=== PATIENT | female | born 1965 | race Caucasian/White ===

== ENCOUNTER 2020-05-18 12:58 | Emergency (ER) | payer OTHER, MEDICARE, SELFPAY ==
--- NOTE | ~2020-05-18 | CT_ITS ---
EXAMINATION: CTA chest PE protocol EXAM DATE: 05/18/2020 16:39 INDICATION: Weakness. Postoperative 3 months ago. TECHNIQUE: Spiral CTA of the chest (pulmonary arteries) was performed with 100 cc Omnipaque 350 intr avenous contrast injection. Images were acquired during the pulmonary arterial phase. Coronal maxi mum intensity projection 3D-reconstructions were created by the technologist on dedicated workstation . Axial, coronal and sagittal reformatted images were reviewed. The dose-length product (DLP) for t his examination was 266.30 mGy-cm. The exposure was tailored according to patient size (auto mA exp osure control), and iterative reconstruction (ASIR) was used as additional dose reduction technique. Comparison is made to prior examination from 05/24/2009. FINDINGS: Pulmonary arteries are well opacified and without intraluminal filling defects. No thora cic aortic dissection. There is mild emphysema and some small scattered tree-in-bud opacities likely postinfectious. There is a 4 mm nodule along the left major fissure likely postinfectious. There is small to moderate size pericardial effusion. No pleural effusion. Tracheobronchial tree is patent. There is no mediastinal, hilar or axillary lymphadenopathy. There is no pneumothorax. Heart nor mal in size. There is mild coronary arterial calcification, arterial sclerosis. Upper abdomen is u nremarkable. There is thoracic spondylosis without osteoblastic or osteolytic lesions identified. IMPRESSION: 1. Small to moderate-sized pericardial effusion. 2. Small post infectious residua. 3. Mild emphysema. 4. No pulmonary emboli. Reviewed, dictated and finalized at location B.
--- NOTE | ~2020-05-18 | XR_ITS ---
EXAMINATION: XR chest 2V DATE: 05/18/2020 13:21 INDICATION: 2 weeks of weakness and one day of fever. TECHNIQUE: PA and lateral views of the chest were obtained. COMPARISON: Chest radiograph dated 07/17/2016 FINDINGS: The lungs remain clear with no focal airspace opacities, pulmonary edema, pleural effusion or pneumot horax. The cardiomediastinal silhouette is normal. Cholecystectomy clips in the right upper quadrant. Mild lower thoracic levocurvature. IMPRESSION: 1. No acute cardiopulmonary disease. Reviewed, dictated and finalized at location A.
--- NOTE | ~2020-05-18 | CT_ITS ---
EXAMINATION: CT abdomen pelvis w con EXAM DATE: 05/18/2020 14:52 INDICATION: Right lower quadrant pain. Fall, head injury. Dizziness. Nausea. Colonic fluid, correla te for diarrhea. TECHNIQUE: Spiral CT of the abdomen and pelvis was performed following intravenous injection of 100 m L Omnipaque 350. Axial, coronal and sagittal images were reviewed. The dose-length product (DLP) fo r this examination was 547.73 mGy-cm. The exposure was tailored according to patient size (auto mA e xposure control), and iterative reconstruction (ASIR) was used as additional dose reduction technique . Comparison is made to prior examination from 02/23/2017. FINDINGS: The liver, spleen, adrenal glands and pancreas are unremarkable. There are cholecystectomy clips. Portal and splenic veins are patent. Kidneys enhance symmetrically. There is no hydronephr osis. The prostate is unremarkable. The bladder is unremarkable. There is no retroperitoneal or p elvic lymphadenopathy. The appendix is normal. The stomach and small bowel are unremarkable. Possible mild ascending colon ic wall edema. There is colonic fluid, correlate for enterocolitis. No free intraperitoneal gas. Th e heart is normal in size. There are no pericardial or pleural effusions. The lung bases are unrema rkable. There are no acute fractures identified. IMPRESSION: 1. Possible mild enterocolitis. 2. No acute posttraumatic findings. Reviewed, dictated and finalized at location B.
--- NOTE | ~2020-05-18 | CT_ITS ---
EXAMINATION: CT brain wo con DATE: 05/18/2020 14:52 INDICATION: Weakness TECHNIQUE: Computed tomography (CT) of the head was performed without intravenous contrast. Sagittal and coronal reconstructions were performed. The mA was adjusted according to patient size. Iterative reconstruction technique was employed. The dose-length product was 605.33 mGy-cm. COMPARISON: head CT dated 03/08/2013 FINDINGS: No acute intracranial hemorrhage, acute infarction or abnormal extra axial fluid collection. Ventricl es are normal and symmetric. No mass/mass effect. The orbits, paranasal sinuses and mastoid air cells are normal. IMPRESSION: 1. No acute cardiopulmonary disease. Reviewed, dictated and finalized at location A.
[2020-05-18 13:00] VITALS: BP 136/96; PULSE 109; RESP 20; TEMP 36.6; O2SAT 97
[2020-05-18 13:04] VITALS: O2SAT 97
--- NOTE | 2020-05-18 13:05 | ECG_ITS ---
Measurements Intervals [place] Rate: 102 P: 27 NE: 156 QRS: 7 QRSD: 92 T: 8 QT: 350 QTc: 456 Interpretive Statements SINUS TACHYCARDIA LOW QRS VOLTAGE- DIFFUSE LEADS BORDERLINE R WAVE PROGRESSION, ANTERIOR LEADS BORDERLINE T WAVE ABNORMALITY- ANT/INF LEADS ABNORMAL ECG Electronically Signed On 05-18-2020 15:45:49 CDT by Thom Pack D.O.
--- NOTE | 2020-05-18 13:17 | ED.GENADULT ---
HPI - General Adult General Chief complaint: Weakness Stated complaint: FLU LIKE SYMPTOMS Time Seen by Provider: 05/18/20 13:02 History of Present Illness HPI narrative: 54-year-old female patient presents to the [facility] with complaints overall just feeling weak. Patient states that she had knee surgery to the left knee in January. Patient states that since then she has just been feeling very weak and tired. Patient states she was told by her primary doctor she had low iron and she was supposed to be getting some IV supplement but states that that has never been set up. Patient states she was taking blood thinners after the surgery but no longer on blood thinners at this time. Patient is diabetic. Patient states that she easily gets tired when getting up moving around. Patient states that at times she does fall and the last time she fell was a couple of weeks ago. Patient states she noticed today she had a fever of 101. Denies chest pain or shortness of breath. Patient states she has had some diarrhea and some lower abdominal discomfort. Patient states she has had headaches at times. Patient states that her left arm feels weaker than normal. Related Data Allergies Allergy/AdvReac Type Severity Reaction Status Date / Time codeine Allergy Unknown cold sores Verified 05/03/20 08:33 diphenhydramine Allergy Unknown BREAKS ME Verified 05/03/20 08:33 OUT doxycycline Allergy Unknown Nausea Verified 05/03/20 08:33 guaifenesin [Entex T] Allergy Unknown Skin Verified 05/03/20 08:33 Reaction morphine Allergy Unknown Verified 05/03/20 08:33 naproxen Allergy Unknown Verified 05/03/20 08:33 Penicillins Allergy Unknown Verified 05/03/20 08:33 prednisone Allergy Unknown Verified 05/03/20 08:33 pseudoephedrine [Entex T] Allergy Unknown Skin Verified 05/03/20 08:33 Reaction ibuprofen AdvReac Mild nausea Verified 05/03/20 08:33 METOCLOPRAMIDE HCL Allergy Mild INTERACTS Uncoded 05/03/20 08:33 WITH PROZAC Review of Systems Review of Systems: Narrative: CONSTITUTIONAL: Denies fever, chills, or sweats. EYES: Denies visual changes, redness, or discharge. ENT: Denies rhinorrhea, congestion, sore throat, or otalgia. CARDIOVASCULAR: Denies chest pain, palpitations, or edema. RESPIRATORY: Denies cough or dyspnea. GASTROINTESTINAL: Positive lower abdominal pain, denies nausea, vomiting, positive diarrhea. GENITOURINARY: Denies dysuria or hematuria. SKIN: Denies rash or itching. MUSCULOSKELETAL: Denies back pain, joint pain, or myalgia. NEUROLOGIC: Positive headache, denies numbness,, positive weakness more so on the left side. PSYCHIATRIC: Denies anxiety or depression. PENDING SALE TO [facility] Past Medical History Medical History (Updated 05/18/20 @ 18:23 by ALONDRA Guevara) Diabetes Hypertension Surgical History Surgical History History of left knee replacement Family History Family History Sibling Family history of elevated blood lipids Family history of diabetes mellitus in first degree relative Mother Family history of diabetes mellitus in first degree relative Father Family history of congestive heart failure Other Cerebrovascular accident Diabetes mellitus Family history of allergic disorder Family history of cardiovascular disease Family history of kidney disease Hypertension Social History Social History Alcohol intake: never Comments At the time of my signature I agree with nursing past medical history, surgical, social, and family history. There is no relevant family history pertinent to the presenting complaint. Exam Narrative: Exam Narrative: GENERAL: ill-appearing, patient appears pale overall weak. No acute distress. HEAD: Normocephalic, atraumatic. EYES: PERRLA and EOMI. ENT: Nares clear, no rhinorrhea or epistaxis. Mucous membran
--- NOTE | 2020-05-18 13:22 | PC.NURSE ---
Patient declines using the bathroom at this time to give a urine sample, patient states Nope I cant do that right now, I went a while ago, your just going to have to wait. Patient able to get up out of wheelchair and walk to bed without difficulty and in no distress.
[2020-05-18 13:43] LABS: Basophils Percent Auto 0.4 % (0.2-1.2); Eosinophils Absolute Auto 0.1 K/mm3 (0-0.3); Eosinophils Percent Auto 1.2 % (0-4.4); Hematocrit 34.3 % (37.0-47.0); Hemoglobin 11.2 g/dL (12.0-15.0); Immature Granulocyte Absolute 0.01 K/mm3 (0.00-0.031); Immature Granulocyte Percent A 0.1 % (0-0.5); Lymphocytes Absolute Auto 1.13 K/mm3 (0.9-3.2); Lymphocytes Percent Auto 13.5 % (18.3-44.2); Mean Corpuscular HGB Conc 32.7 g/dl (32-36); Mean Corpuscular Hemoglobin 27.1 pg (26-34); Mean Corpuscular Volume 82.9 fl (80-100); Mean Platelet Volume 9.1 fl (7.4-10.4); Monocytes Absolute Auto 0.5 K/mm3 (0.1-0.6); Monocytes Percent Auto 6.5 % (2.6-8.5); Neutrophils Absolute Auto 6.5 K/mm3 (1.3-6.7); Neutrophils Percent Auto 78.3 % (45.5-73.1); Platelet Count Result 257 k/mm3 (150-375); Red Blood Count 4.14 M/mm3 (4.2-5.4); Red Cell Distribution Width 14.6 % (11.5-14.5); White Blood Count 8.3 K/mm3 (4.5-10.0)
--- NOTE | 2020-05-18 13:50 | PC.NURSE ---
Called to add on Trop I, PT INR PTT, D dimer, and FE TIBC.
[2020-05-18] MEDS: SODIUM CHLORIDE 0.9% IV 1,000 ML 999 ML IV CONT (13:53)
[2020-05-18 14:11] LABS: Alanine Aminotransferase 58 U/L (4-35); Albumin Level 4.5 g/dL (3.5-5.1); Alkaline Phosphatase 173 U/L (38-126); Aspartate Amino Transferase 77 U/L (14-36); Bilirubin,Total 0.5 mg/dL (0.2-1.3); Blood Urea Nitrogen 11 mg/dL (7-17); Calcium 9.2 mg/dL (8.4-10.2); Carbon Dioxide 25 mmol/L (22-30); Chloride 102 mmol/L (98-107); Estimated CRCL calculation 103 ml/min; Estimated Glomerular Filt Rate > 60; Glucose 141 mg/dL (65-105); Potassium 3.9 mmol/L (3.4-5.0); Sodium 140 mmol/L (137-145)
[2020-05-18 14:13] VITALS: BP 112/73; PULSE 97; RESP 20; O2SAT 97
[2020-05-18 14:16] LABS: Prothrombin Time 13.2 Seconds (11.1-14.7)
[2020-05-18 14:17] LABS: Partial Thromboplastin Time 28.4 SECONDS (22.3-36.8)
[2020-05-18 14:20] LABS: D Dimer 2.21 ug/mL (<0.48)
[2020-05-18 14:22] LABS: Troponin I < 0.012 ng/mL (0.000-0.034)
--- NOTE | 2020-05-18 14:31 | PC.NURSE ---
Called lab to add on FE TIBC
[2020-05-18 14:51] LABS: Iron 44 ug/dL (37-170)
[2020-05-18 15:00] LABS: Percent Iron Saturation 11 % (20-50)
[2020-05-18 15:15] VITALS: BP 113/77; BP 115/80; BP 124/88; PULSE 88; PULSE 92; PULSE 94
[2020-05-18 15:25] LABS: Add Urine Microscopic? NO; Appearance Urine Clear (Clear); Bilirubin Urine Negative (Negative); Blood Urine Negative (Negative); Color Urine Yellow (Yellow); Glucose Urine UA Negative (Negative); Ketones Urine Negative (Negative); Leukocyte Esterase Ur Negative LEU/UL (Negative); Nitrate Urine Negative (Negative); Protein Urine Negative (Negative); Specific Grav Ur 1.014 (1.001-1.035); Urobilinogen Urine Negative mg/dL (<2.0)
[2020-05-18 17:08] VITALS: BP 137/93; PULSE 87; RESP 20; O2SAT 98
--- NOTE | 2020-05-18 17:45 | PC.NURSE ---
Pt ambulated approx 100ft w/o difficulty. Pt denies dizziness, denies SOB/CP.
[2020-05-18 18:37] VITALS: BP 124/70; PULSE 80; RESP 20; TEMP 36.6; O2SAT 99
[2020-05-19 17:16] LABS: SARS-CoV-2 RNA PCR Negative
== END 2020-05-18 18:39 | disposition home or self-care (01) ==
PROVIDERS: Emergency Provider Nurse Practitioner Family; PCP Internal Medicine
DX: R53.1 Weakness (principal); I31.3 Pericardial effusion (noninflammatory); Z20.828 Contact with and (suspected) exposure to other viral communicable diseases; E11.9 Type 2 diabetes mellitus without complications; I10 Essential (primary) hypertension; Z96.652 Presence of left artificial knee joint; R00.0 Tachycardia, unspecified; R94.31 Abnormal electrocardiogram [ECG] [EKG]
CPT/HCPCS: 36415; 36600; 70450; 71046; 71275; 74177; 80053; 81003; 82805; 82948; 83540; 83550; 83605; 84484; 85025; 85380; 85610; 85730; 87635; 93005; 96360; 99284; C9803; J7030; Q9967; U0003

== ENCOUNTER 2020-07-13 13:44 | Emergency (ER) | payer OTHER, MEDICARE, SELFPAY ==
--- NOTE | ~2020-07-13 | CT_ITS ---
EXAMINATION: CTA chest PE protocol DATE: 07/13/2020 14:50 INDICATION: Shortness of breath and tachycardia TECHNIQUE: Computed tomography angiography (CTA) of the chest was performed with 100 mL Omnipaque-350 intravenous contrast timed to evaluate the pulmonary arteries. Coronal maximum intensity projection 3D-reconstructions were created by the technologist. The dose-length product (DLP) was 429.08 mGy-cm. Automated exposure control and iterative reconstruction technique were employed. COMPARISON: 05/18/2020 FINDINGS: The pulmonary arteries are moderately well-opacified. No pulmonary embolism is identified. The lungs are free of acute opacities. There is no pleural effusion or pneumothorax. A chronic small pericardial effusion is noted. No pathologically enlarged thoracic lymph nodes are identified. The h eart size is normal. The left thyroid lobe is hypoplastic or absent. Scattered stable pulmonary nodul es measuring up to 4 mm are consistent with old granulomatous disease. Cholecystectomy clips are note d. There is mild thoracic spondylosis. IMPRESSION: 1. No pulmonary embolism or acute cardiopulmonary abnormality. 2. Chronic small pericardial effusion, stable Reviewed, dictated and finalized at location A.
--- NOTE | ~2020-07-13 | XR_ITS ---
EXAMINATION: XR chest 2V DATE: 07/13/2020 14:45 INDICATION: Shortness of breath and tachycardia TECHNIQUE: PA and lateral views of the chest are obtained. COMPARISON: 05/18/2020 FINDINGS: The lungs are free of acute opacities. There is no pleural effusion or pneumothorax. The ca rdiomediastinal silhouette is normal. There is mild thoracic spondylosis. Surgical clips in the right upper quadrant are likely from prior cholecystectomy. IMPRESSION: 1. No acute cardiopulmonary abnormality. Reviewed, dictated and finalized at location A.
[2020-07-13 13:50] VITALS: BP 146/95; PULSE 128; RESP 20; TEMP 36.1; O2SAT 99
--- NOTE | 2020-07-13 13:54 | ECG_ITS ---
Measurements Intervals [place] Rate: 116 P: 42 VA: 169 QRS: 27 QRSD: 100 T: 17 QT: 325 QTc: 453 Interpretive Statements SINUS TACHYCARDIA POOR R WAVE PROGRESSION, ANTERIOR LEADS BORDERLINE ST-T WAVE ABNORMALITY- ANTEROLAT/INF LEADS BASELINE WANDER- I, III, AVR, AVL, AVF ABNORMAL ECG Electronically Signed On 07-13-2020 13:58:28 CDT by Thom Pack D.O.
[2020-07-13 14:15] LABS: Basophils Percent Auto 0.6 % (0.2-1.2); Eosinophils Absolute Auto 0.1 K/mm3 (0-0.3); Hematocrit 38.9 % (37.0-47.0); Hemoglobin 12.9 g/dL (12.0-15.0); Immature Granulocyte Absolute 0.01 K/mm3 (0.00-0.031); Immature Granulocyte Percent A 0.1 % (0-0.5); Lymphocytes Absolute Auto 1.67 K/mm3 (0.9-3.2); Lymphocytes Percent Auto 24.4 % (18.3-44.2); Mean Corpuscular HGB Conc 33.2 g/dl (32-36); Mean Corpuscular Hemoglobin 28.4 pg (26-34); Mean Corpuscular Volume 85.7 fl (80-100); Mean Platelet Volume 9.2 fl (7.4-10.4); Monocytes Absolute Auto 0.4 K/mm3 (0.1-0.6); Monocytes Percent Auto 6.3 % (2.6-8.5); Neutrophils Absolute Auto 4.6 K/mm3 (1.3-6.7); Neutrophils Percent Auto 67.6 % (45.5-73.1); Platelet Count Result 262 k/mm3 (150-375); Red Blood Count 4.54 M/mm3 (4.2-5.4); Red Cell Distribution Width 15.7 % (11.5-14.5); White Blood Count 6.8 K/mm3 (4.5-10.0)
--- NOTE | 2020-07-13 14:23 | ED.ARRPALP ---
HPI - Arrhythmia/Palpitations General Chief Complaint: Arrhythmia/Palpitations Stated Complaint: short of breath, increased heart rate Time Seen by Provider: 07/13/20 13:49 Source: patient Mode of arrival: ambulatory Limitations: no limitations History of Present Illness HPI narrative: This patient is 54 year old female who presents for evaluation of rapid heart rate. PAtient states she went to get an iron infusion, and she was found to have an elevated heart rate so she was told to come to ER. She reports she intermittent feels her heart racing. She denies chest pain, nausea, vomiting, fever, or cough. She report intermittent sob but she denies now. complaint: rapid heart beat Related Data Home Medications Medication Instructions Recorded Confirmed atorvastatin 20 mg PO DAILY 06/21/20 07/13/20 fluoxetine 20 mg PO DAILY 06/21/20 07/13/20 gabapentin 300 mg PO BID 06/21/20 07/13/20 metformin 2,000 mg PO BID 06/21/20 07/13/20 metoprolol succinate 25 mg PO BID 06/21/20 07/13/20 Allergies Allergy/AdvReac Type Severity Reaction Status Date / Time codeine Allergy Unknown cold sores Verified 07/13/20 13:53 diphenhydramine Allergy Unknown BREAKS ME Verified 07/13/20 13:53 OUT doxycycline Allergy Unknown Nausea Verified 07/13/20 13:53 guaifenesin [Entex T] Allergy Unknown Skin Verified 07/13/20 13:53 Reaction morphine Allergy Unknown Unknown Verified 07/13/20 13:53 naproxen Allergy Unknown Unknown Verified 07/13/20 13:53 Penicillins Allergy Unknown Unknown Verified 07/13/20 13:53 prednisone Allergy Unknown Unknown Verified 07/13/20 13:53 pseudoephedrine [Entex T] Allergy Unknown Skin Verified 07/13/20 13:53 Reaction ibuprofen AdvReac Mild nausea Verified 07/13/20 13:53 METOCLOPRAMIDE HCL Allergy Mild INTERACTS Uncoded 07/13/20 13:53 WITH PROZAC Review of Systems Review of Systems: All systems reviewed & are unremarkable except as noted in HPI and below Constitutional: Constitutional: Denies chills and Denies fever(s) Cardiovascular: Cardiovascular: Denies chest pain and Reports rapid heart rate Respiratory: Respiratory: Denies cough and Reports dyspnea (intermittent) Gastrointestinal: Gastrointestinal: Denies abdominal pain, Denies diarrhea, Denies nausea and Denies vomiting Genitourinary: Genitourinary: Denies hematuria Neurologic: Denies headache(s) [facility] Past Medical History Medical History (Updated 07/13/20 @ 17:51 by Ellen Bates MD) Anemia Diabetes Hypertension Surgical History Surgical History History of left knee replacement Social History Social History Smoking status: Never smoker Alcohol intake: never Gender identity (if verbalized by the patient): Female Spiritual care concerns: No Exam Narrative: Exam Narrative: GENERAL: Well-appearing, well-nourished, and in no acute distress. HEAD: Normocephalic, atraumatic EYES: PERRLA and EOMI, conjunctiva clear without discharge EARS: TM's clear bilaterally without erythema or dullness NOSE: Nares clear, no rhinorrhea or epistaxis THROAT:Mucous membranes moist, Oropharynx normal without erythema, exudate, peritonsillar swelling or fluctuance NECK: Supple, without lymphadenopathy or mass RESPIRATORY: No respiratory distress, Airway patent, Respirations non-labored, Clear to auscultation without rales, rhonchi or wheeze ABDOMEN: Soft, nontender, nondistended, normal active bowel sounds. No masses. No rebound or guarding, No organomegaly. EXTREMITIES: No edema, normal strength with full range of motion. SKIN: Warm, dry, normal color without rash NEURO: Alert and oriented x3. CN 2-12 grossly intact. No focal deficits. PSYCH: Normal mood and affect. Cardio: Rate: tachycardic Rhythm: regular rhythm Heart sounds: no murmurs Course Reevaluation(s) Reevaluation #1: I discussed with patient lab
[2020-07-13 14:26] LABS: Anion Gap 16 mmol/L (8-16); Blood Urea Nitrogen 11 mg/dL (7-17); Calcium 9.6 mg/dL (8.4-10.2); Carbon Dioxide 22 mmol/L (22-30); Chloride 100 mmol/L (98-107); Estimated CRCL calculation 87 ml/min; Estimated Glomerular Filt Rate > 60; Glucose 261 mg/dL (65-105); Potassium 3.3 mmol/L (3.4-5.0); Sodium 138 mmol/L (137-145)
[2020-07-13] MEDS: SODIUM CHLORIDE 0.9% IV 1,000 ML 999 ML IV CONT ×2 (14:29→16:03)
[2020-07-13 14:46] LABS: INR 1.2; Prothrombin Time 14.7 Seconds (11.1-14.7)
[2020-07-13 14:47] LABS: Partial Thromboplastin Time 27.2 SECONDS (22.3-36.8)
[2020-07-13 14:49] LABS: Lactic Acid Reflex 3.5 mmol/L (0.7-2.1); Magnesium 1.4 mg/dL (1.6-2.3)
[2020-07-13 16:04] VITALS: BP 114/79; PULSE 96; RESP 18; O2SAT 100
[2020-07-13 17:17] LABS: Potassium 3.5 mmol/L (3.4-5.0)
[2020-07-13 17:20] LABS: Lactic Acid 1.8 mmol/L (0.7-2.1)
[2020-07-13 17:36] LABS: Reflex Lactic Acid Yes or No Add Lactic
[2020-07-13 17:53] VITALS: BP 124/88; PULSE 98; RESP 18; O2SAT 97
== END 2020-07-13 17:59 | disposition home or self-care (01) ==
PROVIDERS: Emergency Provider General Practice; PCP Internal Medicine
DX: R00.0 Tachycardia, unspecified (principal); E87.2 Acidosis; I31.3 Pericardial effusion (noninflammatory); E11.9 Type 2 diabetes mellitus without complications; I10 Essential (primary) hypertension; Z79.84 Long term (current) use of oral hypoglycemic drugs; Z96.652 Presence of left artificial knee joint; Z86.2 Personal history of diseases of the blood and blood-forming organs and certain disorders involving the immune mechanism; R94.31 Abnormal electrocardiogram [ECG] [EKG]
CPT/HCPCS: 36415; 71046; 71275; 80048; 83605; 83735; 84132; 85025; 85610; 85730; 93005; 96360; 96361; 99284; J7030; Q9967

== ENCOUNTER 2021-07-23 13:56 | Outpatient (CLI) | payer OTHER, MEDICARE, SELFPAY ==
[2021-07-23 14:41] LABS: Anion Gap 12 mmol/L (8-16); Blood Urea Nitrogen 8 mg/dL (7-17); Calcium 9.7 mg/dL (8.4-10.2); Carbon Dioxide 23 mmol/L (22-30); Chloride 104 mmol/L (98-107); Estimated Glomerular Filt Rate > 60; Glucose 147 mg/dL (65-110); Magnesium 1.2 mg/dL (1.6-2.3); Potassium 3.5 mmol/L (3.4-5.0); Sodium 139 mmol/L (137-145)
== END 2021-07-23 13:57 | disposition home or self-care (01) ==
PROVIDERS: PCP Internal Medicine; Visit Provider Nurse Practitioner Adult Health
DX: R94.31 Abnormal electrocardiogram [ECG] [EKG] (principal); R07.89 Other chest pain
CPT/HCPCS: 36415; 80048; 83735

== ENCOUNTER 2021-08-01 12:02 | Outpatient (CLI) | payer OTHER, MEDICARE, SELFPAY ==
[2021-08-01 13:40] LABS: Magnesium 0.9 mg/dL (1.6-2.3)
== END 2021-08-01 12:03 | disposition home or self-care (01) ==
LOC: ANHLAB 12:04
PROVIDERS: PCP Internal Medicine; Visit Provider Nurse Practitioner Adult Health
DX: E83.42 Hypomagnesemia (principal)
CPT/HCPCS: 36415; 83735

== ENCOUNTER 2021-08-08 11:42 | Outpatient (CLI) | payer OTHER, MEDICARE, SELFPAY ==
[2021-08-08 12:32] LABS: Magnesium 1.6 mg/dL (1.6-2.3)
== END 2021-08-08 11:43 | disposition home or self-care (01) ==
LOC: ANHLAB 11:45
PROVIDERS: PCP Internal Medicine; Visit Provider Internal Medicine Cardiovascular Disease
DX: E83.42 Hypomagnesemia (principal)
CPT/HCPCS: 36415; 83735

== ENCOUNTER 2021-08-29 12:38 | Outpatient (CLI) | payer OTHER, MEDICARE, SELFPAY ==
[2021-08-29 13:31] LABS: Magnesium 1.3 mg/dL (1.6-2.3)
== END 2021-08-29 12:39 | disposition home or self-care (01) ==
LOC: ANHLAB 12:42
PROVIDERS: PCP Internal Medicine; Visit Provider Nurse Practitioner Adult Health
DX: E83.42 Hypomagnesemia (principal)
CPT/HCPCS: 36415; 83735

== ENCOUNTER 2022-07-31 08:35 | Outpatient (CLI) | payer OTHER, MEDICARE, SELFPAY ==
[2022-07-31 09:45] LABS: Basophils Percent Auto 0.8 % (0.2-1.2); Eosinophils Absolute Auto 0.1 K/mm3 (0-0.3); Eosinophils Percent Auto 2.6 % (0-4.4); Hematocrit 34.2 % (37.0-47.0); Immature Granulocyte Absolute 0.02 K/mm3 (0.00-0.031); Immature Granulocyte Percent A 0.5 % (0-0.5); Lymphocytes Absolute Auto 1.34 K/mm3 (0.9-3.2); Lymphocytes Percent Auto 34.7 % (18.3-44.2); Mean Corpuscular HGB Conc 32.2 g/dl (32-36); Mean Corpuscular Hemoglobin 29.6 pg (26-34); Mean Corpuscular Volume 91.9 fl (80-100); Mean Platelet Volume 9.3 fl (7.4-10.4); Monocytes Absolute Auto 0.3 K/mm3 (0.1-0.6); Monocytes Percent Auto 6.7 % (2.6-8.5); Neutrophils Absolute Auto 2.1 K/mm3 (1.3-6.7); Neutrophils Percent Auto 54.7 % (45.5-73.1); Platelet Count Result 195 k/mm3 (150-375); Red Blood Count 3.72 M/mm3 (4.2-5.4); Red Cell Distribution Width 13.5 % (11.5-14.5); White Blood Count 3.9 K/mm3 (4.5-10.0)
[2022-07-31 09:59] LABS: Alanine Aminotransferase 42 U/L (6-35); Albumin Level 4.2 g/dL (3.5-5.1); Alkaline Phosphatase 156 U/L (38-126); Anion Gap 11 mmol/L (8-16); Aspartate Amino Transferase 63 U/L (14-36); Bilirubin,Total 0.5 mg/dL (0.2-1.3); Blood Urea Nitrogen 10 mg/dL (7-17); Calcium 8.6 mg/dL (8.4-10.2); Carbon Dioxide 26 mmol/L (22-30); Chloride 102 mmol/L (98-107); Estimated Glomerular Filt Rate > 60; Glucose 166 mg/dL (65-110); Potassium 3.9 mmol/L (3.4-5.0); Sodium 139 mmol/L (137-145)
[2022-07-31 10:00] LABS: Anion Gap 13 mmol/L (8-16); Blood Urea Nitrogen 11 mg/dL (7-17); Calcium 8.8 mg/dL (8.4-10.2); Carbon Dioxide 26 mmol/L (22-30); Chloride 101 mmol/L (98-107); Estimated Glomerular Filt Rate > 60; Glucose 165 mg/dL (65-110); Potassium 3.8 mmol/L (3.4-5.0); Sodium 140 mmol/L (137-145)
[2022-07-31 10:33] LABS: Iron 68 ug/dL (37-170)
[2022-07-31 10:43] LABS: Percent Iron Saturation 18 % (20-50)
[2022-07-31 11:04] LABS: Folic Acid 6.1 ng/mL (2.76->20)
== END 2022-07-31 08:36 | disposition home or self-care (01) ==
PROVIDERS: PCP Internal Medicine; Visit Provider Internal Medicine Hematology & Oncology
DX: D64.9 Anemia, unspecified (principal); D51.3 Other dietary vitamin B12 deficiency anemia
CPT/HCPCS: 36415; 80048; 80053; 82607; 82746; 83540; 83550; 85025

== ENCOUNTER 2022-08-06 14:48 | Emergency (ER) | payer OTHER, MEDICARE, SELFPAY ==
--- NOTE | ~2022-08-06 | CT_ITS ---
EXAMINATION: CT abdomen pelvis w con DATE: 08/06/2022 18:04 INDICATION: abdominal pain TECHNIQUE: Computed tomography (CT) of the abdomen and pelvis was performed with 100 mL Omnipaque-350 intravenous contrast. Automated exposure control and iterative reconstruction technique were employe d. The dose-length product was 474.58 mGy-cm. COMPARISON: 05/18/2020. FINDINGS: Lower thorax: Lingular scar. Coronary artery calcification. Small volume pericardial fluid, unchanged Liver: Enlarged. Fatty infiltration Biliary/Gallbladder: Gallbladder is absent. No bile duct dilation. Pancreas: Fatty infiltration Spleen: Normal. Adrenals:No mass. Kidneys: No mass, stone, or hydronephrosis. GI tract: Distal esophageal and gastric wall edema. No small or large bowel dilation. Normal appendix . Mesentery/Peritoneum: No ascites, mass, or free air. Retroperitoneum: No mass. Atherosclerotic abdominal aortic and/or arterial calcifications. Pelvis: Uterus not visualized. Normal urinary bladder. Soft Tissues: Soft tissues and body wall unremarkable. Bones: No acute osseous finding. IMPRESSION: Mild pericardial effusion, unchanged. Esophagitis/gastritis. Hepatomegaly. Steatosis. Reviewed, dictated and finalized at location K. IMPRESSION: Mild pericardial effusion, unchanged. Esophagitis/gastritis. Hepatomegaly. Stea tosis.
[2022-08-06 14:49] VITALS: BP 124/68; PULSE 84; RESP 16; TEMP 36.7; O2SAT 100
--- NOTE | 2022-08-06 14:53 | ECG_ITS ---
Measurements Intervals [place] Rate: 85 P: 54 NE: 178 QRS: 4 QRSD: 97 T: 57 QT: 399 QTc: 476 Interpretive Statements SINUS RHYTHM LOW QRS VOLTAGE IN PRECORDIAL LEADS BORDERLINE R WAVE PROGRESSION, ANTERIOR LEADS BORDERLINE T WAVE ABNORMALITY- ANTEROLATERAL LEADS BASELINE WANDER- V4-V6 BORDERLINE ECG COMPARED TO ECG 07/13/2020 13:53:44 SINUS RHYTHM NOW PRESENT Electronically Signed On 08-06-2022 15:34:23 CDT by Thom Pack D.O.
[2022-08-06 15:20] LABS: Appearance Urine Clear (Clear); Basophils Absolute Auto 0.1 K/mm3 (0.0-0.1); Basophils Percent Auto 0.7 % (0.2-1.2); Bilirubin Urine Negative (Negative); Color Urine Yellow (Yellow); Eosinophils Absolute Auto 0.2 K/mm3 (0-0.3); Eosinophils Percent Auto 2.2 % (0-4.4); Glucose Urine UA Negative (Negative); Hemoglobin 11.5 g/dL (12.0-15.0); Immature Granulocyte Absolute 0.03 K/mm3 (0.00-0.031); Immature Granulocyte Percent A 0.4 % (0-0.5); Ketones Urine Negative (Negative); Leukocyte Esterase Ur 1+ LEU/UL (Negative); Lymphocytes Absolute Auto 2.23 K/mm3 (0.9-3.2); Lymphocytes Percent Auto 30.5 % (18.3-44.2); Mean Corpuscular HGB Conc 32.9 g/dl (32-36); Mean Corpuscular Hemoglobin 29.9 pg (26-34); Mean Corpuscular Volume 91.1 fl (80-100); Mean Platelet Volume 9.1 fl (7.4-10.4); Monocytes Absolute Auto 0.5 K/mm3 (0.1-0.6); Monocytes Percent Auto 6.1 % (2.6-8.5); Neutrophils Absolute Auto 4.4 K/mm3 (1.3-6.7); Neutrophils Percent Auto 60.1 % (45.5-73.1); Nitrate Urine Negative (Negative); Platelet Count Result 254 k/mm3 (150-375); Protein Urine Negative (Negative); Red Blood Count 3.84 M/mm3 (4.2-5.4); Red Cell Distribution Width 13.5 % (11.5-14.5); Specific Grav Ur 1.015 (1.001-1.035); Urobilinogen Urine 0.2 mg/dL (<2.0); White Blood Count 7.3 K/mm3 (4.5-10.0); pH Urine 5.5 (5.0-9.0)
[2022-08-06 15:27] LABS: Mucus Urine Rare /lpf; Squamous Epithelial Cell Urine Many /hpf (Few); WBC Urine 0-3 /hpf
[2022-08-06 15:29] LABS: Add Urine Microscopic? YES; Blood Urine Trace-Intact (Negative)
[2022-08-06 15:30] LABS: Alanine Aminotransferase 33 U/L (6-35); Albumin Level 4.6 g/dL (3.5-5.1); Alkaline Phosphatase 146 U/L (38-126); Anion Gap 15 mmol/L (8-16); Aspartate Amino Transferase 51 U/L (14-36); Bilirubin,Total 0.4 mg/dL (0.2-1.3); Blood Urea Nitrogen 17 mg/dL (7-17); Calcium 9.1 mg/dL (8.4-10.2); Carbon Dioxide 20 mmol/L (22-30); Chloride 101 mmol/L (98-107); Estimated CRCL calculation 58 ml/min; Estimated Glomerular Filt Rate > 60; Glucose 221 mg/dL (65-110); Lipase 267 U/L (23-300); Potassium 3.8 mmol/L (3.4-5.0); Sodium 136 mmol/L (137-145)
--- NOTE | 2022-08-06 15:59 | ED.GENADULT ---
HPI - General Adult General Chief complaint: Abdominal Pain Stated complaint: Heartburn Time Seen by Provider: 08/06/22 15:13 History of Present Illness HPI narrative: 56-year-old female with past medical history of iron deficiency anemia and acid reflux presents to our department for a burning epigastric pain which is felt from her epigastrium, anterior chest wall and anterior throat. Symptoms of been present for 2 to 3 days. She takes Mylanta and Zofran without relief. She denies shortness of breath. There is no exertional component to her symptoms.. Related Data Home Medications Medication Instructions Recorded Confirmed atorvastatin 20 mg tablet 20 mg PO DAILY 06/21/20 11/15/21 fluoxetine 20 mg tablet 20 mg PO DAILY 06/21/20 11/15/21 gabapentin 300 mg capsule 300 mg PO BID 06/21/20 11/15/21 metformin 1,000 mg tablet 2,000 mg PO BID 06/21/20 11/15/21 metoprolol succinate 25 mg 25 mg PO BID 06/21/20 11/15/21 tablet,extended release 24 hr magnesium 500 mg tablet 15 mg PO BID 09/13/20 11/15/21 allopurinol 100 mg tablet 100 mg PO DAILY 08/29/21 11/15/21 Allergies Allergy/AdvReac Type Severity Reaction Status Date / Time codeine Allergy Unknown cold sores Verified 08/06/22 16:00 diphenhydramine Allergy Unknown BREAKS ME Verified 08/06/22 16:00 OUT doxycycline Allergy Unknown Nausea Verified 08/06/22 16:00 guaifenesin [Entex T] Allergy Unknown Skin Verified 08/06/22 16:00 Reaction morphine Allergy Unknown Unknown Verified 08/06/22 16:00 naproxen Allergy Unknown Unknown Verified 08/06/22 16:00 Penicillins Allergy Unknown Unknown Verified 08/06/22 16:00 prednisone Allergy Unknown Unknown Verified 08/06/22 16:00 pseudoephedrine [Entex T] Allergy Unknown Skin Verified 08/06/22 16:00 Reaction ibuprofen AdvReac Mild nausea Verified 08/06/22 16:00 METOCLOPRAMIDE HCL Allergy Mild INTERACTS Uncoded 11/15/21 11:14 WITH PROZAC Review of Systems Review of Systems: CONSTITUTIONAL: Denies fever, chills, or sweats. EYES: Denies visual changes, redness, or discharge. ENT: Denies rhinorrhea, congestion, sore throat, or otalgia. CARDIOVASCULAR: Denies chest pain, palpitations, or edema. RESPIRATORY: Denies cough or dyspnea. GASTROINTESTINAL: Denies abdominal pain, nausea, vomiting, or diarrhea. GENITOURINARY: Denies dysuria or hematuria. SKIN: Denies rash or itching. MUSCULOSKELETAL: Denies back pain, joint pain, or myalgia. NEUROLOGIC: Denies headache, numbness, or weakness. PSYCHIATRIC: Denies anxiety or depression. PMFSH Past Medical History Medical History Anemia Diabetes Hypertension Surgical History Surgical History History of left knee replacement Family History Family History Sibling Family history of elevated blood lipids Family history of diabetes mellitus in first degree relative Mother Family history of diabetes mellitus in first degree relative Father Family history of congestive heart failure Other Cerebrovascular accident Diabetes mellitus Family history of allergic disorder Family history of cardiovascular disease Family history of kidney disease Hypertension Social History Social History Smoking status: Never smoker Alcohol intake: never Gender identity (if verbalized by the patient): Female Spiritual care concerns: No Exam Narrative: GENERAL: Well-appearing, well-nourished, and in no acute distress. HEAD: Normocephalic, atraumatic. EYES: PERRLA and EOMI. ENT: Nares clear, no rhinorrhea or epistaxis. Mucous membranes moist. NECK: Supple. CHEST: Clear to auscultation. No respiratory distress. HEART: Regular rate and rhythm. No murmur heard. Normal peripheral pulses. ABDOMEN: Soft, nontender, nondistended, normal active bowel
[2022-08-06] MEDS: BELLADONNA ALK/PHENOB ELIX 10 ML, MAG HYDROX/ALUMINUM HYD/SIMETH 30 ML, LIDOCAINE HCL 2... PO (16:10)
[2022-08-06 16:55] LABS: Troponin I < 0.012 ng/mL (0.000-0.034)
[2022-08-06 17:46] VITALS: BP 116/81; PULSE 95; RESP 16; O2SAT 100
[2022-08-06 18:23] VITALS: BP 123/74; PULSE 101; RESP 14; O2SAT 100
[2022-08-06 19:05] VITALS: BP 123/88; PULSE 80; RESP 19; O2SAT 97
== END 2022-08-06 19:05 | disposition home or self-care (01) ==
PROVIDERS: Emergency Provider Emergency Medicine; PCP Internal Medicine
DX: R10.13 Epigastric pain (principal); E11.9 Type 2 diabetes mellitus without complications; I10 Essential (primary) hypertension; Z96.652 Presence of left artificial knee joint; Z79.84 Long term (current) use of oral hypoglycemic drugs; R94.31 Abnormal electrocardiogram [ECG] [EKG]
CPT/HCPCS: 36415; 74177; 80053; 81001; 83690; 84484; 85025; 93005; 99284; A9270; Q9967

== ENCOUNTER 2022-08-16 14:27 | Emergency (ER) | payer MEDICARE, OTHER, SELFPAY ==
--- NOTE | ~2022-08-16 | XR_ITS ---
XR chest 2V DATE: 08/16/2022 16:24 INDICATION: Chest pain TECHNIQUE: PA and lateral views COMPARISON: 07/13/2020 CT pulmonary scan 07/13/2020 2 view chest FINDINGS: Normal heart size. No hilar or mediastinal enlargement. No pulmonary infiltrate or consolid ation, pleural effusion or pulmonary vascular congestion or pneumothorax is detected. Surgical clips, right upper quadrant, consistent with cholecystectomy. IMPRESSION: No active cardiopulmonary disease or significant change since 07/13/2020 Reviewed, dictated and finalized at location B. IMPRESSION: No active cardiopulmonary disease or significant change since 2019
[2022-08-16 15:20] VITALS: BP 117/82; PULSE 91; RESP 17; TEMP 36.2; O2SAT 98
[2022-08-16 16:03] VITALS: BP 117/79; PULSE 76; RESP 16; O2SAT 97
--- NOTE | 2022-08-16 16:22 | ED.NAVMDI ---
HPI - Nausea/Vomiting/Diarrhea General Chief complaint: Nausea/Vomiting/Diarrhea Stated complaint: heartburn x3 weeks Time Seen by Provider: 08/16/22 16:04 History of Present Illness HPI Narrative: Patient is a 57-year-old female here for evaluation of epigastric discomfort for the past 3 weeks. Patient states the pain is constant in nature, remains in her epigastrium and also points to her lower throat in the area of discomfort. States it feels like a burning type pain. She is attempted Tums and Tylenol without significant relief. She was seen in the ED and also by her PCP and was told it was acid reflux; which she has had her whole life apparently. She has seen a GI specialist in the past and has had an endoscopy with biopsy but this was years ago . Denies any exertional pain, shortness of breath, fevers or chills, nausea or vomiting, diarrhea, constipation. Related Data Home Medications Medication Instructions Recorded Confirmed atorvastatin 20 mg tablet 20 mg PO DAILY 06/21/20 11/15/21 fluoxetine 20 mg tablet 20 mg PO DAILY 06/21/20 11/15/21 gabapentin 300 mg capsule 300 mg PO BID 06/21/20 11/15/21 metformin 1,000 mg tablet 2,000 mg PO BID 06/21/20 11/15/21 metoprolol succinate 25 mg 25 mg PO BID 06/21/20 11/15/21 tablet,extended release 24 hr magnesium 500 mg tablet 15 mg PO BID 09/13/20 11/15/21 allopurinol 100 mg tablet 100 mg PO DAILY 08/29/21 11/15/21 Allergies Allergy/AdvReac Type Severity Reaction Status Date / Time codeine Allergy Unknown cold sores Verified 08/06/22 16:00 diphenhydramine Allergy Unknown BREAKS ME Verified 08/06/22 16:00 OUT doxycycline Allergy Unknown Nausea Verified 08/06/22 16:00 guaifenesin [Entex T] Allergy Unknown Skin Verified 08/06/22 16:00 Reaction morphine Allergy Unknown Unknown Verified 08/06/22 16:00 naproxen Allergy Unknown Unknown Verified 08/06/22 16:00 Penicillins Allergy Unknown Unknown Verified 08/06/22 16:00 prednisone Allergy Unknown Unknown Verified 08/06/22 16:00 pseudoephedrine [Entex T] Allergy Unknown Skin Verified 08/06/22 16:00 Reaction ibuprofen AdvReac Mild nausea Verified 08/06/22 16:00 METOCLOPRAMIDE HCL Allergy Mild INTERACTS Uncoded 11/15/21 11:14 WITH PROZAC Review of Systems Review of Systems: Gen: Denies fevers or chills Eyes: Denies eye pain or visual change ENT: Denies congestion Respiratory: Denies shortness of breath or cough CV: Denies chest pain or palpitations GI: Reports abdominal pain : denies burning, urgency, frequency or hematuria Musculoskeletal: Denies back pain or muscle pain Neuro: Denies numbness, tingling, weakness or focal weakness Skin: Denies rash Except as documented, all other systems reviewed and negative PMFSH Past Medical History Medical History Anemia Diabetes Hypertension Surgical History Surgical History History of left knee replacement Family History Family History Sibling Family history of elevated blood lipids Family history of diabetes mellitus in first degree relative Mother Family history of diabetes mellitus in first degree relative Father Family history of congestive heart failure Other Cerebrovascular accident Diabetes mellitus Family history of allergic disorder Family history of cardiovascular disease Family history of kidney disease Hypertension Social History Social History Smoking status: Never smoker Alcohol intake: never Gender identity (if verbalized by the patient): Female Spiritual care concerns: No Exam Narrative: APPEARANCE: Well appearing, no pain in distress, well-nourished. Head: Normocephalic and atraumatic. EYES: PERRLA/EOMI, conjunctivae clear NOSE: No nasal drainage EARS: External ear normal in appe
[2022-08-16 16:25] LABS: Basophils Percent Auto 0.8 % (0.2-1.2); Eosinophils Absolute Auto 0.1 K/mm3 (0-0.3); Eosinophils Percent Auto 1.5 % (0-4.4); Hematocrit 30.9 % (37.0-47.0); Hemoglobin 10.2 g/dL (12.0-15.0); Immature Granulocyte Absolute 0.01 K/mm3 (0.00-0.031); Immature Granulocyte Percent A 0.2 % (0-0.5); Lymphocytes Absolute Auto 1.41 K/mm3 (0.9-3.2); Lymphocytes Percent Auto 26.9 % (18.3-44.2); Mean Corpuscular Hemoglobin 30.3 pg (26-34); Mean Corpuscular Volume 91.7 fl (80-100); Monocytes Absolute Auto 0.3 K/mm3 (0.1-0.6); Monocytes Percent Auto 6.5 % (2.6-8.5); Neutrophils Absolute Auto 3.4 K/mm3 (1.3-6.7); Neutrophils Percent Auto 64.1 % (45.5-73.1); Platelet Count Result 186 k/mm3 (150-375); Red Blood Count 3.37 M/mm3 (4.2-5.4); Red Cell Distribution Width 13.2 % (11.5-14.5); White Blood Count 5.2 K/mm3 (4.5-10.0)
[2022-08-16 16:36] LABS: Alanine Aminotransferase 41 U/L (6-35); Albumin Level 4.1 g/dL (3.5-5.1); Alkaline Phosphatase 144 U/L (38-126); Anion Gap 12 mmol/L (8-16); Aspartate Amino Transferase 48 U/L (14-36); Bilirubin,Total 0.3 mg/dL (0.2-1.3); Blood Urea Nitrogen 10 mg/dL (7-17); Calcium 8.4 mg/dL (8.4-10.2); Carbon Dioxide 24 mmol/L (22-30); Chloride 102 mmol/L (98-107); Estimated CRCL calculation 72 ml/min; Estimated Glomerular Filt Rate > 60; Glucose 145 mg/dL (65-110); Lipase 284 U/L (23-300); Potassium 4.1 mmol/L (3.4-5.0); Sodium 138 mmol/L (137-145)
[2022-08-16 16:47] LABS: Troponin I < 0.012 ng/mL (0.000-0.034)
--- NOTE | 2022-08-16 17:16 | ECG_ITS ---
Measurements Intervals [place] Rate: 78 P: 46 VA: 186 QRS: 23 QRSD: 97 T: 31 QT: 395 QTc: 451 Interpretive Statements SINUS RHYTHM DELAYED PRECORDIAL R/S TRANSITION LOW QRS VOLTAGE IN LIMB LEADS BORDERLINE ST-T WAVE ABNORMALITY- ANTERIOR LEADS BORDERLINE ECG COMPARED TO ECG 08/06/2022 15:02:07 NO SIGNIFICANT CHANGES Electronically Signed On 08-16-2022 21:09:20 CDT by Thom Pack D.O.
[2022-08-16] MEDS: PANTOPRAZOLE SODIUM IV 40 MG VIAL IV PUSH (17:17)
[2022-08-16 18:22] VITALS: BP 109/76; PULSE 84; RESP 16; O2SAT 96
== END 2022-08-16 18:23 | disposition home or self-care (01) ==
PROVIDERS: Physician Assistant; Emergency Provider Emergency Medicine; PCP Internal Medicine
DX: K21.9 Gastro-esophageal reflux disease without esophagitis (principal); E11.9 Type 2 diabetes mellitus without complications; I10 Essential (primary) hypertension; Z79.84 Long term (current) use of oral hypoglycemic drugs; Z96.652 Presence of left artificial knee joint; R94.31 Abnormal electrocardiogram [ECG] [EKG]
CPT/HCPCS: 36415; 71046; 80053; 83690; 84484; 85025; 93005; 96374; 99284; C9113

== ENCOUNTER 2023-01-20 12:05 | Outpatient (CLI) | payer OTHER, MEDICARE, SELFPAY ==
[2023-01-20 13:18] LABS: Magnesium 1.1 mg/dL (1.6-2.3)
== END 2023-01-20 12:06 | disposition home or self-care (01) ==
PROVIDERS: Nurse Practitioner Adult Health; PCP Internal Medicine; Visit Provider Internal Medicine Cardiovascular Disease
DX: E61.2 Magnesium deficiency (principal)
CPT/HCPCS: 36415; 83735

== ENCOUNTER 2023-02-13 15:51 | Emergency (ER) | payer OTHER, MEDICARE, SELFPAY ==
--- NOTE | ~2023-02-13 | XR_ITS ---
XR chest 2V DATE: 02/13/2023 16:33 INDICATION: Mid chest pressure. History of fluid around heart TECHNIQUE: PA and lateral views COMPARISON: 08/16/2022 PA and lateral chest 07/13/2020 CTA chest FINDINGS: Normal heart size. No hilar or mediastinal enlargement. No pulmonary infiltrate or consolid ation, pleural effusion or pulmonary vascular congestion or pneumothorax is detected. Surgical clips, right upper quadrant, consistent with cholecystectomy. IMPRESSION: No active cardiopulmonary disease Reviewed, dictated and finalized at location A.
--- NOTE | 2023-02-13 16:00 | ECG_ITS ---
Measurements Intervals [place] Rate: 84 P: 42 IN: 198 QRS: 0 QRSD: 89 T: 16 QT: 389 QTc: 461 Interpretive Statements SINUS RHYTHM VENTRICULAR PREMATURE COMPLEX LOW QRS VOLTAGE IN PRECORDIAL LEADS BORDERLINE ST-T WAVE ABNORMALITY- ANT/INF LEADS BORDERLINE ECG COMPARED TO ECG 08/16/2022 18:00:36 NO SIGNIFICANT CHANGES Electronically Signed On 02-13-2023 16:05:51 CDT by Thom Pack D.O.
[2023-02-13 16:06] VITALS: BP 107/73; PULSE 82; RESP 18; TEMP 36.5; O2SAT 100
[2023-02-13 16:56] LABS: Basophils Percent Auto 0.7 % (0.2-1.2); Eosinophils Absolute Auto 0.1 K/mm3 (0-0.3); Eosinophils Percent Auto 1.4 % (0-4.4); Hematocrit 33.1 % (37.0-47.0); Hemoglobin 10.7 g/dL (12.0-15.0); Immature Granulocyte Absolute 0.02 K/mm3 (0.00-0.031); Immature Granulocyte Percent A 0.3 % (0-0.5); Lymphocytes Absolute Auto 1.71 K/mm3 (0.9-3.2); Lymphocytes Percent Auto 29.8 % (18.3-44.2); Mean Corpuscular HGB Conc 32.3 g/dl (32-36); Mean Corpuscular Hemoglobin 28.1 pg (26-34); Mean Corpuscular Volume 86.9 fl (80-100); Mean Platelet Volume 9.3 fl (7.4-10.4); Monocytes Absolute Auto 0.4 K/mm3 (0.1-0.6); Monocytes Percent Auto 6.4 % (2.6-8.5); Neutrophils Absolute Auto 3.5 K/mm3 (1.3-6.7); Neutrophils Percent Auto 61.4 % (45.5-73.1); Platelet Count Result 225 k/mm3 (150-375); Red Blood Count 3.81 M/mm3 (4.2-5.4); White Blood Count 5.7 K/mm3 (4.5-10.0)
[2023-02-13 16:57] LABS: Alanine Aminotransferase 45 U/L (6-35); Albumin Level 4.5 g/dL (3.5-5.1); Alkaline Phosphatase 146 U/L (38-126); Anion Gap 9 mmol/L (8-16); Aspartate Amino Transferase 60 U/L (14-36); Bilirubin,Total 0.6 mg/dL (0.2-1.3); Blood Urea Nitrogen 11 mg/dL (7-17); Calcium 8.5 mg/dL (8.4-10.2); Carbon Dioxide 25 mmol/L (22-30); Chloride 104 mmol/L (98-107); Estimated CRCL calculation 98 ml/min; Estimated Glomerular Filt Rate > 60; Glucose 147 mg/dL (65-110); INR 1.2; Lipase 139 U/L (23-300); Potassium 4.2 mmol/L (3.4-5.0); Prothrombin Time 14.3 Seconds (11.1-14.7); Sodium 138 mmol/L (137-145)
[2023-02-13 16:58] LABS: Partial Thromboplastin Time 30.7 SECONDS (22.3-36.8)
[2023-02-13 17:09] LABS: Troponin I < 0.012 ng/mL (0.000-0.034)
--- NOTE | 2023-02-13 17:56 | PC.NURSE ---
Pt to nurses station states she no longer wishes to be seen.
== END 2023-02-13 17:56 | disposition left against medical advice (07) ==
LOC: ANHED 18:25
PROVIDERS: Emergency Provider Emergency Medicine; PCP Internal Medicine
DX: R07.89 Other chest pain (principal); Z53.21 Procedure and treatment not carried out due to patient leaving prior to being seen by health care provider
CPT/HCPCS: 36415; 71046; 80053; 83690; 84484; 85025; 85610; 85730; 93005; 99199

== ENCOUNTER 2023-05-08 13:27 | Outpatient (CLI) | payer OTHER, MEDICARE, SELFPAY ==
--- NOTE | ~2023-05-08 | US_ITS ---
US art doppler w press LE BI INDICATION: Claudication TECHNIQUE: Segmental pressures and plethysmographic and Doppler waveforms of the brachial and lower e xtremity arteries were obtained. COMPARISON: None. FINDINGS: Right and left brachial artery pressures of 106 mm Hg and 112 mm Hg, respectively, are concordant (no rmal difference <= 30 mmHg). The right ankle-brachial index (ZACHARY) is 1.17 (normal >= 0.9-1.0). The right great toe-brachial index (TBI) is 0.88 (normal >= 0.60). The left ZACHARY is 1.15. The left TBI is 0.52. IMPRESSION: 1. Normal bilateral ankle-brachial indices. 2: Diminished left TBI measures 0.52, consistent with mild peripheral arterial disease. Reviewed, dictated and finalized at location []
== END 2023-05-08 13:28 | disposition home or self-care (01) ==
LOC: ANHIMG 13:28
PROVIDERS: PCP Internal Medicine; Visit Provider Internal Medicine Cardiovascular Disease
DX: I73.9 Peripheral vascular disease, unspecified (principal)
CPT/HCPCS: 93923

== ENCOUNTER 2023-06-30 15:32 | Emergency (ER) | payer OTHER, MEDICARE, SELFPAY ==
--- NOTE | ~2023-06-30 | CT_ITS ---
EXAMINATION: CTA chest DATE: 06/30/2023 16:27 INDICATION: Chest pressure. TECHNIQUE: Computed tomographic angiography (CTA) of the chest was performed with 100 mL Omnipaque-35 0 intravenous contrast. Automated exposure control and iterative reconstruction technique were employ ed. The dose-length product was 336.54 mGy-cm. Maximum intensity projection 3D-reconstructions of the aorta and other arteries were constructed by the technologist on a separate workstation. COMPARISON: Chest CT 07/13/2020 FINDINGS: The lungs demonstrate mild atelectasis. There are scattered nodules and groundglass nodules in all lobes. Calcified right hilar and mediastinal lymph nodes are consistent with old granulomatou s disease. No pleural effusion. There are changes of left hemithyroidectomy. The heart size is normal . There is a small pericardial effusion. There are changes of cholecystectomy. There is diffuse hepat ic steatosis. There is mild aortic atherosclerosis. No aneurysm or dissection. There is no pulmonary embolus. There is mild thoracic spondylosis. IMPRESSION: 1. Mild aortic atherosclerosis. No aneurysm or dissection. 2. Diffuse lung disease, consistent with pneumonia. 3. Chronic small pericardial effusion. Reviewed, dictated and finalized at location A.
[2023-06-30 15:33] VITALS: BP 125/84; PULSE 139; RESP 20; TEMP 36.3; O2SAT 98
--- NOTE | 2023-06-30 15:33 | ECG_ITS ---
Measurements Intervals [place] Rate: 137 P: 70 ND: 182 QRS: 55 QRSD: 89 T: 32 QT: 372 QTc: 564 Interpretive Statements SINUS TACHYCARDIA LOW QRS VOLTAGE IN EXTREMITY LEADS [QRS DEFLECTION < 0.5 mV IN LIMB LEADS] MINIMAL ST DEPRESSION [0.025+ mV ST DEPRESSION] ABNORMAL ECG COMPARED TO ECG 02/13/2023 16:02:13 PATIENT IS MORE TACHYCARDIC Electronically Signed On 07-01-2023 13:11:20 CDT by Mike Wild M.D.
[2023-06-30 15:45] LABS: Basophils Absolute Auto 0.1 K/mm3 (0.0-0.1); Basophils Percent Auto 0.8 % (0.2-1.2); Eosinophils Absolute Auto 0.1 K/mm3 (0-0.3); Eosinophils Percent Auto 1.6 % (0-4.4); Hematocrit 33.2 % (37.0-47.0); Hemoglobin 10.8 g/dL (12.0-15.0); Immature Granulocyte Absolute 0.01 K/mm3 (0.00-0.031); Immature Granulocyte Percent A 0.2 % (0-0.5); Lymphocytes Absolute Auto 1.58 K/mm3 (0.9-3.2); Lymphocytes Percent Auto 24.8 % (18.3-44.2); Mean Corpuscular HGB Conc 32.5 g/dl (32-36); Mean Corpuscular Hemoglobin 28.4 pg (26-34); Mean Corpuscular Volume 87.4 fl (80-100); Mean Platelet Volume 8.7 fl (7.4-10.4); Monocytes Absolute Auto 0.5 K/mm3 (0.1-0.6); Monocytes Percent Auto 7.1 % (2.6-8.5); Neutrophils Absolute Auto 4.2 K/mm3 (1.3-6.7); Neutrophils Percent Auto 65.5 % (45.5-73.1); Platelet Count Result 235 k/mm3 (150-375); Red Cell Distribution Width 13.9 % (11.5-14.5); White Blood Count 6.4 K/mm3 (4.5-10.0)
[2023-06-30 15:55] LABS: Alanine Aminotransferase 27 U/L (6-35); Albumin Level 4.5 g/dL (3.5-5.1); Alkaline Phosphatase 128 U/L (38-126); Anion Gap 13 mmol/L (8-16); Aspartate Amino Transferase 41 U/L (14-36); Bilirubin,Total 0.4 mg/dL (0.2-1.3); Blood Urea Nitrogen 13 mg/dL (7-17); Calcium 9.2 mg/dL (8.4-10.2); Carbon Dioxide 21 mmol/L (22-30); Chloride 101 mmol/L (98-107); Estimated CRCL calculation 63 ml/min; Estimated Glomerular Filt Rate > 60; Glucose 177 mg/dL (65-110); Lipase 145 U/L (23-300); Potassium 3.3 mmol/L (3.4-5.0); Prothrombin Time 13.9 Seconds (11.1-14.7); Sodium 135 mmol/L (137-145)
[2023-06-30 15:56] LABS: Partial Thromboplastin Time 28.6 SECONDS (22.3-36.8)
[2023-06-30] MEDS: ASPIRIN 81 MG CHEWABLE TABLET 324 MG PO (15:57)
[2023-06-30] MEDS: NITROGLYCERIN SL 0.4 MG TABLET SUBLINGUAL (16:00)
[2023-06-30 16:06] VITALS: BP 115/83; PULSE 133; RESP 16; O2SAT 93
[2023-06-30 16:06] LABS: Troponin I < 0.012 ng/mL (0.000-0.034)
--- NOTE | 2023-06-30 17:23 | ED.CHESTPAIN ---
HPI - Chest Pain General Chief Complaint: Chest Pain Stated Complaint: chest pain Time Seen by Provider: 06/30/23 15:50 History of Present Illness HPI narrative: Pt presents with complaints of chest ithgtness that started 3 days ago while walking. Pt at had ekg done at outpatient and was abnormal so sent to ED. Pain has been constant. Related Data Home Medications Medication Instructions Recorded Confirmed atorvastatin 20 mg tablet 20 mg PO DAILY 06/21/20 05/22/23 fluoxetine 20 mg tablet 20 mg PO DAILY 06/21/20 05/22/23 gabapentin 300 mg capsule 300 mg PO BID 06/21/20 05/22/23 metformin 1,000 mg tablet 2,000 mg PO BID 06/21/20 05/22/23 metoprolol succinate 25 mg 25 mg PO BID 06/21/20 05/22/23 tablet,extended release 24 hr magnesium 500 mg tablet 15 mg PO BID 09/13/20 05/22/23 allopurinol 100 mg tablet 100 mg PO DAILY 08/29/21 05/22/23 Allergies Allergy/AdvReac Type Severity Reaction Status Date / Time codeine Allergy Unknown cold sores Verified 06/30/23 15:58 diphenhydramine Allergy Unknown BREAKS ME Verified 06/30/23 15:58 OUT doxycycline Allergy Unknown Nausea Verified 06/30/23 15:58 guaifenesin [Entex T] Allergy Unknown Skin Verified 06/30/23 15:58 Reaction naproxen Allergy Unknown Unknown Verified 06/30/23 15:58 Penicillins Allergy Unknown Unknown Verified 06/30/23 15:58 prednisone Allergy Unknown Unknown Verified 06/30/23 15:58 pseudoephedrine [Entex T] Allergy Unknown Skin Verified 06/30/23 15:58 Reaction ibuprofen AdvReac Mild nausea Verified 06/30/23 15:58 METOCLOPRAMIDE HCL Allergy Mild INTERACTS Uncoded 02/27/23 14:24 WITH PROZAC Review of Systems Review of Systems: All systems reviewed & are unremarkable except as noted in HPI and below PMFSH Past Medical History Medical History Anemia Diabetes Hypertension Surgical History Surgical History History of left knee replacement Family History Family History Sibling Family history of elevated blood lipids Family history of diabetes mellitus in first degree relative Mother Family history of diabetes mellitus in first degree relative Father Family history of congestive heart failure Other Cerebrovascular accident Diabetes mellitus Family history of allergic disorder Family history of cardiovascular disease Family history of kidney disease Hypertension Social History Social History Smoking status: Never smoker Alcohol intake: never Gender identity (if verbalized by the patient): Female Spiritual care concerns: No Exam Const: General: healthy appearing Nutritional Appearance: well nourished Orientation/consciousness: patient oriented x3 Limitations: no limitations HENMT: Head: normal to inspection Mouth: Yes Normal oral and palatal mucosa present Neck: Neck: normal visual inspection Chest: Chest palpation & inspection: normal inspection of the chest Resp: Effort & Inspection: normal respiratory effort Auscultation: clear to auscultation bilaterally Cardio: Rate: regular rate Rhythm: regular rhythm GI: GI Palp: Yes Soft to palpation and No Tenderness to palpation present (GI) Auscultation: normal bowel sounds Back/Spine/Pelvis: Back: no CVA tenderness Skin: General skin exam: normal color Rashes: no rashes Wounds: no wounds Neuro: General: patient oriented x3, moves all extremities, no meningeal signs, no focal motor deficits and CN's II-XI intact bilaterally Cranial nerves: Yes Nystagmus not present Speech: normal speech Extrem: General: normal to inspection and no clubbing, cyanosis or edema Psych: Mental Status: mental status grossly normal Affect: normal affect Attitude: cooperative Course Vital Signs Vital signs: Vital Signs Temperature
[2023-06-30] MEDS: SODIUM CHLORIDE 0.9% IV 1,000 ML 999 ML IV CONT (17:33)
[2023-06-30 19:06] LABS: Troponin I < 0.012 ng/mL (0.000-0.034)
[2023-06-30 19:26] VITALS: BP 104/75; PULSE 108; RESP 19; O2SAT 96
== END 2023-06-30 19:29 | disposition home or self-care (01) ==
PROVIDERS: Emergency Provider Emergency Medicine; PCP Internal Medicine
DX: R07.89 Other chest pain (principal); E11.9 Type 2 diabetes mellitus without complications; I10 Essential (primary) hypertension; D64.9 Anemia, unspecified; Z79.84 Long term (current) use of oral hypoglycemic drugs
CPT/HCPCS: 36415; 71275; 80053; 83690; 84484; 85025; 85610; 85730; 93005; 96360; 96361; 99284; A9270; J7030; Q9967

== ENCOUNTER 2023-07-02 13:23 | Observation (INO) | payer OTHER, MEDICARE, SELFPAY ==
[2023-07-02] VITALS (21 sets, daily range): BP systolic 124–151; BP diastolic 81–106; PULSE 82–112; RESP 12–25; TEMP 36.6–36.8; O2SAT 97–98
--- NOTE | ~2023-07-02 | US_ITS ---
EXAMINATION: US venous doppler [facility] DATE: 07/03/2023 16:15 INDICATION: Left calf pain. TECHNIQUE: Grayscale ultrasound images without and with compression and Doppler ultrasound images of the left lower extremity veins were obtained. COMPARISON: None. FINDINGS: The visualized portions of left common femoral vein, profunda (deep) femoral vein, femoral vein, popl iteal vein, peroneal veins, posterior tibial veins, and greater saphenous vein outflow are patent. IMPRESSION: 1. No deep venous thrombosis. Reviewed, dictated and finalized at location A.
--- NOTE | ~2023-07-02 | CT_ITS ---
EXAMINATION: CTA chest PE protocol DATE: 07/02/2023 18:41 INDICATION: Pulmonary embolism TECHNIQUE: Computed tomography angiography (CTA) of the chest was performed with 100 mL Omnipaque-350 intravenous contrast timed to evaluate the pulmonary arteries. Coronal maximum intensity projection 3D-reconstructions were created by the technologist. The dose-length product (DLP) was 340.36 mGy-cm. Automated exposure control and iterative reconstruction technique were employed. COMPARISON: 06/30/2023. FINDINGS: Lung parenchyma and airways: Similar degree and distribution of the scattered groundglass centrilobul ar nodular and some sparse tree-in-bud opacities. Pleura: Unremarkable. Thoracic inlet, axillae and chest wall: Left thyroidectomy. Thoracic aorta: Normal. Mediastinum: Normal. Heart and pericardium: Stable moderate pericardial effusion. Coronary artery calcifications: Mild. Upper abdomen: Upper abdominal lymphadenopathy. Status post cholecystectomy.. Bones: No acute osseous finding. Pulmonary arteries: Study quality: Adequate. No pulmonary emboli detected. Flow/mixing artifact in th e main pulmonary arteries, not to be confused with embolus. IMPRESSION: No CT evidence of acute pulmonary embolus. Similar pulmonary opacities as can be seen with hypersensitivity pneumonitis, respiratory bronchiolit is, or infectious airways disease. Stable moderate pericardial effusion. Reviewed, dictated and finalized at location K. IMPRESSION: No CT evidence of acute pulmonary embolus. Similar pulmonary opacities as can be seen with hypersensitivity pneumonitis, r espiratory bronchiolitis, or infectious airways disease. Stable moderate pericardial effusion.
--- NOTE | ~2023-07-02 | XR_ITS ---
EXAMINATION: XR chest 2V DATE: 07/02/2023 14:52 INDICATION: Chest pain. Tachycardia. TECHNIQUE: Frontal and lateral views of the chest were obtained. COMPARISON: Chest 2 views 02/13/2023 FINDINGS: There is mild atelectasis at right lung base. No pleural effusion or pneumothorax. The hear t size is normal. Surgical clips in the right upper quadrant are likely from cholecystectomy. IMPRESSION: 1. Mild atelectasis at right lung base. Reviewed, dictated and finalized at location A.
--- NOTE | 2023-07-02 13:28 | ECG_ITS ---
Measurements Intervals [place] Rate: 108 P: 44 AL: 178 QRS: 23 QRSD: 90 T: 5 QT: 364 QTc: 489 Interpretive Statements SINUS TACHYCARDIA LOW QRS VOLTAGE [QRS DEFLECTION < 0.5/1.0 mV IN LIMB/CHEST LEADS] COMPARED TO ECG 06/30/2023 15:35:55 NO SIGNIFICANT CHANGES Electronically Signed On 07-02-2023 14:26:26 CDT by Thomas Barlow M.D.
[2023-07-02 13:57] LABS: Basophils Percent Auto 0.9 % (0.2-1.2); Eosinophils Absolute Auto 0.1 K/mm3 (0-0.3); Eosinophils Percent Auto 2.2 % (0-4.4); Hematocrit 31.2 % (37.0-47.0); Immature Granulocyte Absolute 0.02 K/mm3 (0.00-0.031); Immature Granulocyte Percent A 0.4 % (0-0.5); Lymphocytes Absolute Auto 1.46 K/mm3 (0.9-3.2); Lymphocytes Percent Auto 32.2 % (18.3-44.2); Mean Corpuscular HGB Conc 32.1 g/dl (32-36); Mean Corpuscular Hemoglobin 27.6 pg (26-34); Mean Corpuscular Volume 86.2 fl (80-100); Mean Platelet Volume 8.6 fl (7.4-10.4); Monocytes Absolute Auto 0.3 K/mm3 (0.1-0.6); Neutrophils Absolute Auto 2.6 K/mm3 (1.3-6.7); Neutrophils Percent Auto 57.3 % (45.5-73.1); Platelet Count Result 226 k/mm3 (150-375); Red Blood Count 3.62 M/mm3 (4.2-5.4); White Blood Count 4.5 K/mm3 (4.5-10.0)
[2023-07-02 14:08] LABS: Alanine Aminotransferase 28 U/L (6-35); Albumin Level 4.4 g/dL (3.5-5.1); Alkaline Phosphatase 125 U/L (38-126); Anion Gap 12 mmol/L (8-16); Aspartate Amino Transferase 54 U/L (14-36); Bilirubin,Total 0.5 mg/dL (0.2-1.3); Blood Urea Nitrogen 6 mg/dL (7-17); Calcium 8.8 mg/dL (8.4-10.2); Carbon Dioxide 21 mmol/L (22-30); Chloride 103 mmol/L (98-107); Estimated CRCL calculation 73 ml/min; Estimated Glomerular Filt Rate > 60; Glucose 109 mg/dL (65-110); Lipase 135 U/L (23-300); Potassium 3.1 mmol/L (3.4-5.0); Sodium 136 mmol/L (137-145)
[2023-07-02 14:12] LABS: Partial Thromboplastin Time 28.7 SECONDS (22.3-36.8)
[2023-07-02 14:19] LABS: Troponin I < 0.012 ng/mL (0.000-0.034)
[2023-07-02 16:49] LABS: Troponin I < 0.012 ng/mL (0.000-0.034)
--- NOTE | 2023-07-02 17:05 | ED.CHESTPAIN ---
HPI - Chest Pain General Chief Complaint: Chest Pain Stated Complaint: dyspnea Time Seen by Provider: 07/02/23 16:54 Source: patient History of Present Illness HPI narrative: 57 years old white female drove herself to the emergency room because of chest pain like a brick sitting on her chest associated with shortness of breath on exertion over the last 4 to 5 days. Patient also reports some pain at the left foot radiating to the back of left lower leg started at the same time. She denies any fever, chills, nausea, vomiting. History of diabetes, hypertension, hyperlipidemia, COPD. Patient on aspirin daily. Patient is telling me that she been followed by a brake coupler dinkey because of fluid behind the heart Related Data Home Medications Medication Instructions Recorded Confirmed atorvastatin 20 mg tablet 20 mg PO DAILY 06/21/20 05/22/23 fluoxetine 20 mg tablet 20 mg PO DAILY 06/21/20 05/22/23 gabapentin 300 mg capsule 300 mg PO BID 06/21/20 05/22/23 metformin 1,000 mg tablet 2,000 mg PO BID 06/21/20 05/22/23 metoprolol succinate 25 mg 25 mg PO BID 06/21/20 05/22/23 tablet,extended release 24 hr magnesium 500 mg tablet 15 mg PO BID 09/13/20 05/22/23 allopurinol 100 mg tablet 100 mg PO DAILY 08/29/21 05/22/23 Allergies Allergy/AdvReac Type Severity Reaction Status Date / Time codeine Allergy Unknown cold sores Verified 06/30/23 15:58 diphenhydramine Allergy Unknown BREAKS ME Verified 06/30/23 15:58 OUT doxycycline Allergy Unknown Nausea Verified 06/30/23 15:58 guaifenesin [Entex T] Allergy Unknown Skin Verified 06/30/23 15:58 Reaction naproxen Allergy Unknown Unknown Verified 06/30/23 15:58 Penicillins Allergy Unknown Unknown Verified 06/30/23 15:58 prednisone Allergy Unknown Unknown Verified 06/30/23 15:58 pseudoephedrine [Entex T] Allergy Unknown Skin Verified 06/30/23 15:58 Reaction ibuprofen AdvReac Mild nausea Verified 06/30/23 15:58 METOCLOPRAMIDE HCL Allergy Mild INTERACTS Uncoded 02/27/23 14:24 WITH PROZAC Review of Systems Review of Systems: All systems reviewed & are unremarkable except as noted in HPI and below PMFSH Past Medical History Medical History Anemia Diabetes Hypertension Surgical History Surgical History History of left knee replacement Family History Family History Sibling Family history of elevated blood lipids Family history of diabetes mellitus in first degree relative Mother Family history of diabetes mellitus in first degree relative Father Family history of congestive heart failure Other Cerebrovascular accident Diabetes mellitus Family history of allergic disorder Family history of cardiovascular disease Family history of kidney disease Hypertension Social History Social History Smoking status: Never smoker Alcohol intake: never Gender identity (if verbalized by the patient): Female Spiritual care concerns: No Exam Narrative: General appearance: Well-developed, well-nourished Skin: Normal color Head: Normocephalic, nontraumatic Eyes: Clear conjunctiva ENT: Oropharynx normal, ears normal, nose normal Neck: Supple, nontender Chest and respiratory: Airway patent, no respiratory distress, no accessory muscle use Heart: Regular rate/rhythm Abdomen: Soft, nontender, no organomegaly, quiet bowel sounds Vascular: Normal peripheral pulses, normal capillary refill. Musculoskeletal: Left lower leg showed diffuse tenderness and tightness posteriorly. Positive Homans' sign Neurologic: Alert and oriented ?3, RATE SUPERVISOR is normal as tested, no gross motor deficit
[2023-07-02 17:29] LABS: Alveolar/Arterial O2 Gradient 17.5 mmHg; Base Excess ABG -1.2 mEq/l (+/-2.0); Fractional Inspired Oxygen 21 %; HCO3 ABG 20.8 mEq/l (22.0-26.0); Oxygen Content ABG 15.2 %vol (16.0-22.0); Oxygen Saturation ABG 98.1 % (95.0-100.0); Oxyhemoglobin 96.5 % THb (90.0-100.0); PCO2 ABG 26.8 mmHg (35.0-45.0); PO2 ABG 100.1 mmHg (80.0-100.0); PO2 FiO2 Ratio Arterial Blood 4.77 %; Total Hemoglobin 11.1 g/dL (12.0-18.0)
[2023-07-02 17:30] LABS: Device ROOM AIR; Modified Allen's Test Pass; Site Drawn LEFT RADIAL; pH ABG 7.508 (7.350-7.450)
[2023-07-02 17:37] LABS: NT Pro B Type Natriuretic Pept < 20 pg/mL (19.9-100)
[2023-07-02 17:41] LABS: D Dimer 0.27 ug/mL (<0.48)
[2023-07-02] MEDS: ENOXAPARIN 80 MG/0.8 ML SYRINGE 70 MG SUB-Q (17:49)
--- NOTE | 2023-07-02 19:18 | PM.IMHP ---
H&P: HPI History of Present Illness Date/Time: 07/02/23 19:18 Chief Complaint: Generalized weakness Narrative: This is a 57-year-old female with past medical history significant for gout, hypertension, diabetes mellitus, GERD, dyslipidemia. Patient presents to the emergency room due to 4 days of generalized malaise, body aches and pains poor appetite shortness of breath cough productive of greenish sputum, chills. Patient tried taking [id number] medication with no relieve. Emergency room preliminary workup was significant for CT angiogram of the chest with lung opacity. Patient has been admitted for further evaluation, management and treatment. EXAMINATION: CTA chest PE protocol DATE: 07/02/2023 18:41 INDICATION: Pulmonary embolism TECHNIQUE: Computed tomography angiography (CTA) of the chest was performed with 100 mL Omnipaque-350 intravenous contrast timed to evaluate the pulmonary arteries. Coronal maximum intensity projection 3D-reconstructions were created by the technologist. The dose-length product (DLP) was 340.36 mGy-cm. Automated exposure control and iterative reconstruction technique were employed. COMPARISON: 06/30/2023. ? FINDINGS:? Lung parenchyma and airways: Similar degree and distribution of the scattered groundglass centrilobular nodular and some sparse tree-in-bud opacities. Pleura: Unremarkable. Thoracic inlet, axillae and chest wall: Left thyroidectomy. Thoracic aorta: Normal. Mediastinum: Normal. Heart and pericardium: Stable moderate pericardial effusion. Coronary artery calcifications: Mild. Upper abdomen: Upper abdominal lymphadenopathy. Status post cholecystectomy.. Bones: No acute osseous finding. Pulmonary arteries: Study quality: Adequate. No pulmonary emboli detected. Flow/mixing artifact in the main pulmonary arteries, not to be confused with embolus. IMPRESSION: No CT evidence of acute pulmonary embolus. Similar pulmonary opacities as can be seen with hypersensitivity pneumonitis, respiratory bronchiolitis, or infectious airways disease. Stable moderate pericardial effusion. EXAMINATION: XR chest 2V DATE: 07/02/2023 14:52 INDICATION: Chest pain. Tachycardia. TECHNIQUE: Frontal and lateral views of the chest were obtained. COMPARISON: Chest 2 views 02/13/2023 FINDINGS: There is mild atelectasis at right lung base. No pleural effusion or pneumothorax. The heart size is normal. Surgical clips in the right upper quadrant are likely from cholecystectomy. IMPRESSION: 1. Mild atelectasis at right lung base. Review of Systems Review of Systems: Muscle aches and pains, generalized malaise, chills, poor appetite, cough productive of yellowish to greenish sputum, shortness of breath at exertion. Constitutional: Constitutional: Reports chills, Reports fatigue, Reports lethargy, Reports malaise, Reports night sweats, Reports poor appetite and Reports weakness Eyes: Eyes: Denies change in vision ENT: Denies dysphagia, Denies vertigo, Denies dizziness and Denies odynophagia Cardiovascular: Cardiovascular: Denies chest pain, Denies radiating jaw, neck or arm pain, Denies palpitations and Denies dyspnea Respiratory: Respiratory: Reports change in phlegm color, Reports cough, Reports excessive phlegm production and Reports dyspnea on exertion Gastrointestinal: Gastrointestinal: Denies abdominal pain, Denies dyspepsia, Denies heartburn, Denies diarrhea, Denies nausea and Denies vomiting Genitourinary: Genitourinary: Denies dysuria Musculoskeletal: Musculoskeletal: Reports myalgias Integumentary/Breasts: Skin/Breast: Denies rash Neurologic: Denies focal weakness and Denies Sensory deficit (Neuro) Psychiatric: Psychiatric: Reports no additional psychiatric complaints and Reports as per HPI Endocrine: Endocrine: Denies cold intolerance, Reports fatigue, Denies flushing, Denies heat intolerance, Denies polyphagia, Denies polydipsia and Denies palpitation
--- NOTE | 2023-07-02 19:19 | PM.IMHP ---
H&P: HPI History of Present Illness Date/Time: 07/02/23 19:19 [facility] Past Medical History Medical History Anemia Diabetes Hypertension Surgical History Surgical History History of left knee replacement Family History Family History Sibling Family history of elevated blood lipids Family history of diabetes mellitus in first degree relative Mother Family history of diabetes mellitus in first degree relative Father Family history of congestive heart failure Other Cerebrovascular accident Diabetes mellitus Family history of allergic disorder Family history of cardiovascular disease Family history of kidney disease Hypertension Social History Social History Smoking status: Never smoker Alcohol intake: never Gender identity (if verbalized by the patient): Female Spiritual care concerns: No Meds Home Medications and Allergies Home Medications Medication Instructions Recorded Confirmed Type atorvastatin 20 mg tablet 20 mg PO DAILY 06/21/20 05/22/23 History fluoxetine 20 mg tablet 20 mg PO DAILY 06/21/20 05/22/23 History gabapentin 300 mg capsule 300 mg PO BID 06/21/20 05/22/23 History metformin 1,000 mg tablet 2,000 mg PO BID 06/21/20 05/22/23 History metoprolol succinate 25 mg 25 mg PO BID 06/21/20 05/22/23 History tablet,extended release 24 hr magnesium 500 mg tablet 15 mg PO BID 09/13/20 05/22/23 History allopurinol 100 mg tablet 100 mg PO DAILY 08/29/21 05/22/23 History pantoprazole 20 mg tablet,delayed 20 mg PO HS #10 tabs 08/06/22 05/22/23 Rx release Allergies Allergy/AdvReac Type Severity Reaction Status Date / Time codeine Allergy Unknown cold sores Verified 06/30/23 15:58 diphenhydramine Allergy Unknown BREAKS ME Verified 06/30/23 15:58 OUT doxycycline Allergy Unknown Nausea Verified 06/30/23 15:58 guaifenesin [Entex T] Allergy Unknown Skin Verified 06/30/23 15:58 Reaction naproxen Allergy Unknown Unknown Verified 06/30/23 15:58 Penicillins Allergy Unknown Unknown Verified 06/30/23 15:58 prednisone Allergy Unknown Unknown Verified 06/30/23 15:58 pseudoephedrine [Entex T] Allergy Unknown Skin Verified 06/30/23 15:58 Reaction ibuprofen AdvReac Mild nausea Verified 06/30/23 15:58 METOCLOPRAMIDE HCL Allergy Mild INTERACTS Uncoded 02/27/23 14:24 WITH PROZAC Vital Signs Vital Signs - 24 hr 07/02/23 13:27 07/02/23 16:42 07/02/23 16:45 Temperature 98.2 F Pulse Rate 103 H 86 91 Respiratory Rate 16 18 18 Blood Pressure 147/97 H Pulse Oximetry 98 07/02/23 17:08 07/02/23 17:17 07/02/23 17:36 Temperature Pulse Rate 96 95 100 Respiratory Rate 16 16 20 Blood Pressure Pulse Oximetry 07/02/23 17:48 07/02/23 18:00 07/02/23 18:01 Temperature Pulse Rate 98 112 H 100 Respiratory Rate 24 H 25 H 21 H Blood Pressure 151/106 H Pulse Oximetry 07/02/23 18:15 07/02/23 18:27 Temperature Pulse Rate 106 H 99 Respiratory Rate 23 H 22 H Blood Pressure 125/81 Pulse Oximetry H&P: Results Labs Labs: Short CBC 07/02/23 Range/Units 13:50 WBC 4.5 (4.5-10.0) K/mm3 Hgb 10.0 L (12.0-15.0) g/dL Hct 31.2 L (37.0-47.0) % Plt Count 226 (150-375) k/mm3 BMP 07/02/23 13:50 Sodium 136 L Potassium 3.1 L Chloride 103 Carbon Dioxide 21 L BUN 6 L D Creatinine 0.70 Glucose 109 Calcium 8.8 Cardiac Enzymes 07/02/23 07/02/23 Range/Units 13:50 16:18 Troponin I < 0.012 < 0.012 (0.000-0.034) ng/mL Liver Function 07/02/23 Range/Units 13:50 Total Bilirubin 0.5 (0.2-1.3) mg/dL AST 54 H (14-36) U/L ALT 28 (6-35) U/L Alkaline Phosphatase 125 (38-126) U/L Albumin 4.4 (3.5-5.1) g/dL
[2023-07-02 19:21] LABS: Troponin I < 0.012 ng/mL (0.000-0.034)
[2023-07-02] MEDS: POTASSIUM CHLORIDE 20 MEQ PACKET (FOR LIQUID) 40 MEQ PO (19:24)
[2023-07-02] MEDS: AZITHROMYCIN 500 MG/NS 250 ML 500 MG/250 ML BAG 250 MG IVPB (19:25)
[2023-07-02 19:36] LABS: Influenza A QL RT-PCR Negative (Negative); Influenza B QL RT-PCR Negative (Negative); RSV RNA, RT-PCR Negative (Negative); SARS-CoV-2 RNA PCR Negative (Negative)
--- NOTE | 2023-07-02 21:09 | PC.NURSE ---
18g IV in left AC discontinued due to infiltration.
--- NOTE | 2023-07-02 21:11 | PC.NURSE ---
18g IV in right AC discontinued due to infiltration. New 20g IV placed in right forearm.
--- NOTE | 2023-07-02 21:29 | ADMGEN ---
This patient, Lina Sandoval, was admitted to 3 [facility] Surg Room 313-01. Patient/family oriented to hospital policies and general routines including ID bracelet, bed and alarms, visiting hours, pain management, procedures, bathroom and other care routines, personal items, smoking policy, room service/diet, and visiting hours. Information on how to activate the Rapid Response Team has been discussed. Patient/Family are encouraged to report perceived risks to care and to ask questions if they do not understand what they are told or what they should do.
[2023-07-02 22:04] LABS: Glucose Point of Care 116 mg/dl (65-105)
[2023-07-03] VITALS: PULSE 97
[2023-07-03 04:00] VITALS: PULSE 96
[2023-07-03 05:40] VITALS: BP 119/88; PULSE 105; RESP 16; TEMP 36.6; O2SAT 95
[2023-07-03 08:00] VITALS: PULSE 86
[2023-07-03 08:15] LABS: Glucose Point of Care 196 mg/dl (65-105)
[2023-07-03] MEDS: METOPROLOL TARTRATE 25 MG TABLET PO (08:32)
[2023-07-03] MEDS: FLUoxetine HCL 20 MG CAPSULE PO (08:32)
[2023-07-03] MEDS: MAGNESIUM OXIDE 400 MG TABLET PO (08:32)
[2023-07-03] MEDS: GABAPENTIN 300 MG CAPSULE PO ×2 (08:33→17:07)
[2023-07-03] MEDS: allopurinoL 100 MG TABLET PO (08:33)
[2023-07-03] MEDS: INSULIN ASPART (*BKC) 100 UNITS/ML SUB-Q ×2 (08:33→12:01)
--- NOTE | 2023-07-03 09:16 | PM.IMPN ---
Progress Note: A&P Assessment and Plan (1) Pneumonia: Qualifiers: Laterality: bilateral Lung location: unspecified part of lung Pneumonia type: due to unspecified organism Qualified Code(s): J18.9 - Pneumonia, unspecified organism Code(s): J18.9 - Pneumonia, unspecified organism Status: Acute Assessment and Plan: CT chest w/o evidence of PE but does show pulmonary opacities as seen with hypersensitivity pneumonitis vs respiratory bronchiolitis vs infectious airway disease. Admit to regular medical floor Started on Zithromax and Rocephin Cultures in progress (2) Diabetes: Code(s): E11.9 - Type 2 diabetes mellitus without complications Status: Acute Assessment and Plan: Holding Jardiance Holding metformin insulin sliding scale as needed ac/hs accu checks (3) Hypertension: Code(s): I10 - Essential (primary) hypertension Status: Acute Assessment and Plan: Blood pressures reviewed 119/88, HR 105 Continue home meds Continue to monitor Plan -Transition to PO antibiotics -Blood cultures with NGTD -R/o DVT with ultrasound. Can d/c home after Subjective Date/time seen: 07/03/23 09:16 Interval history: HPI obtained from chart: This is a 57-year-old female with past medical history significant for gout, hypertension, diabetes mellitus, GERD, dyslipidemia.? Patient presents to the emergency room due to 4 days of generalized malaise, body aches and pains poor appetite shortness of breath cough productive of greenish sputum, chills.? Patient tried taking [id number] medication with no relieve.? Emergency room preliminary workup was significant for CT angiogram of the chest with lung opacity.? Patient has been admitted for further evaluation, management and treatment. Interval history 07/03: Patient is seen at bedside this afternoon and appears well. She says she has some shortness of breath with exertion and some chest heaviness. She says she has a cough but is unable to cough anything up. She also complains of a headache. Otherwise she is tolerating a diet, voiding spontaneously, and having bowel movements. She does complain of left calf pain with dorsiflexion and there is some minimal edema present. Review of Systems Review of Systems: All systems reviewed & are unremarkable except as noted in HPI and below Exam Narrative: General: well-nourished, well-appearing 57-year-old female, sitting up in bed, comfortable, NARD Neuro: awake, alert and oriented x4, speech clear, no focal neuro deficits noted HEENMT: normocephalic, atraumatic, EOMI, sclerae anicteric, moist oral mucosa Respiratory: Clear to auscultation bilaterally without crackles, rhonchi or wheezes, appears dyspneic Cardio: regular rate, regular rhythm with S1-S2 Abdomen: nondistended, normoactive bowel sounds, soft, nontender to palpation Extremities: minimal increased edema to LLE calf without redness, DP pulses 2+ bilaterally Skin: no rashes or lesions, warm and dry Psych: appropriate mood and affect, judgment and insight intact Objective Data Vital Signs Vital Signs: Vital Signs - 24 hr 07/02/23 13:27 07/02/23 16:42 07/02/23 16:45 Temperature 98.2 F Pulse Rate 103 H 86 91 Respiratory Rate 16 18 18 Blood Pressure 147/97 H Pulse Oximetry 98 Oxygen Delivery 07/02/23 17:08 07/02/23 17:17 07/02/23 17:36 Temperature Pulse Rate 96 95 100 Respiratory Rate 16 16 20 Blood Pressure Pulse Oximetry Oxygen Delivery 07/02/23 17:48 07/02/23 18:00 07/02/23 18:01 Temperature Pulse Rate 98 112 H 100 Respiratory Rate 24 H 25 H 21 H Blood Pressure 151/106 H Pulse Oximetry Oxygen Delivery 07/02/23 18:15 07/02/23 18:27 07/02/23 19:29 Temperature Pulse Rate 106 H 99 111 H Respiratory Rate 23 H 22 H 19 Blood Pressure 125/81 132/91 H Pulse Oximetry 97 Oxygen Delivery 07/02/23 18:51 07/02/23 19:01 07/02/23 19:52
[2023-07-03 10:26] LABS: CRP 1.2 mg/dL (<1.0)
[2023-07-03 10:38] LABS: Procalcitonin 0.2 ng/mL
[2023-07-03 11:39] LABS: Glucose Point of Care 184 mg/dl (65-105)
[2023-07-03 11:56] VITALS: BMI 27.1
[2023-07-03 14:00] VITALS: BP 124/85; PULSE 85; RESP 18; TEMP 36.2; O2SAT 97
[2023-07-03 15:33] LABS: Basophils Percent Auto 0.9 % (0.2-1.2); Eosinophils Absolute Auto 0.1 K/mm3 (0-0.3); Eosinophils Percent Auto 2.4 % (0-4.4); Hematocrit 31.9 % (37.0-47.0); Hemoglobin 9.9 g/dL (12.0-15.0); Immature Granulocyte Absolute 0.01 K/mm3 (0.00-0.031); Immature Granulocyte Percent A 0.2 % (0-0.5); Lymphocytes Absolute Auto 1.18 K/mm3 (0.9-3.2); Mean Corpuscular Hemoglobin 27.4 pg (26-34); Mean Corpuscular Volume 88.4 fl (80-100); Mean Platelet Volume 9.9 fl (7.4-10.4); Monocytes Absolute Auto 0.3 K/mm3 (0.1-0.6); Monocytes Percent Auto 7.3 % (2.6-8.5); Neutrophils Absolute Auto 2.9 K/mm3 (1.3-6.7); Neutrophils Percent Auto 63.2 % (45.5-73.1); Platelet Count Result 245 k/mm3 (150-375); Red Blood Count 3.61 M/mm3 (4.2-5.4); Red Cell Distribution Width 14.1 % (11.5-14.5); White Blood Count 4.5 K/mm3 (4.5-10.0)
[2023-07-03 15:48] LABS: Anion Gap 10 mmol/L (8-16); Blood Urea Nitrogen 7 mg/dL (7-17); Calcium 8.7 mg/dL (8.4-10.2); Carbon Dioxide 22 mmol/L (22-30); Chloride 104 mmol/L (98-107); Estimated CRCL calculation 71 ml/min; Estimated Glomerular Filt Rate > 60; Glucose 230 mg/dL (65-110); Potassium 3.5 mmol/L (3.4-5.0); Sodium 136 mmol/L (137-145)
[2023-07-03 16:31] LABS: Glucose Point of Care 129 mg/dl (65-105)
--- NOTE | 2023-07-03 16:53 | PM.DS ---
DS: Admitting Diagnosis Discharge Date July 03 Admitting Diagnosis Shortness of breath DS: Discharge Diagnosis Discharge Diagnosis (1) Pneumonia: Qualifiers: Laterality: bilateral Lung location: unspecified part of lung Pneumonia type: due to unspecified organism Qualified Code(s): J18.9 - Pneumonia, unspecified organism Code(s): J18.9 - Pneumonia, unspecified organism Status: Acute Assessment and Plan: CT chest w/o evidence of PE but does show pulmonary opacities as seen with hypersensitivity pneumonitis vs respiratory bronchiolitis vs infectious airway disease. Admit to regular medical floor Started on Zithromax and Rocephin Cultures in progress (2) Diabetes: Code(s): E11.9 - Type 2 diabetes mellitus without complications Status: Acute Assessment and Plan: Holding Jardiance Holding metformin insulin sliding scale as needed ac/hs accu checks (3) Hypertension: Code(s): I10 - Essential (primary) hypertension Status: Acute Assessment and Plan: Blood pressures reviewed 119/88, HR 105 Continue home meds Continue to monitor Plan -Transition to PO antibiotics -Blood cultures with NGTD -R/o DVT with ultrasound. Can d/c home after DS: Summary Hospital Course Hospital Course: This is a 57-year-old female with past medical history significant for gout, hypertension, diabetes mellitus, GERD, dyslipidemia.? Patient presents to the emergency room due to 4 days of generalized malaise, body aches and pains poor appetite shortness of breath cough productive of greenish sputum, chills.? Patient tried taking [id number] medication with no relieve.? Emergency room preliminary workup was significant for CT angiogram of the chest with lung opacity.? Patient has been admitted for further evaluation, management and treatment. Interval history 07/03: Patient is seen at bedside this afternoon and appears well. She says she has some shortness of breath with exertion and some chest heaviness. She says she has a cough but is unable to cough anything up. She also complains of a headache. Otherwise she is tolerating a diet, voiding spontaneously, and having bowel movements. She does complain of left calf pain with dorsiflexion and there is some minimal edema present. Time Spent with Patient Time attestation: Total time spent providing and/or coordinating discharge services:45 Exam Narrative: General: well-nourished, well-appearing 57-year-old female, sitting up in bed, comfortable, NARD Neuro: awake, alert and oriented x4, speech clear, no focal neuro deficits noted HEENMT: normocephalic, atraumatic, EOMI, sclerae anicteric, moist oral mucosa Respiratory: Clear to auscultation bilaterally without crackles, rhonchi or wheezes, appears dyspneic Cardio: regular rate, regular rhythm with S1-S2 Abdomen: nondistended, normoactive bowel sounds, soft, nontender to palpation Extremities: minimal increased edema to LLE calf without redness, DP pulses 2+ bilaterally Skin: no rashes or lesions, warm and dry Psych: appropriate mood and affect, judgment and insight intact DS: Data Data Completed and Pending Labs on day of discharge: Labs from last 24 hours 07/03/23 07/03/23 07/03/23 16:20 11:29 09:58 WBC 4.5 RBC 3.61 L Hgb 9.9 L Hct 31.9 L MCV 88.4 MCH 27.4 MCHC 31.0 L RDW 14.1 Plt Count 245 MPV 9.9 Immature Gran % (Auto) 0.2 Neut % (Auto) 63.2 Lymph % (Auto) 26.0 Coles % (Auto) 7.3 Eos % (Auto) 2.4 Baso % (Auto) 0.9 Lymph # (Auto) 1.18 Coles # (Auto) 0.3 Eos # (Auto) 0.1 Baso # (Auto) 0.0 Abs Immat Gran (auto) 0.01 Absolute Neuts (auto) 2.9 Absolute Nucleated RBC 0.0 Nucleated RBC % 0.0 D-Dimer Puncture Site ABG pH ABG pCO2 ABG pO2 ABG PO2/FiO2 Ratio ABG HCO3 ABG O2 Saturation ABG O2 Content ABG Base Excess A-a Gradient Oxyh
[2023-07-03] MEDS: levoFLOXacin 750 MG TABLET PO (17:06)
--- NOTE | 2023-07-05 14:54 | PC.NURSE ---
pt called this unit telling this nurse that she was a pt on this floor and discharged on 07/03/2023. pt states that she got sob after walking to the restroom. she checked her heart rate and she got 135. I told pt that since she is recovering from PNU that she may be sob while walking and heart rate may increase. I informed pt that I am unable to give personal advice to her, but if she has worrisome symptoms to come to ED
== END 2023-07-03 17:25 | disposition home or self-care (01) ==
LOC: ANHED 18:42 → ANH3MEDSUR 07-03 10:03
PROVIDERS: Hospitalist; Nurse Practitioner Acute Care; Admitting Provider Internal Medicine; Emergency Provider Emergency Medicine; PCP Internal Medicine; Visit Provider Student in an Organized Health Care Education/Training Program
DX: J18.9 Pneumonia, unspecified organism (principal); J44.0 Chronic obstructive pulmonary disease with (acute) lower respiratory infection; M79.662 Pain in left lower leg; I10 Essential (primary) hypertension; E11.9 Type 2 diabetes mellitus without complications; K21.9 Gastro-esophageal reflux disease without esophagitis; E78.5 Hyperlipidemia, unspecified; M10.9 Gout, unspecified; Z79.82 Long term (current) use of aspirin; Z79.84 Long term (current) use of oral hypoglycemic drugs; Z20.822 Contact with and (suspected) exposure to COVID-19
CPT/HCPCS: 36415; 36600; 71046; 71275; 80048; 80053; 82805; 82948; 83690; 83880; 84145; 84484; 85025; 85380; 85610; 85730; 86140; 87040; 87637; 93005; 93971; 96372; 99285; A9270; G0378; J0456; J0696; J1650; J1815; Q9967

== ENCOUNTER 2023-07-05 15:51 | Emergency (ER) | payer OTHER, MEDICARE, SELFPAY ==
[2023-07-05] VITALS (13 sets, daily range): BP systolic 115–124; BP diastolic 74–91; PULSE 95–115; RESP 15–30; TEMP 36.4; O2SAT 96–100
--- NOTE | ~2023-07-05 | XR_ITS ---
EXAMINATION: XR chest 2V DATE: 07/05/2023 16:18 INDICATION: Dyspnea. TECHNIQUE: Frontal and lateral views of the chest were obtained. COMPARISON: Chest 2 views 07/02/2023, chest CT 05/12/2023 FINDINGS: There is mild atelectasis in the lower lung zones. No pleural effusion or pneumothorax. The heart size is normal. Surgical clips in the right upper quadrant are likely from cholecystectomy. IMPRESSION: 1. Mild atelectasis in the lower lung zones. Reviewed, dictated and finalized at location E.
--- NOTE | 2023-07-05 16:35 | ECG_ITS ---
Measurements Intervals [place] Rate: 99 P: 34 [place]: 160 QRS: 34 QRSD: 92 T: 36 QT: 370 QTc: 476 Interpretive Statements SINUS RHYTHM LOW QRS VOLTAGE IN EXTREMITY LEADS [QRS DEFLECTION < 0.5 mV IN LIMB LEADS] NONSPECIFIC T-WAVE ABNORMALITY ABNORMAL ECG COMPARED TO ECG 07/02/2023 13:47:07 SINUS RHYTHM NOW PRESENT Electronically Signed On 07-06-2023 10:02:54 CDT by Sahil Hillman M.D.
[2023-07-05 16:51] LABS: Basophils Percent Auto 0.6 % (0.2-1.2); Eosinophils Absolute Auto 0.1 K/mm3 (0-0.3); Eosinophils Percent Auto 2.7 % (0-4.4); Hemoglobin 10.4 g/dL (12.0-15.0); Immature Granulocyte Absolute 0.03 K/mm3 (0.00-0.031); Immature Granulocyte Percent A 0.6 % (0-0.5); Lymphocytes Absolute Auto 1.21 K/mm3 (0.9-3.2); Lymphocytes Percent Auto 24.7 % (18.3-44.2); Mean Corpuscular HGB Conc 31.5 g/dl (32-36); Mean Corpuscular Hemoglobin 27.6 pg (26-34); Mean Corpuscular Volume 87.5 fl (80-100); Mean Platelet Volume 8.9 fl (7.4-10.4); Monocytes Absolute Auto 0.3 K/mm3 (0.1-0.6); Neutrophils Absolute Auto 3.2 K/mm3 (1.3-6.7); Neutrophils Percent Auto 64.4 % (45.5-73.1); Platelet Count Result 208 k/mm3 (150-375); Red Blood Count 3.77 M/mm3 (4.2-5.4); Red Cell Distribution Width 13.7 % (11.5-14.5); White Blood Count 4.9 K/mm3 (4.5-10.0)
[2023-07-05 17:04] LABS: Alanine Aminotransferase 35 U/L (6-35); Albumin Level 4.4 g/dL (3.5-5.1); Alkaline Phosphatase 130 U/L (38-126); Anion Gap 12 mmol/L (8-16); Aspartate Amino Transferase 57 U/L (14-36); Bilirubin,Total 0.4 mg/dL (0.2-1.3); Blood Urea Nitrogen 6 mg/dL (7-17); Calcium 9.3 mg/dL (8.4-10.2); Carbon Dioxide 21 mmol/L (22-30); Chloride 104 mmol/L (98-107); D Dimer < 0.27 ug/mL (<0.48); Estimated CRCL calculation 73 ml/min; Estimated Glomerular Filt Rate > 60; Glucose 183 mg/dL (65-110); Magnesium 1.3 mg/dL (1.6-2.3); Potassium 3.6 mmol/L (3.4-5.0); Sodium 137 mmol/L (137-145)
[2023-07-05 17:15] LABS: Troponin I < 0.012 ng/mL (0.000-0.034)
--- NOTE | 2023-07-05 17:16 | ED.SOB ---
HPI - SOB/Dyspnea General Chief Complaint: Shortness of Breath/Dyspnea Stated Complaint: CANT BREATH Time Seen by Provider: 07/05/23 16:33 History of Present Illness HPI Narrative: This is a 57-year-old female, recently discharged from this facility for pneumonia, who returns to the emergency department complaining of dyspnea. She states she is coughing though is not producing sputum or blood. She complains of a pressure-like sensation in the middle of the chest. She denies loss of consciousness, bleeding or fevers. She states she is taking her antibiotics as prescribed. Related Data Home Medications Medication Instructions Recorded Confirmed atorvastatin 20 mg tablet 20 mg PO DAILY 06/21/20 07/02/23 fluoxetine 20 mg tablet 20 mg PO DAILY 06/21/20 07/02/23 gabapentin 300 mg capsule 300 mg PO BID 06/21/20 07/02/23 metformin 1,000 mg tablet 2,000 mg PO BID 06/21/20 07/02/23 metoprolol succinate 25 mg 25 mg PO BID 06/21/20 07/02/23 tablet,extended release 24 hr magnesium 500 mg tablet 15 mg PO BID 09/13/20 07/02/23 allopurinol 100 mg tablet 100 mg PO DAILY 08/29/21 07/02/23 empagliflozin 10 mg tablet 10 mg PO HS 07/02/23 07/02/23 (Jardiance) Allergies Allergy/AdvReac Type Severity Reaction Status Date / Time codeine Allergy Unknown cold sores Verified 07/05/23 16:30 diphenhydramine Allergy Unknown BREAKS ME Verified 07/05/23 16:30 OUT doxycycline Allergy Unknown Nausea Verified 07/05/23 16:30 guaifenesin [Entex T] Allergy Unknown Skin Verified 07/05/23 16:30 Reaction naproxen Allergy Unknown Unknown Verified 07/05/23 16:30 Penicillins Allergy Unknown Unknown Verified 07/05/23 16:30 prednisone Allergy Unknown Unknown Verified 07/05/23 16:30 pseudoephedrine [Entex T] Allergy Unknown Skin Verified 07/05/23 16:30 Reaction ibuprofen AdvReac Mild nausea Verified 07/05/23 16:30 METOCLOPRAMIDE HCL Allergy Mild INTERACTS Uncoded 02/27/23 14:24 WITH PROZAC Review of Systems Review of Systems: CONSTITUTIONAL: Denies fever, chills, or sweats. ENT: Denies rhinorrhea, congestion, sore throat, or otalgia. CARDIOVASCULAR: Chest pressure, palpitations denies edema. RESPIRATORY: Cough and dyspnea GASTROINTESTINAL: Denies abdominal pain, nausea, vomiting, or diarrhea. GENITOURINARY: Denies dysuria or hematuria. MUSCULOSKELETAL: Denies back pain, joint pain, or myalgia. NEUROLOGIC: Denies headache, numbness, dizziness, or weakness. PSYCHIATRIC: Denies anxiety or depression. [facility] Past Medical History Medical History (Updated 07/05/23 @ 19:29 by Mj Pelayo MD) Anemia Asthma Diabetes Hypertension Surgical History Surgical History History of left knee replacement Family History Family History Sibling Family history of elevated blood lipids Family history of diabetes mellitus in first degree relative Mother Family history of diabetes mellitus in first degree relative Father Family history of congestive heart failure Other Cerebrovascular accident Diabetes mellitus Family history of allergic disorder Family history of cardiovascular disease Family history of kidney disease Hypertension Social History Social History Smoking status: Never smoker Alcohol intake: never Lack of Transportation: No Lack of Food: Never True Current Housing: I Have Housing Concerned About Future Housing: No Difficulty Paying Gas/Electric Bills: No Difficulty Paying for Meds: No Currently Unemployed: No Education: High School Diploma/GED Difficulty w/ Childcare or Family Care: No Gender identity (if verbalized by the patient): Female Spiritual care concerns: No Exam Narrative: GENERAL: Well-developed, well-nourished, and in no acute distress. HEAD: Normocephalic, atraumatic. EYES: PERRLA and EOMI.
[2023-07-05] MEDS: SODIUM CHLORIDE 0.9% IV 1,000 ML 999 ML IV CONT (17:26)
[2023-07-05] MEDS: MAGNESIUM SULF 1 GM/D5W 100 ML 1 GM/100 ML BAG IVPB (17:26)
[2023-07-05] MEDS: ALBUTEROL SULFATE NEB 2.5 MG/3 ML INH INHALATION (17:32)
[2023-07-05] MEDS: BENZONATATE 100 MG CAPSULE 200 MG PO (18:10)
== END 2023-07-05 18:45 | disposition home or self-care (01) ==
PROVIDERS: Emergency Provider Preventive Medicine Aerospace Medicine; PCP Internal Medicine
DX: R00.0 Tachycardia, unspecified (principal); R05.9 Cough, unspecified; E11.9 Type 2 diabetes mellitus without complications; I10 Essential (primary) hypertension; D64.9 Anemia, unspecified; Z87.01 Personal history of pneumonia (recurrent); Z79.84 Long term (current) use of oral hypoglycemic drugs; R94.31 Abnormal electrocardiogram [ECG] [EKG]
CPT/HCPCS: 36415; 71046; 80053; 83735; 84484; 85025; 85380; 93005; 94640; 96365; 99284; A9270; J3475; J7030

== ENCOUNTER 2023-08-06 13:04 | Outpatient (CLI) | payer OTHER, MEDICARE, SELFPAY ==
[2023-08-06 13:23] LABS: Basophils Percent Auto 0.6 % (0.2-1.2); Eosinophils Absolute Auto 0.1 K/mm3 (0-0.3); Eosinophils Percent Auto 1.7 % (0-4.4); Hematocrit 33.1 % (37.0-47.0); Hemoglobin 10.3 g/dL (12.0-15.0); Immature Granulocyte Absolute 0.03 K/mm3 (0.00-0.031); Immature Granulocyte Percent A 0.5 % (0-0.5); Lymphocytes Absolute Auto 1.83 K/mm3 (0.9-3.2); Lymphocytes Percent Auto 28.5 % (18.3-44.2); Mean Corpuscular HGB Conc 31.1 g/dl (32-36); Mean Corpuscular Hemoglobin 26.8 pg (26-34); Mean Platelet Volume 8.3 fl (7.4-10.4); Monocytes Absolute Auto 0.4 K/mm3 (0.1-0.6); Monocytes Percent Auto 6.4 % (2.6-8.5); Neutrophils Percent Auto 62.3 % (45.5-73.1); Platelet Count Result 256 k/mm3 (150-375); Red Blood Count 3.85 M/mm3 (4.2-5.4); Red Cell Distribution Width 13.3 % (11.5-14.5); White Blood Count 6.4 K/mm3 (4.5-10.0)
[2023-08-06 16:31] LABS: Iron 60 ug/dL (37-170)
[2023-08-06 16:35] LABS: Alanine Aminotransferase 48 U/L (6-35); Albumin Level 4.6 g/dL (3.5-5.1); Alkaline Phosphatase 128 U/L (38-126); Anion Gap 12 mmol/L (8-16); Aspartate Amino Transferase 63 U/L (14-36); Bilirubin,Total 0.5 mg/dL (0.2-1.3); Blood Urea Nitrogen 14 mg/dL (7-17); Carbon Dioxide 25 mmol/L (22-30); Chloride 102 mmol/L (98-107); Estimated Glomerular Filt Rate > 60; Glucose 152 mg/dL (65-110); Potassium 4.1 mmol/L (3.4-5.0); Sodium 139 mmol/L (137-145)
[2023-08-06 16:45] LABS: Percent Iron Saturation 13 % (20-50)
[2023-08-06 17:36] LABS: Folic Acid 9.9 ng/mL (2.76->20)
== END 2023-08-06 13:05 | disposition home or self-care (01) ==
LOC: ANHLAB 13:06
PROVIDERS: PCP Internal Medicine; Visit Provider Internal Medicine Hematology & Oncology
DX: D64.9 Anemia, unspecified (principal); R53.83 Other fatigue; E03.9 Hypothyroidism, unspecified
CPT/HCPCS: 36415; 80053; 82607; 82728; 82746; 83540; 83550; 84443; 85025

== ENCOUNTER 2023-09-26 11:58 | Outpatient (CLI) | payer OTHER, MEDICARE, SELFPAY ==
[2023-09-26 13:29] LABS: Alanine Aminotransferase 37 U/L (6-35); Albumin Level 4.3 g/dL (3.5-5.1); Alkaline Phosphatase 116 U/L (38-126); Anion Gap 13 mmol/L (8-16); Aspartate Amino Transferase 50 U/L (14-36); Bilirubin,Total 0.6 mg/dL (0.2-1.3); Blood Urea Nitrogen 12 mg/dL (7-17); Calcium 8.8 mg/dL (8.4-10.2); Carbon Dioxide 25 mmol/L (22-30); Chloride 101 mmol/L (98-107); Estimated Glomerular Filt Rate > 60; Glucose 158 mg/dL (65-110); Potassium 3.4 mmol/L (3.4-5.0); Sodium 139 mmol/L (137-145)
[2023-09-26 14:44] LABS: Basophils Percent Auto 0.8 % (0.2-1.2); Eosinophils Absolute Auto 0.1 K/mm3 (0-0.3); Hematocrit 30.8 % (37.0-47.0); Hemoglobin 9.4 g/dL (12.0-15.0); Immature Granulocyte Absolute 0.02 K/mm3 (0.00-0.031); Immature Granulocyte Percent A 0.4 % (0-0.5); Lymphocytes Absolute Auto 1.44 K/mm3 (0.9-3.2); Lymphocytes Percent Auto 28.3 % (18.3-44.2); Mean Corpuscular HGB Conc 30.5 g/dl (32-36); Mean Corpuscular Hemoglobin 25.6 pg (26-34); Mean Corpuscular Volume 83.9 fl (80-100); Mean Platelet Volume 9.5 fl (7.4-10.4); Monocytes Absolute Auto 0.3 K/mm3 (0.1-0.6); Monocytes Percent Auto 6.3 % (2.6-8.5); Neutrophils Absolute Auto 3.2 K/mm3 (1.3-6.7); Neutrophils Percent Auto 62.2 % (45.5-73.1); Platelet Count Result 223 k/mm3 (150-375); Red Blood Count 3.67 M/mm3 (4.2-5.4); White Blood Count 5.1 K/mm3 (4.5-10.0)
== END 2023-09-26 11:59 | disposition home or self-care (01) ==
PROVIDERS: PCP Internal Medicine; Visit Provider Internal Medicine Cardiovascular Disease
DX: I73.9 Peripheral vascular disease, unspecified (principal); Z01.810 Encounter for preprocedural cardiovascular examination
CPT/HCPCS: 36415; 80053; 85025

== ENCOUNTER 2024-02-25 15:10 | Emergency (ER) | payer OTHER, MEDICARE, SELFPAY ==
[2024-02-25 15:16] VITALS: BP 110/72; PULSE 86; RESP 18; TEMP 36.7; O2SAT 95
[2024-02-25 15:20] LABS: Glucose Point of Care 341 mg/dl (65-105)
[2024-02-25 16:11] LABS: Basophils Percent Auto 0.7 % (0.2-1.2); Eosinophils Absolute Auto 0.1 K/mm3 (0-0.3); Eosinophils Percent Auto 1.6 % (0-4.4); Hematocrit 36.9 % (37.0-47.0); Immature Granulocyte Absolute 0.01 K/mm3 (0.00-0.031); Immature Granulocyte Percent A 0.2 % (0-0.5); Lymphocytes Absolute Auto 1.52 K/mm3 (0.9-3.2); Lymphocytes Percent Auto 27.6 % (18.3-44.2); Mean Corpuscular HGB Conc 32.5 g/dl (32-36); Mean Corpuscular Hemoglobin 28.4 pg (26-34); Mean Corpuscular Volume 87.2 fl (80-100); Mean Platelet Volume 9.6 fl (7.4-10.4); Monocytes Absolute Auto 0.4 K/mm3 (0.1-0.6); Monocytes Percent Auto 6.4 % (2.6-8.5); Neutrophils Absolute Auto 3.5 K/mm3 (1.3-6.7); Neutrophils Percent Auto 63.5 % (45.5-73.1); Platelet Count Result 179 k/mm3 (150-375); Red Blood Count 4.23 M/mm3 (4.2-5.4); White Blood Count 5.5 K/mm3 (4.5-10.0)
[2024-02-25 16:22] LABS: Alanine Aminotransferase 55 U/L (6-35); Albumin Level 4.3 g/dL (3.5-5.1); Alkaline Phosphatase 192 U/L (38-126); Anion Gap 10 mmol/L (4-12); Aspartate Amino Transferase 63 U/L (14-36); Bilirubin,Total 0.7 mg/dL (0.2-1.3); Blood Urea Nitrogen 12 mg/dL (7-17); Calcium 9.2 mg/dL (8.4-10.2); Carbon Dioxide 22 mmol/L (22-30); Chloride 102 mmol/L (98-107); Estimated CRCL calculation 99 ml/min; Estimated Glomerular Filt Rate > 60; Glucose 350 mg/dL (65-110); Potassium 3.7 mmol/L (3.4-5.0); Sodium 134 mmol/L (137-145)
[2024-02-25 18:00] VITALS: RESP 16
[2024-02-25 18:31] VITALS: BP 108/64; PULSE 70; RESP 20; O2SAT 96
--- NOTE | 2024-02-25 18:54 | ED.RECABL ---
HPI - Recheck/Abnormal Lab/Rx General Chief Complaint: Recheck/Abnormal Lab/Rx Stated Complaint: high BG Time Seen by Provider: 02/25/24 17:26 Source: patient and family (Sister in law) Mode of arrival: EMS Limitations: no limitations History of Present Illness HPI narrative: Patient presents with complaint of blood glucose. She checks her blood sugars twice daily and it was noted to be 519 mg/dL at home today. She states past few weeks it has been 400s. It was reportedly lower for EMS per triage note though unknown value. Although patient checks her blood glucose twice daily she is non insulin dependent and does not make changes or modifications diabetes regimen based on this value. Her current regimen is as follows: Metformin 1000 mg b.i.d. Jardiance 10 daily q.h.s. and glimepiride b.i.d.. She does endorse that her last dose of that flap was this morning, her last dose of during his while last night, and her last dose of glimepiride was this morning all as prescribed. She denies any previous episode of DKA or HHS that she knows of. She denies any diarrhea or fever or vomiting. She does note that she has a headache. She denies any abdominal pain. she is having polyuria, polydipsia and polyphagia. Related Data Home Medications Medication Instructions Recorded Confirmed atorvastatin 20 mg tablet 20 mg PO DAILY 06/21/20 01/29/24 fluoxetine 20 mg tablet 20 mg PO DAILY 06/21/20 01/29/24 gabapentin 300 mg capsule 300 mg PO BID 06/21/20 01/29/24 metformin 1,000 mg tablet 2,000 mg PO BID 06/21/20 01/29/24 metoprolol succinate 25 mg 25 mg PO BID 06/21/20 01/29/24 tablet,extended release 24 hr magnesium 500 mg tablet 15 mg PO BID 09/13/20 01/29/24 allopurinol 100 mg tablet 100 mg PO DAILY 08/29/21 01/29/24 empagliflozin 10 mg tablet 10 mg PO HS 07/02/23 01/29/24 (Jardiance) Allergies Allergy/AdvReac Type Severity Reaction Status Date / Time codeine Allergy Unknown cold sores Verified 02/25/24 18:19 diphenhydramine Allergy Unknown BREAKS ME Verified 02/25/24 18:19 OUT doxycycline Allergy Unknown Nausea Verified 02/25/24 18:19 guaifenesin [Entex T] Allergy Unknown Skin Verified 02/25/24 18:19 Reaction naproxen Allergy Unknown Unknown Verified 02/25/24 18:19 Penicillins Allergy Unknown Unknown Verified 02/25/24 18:19 prednisone Allergy Unknown Unknown Verified 02/25/24 18:19 pseudoephedrine [Entex T] Allergy Unknown Skin Verified 02/25/24 18:19 Reaction ibuprofen AdvReac Mild nausea Verified 02/25/24 18:19 METOCLOPRAMIDE HCL Allergy Mild INTERACTS Uncoded 01/29/24 14:03 WITH PROZAC PMFSH Past Medical History Medical History Anemia Asthma Hypertension Non-insulin dependent diabetes mellitus Surgical History Surgical History History of left knee replacement Family History Family History Sibling Family history of elevated blood lipids Family history of diabetes mellitus in first degree relative Mother Family history of diabetes mellitus in first degree relative Father Family history of congestive heart failure Other Cerebrovascular accident Diabetes mellitus Family history of allergic disorder Family history of cardiovascular disease Family history of kidney disease Hypertension Social History Social History Smoking status: Never smoker Alcohol intake: never Lack of Transportation: No Lack of Food: Never True Current Housing: I Have Housing Concerned About Future Housing: No Difficulty Paying Gas/Electric Bills: No Difficulty Paying for Meds: No Currently Unemployed: No Education: High School Diploma/GED Difficulty w/ Childcare or Family Care: No Gender identity (if verbalized by the patient): Female Spiritual care concerns: No
[2024-02-25] MEDS: SODIUM CHLORIDE 0.9% IV 1,000 ML 999 ML IV CONT (19:00)
[2024-02-25 20:11] LABS: Appearance Urine Clear (Clear); Bilirubin Urine Negative (Negative); Blood Urine Negative (Negative); Color Urine Yellow (Yellow); Glucose Urine UA 3+ mg/dL (Negative); Ketones Urine Negative (Negative); Leukocyte Esterase Ur Negative LEU/UL (Negative); Nitrate Urine Negative (Negative); Protein Urine Negative (Negative); Urobilinogen Urine 0.2 mg/dL (<2.0)
[2024-02-25 20:12] LABS: Add Urine Microscopic? NO; Specific Grav Ur 1.036 (1.001-1.035)
[2024-02-25] MEDS: ACETAMINOPHEN 500 MG TABLET 1000 MG PO (20:35)
[2024-02-25] MEDS: KETOROLAC 15 MG/ML VIAL (*BKC) IV PUSH (20:35)
[2024-02-25] MEDS: PROCHLORPERAZINE EDISYLATE 10 MG/2 ML VIAL 5 MG IV PUSH (20:36)
[2024-02-25] MEDS: INSULIN ASPART (*BKC) 100 UNITS/ML 6 UNITS SUB-Q (20:36)
[2024-02-25 21:52] LABS: Glucose Point of Care 126 mg/dl (65-105)
[2024-02-25 22:20] VITALS: BP 110/72; PULSE 75; RESP 16; O2SAT 100
== END 2024-02-25 22:21 | disposition home or self-care (01) ==
PROVIDERS: Emergency Provider Student in an Organized Health Care Education/Training Program; PCP Internal Medicine
DX: E11.65 Type 2 diabetes mellitus with hyperglycemia (principal); R74.01 Elevation of levels of liver transaminase levels; I10 Essential (primary) hypertension; J45.909 Unspecified asthma, uncomplicated; D64.9 Anemia, unspecified; Z79.84 Long term (current) use of oral hypoglycemic drugs; Z96.652 Presence of left artificial knee joint
CPT/HCPCS: 36415; 80053; 81003; 82948; 85025; 96361; 96374; 96375; 99284; A9270; J0780; J1815; J1885; J7030

== ENCOUNTER 2024-08-09 15:59 | Emergency (ER) | payer OTHER, MEDICARE, SELFPAY ==
--- NOTE | ~2024-08-09 | XR_ITS ---
EXAMINATION: XR chest 2V Exam Date/Time: 08/09/2024 16:19 CDT HISTORY: chest pain x 3 days Comparison: 07/05/2023. RESULT: Lines, tubes, and devices: Cholecystectomy clips. Lungs and pleura: Clear. Cardiomediastinal silhouette: Stable. Other: No acute osseous or upper abdominal finding. IMPRESSION: No acute cardiopulmonary process. Reviewed, dictated and finalized at location K.
--- NOTE | 2024-08-09 16:00 | ECG_ITS ---
Test Date: 2024-08-09 16:08:50 Measurements Intervals [place] Rate: 102 P: 53 [place]: 189 QRS: 15 QRSD: 97 T: 42 QT: 363 QTc: 474 Interpretive Statements SINUS TACHYCARDIA LOW QRS VOLTAGE IN PRECORDIAL LEADS CANNOT R/O SEPTAL INFARCT, AGE INDETERMINATE BORDERLINE ST-T WAVE ABNORMALITY- DIFFUSE LEADS BASELINE ARTIFACT- I, II, III, AVR, AVL, AVF, V4-V6 ABNORMAL ECG No previous ECG available for comparison Electronically Signed On 08-09-2024 20:03:01 CDT by Thom Pack D.O.
[2024-08-09 16:09] VITALS: BP 104/74; PULSE 97; RESP 18; TEMP 36.3; O2SAT 95
[2024-08-09 16:19] LABS: Basophils Percent Auto 0.4 % (0.2-1.2); Eosinophils Absolute Auto 0.1 K/mm3 (0-0.3); Eosinophils Percent Auto 0.9 % (0-4.4); Hematocrit 39.9 % (37.0-47.0); Hemoglobin 13.6 g/dL (12.0-15.0); Immature Granulocyte Absolute 0.02 K/mm3 (0.00-0.031); Immature Granulocyte Percent A 0.3 % (0-0.5); Lymphocytes Percent Auto 27.7 % (18.3-44.2); Mean Corpuscular HGB Conc 34.1 g/dl (32-36); Mean Corpuscular Hemoglobin 29.5 pg (26-34); Mean Corpuscular Volume 86.6 fl (80-100); Mean Platelet Volume 8.5 fl (7.4-10.4); Monocytes Absolute Auto 0.5 K/mm3 (0.1-0.6); Monocytes Percent Auto 6.3 % (2.6-8.5); Neutrophils Absolute Auto 4.9 K/mm3 (1.3-6.7); Neutrophils Percent Auto 64.4 % (45.5-73.1); Platelet Count Result 216 k/mm3 (150-375); Red Blood Count 4.61 M/mm3 (4.2-5.4); Red Cell Distribution Width 13.5 % (11.5-14.5); White Blood Count 7.6 K/mm3 (4.5-10.0)
[2024-08-09 16:31] LABS: Alanine Aminotransferase 36 U/L (6-35); Albumin Level 4.9 g/dL (3.5-5.1); Alkaline Phosphatase 118 U/L (38-126); Anion Gap 17 mmol/L (4-12); Aspartate Amino Transferase 46 U/L (14-36); Bilirubin,Total 0.6 mg/dL (0.2-1.3); Blood Urea Nitrogen 14 mg/dL (7-17); Calcium 9.5 mg/dL (8.4-10.2); Carbon Dioxide 21 mmol/L (22-30); Chloride 101 mmol/L (98-107); Estimated CRCL calculation 63 ml/min; Estimated Glomerular Filt Rate > 60; Glucose 152 mg/dL (65-110); Lipase 154 U/L (23-300); Potassium 3.3 mmol/L (3.4-5.0); Sodium 139 mmol/L (137-145)
[2024-08-09 16:35] LABS: Partial Thromboplastin Time 25.8 Seconds (22.3-36.8)
[2024-08-09 16:42] LABS: Troponin I < 0.012 ng/mL (0.000-0.034)
--- NOTE | 2024-08-09 18:02 | ED.CHESTPAIN ---
HPI - Chest Pain General Chief Complaint: Chest Pain <Annamarie Wallace APRN - Last Filed: 08/09/24 18:05> Stated Complaint: chest pain <Annamariesera Wallace APRN - Last Filed: 08/09/24 18:05> Time Seen by Provider: 08/09/24 17:55 <Annamarie Wallace APRN - Last Filed: 08/09/24 18:05> Focused HPI: Patient is a 58-year-old female who presents to the ER with complaints of chest pain that started on Friday. She reports she does not remember injuring the site, but it feels like a hot poker stick is on her left upper chest. Patient reports the pain increases with movement. She has never experienced anything like this before in her life. Patient has a history of gout, diabetes, and high blood pressure. She denies any current shortness of breath or one-sided weakness/tingling/numbness. GENERAL: Well-appearing, well-nourished, and in no acute distress. HEAD: Normocephalic, atraumatic. CHEST: Clear to auscultation. ?No respiratory distress. HEART: Regular rate and rhythm.? NEURO: ?Alert and oriented x3. Patient screened in triage and initial orders placed.? ?Additional care and disposition to be based upon?diagnostic testing and treatment. <Annamarie Wallace APRN - Last Filed: 08/09/24 18:05> Source: patient <Annamarie KanAsia Wallace APRN - Last Filed: 08/09/24 18:05> Mode of arrival: ambulatory <Annamarie Wallace APRN - Last Filed: 08/09/24 18:05> Limitations: no limitations <Annamarie Wallace APRN - Last Filed: 08/09/24 18:05> History of Present Illness HPI narrative: Agree with HPI. Intermittent sharp chest pain to left side. Began this weekend after she is having episodes of vomiting. Mild improvement with Tylenol. <Donald Gillette MD - Last Filed: 08/09/24 20:42> Related Data Home Medications: Home Medications Medication Instructions Recorded Confirmed atorvastatin 20 mg tablet 20 mg PO DAILY 06/21/20 08/09/24 fluoxetine 20 mg tablet 20 mg PO DAILY 06/21/20 08/09/24 gabapentin 300 mg capsule 300 mg PO BID 06/21/20 08/09/24 metformin 1,000 mg tablet 2,000 mg PO BID 06/21/20 08/09/24 metoprolol succinate 25 mg 25 mg PO BID 06/21/20 08/09/24 tablet,extended release 24 hr magnesium 500 mg tablet 15 mg PO BID 09/13/20 08/09/24 allopurinol 100 mg tablet 100 mg PO DAILY 08/29/21 08/09/24 empagliflozin 10 mg tablet 25 mg PO HS 07/02/23 08/09/24 (Jardiance) insulin glargine 100 unit/mL 10 unit subcut HS 03/25/24 08/09/24 subcutaneous solution (Lantus U-100 Insulin) insulin glargine 100 unit/mL 15 unit subcut QA 03/25/24 08/09/24 subcutaneous solution (Lantus U-100 Insulin) insulin lispro 100 unit/mL 1 sliding scale dose subcut 03/25/24 08/09/24 subcutaneous solution (Humalog USEASDIRECTD U-100 Insulin) <Annamarie Wallace, GAS DISPENSER - Last Filed: 08/09/24 18:05> Allergies/Adverse Reactions: Allergies Allergy/AdvReac Type Severity Reaction Status Date / Time codeine Allergy Unknown cold sores Verified 08/09/24 16:00 diphenhydramine Allergy Unknown BREAKS ME Verified 08/09/24 16:00 OUT doxycycline Allergy Unknown Nausea Verified 08/09/24 16:00 guaifenesin [Entex T] Allergy Unknown Skin Verified 08/09/24 16:00 Reaction naproxen Allergy Unknown Unknown Verified 08/09/24 16:00 Penicillins Allergy Unknown Unknown Verified 08/09/24 16:00 prednisone Allergy Unknown Unknown Verified 08/09/24 16:00 pseudoephedrine [Entex T] Allergy Unknown Skin Verified 08/09/24 16:00 Reaction ibuprofen AdvReac Mild nausea Verified 08/09/24 16:00 METOCLOPRAMIDE HCL Allergy Mild INTERACTS Uncoded 08/09/24 16:00 WITH PROZAC <Annamarie Wallace, GAS DISPENSER - Last Filed: 08/09/24 18:05> Review of Systems Review of Systems: All systems reviewed & are unremarkable except as noted in HPI and below <Donald Gillette MD - Last Filed: 08/09/24 20:42> Constitutional: Constitutional: Reports no additional constitutional complaints <Donald Gillette MD
[2024-08-09] MEDS: ASPIRIN 81 MG CHEWABLE TABLET 324 MG PO (18:16)
[2024-08-09 18:26] VITALS: BP 120/78; PULSE 97; RESP 22; O2SAT 97
[2024-08-09] MEDS: KETOROLAC 30 MG/ML VIAL (*BKC) IV PUSH (18:37)
--- NOTE | 2024-08-09 19:07 | ECG_ITS ---
Test Date: 2024-08-09 19:17:56 Measurements Intervals [place] Rate: 86 P: 40 WI: 185 QRS: 6 QRSD: 110 T: 12 QT: 397 QTc: 477 Interpretive Statements SINUS RHYTHM LOW QRS VOLTAGE- DIFFUSE LEADS CANNOT R/O SEPTAL INFARCT, AGE INDETERMINATE BORDERLINE ST-T WAVE ABNORMALITY- DIFFUSE LEADS BASELINE ARTIFACT- I, II, III, AVR, AVL, AVF, V1, V4-V6 ABNORMAL ECG Compared to ECG 08/09/2024 16:08:50 HEART RATE HAS DECREASED Electronically Signed On 08-09-2024 19:59:29 CDT by Thom Pack D.O.
[2024-08-09 19:13] VITALS: PULSE 86
[2024-08-09 19:14] VITALS: BP 115/74; PULSE 86; RESP 16; TEMP 36.7; O2SAT 98; O2SAT 99
[2024-08-09 19:41] LABS: Troponin I < 0.012 ng/mL (0.000-0.034)
[2024-08-09 20:53] VITALS: BP 118/97; PULSE 81; RESP 15; O2SAT 96
== END 2024-08-09 20:54 | disposition home or self-care (01) ==
PROVIDERS: Emergency Medicine; Emergency Provider Emergency Medicine; PCP Internal Medicine
DX: R07.89 Other chest pain (principal); I10 Essential (primary) hypertension; E11.9 Type 2 diabetes mellitus without complications; J45.909 Unspecified asthma, uncomplicated; Z86.2 Personal history of diseases of the blood and blood-forming organs and certain disorders involving the immune mechanism; Z96.652 Presence of left artificial knee joint; Z79.84 Long term (current) use of oral hypoglycemic drugs; Z79.4 Long term (current) use of insulin; Z79.899 Other long term (current) drug therapy; R00.0 Tachycardia, unspecified; R94.31 Abnormal electrocardiogram [ECG] [EKG]
CPT/HCPCS: 36415; 71046; 80053; 83690; 84484; 85025; 85610; 85730; 93005; 96374; 99284; A9270; J1885

== ENCOUNTER 2025-03-02 20:14 | Emergency (ER) | payer OTHER, MEDICARE, SELFPAY ==
--- OUTSIDE RECORDS SUMMARY | 2025-03-02 20:16 | XMS_ITS | Referral Summary ---
Author Organization [facility] Address [address] [place] [id number] Care Team Providers Care Alignment Technician Name Role Phone Sanjeev Maldonado MD Primary Care Provider [phone] Allergies Active Allergy Reactions Criticality Noted Date Comments Diphenhydramine Hives,Rash High 08/30/2013 Reaction: Rash, Ibuprofen Stomach upset,Nausea And Vomiting,Other (See comments),Vomiting Low 08/30/2013 Reaction: Abdominal pain, Meperidine Hives High 01/19/2020 Metoclopramide Hallucinations,Hive s,Other (See comments),Rash,Shor tness of breath,Stomach upset High 08/30/2013 Reaction: Abdominal pain, Morphine Nausea only,Nausea And Vomiting,Other (See comments) Low 08/30/2013 Opioids - Morphine Analogues Rash Reaction: Rash, Penicillins Other (See comments),Rash,Shor tness of breath High 01/19/2020 Medications omeprazole (PriLOSEC) 40 mg capsule take 1 capsule by oral route every day before a meal 0 0 6 Active metFORMIN (GLUCOPHAGE) 500 mg tablet take 1 tablet by oral route 2 times every day with morning and evening meals 0 0 6 Active Additional Information Patient taking differently: 1,000 mg, Reported on 04/30/2023 FLUoxetine (FLUoxetine) 10 mg capsule Take one by mouth one time per day 0 0 9 Active losartan (COZAAR) 25 mg tablet Take 1 tablet (25 mg total) by mouth nightly 30 tablet 11 1 Active magnesium oxide (MAG-OX) 400 mg (241.3 mg elemental magnesium) tabletIndicatio ns:hypomagnesem ia Pt to take 2 tablets in AM and 1 tablet in the PM or as directed. 120 tablet 11 1 Active allopurinoL (ZYLOPRIM) 100 mg tablet Take 1 tablet (100 mg total) by mouth daily 2 Active atorvastatin (LIPITOR) 40 mg tablet Take 1 tablet (40 mg total) by mouth nightly 2 Active gabapentin (NEURONTIN) 600 mg tablet Take 1 tablet (600 mg total) by mouth 3 (three) times a day 2 Active nitroglycerin (NITROSTAT) 0.[address] 1 tablet (0.4 mg total) under the tongue every 5 (five) minutes as needed for chest pain May repeat dose q 5 min, up to 3 doses total 90 tablet 2 3 Active empagliflozin (JARDIANCE) 10 mg tablet Take 1 tablet (10 mg total) by mouth daily 30 tablet 11 3 Active Additional Information Patient taking differently:10 mg oral Daily,Now taking 25 mg daily., Reported on 05/05/2024 albuterol HFA (PROVENTIL HFA,VENTOLIN HFA,PROAIR HFA) 90 mcg/actuation inhaler 2 puffs every 4 (four) hours as needed 3 Active LANTUS 100 unit/mL (3 mL) pen for injection INJECT 20 UNITS OF INSULIN IN THE MORNING & 15 UNITS OF INSULIN IN THE EVENING 4 Active HumaLOG 100 unit/mL pen for injection PLEASE SEE ATTACHED FOR DETAILED DIRECTIONS 4 Active amLODIPine (NORVASC) 2.5 mg tablet Take 1 tablet (2.5 mg total) by mouth daily 90 tablet 6 4 05/05/20 25 Active cilostazoL (PLETAL) 50 mg tablet TAKE 1 TABLET BY MOUTH TWICE A DAY 180 tablet 3 4 Active aspirin 81 mg enteric coated tablet TAKE 1 TABLET BY MOUTH EVERY DAY 90 tablet 3 5 Active Active Problems Problem Noted Date Diagnosed Date PAD (peripheral artery disease) 08/27/2023 Raised antibody titer 09/06/2014 Social History Tobacco Use Types Packs/Day Years Used Date Smoking Tobacco: Never Smokeless Tobacco: Never Tobacco Cessation:Counseling Given: Not Answered Alcohol Use Standard Drinks/Week Comments No 0 (1 standard drink = 0.6 oz pur e alcohol) Personal Safety Answer Date Recorded Have you ever been in or are you currently in a harmful physical or emotional relationship or is someone making you feel afraid or unsafe? 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 Respiratory Rate 16 10/02/2023 8:15 AM USED CAR SALES MANAGER Oxygen Saturation 95% 05/05/2024 9:13 AM CDT Inhaled Oxygen Concentration - - Weight 72 kg (158 lb 12.8 oz) 05/05/2024 9:13 AM CDT Height 160 cm (5' 3 ) 05/05/2024 9:13 AM CDT Body Mass Index 28.13 05/05/2024 9:13 AM CDT Plan of Treatment Not on file Medical Devices Implanted Type Area Harness Preparer Device Identifier Shelf Expiration Date Model / Serial / Lot [facility] [employer] [facility] Device Closure Vascade Od5 Fr Femoral Artery [id number] - [id number] Implanted:Qty: 1 on 10/02/2023 by Tuan Martin MD at [facility] [employer] [facility] 07/21/2025 [id number] / / [id number] Procedures Procedure Name Priority Date/Time Associated Diagnosis Comments POCT LIPID PANEL Routine 05/05/2024 9:17 AM CDT Lipid screening BASIC METABOLIC PANEL Routine 07/23/2021 Chest pain, atypical from Last 3 Months or Most Recently Relevant to Health Maintenance Results * POCT lipid panel (05/05/2024 9:17 AM CDT) Cholesterol, POC 119 mg/dL HDL, POC 16 mg/dL Triglycerides, POC 134 mg/dL LDL Cholesterol POC 76 mg/dL Chol/HDL Ratio, POC 4.7 Non-HDL Cholesterol, POC 103 mg/dL Cholesterol Total, POC 119 mg/dL Capillary blood 05/05/2024 9 :17 AM CDT Tuan Martin MD POINT OF CARE TEST ORDERABLES Ed ited Result - Final * (ABNORMAL) Basic metabolic panel (07/23/2021) SCRIBED Sodium 139 137 - 145 mmol/L EXTERNAL LAB SCRIBED Potassium 3.5 3.4 - 5.0 mmol/L EXTERNAL LAB SCRIBED Chloride 104 98 - 107 mmol/L EXTERNAL LAB SCRIBED Carbon Dioxide 23 22 - 30 mmol/L EXTERNAL LAB SCRIBED Anion Gap 12 8 - 16 mmol/L EXTERNAL LAB SCRIBED Urea Nitrogen (BUN) 8 7 - 17 mg/dl EXTERNAL LAB SCRIBED Creatinine 0.60(A) 0.7 - 1.0 mg/dl EXTERNAL LAB SCRIBED Glucose 147(A) 65 - 110 mg/dl EXTERNAL LAB SCRIBED Calcium 9.7 8.4 - 10.2 mg/dl EXTERNAL LAB SCRIBED eGFR in >60 >=60 EXTERNAL LAB SCRIBED eGFR in NonAfrican Albanian >60 >=60 EXTERNAL LAB Blood specimen (specimen) 07/23/2021 Micehll Hunt NP LAB BLOOD ORDERABLES Angelika l Result EXTERNAL LAB from Last 3 Months or Most Recently Relevant to Health Maintenance Insurance [facility] MEDICARE [facility] Address: [facility] [address] [place] [address] [facility] MEDICARE AD[facility]ANTAGE [facility] Address: [facility] [address] [place] [address] [facility] H[facility]/PPO Address: [facility] [address] [place] [address] Care Teams Alignment Technician Relationship Specialty Start Date End Date Sanjeev Maldonado MD PCP - General Internal Medicine 08/30/20
--- OUTSIDE RECORDS SUMMARY | 2025-03-02 20:16 | XMS_ITS | Encounter Summary ---
Author Organization [facility] Address [address] [facility] [place] [address] Phone Care Team Providers Care Manager Park Name Role Phone Altaf Fowler DO Unavailable [phone] Sanjeev Maldonado MD Primary Care Provider [phone] Tuan Martin MD Unavailable Brad Powell MD Unavailable Helen Davis APRN, HVAC R TECH Unavailable Reason for Visit * Reason Comments Medication Refill Encounter Details Date Type Department Care Team (Late st Contact Info) Description 07/04/2022 Refill [facility] - Gastroenterology - [place] [address] [place] [id number] Nicolasa Jerez April, PAC [address] [place] [address] Medication Refill Social History Tobacco Use Types Packs/Day Years Used Date Smoking Tobacco: Never Smokeless Tobacco: Never Alcohol Use Standard Drinks/Week Comments No 0 (1 standard drink = 0.6 oz pur e alcohol) Sexually Active Control Partners Comments Not Currently Male Comments No Sex and Gender Information Value Date Recorded Sex Assigned at Not on file Legal Sex Female 11:42 PM CDT Gender Identity Not on file Sexual Orientation Not on file 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 standing order for pediatric and adult patients. * Telephone Encounter - Sheree Shafer RN - 07/08/2022 9:35 AM CDT documented in this encounter Plan of Treatment Not on file documented as of this encounter Visit Diagnoses Not on filedocumented in this encounter Care Teams Manager Park Relationship Specialty Start Date End Date Sanjeev Maldonado MD PCP - General Internal Medicine 02/26/17 Altaf Fowler DO Gastroenterology 01/04/16 Tuan Martin MD [address] [facility] [address] [place] [id number] Cardiovascular Disease - Cardiology 08/28/22 Brad Powell MD [address] [address] Consulting Physician Colon and Rectal Surgery 03/13/23 Helen Davis APRN, HVAC R TECH [address] [place] [address] Nurse Practitioner Advanced Practice Nurse 02/06/24 documented as of this encounter
--- OUTSIDE RECORDS SUMMARY | 2025-03-02 20:16 | XMS_ITS | Clinical Summary ---
Author Organization [facility] Nilesh tawny [facility] Address [address] [facility] [address] Care Team Providers Care Acute Care Physician Name Role Phone Sanjeev Maldonado MD Primary Care Provider [phone] Allergies Active Allergy Reactions Criticality Noted Date Comments Benadryl Allergy Decongestant Hives High 08/30/2013 Codeine Nausea and Vomiting, Other (See Comments) Low 01/19/2020 Diphenhydramine Hives,Rash High 01/19/2020 Ibuprofen Nausea and Vomiting, Other (See Comments) Low 01/19/2020 Meperidine Hives High 01/19/2020 Metoclopramide Hives,Other (See Comments),Rash,Shortness of Breath/Wheezing High 01/19/2020 Metoclopramide Hcl Hallucination Low 08/30/2013 Morphine Nausea and Vomiting Low 08/30/2013 Penicillins Other (See Comments),Shortness of Breath/Wheezing,Rash High 01/19/2020 Medications atorvastatin (LIPITOR) 40 mg tablet atorvastatin 40 mg tablet TAKE ONE TABLET DAILY AT BEDTIME Active FLUoxetine (PROzac) 20 mg capsule fluoxetine 20 mg capsule C1 Active ondansetron (Zofran ODT) 4 mg Tablet, Rapid Dissolve Take 1 Tablet (4 mg) by mouth every 8 hours as needed for Nausea/Emesis. Dissolve tablet on top of tongue, then swallow with saliva. 15 Tablet 1 0 Active omeprazole (PriLOSEC) 20 mg Capsule, Delayed Release(E.C.) TAKE 2 CAPSULES BY MOUTH EVERY DAY 0 Active OneTouch Delica Plus Lancet 33 gauge 2 times daily. 0 Active Proctosol HC 2.5 % cream with perineal applicator APPLY TO RECTUM 2 TIMES DAILY DIRECTED 0 Active magnesium oxide (MAG-OX) 400 mg (241.3 mg magnesium) tablet TAKE ONE TABLET TWICE DAILY 0 Active maltodextrin (FIBER POWDER ORAL) Take 1 Tablet by mouth. Active fluticasone propion-salmet Eliceo (ADVAIR DISKUS,WIXELA INHUB) 250-50 mcg/dose disk inhaler 2 times daily as needed. Active naproxen (NAPROSYN) 500 mg tablet naproxen 500 mg tablet Active metFORMIN (GLUCOPHAGE) 1,000 mg tablet metformin 1,000 mg tablet TAKE 1 TABLET BY MOUTH TWICE A DAY Active gabapentin (NEURONTIN) 600 mg tablet gabapentin 600 mg tablet Active glimepiride (AMARYL) 1 mg tablet 2 times daily. Activ e losartan (COZAAR) 25 mg tablet Take 25 mg by mouth daily at bedtime. 1 Active methocarbamoL (ROBAXIN) 750 mg tablet methocarbamol 750 mg tablet Take by oral route for 8 days. Active pantoprazole (PROTONIX) 40 mg Tablet, Delayed Release (E.C.) Take 40 mg by mouth. 1 Active valsartan (DIOVAN) 40 mg tablet Take by mouth. 0 Active metroNIDAZOLE (FLAGYL) 500 mg tablet Take 500 mg by mouth. 1 Active Lantus Solostar U-100 Insulin 100 unit/mL (3 mL) solution for injection INJECT 14 UNITS UNDER THE SKIN DAILY FOR 30 DAYS Active cyanocobalamin (VITAMIN B-12) 1,000 mcg/mL Solution INJECT 1 ML (1,000 MCG) BY INTRAMUSCULAR INJECTION EVERY 30 DAYS. 3 mL 2 5 Active Syringe with Needle, Disp, 1 mL 27 x 1/2 Syringe Use with B12. 3 Each 2 5 Active Active Problems Problem Noted Date Diagnosed Date Vitamin B12 deficiency anemia 02/28/2023 Chronic anemia 05/16/2020 Other dietary vitamin B12 deficiency anemia 04/25 Secondary hypercoagulable state 01/19/2020 Encounters Date Type Department Care Team Description 02/22/2025 External Device Data ST[facility] ABSTRACTION Provider, Abstract 02/09/2025 External Device Data [facility] ABSTRACTION Provider, Abstract 02/02/2025 External Device Data [facility] ABSTRACTION Provider, Abstract 02/01/2025 External Device Data [facility] ABSTRACTION Provider, Abstract 01/31/2025 External Device Data [facility] ABSTRACTION Provider, Abstract 01/29/2025 External Device Data [facility] ABSTRACTION Provider, Abstract 01/28/2025 External Device Data [facility] ABSTRACTION Provider, Abstract 01/26/2025 External Device Data [facility] ABSTRACTION Provider, Abstract 01/12/2025 External Device Data [facility] ABSTRACTION Provider, Abstract 01/11/2025 2:30 PM DRYWALL CARRIER Telephone Check Up [facility] Oncology [facility] Hematology [facility] [address] [place] [address] Lit Silva MD Chronic anemia (Primary Dx) 12/16/2024 External Device Data ST[facility] ABSTRACTION Provider, Abstract 12/09/2024 Refill [facility] Oncology [facility] [address] [place] [address] Lit Silva MD 12/07/2024 External Device Data ST[facility] ABSTRACTION Provider, Abstract from Last 3 Months Family History Medical History Relation Name Comments Diabetes Brother 1 Diabetes Brother 2 Diabetes Brother 3 Diabetes Father Heart Disease Father Diabetes Mother Relation Name Status Comments Brother 1 Alive Brother 2 Alive Brother 3 Alive Father Mother Alive Social History Tobacco Use Types Packs/Day Years Used Date Smoking Tobacco: Never Smokeless Tobacco: Never Tobacco Cessation:Counseling Given: Not Answered Alcohol Use Standard Drinks/Week Comments Never 0 (1 standard drink = 0.6 oz pur e alcohol) Comments No Sex and Gender Information Value Date Recorded Sex Assigned at Not on file Legal Sex Female 2:43 PM 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 Gender Identity Not on file Sexual Orientation Not on file Last Filed Vital Signs Vital Sign Reading Time Taken Comments Blood Pressure 125/83 09/09/2024 8:27 AM CDT Pulse 72 09/09/2024 8:27 AM CDT Temperature 36.5 C (97.7 F) 09/09/2024 8:27 AM CDT Respiratory Rate 14 09/09/2024 8:27 AM CDT Oxygen Saturation 94% 09/09/2024 8:27 AM CDT Inhaled Oxygen Concentration - - Weight 71.5 kg (157 lb 9.6 oz) 09/09/2024 8:27 A M CDT Height 160 cm (5' 3 ) 08/02/2022 12:13 PM CDT Body Mass Index 27.92 08/02/2022 12:13 PM CDT Plan of Treatment Upcoming Encounters Date Type Department Care Team (Late st Contact Info) Description 05/11/2025 11:30 AM CDT Office Visit [facility] Oncology and Hematology - [place] [address] [facility] [address] [place] [address] Lit Silva MD [address] [facility] [address] [place] [address] Health Maintenance Due Date Last Done Comments DIABETES ANNUAL FOOT EXAM 1983 DIABETES ANNUAL RETINAL EXAM 1983 DIABETES HBA1C Q 6 MONTHS 1983 DIABETES MICROALBUMIN ANNUAL SCREEN 1983 LDL CHOLESTEROL ANNUAL 1983 DTAP/TDAP/TD VACCINES (1 - Tdap) 1984 HEPATITIS B VACCINES (1 of 3 - 19+ 3-dose series) 07/26 HPV/Cotest (21-29) 1986 PAP SMEAR 1986 CERVICAL CANCER SCREENING 1995 HPV/Cotest (30-65) 1995 PAP SMEAR 1995 BREAST CANCER SCREENING 2005 FIT-DNA Q 3 years 2010 FIT/FOBT Q 1 year 2010 Flex Sig/CT Colonography Q 5 years 2010 ZOSTER VACCINE (1 of 2) 2015 INFLUENZA VACCINE (#1) 2024 COVID-19 Vaccine (2 - 2023- season) 07/25/202411/2020 COLORECTAL SCREENING 04/23/2028 04/23/2018 Colorectal Cancer Screening 04/23/[address] [place] [address] [place] [id number] [facility] OPTIONS PPO [id number] Care Teams Acute Care Physician Relationship Specialty Start Date End Date Sanjeev Maldonado MD [address] [facility] [address] [place] [id number] PCP - General Internal Medicine 01/19/20
--- OUTSIDE RECORDS SUMMARY | 2025-03-02 20:16 | XMS_ITS | Clinical Summary ---
Author Organization [facility] Address [address], [facility] [address] [place] [address] Phone Care Team Providers Care Director Index Name Role Phone Altaf Fowler DO Unavailable [phone] Sanjeev Maldonado MD Primary Care Provider [phone] Tuan Martin MD Unavailable Brad Powell MD Unavailable Helen Davis APRN, BASKETBALL COACH Unavailable Allergies Active Allergy Reactions Criticality Noted Date Comments Diphenhydramine Other (see Comments) Breaks her out Codeine Sulfate Other (see Comments) Adverse reaction, mild, headaches Ibuprofen Nausea,Other (see Comments) Adverse reaction, mild Penicillins Rash,Other (see Comments) Mild allergy Metoclopramide Hives,Rash,Other (se e Comments) MOOD CHANAGES Medications FLUoxetine HCl 20 MG Tablet Take 20 mg by mouth every morning. Active atorvastatin (LIPITOR) 40 MG Tablet Take 40 mg by mouth nightly. Active gabapentin (NEURONTIN) 300 MG Capsule Take 600 mg by mouth 2 times daily. Active magnesium oxide (MAG-OX) 400 (241.3 Mg) MG Tablet TAKE ONE TABLET TWICE DAILY 04/20/20 Active valsartan (DIOVAN) 40 MG Tablet nightly. Active allopurinol (ZYLOPRIM) 100 MG Tablet daily. Active ondansetron (ZOFRAN) 4 MG Tablet Take 1 Tablet by mouth every 8 hours as needed (Take 1 tab by mouth every 8 hours as needed for nausea). 15 Tablet 1 09/11/20 Active Additional Information Patient not taking.Reported on 02/06/2024 Aspirin Low Dose 81 MG Tablet Delayed Response Take 81 mg by mouth daily. 01/23/20 23 Active losartan (COZAAR) 100 MG Tablet Take 100 mg by mouth daily. 01/08/20 23 Active nitroGLYCERIN (NITROSTAT) 0.[address] 1 TABLET UNDER TONGUE EVERY 5 MINS, UP TO 3 DOSES NEEDED FOR CHEST PAIN 01/23/20 Active metoprolol tartrate (LOPRESSOR) 50 MG Tablet Take 50 mg by mouth 2 times daily. 01/08/20 23 Active metFORMIN (GLUCOPHAGE) 1000 MG Tablet Take 1,000 mg by mouth 2 times daily. 03/13/20 23 Active COMPOUNDED MEDICATIONIndic ations:Anal fissure 0.3% nifedipine, 2% lidocaine, 1% hydrocortisone combination cream, apply to anus TID and PRN, preferably 30 minutes before a bowel movement. 30 g 1 03/18/20 Active Additional Information Patient not taking.Reported on 02/06/2024 albuterol sulfate 2.5 MG/0.5ML Nebulizer Soln INHALE 1 VIAL THREE TIMES DAILY DIRECTED 12/19/19 24 Active Jardiance 10 MG Tablet Take 10 mg by mouth daily. Active OneTouch Ultra Strip USE TO TEST TWICE DAILY 01/28/20 24 Active naproxen (NAPROSYN) 500 MG Tablet Take 500 mg by mouth 2 times daily. 02/04/20 24 Active pantoprazole (PROTONIX) 40 MG Tablet Delayed ResponseIndicat ions:Gastroesop hageal reflux disease without esophagitis TAKE 1 TABLET BY MOUTH TWICE A DAY BEFORE MEALS 180 Tablet 1 12/03/19 25 Active Active Problems Problem Noted Date Diagnosed Date Hepatic steatosis 08/28/2022 Constipation Hiatal hernia Chest pain Overview (11/20/2015): Atypical Diarrhea Gastroparesis GERD (gastroesophageal reflux disease) IBS (irritable bowel syndrome) Small intestinal bacterial overgrowth Asthma Encounters Date Type Department Care Team Description 12/02/2024 Refill [facility] - Gastroenterology [facility] [address] [place] [address] Helen Davis APRN, BASKETBALL COACH Medication Refill from Last 3 Months Immunizations Immunization Administration Dates Next Due Covid-19 Vaccine, Vector-nr, Rs-ad26, Pf, 0.5 Ml (TMAMY/J&J) 08/24/2021 Pneumococcal Vaccine - 13 Valent 05/20/2017 Family History Medical History Relation Name Comments Diabetes Brother 1 Other-comment Brother 1 defibrillator placed; heart transplant 05/15 Diabetes Brother 2 Diabetes Brother 3 Asthma Father Congestive Heart Failure Father Diabetes Father Heart Disease Father Thyroid Disease Maternal Grandmother Diabetes Mother Hypertension Mother Other-comment Mother blood clots Relation Name Status Comments Brother 1 Alive Brother 2 Alive Brother 3 Alive Father Maternal Grandfather Maternal Grandmother Mother Alive Paternal Grandfather Paternal Grandmother Social History Tobacco Use Types Packs/Day Years [...] file Not on file Not on file Last Filed Vital Signs Vital Sign Reading Time Taken Comments Blood Pressure 116/72 02/06/2024 1:17 PM CDT Pulse 78 02/06/2024 1:17 PM CDT Temperature 36.1 C (96.9 F) 02/06/2024 1:17 PM CDT Respiratory Rate 14 02/06/2024 1:17 PM CDT Oxygen Saturation 98% 02/06/2024 1:17 PM CDT Inhaled Oxygen Concentration - - Weight 73.6 kg (162 lb 4.8 oz) 02/06/2024 1:17 P M CDT Height 160 cm (5' 3 ) 02/06/2024 1:17 PM CDT Body Mass Index 28.75 02/06/2024 1:17 PM CDT Plan of Treatment Health Maintenance Due Date Last Done Comments Hepatitis C Virus (HCV) Screening 1965 Mammogram 1965 TdaP Immunization 1965 Hepatitis B Immunization (1 of 3 - 19+ 3-dose series) 1984 Cologuard 2015 Immunochemical Fecal Occult Blood 2015 Zoster Immunization (1 of 2) 2015 Pneumococcal Immunization (50+ years) (2 of 2 - PPSV23) 07/15/2017 05/20/2017 Influenza Immunization (#1) 2024 SARS-COV-2 Immunization (2 - season) 2024 08/24/2021 Colonoscopy 05/08/2028 05/08/2021, 05/25, 04/23/2018, Additional history exists Colorectal Cancer Screening 05/08/2028 Respiratory Syncytial Virus (RSV) Immunization (Adult) (1 - 1-dose 75+ series) 2040 05/08/2021, 05/25, 04/23/2018, Additional history exists Pneumococcal Immunization Combined Discontinued 05/20/2017 Meningococcal Immunization (ACWY) Aged Out No longer eligible based on patient's age to complete this topic Rotavirus Immunization Aged Out No lo nger eligible based on patient's age to complete this topic Medical Devices Implanted Type Area Lip Of Shank Cutter Device Identifier Shelf Expiration Date Model / Serial / Lot Clip 360 Resolution 235cm - [id number] Implanted:Qty: 3 on 08/18/2020 by Altaf Fowler DO at [facility] IMPLANT [employer] 05/08/2023 [id number] / [id number] / [id number] Procedures Procedure Name Priority Date/Time Associated Diagnosis Comments HM COLONOSCOPY Routine 04/23/2018 from Last 3 Months or Most Recently Relevant to Health Maintenance Results * HM COLONOSCOPY (04/23/2018) us Altaf Fowler DO PROCEDURE/MINOR SURGICAL ORDERA BLES Final Result from Last 3 Months or Most Recently Relevant to Health Maintenance Insurance [facility] MEDICARE C [facility] [place] [address] Care Teams Director Index Relationship Specialty Start Date End Date Sanjeev Maldonado MD PCP - General Internal Medicine 02/26/17 Altaf Fowler DO Gastroenterology 01/04/16 Tuan Martin MD [address] [place] [address] [address] [facility] [address] [place] [address] Cardiovascular Disease - Cardiology 08/28/22 Brad Powell MD [address] [address] Consulting Physician Colon and Rectal Surgery 03/13/23 Helen Davis APRN, BASKETBALL COACH [address] [place] [address] Nurse Practitioner Advanced Practice Nurse 02/06/24
--- OUTSIDE RECORDS SUMMARY | 2025-03-02 20:16 | XMS_ITS | Encounter Summary ---
Author Organization [facility] Address [address] [facility] [place] [address] Phone Care Team Providers Care Hand Singer Name Role Phone Altaf Fowler DO Unavailable [phone] Sanjeev Maldonado MD Primary Care Provider Tuan Martin MD Unavailable Brad Powell MD Unavailable Helen Davis APRN, UI DEVELOPER DESIGNER Unavailable Reason for Visit * Reason Comments Medication Refill Encounter Details Date Type Department Care Team (Late st Contact Info) Description 04/02/2022 Refill [facility] - [facility] - [place] [address] [place] [id number] Nicolasa Jerez April, PAC [address] [place] [address] Medication Refill Social History Tobacco Use Types [...] encounter Miscellaneous Notes * Telephone Encounter - Rupa Conner - 04/08/2022 9:34 AM CDT Pt made aware, Pt had no questions at this time. * Telephone Encounter - Nicolasa Jerez PAC - 04/08/2022 8:06 AM CDT May advise prescription was authorized for 90 days. Further refills can be obtained from primary care provider. * Telephone Encounter - Sheree Shafer RN - 04/04/2022 9:38 AM CDT Pharmacy requesting refill of: Requested Prescriptions Pending Prescriptions Disp Refills ??? omeprazole (PriLOSEC) 40 MG CAPSULE DELAYED RELEASE [Pharmacy Med Name: OMEPRAZOLE DR 40 MG CAPSULE] 180 Capsule 1 Sig: TAKE 1 CAPSULE BY MOUTH TWICE A DAY Last fill: 11/06/2021 Patients last OV with GI: 10/08/2021 Next Office Visit with GI: None scheduled. Per EGD report from 08/18/[address] Fowler: Altaf Fowler, DO 08/22/2020 ??5:40 AM CDT Biopsies are negative. Capsule endoscopy order noted to be placed on 08/18/2020. No capsule endoscopy results noted per chart review. Omeprazole order pended, please review. documented in this encounter Plan of Treatment Not on file documented as of this encounter Visit Diagnoses Not on filedocumented in this encounter Care Teams Hand Singer Relationship Specialty Start Date End Date Sanjeev Maldonado MD PCP - General Internal Medicine 02/26/17 Altaf Fowler DO Gastroenterology 01/04/16 Tuan Martin MD [address] [facility] [address] [place] [address] Cardiovascular Disease - Cardiology 08/28/22 Brad Powell MD [address] [address] Consulting Physician Colon and Rectal Surgery 03/13/23 Helen Davis APRN, UI DEVELOPER DESIGNER [address] [place] [address] Nurse Practitioner Advanced Practice Nurse 02/06/24 documented as of this encounter
--- OUTSIDE RECORDS SUMMARY | 2025-03-02 20:16 | XMS_ITS | Clinical Summary ---
Author Organization [facility] Address [address] [place] [id number] Care Team Providers Care Dean Of Graduate Studies Name Role Phone Sanjeev Maldonado MD Primary Care Provider [phone] Allergies Active Allergy Reactions Criticality Noted Date [...] artery disease) 08/27/2023 Raised antibody titer 09/06/2014 Surgical History Surgery Date Site/Laterality Comments CHOLECYSTECTOMY Cholecystectomy CARDIAC CATHETERIZATION Medical History Medical History Date Comments Hypertension Hypertension Hx Other Medical pericard effusi on w/o tamponade -chronic Gastroesophageal reflux disease GERD Asthma Asthma Hx Other Medical hemithyroidecto my; Comments: EMB 04/02/2016 - Hx Other Medical partial hystere ctomy; Comments: EMB 04/02/2016 - Hyperlipidemia Diabetes mellitus (HCC) Sleep apnea PONV (postoperative nausea and vomiting) Family History Medical History Relation Name Comments Heart disease Father Other Father Implantable Def ibrillator; No Known Problems Mother Diabetes type II Other Family hist ory of Diabetes mellitus type 2; Relation Name Status Comments Father Mother Alive Other Social History Tobacco Use Types Packs/Day Years [...] on file Legal Sex Female 5:15 AM ATOMIC PROCESS ENGINEER Gender Identity Not on file Sexual Orientation Not on file Obstetrics History Last Filed Vital Signs Vital Sign Reading Time Taken Comments Blood Pressure 102/64 05/05/2024 9:13 AM CDT Pulse 77 05/05/2024 9:13 AM CDT Temperature 36.5 C (97.7 F) 10/02/2023 8:15 AM ATOMIC PROCESS ENGINEER Respiratory Rate 16 10/02/2023 8:15 AM ATOMIC PROCESS ENGINEER Oxygen Saturation 95% 05/05/2024 9:13 AM CDT Inhaled Oxygen Concentration - - Weight 72 kg (158 lb 12.8 oz) 05/05/2024 9:13 AM CDT Height 160 cm (5' 3 ) 05/05/2024 9:13 AM CDT Body Mass Index 28.13 05/05/2024 9:13 AM CDT Plan of Treatment Health Maintenance Due Date Last Done Comments Albumin Creatinine Ratio, Urine 1965 Breast Cancer Screening-Mammogram 1965 Cervical Cancer Screening 1965 Colon Cancer Screening-Colonoscopy 1965 Depression Screening 1965 Hemoglobin A1C 1965 Hepatitis C Screening 1965 Dilated Eye Exam 1965 Foot Exam 1965 DTaP/Tdap/Td Vaccine (1 - Tdap) 1976 Hepatitis B Screening 1983 Regular Well Visit/Exam 18-64 1983 Zoster Vaccine (1 of 2) 2015 Pneumococcal vaccine <65 (2 of 2 - PPSV23) 07/15/2017 05/20/2017 eGFR 07/23/2022 07/23/2021 Covid-19 Vaccine (2 - 2023-2 5 season) 2024 08/24/2021 Influenza Vaccine (#1) 2024 Lipid Panel 05/05/2025 05/05/2024, 06/0 05/2023, 03/29/2022, Additional history exists Medical Devices Implanted Type Area Prototype Technician Device Identifier Shelf Expiration Date Model / Serial / Lot [facility] XDx [facility] Device Closure Vascade Od5 Fr Femoral Artery [id number] - [id number] Implanted:Qty: 1 on 10/02/2023 by Tuan Martin MD at [facility] 07/21/2025 [id number] / / [id number] Procedures Procedure Name Priority Date/Time Associated [...] >=60 EXTERNAL LAB SCRIBED eGFR in NonAfrican Belarusian >60 >=60 EXTERNAL LAB Blood specimen (specimen) 07/23/2021 Michell Hunt NP LAB BLOOD ORDERABLES Angelika doshi Result EXTERNAL LAB from Last 3 Months or Most Recently Relevant to Health Maintenance Insurance [facility] MEDICARE ADVANTAGE [facility] MEDICARE ADVANTAGE [facility] Care Teams Dean Of Graduate Studies Relationship Specialty Start Date End Date Sanjeev Maldonado MD PCP - General Internal Medicine 08/30/20
--- OUTSIDE RECORDS SUMMARY | 2025-03-02 20:17 | XMS_ITS | Encounter Summary ---
Author Organization [facility] Address [address] [facility] [place] [place] [address] Phone Care Team Providers Care Family Advocate Name Role Phone Altaf Fowler DO Unavailable [phone] Sanjeev Maldonado MD Primary Care Provider [phone] Tuan Martin MD Unavailable Brad Powell MD Unavailable Helen Davis APRN, SOCIAL INSURANCE ADMINISTRATOR Unavailable Reason for Visit * Reason Comments Medication Refill Encounter Details Date Type Department Care Team (Late st Contact Info) Description 05/25/2024 Refill [facility] - [facility] - [place] [address] [place] [address] Helen Davis APRN, SOCIAL INSURANCE ADMINISTRATOR [address] [place] [address] Medication Refill Social History Tobacco Use Types [...] Telephone Encounter - Sheree Shafer RN - 05/25/2024 9:13 AM CDT [facility] order for pediatric and adult patients. documented in this encounter Plan of Treatment Not on file documented as of this encounter Visit Diagnoses Diagnosis Gastroesophageal reflux disease without esophagitis Esophageal reflux documented in this encounter Care Teams Family Advocate Relationship Specialty Start Date End Date Sanjeev Maldonado MD PCP - General Internal Medicine 02/26/17 Altaf Fowler DO Gastroenterology 01/04/16 Tuan Martin MD [address] [address] Cardiovascular Disease - Cardiology 08/28/22 Brad Powell MD [address] [address] Consulting Physician Colon and Rectal Surgery 03/13/23 Helen Davis APRN, SOCIAL INSURANCE ADMINISTRATOR [address] [place] [address] Nurse Practitioner Advanced Practice Nurse 02/06/24 documented as of this encounter
--- OUTSIDE RECORDS SUMMARY | 2025-03-02 20:17 | XMS_ITS | Encounter Summary ---
Author Organization [facility] Address [address] [facility] [place] [address] Phone Care Team Providers Care Doctor Of Pharmacy Name Role Phone Altaf Fowler DO Unavailable [phone] Sanjeev Maldonado MD Primary Care Provider Tuan Martin MD Unavailable Brad Powell MD Unavailable Helen Davis APRN, SPINNING FRAME FIXER Unavailable Reason for Visit * Reason Comments Medication Refill Encounter Details Date Type Department Care Team (Late st Contact Info) Description 05/26/2023 Refill [facility] - Gastroenterology - [place] [address] [place] [address] Helen Davis APRN, SPINNING FRAME FIXER [address] [place] [address] Medication Refill Social History Tobacco Use Types [...] Telephone Encounter - Sheree Shafer RN - 05/26/2023 1:50 PM CDT Medication refilled and signed [facility] chronic medication standing order for pediatric and adult patients. documented in this encounter Plan of Treatment Not on file documented as of this encounter Visit Diagnoses Diagnosis Gastroesophageal reflux disease without esophagitis Esophageal reflux documented in this encounter Care Teams Doctor Of Pharmacy Relationship Specialty Start Date End Date Sanjeev Maldonado MD PCP - General Internal Medicine 02/26/17 Altaf Fowler DO Gastroenterology 01/04/16 Tuan Martin MD [address] [address] Cardiovascular Disease - Cardiology 08/28/22 Brad Powell MD [address] [address] Consulting Physician Colon and Rectal Surgery 03/13/23 Helen Davis APRN, SPINNING FRAME FIXER [address] [place] [address] Nurse Practitioner Advanced Practice Nurse 02/06/24 documented as of this encounter
--- OUTSIDE RECORDS SUMMARY | 2025-03-02 20:17 | XMS_ITS | CONTINUITY OF CARE DOCUMENT ---
Author Name tanmay donato Address Unknown Organization [facility] Address [address] [facility] [address] [place] [address] Phone [phone] Care Team Providers Care Veterinary Microbiologist Name Role Phone Eder DOOLEY, Ming Unavailable [phone] Sanjeev Maldonado MD Unavailable [phone] Sanjeev Maldonado MD Unavailable PROBLEMS Condition Status Date Provider Notes Palpitations active Star Sullivan CHEST PAIN nl nuc stress tin t 08/06, nl cors on cath ef 55% 08/06 active Ming Bender SYNCOPE AND COLLAPSE active Maximiliano Walker MD LEG PAIN nl ZACHARY 10/06 active Ming Bender DIABETES MELLITUS active Maximiliano Walker MD HYPERCHOLESTEROLEMIA completed - Ming Gaines MD HTN ESSENTIAL active Maximiliano Walker MD PERICARDIAL EFFUSION small o n echo 05/08 active Ming Gaines MD Sleep apnea Scheduled for eep study completed - Ming Gaines MD Family History of CVA or Stroke: active ? Gilberto Gaines MD S/P Bio Loop (MRI Safe) removed active Shane Gaines MD Hypercholesterolemia active Marsha Echols RN Angina pectoris active Maximiliano Walker MD Dizziness active Richy Caballero QUINTEN active Nikko Hood Anemia active Ming Gaines MD ENCOUNTERS Date Type Provider Location Encounter Diag nosis - In-person encounter Office Visit Ming Gaines MD [facility] Anemia - In-person encounter Office Visit Ming Gaines MD [facility] - In-person encounter Office Visit Ming Gaines MD [facility] - In-person encounter Office Visit Steve Taylor MD [facility] QUINTEN - In-person encounter Office Visit Ming Gaines MD [facility] - In-person encounter Office Visit Maximiliano Walker MD [facility] Angina pectorisDizziness - In-person encounter Office Visit Ming Gaines MD [facility] - In-person encounter Office Visit Ming Gaines MD [facility] - In-person encounter Office Visit Ming Gaines MD [facility] - In-person encounter Office Visit Ming Gaines MD [facility] - In-person encounter Office Visit Ming Gaines MD [facility] - In-person encounter Office Visit Ming Gaines MD [facility] HYPERCHOLESTEROLEMIAS/P Bio Loop (MRI Safe) removedHypercholesterolemia - In-person encounter Office Visit Steve Taylor MD [facility] - In-person encounter Office Visit Ming [place] [facility] - In-person encounter Office Visit Ming Gaines MD [facility] - In-person encounter Office Visit Ming Gaines MD [facility] - In-person encounter Office Visit Ming Gaines MD [facility] - In-person encounter Office Visit Ming Gaines MD [facility] Family History of CVA or Stroke: - In-person encounter Office Visit Ming Gaines MD [facility] - In-person encounter Office Visit Ming Gaines MD [facility] PERICARDIAL EFFUSION small on echo 05/08 - In-person encounter Office Visit Ming Gaines MD [facility] Sleep apnea Scheduled for sleep study - In-person encounter Office Visit Ming Gaines MD [facility] - In-person encounter Office Visit Ming Gaines MD [facility] - In-person encounter Office Visit Ming Gaines MD [facility] Sleep apnea Scheduled for sleep study - In-person encounter Office Visit Ming Gaines MD [facility] - In-person encounter Office Visit Ming Gaines MD [facility] - In-person encounter Office Visit Ming Gaines MD [facility] - In-person encounter Office Visit Sabrina Liang MD [facility] - In-person encounter Office Visit Ming Gaines MD [facility] - In-person encounter Office Visit Maximiliano Walker MD [facility] PERICARDIAL EFFUSION small on echo 05/08 - In-person encounter Office Visit Maximiliano Walker MD [facility] CHEST PAIN nl nuc stress test 08/06, nl cors on cath ef 55% 08/06SYNCOPE AND COLLAPSELEG PAIN nl ZACHARY 10/06DIABETES MELLITUSHTN ESSENTIAL VITAL SIGNS Date Observation Value Provider Body Mass Index (Ratio) 28.69 kg/m2 Taew on Akin blood pressure, diastolic 96 mm[Hg] To tiffany Gill blood pressure, systolic 123 mm[Hg] Ton [facility] pulse rate 122 /min [facility] respiratory rate E&M 18 /min [facility] oxygen saturation, oximetry 96 % [facility] weight E&M 162 [lb_av] Tonsha Gill temperature site temporal Tons Gill height E&M 63 [in_i] Tonsha Gill Body Mass Index (Ratio) 28.69 kg/m2 Shane Gaines MD weight E&M 162 [lb_av] Tonsha Gill blood pressure, diastolic 90 mm[Hg] To nsha Gill blood pressure, systolic 128 mm[Hg] Ton sha Gill oxygen saturation, oximetry 98 % Tonsha Gill pulse rate 100 /min Tons Gill respiratory rate E&M 16 /min [facility] Gill temperature site temporal [facility] Gill height E&M 63 [in_i] Tons Gill temperature E&M 97.3 [degF] Diana Tanktawny alyce Body Mass Index (Ratio) 29.05 kg/m2 Shane Gaines MD oxygen saturation, oximetry 97 % Chastity Liza blood pressure, diastolic 60 mm[Hg] Ch astity Liza blood pressure, systolic 104 mm[Hg] Toyin stity Liza pulse rate 113 /min Chastity Liza respiratory rate E&M 16 /min Chastit y Liza weight E&M 164 [lb_av] Chastity Liza height E&M 63 [in_i] Chastity Liza Body Mass Index (Ratio) 29.93 kg/m2 Lisandro Morataya blood pressure, cuff size regular Ke rri Gruenenfgiuseppe blood pressure, diastolic 80 mm[Hg] Ke rri Gruenenfeldsuze blood pressure, systolic 110 mm[Hg] Jermain Gaitan oxygen saturation, oximetry 97 % Digna Gaitan respiratory rate E&M 18 /min Digna guillaume pulse rate 109 /min Digna lacyer weight E&M 169 [lb_av] Digna Whitman lder height E&M 63 [in_i] Digna Whitman lder Body Mass Index (Ratio) 30.11 kg/m2 Shane Gaines MD blood pressure, diastolic 80 mm[Hg] Da jose Judi blood pressure, systolic 112 mm[Hg] Dac ia Judi oxygen saturation, oximetry 94 % Sue Judi respiratory rate E&M 16 /min Sue V oss pulse rate 78 /min Sue Judi weight E&M 170 [lb_av] Sue Judi height E&M 63 [in_i] Sue Judi pulse rate #2 85 [facility] blood pressure, lo tolic, second observation 80 mm[Hg] Bethesda Ted blood pressure, syst olic, second observation 102 mm[Hg[facility], [facility] 98 % [facility] /min Bethesda Tebid blood pressure, diastolic 80 mm[Hg] Vi ctoria Tebid blood pressure, systolic 102 mm[Hg] Lenin beba Tebid pulse rate #2 84 [facility] Ted blood pressure, lo tolic, second observation 91 mm[Hg] Bethesda Tebid blood pressure, syst olic, second observation 109 mm[Hg] Bethany Tebid oxygen saturation, oximetry 98 % Bethesda Ted pulse rate 84 /min Bethesda Tebid blood pressure, diastolic 91 mm[Hg] Vi ctoria Tebid blood pressure, systolic 109 mm[Hg] Lenin beba Tebid Body Mass Index (Ratio) 30.11 kg/m2 Saúl Caballero pulse rate 76 /min Rashaun guillen oxygen saturation, oximetry 97 % Rashaun Mcgill blood pressure, diastolic 82 mm[Hg] Fortino ludmila Stephensonlyudmiladaniel blood pressure, systolic 120 mm[Hg] [facility]io [facility] rate E&M 16 /min Rashaun [facility] weight E&M 170 [lb_av] Rashaun [facility] blood pressure, resting Yes Chior dariel [facility] height E&M 63 [in_i] Rashaun [facility] Body Mass Index (Ratio) 29.93 kg/m2 Shane Gaines MD blood pressure, diastolic 80 mm[Hg] Da jose Judi blood pressure, systolic 126 mm[Hg] Dac ia Judi oxygen saturation, oximetry 96 % Sue Judi respiratory rate E&M 16 /min Sue V oss pulse rate 91 /min Sue Judi weight E&M 169 [lb_av] Sue Judi height E&M 63 [in_i] Sue Judi Body Mass Index (Ratio) 29.40 kg/m2 Shane Gaines MD blood pressure, cuff size regular Ke rri Kandy blood pressure, diastolic 80 mm[Hg] Abhishek rrjoshua Gaitan blood pressure, systolic 102 mm[Hg] Jermain Gaitan oxygen saturation, oximetry 98 % Digna Gaitan respiratory rate E&M 18 /min Digna guillaume pulse rate 85 /min Digna Whitman lder weight E&M 166 [lb_av] Digna Whitman lder height E&M 63 [in_i] Digna Whitman lder Body Mass Index (Ratio) 30.11 kg/m2 Shane Gaines MD blood pressure, diastolic 76 mm[Hg] Da jose Judi blood pressure, systolic 116 mm[Hg] Dac ia Judi oxygen saturation, oximetry 97 % Sue Judi respiratory rate E&M 16 /min Sue V oss pulse rate 87 /min Sue Judi weight E&M 170 [lb_av] Sue Judi height E&M 63 [in_i] Sue Judi Body Mass Index (Ratio) 29.93 kg/m2 Shane Gaines MD blood pressure, cuff size regular Ke rri Grueneireneer blood pressure, diastolic 80 mm[Hg] Ke rri Gruenenfelder blood pressure, systolic 122 mm[Hg] Jermain Gaitan oxygen saturation, oximetry 98 % Digna Kandy respiratory rate E&M 20 /min Digna G sandyenenfgiuseppe pulse rate 103 /min Digna Juvencioe lder weight E&M 169 [lb_av] Digna Juvencioe lder height E&M 63 [in_i] Digna Grmerenecandiee lder Body Mass Index (Ratio) 29.40 kg/m2 Shane Gaines MD blood pressure, cuff size regular Ke rri Gruenenfelder blood pressure, diastolic 85 mm[Hg] Ke rri Gruenenfelder blood pressure, systolic 117 mm[Hg] Jermain ri Chesteruenenfbenedicter oxygen saturation, oximetry 96 % Digna Dicknenfelder respiratory rate E&M 16 /min Digna G sandyenenfelder pulse rate 106 /min Digna Gruenenfe lder weight E&M 166 [lb_av] Digna Gruenenfe lder height E&M 63 [in_i] Digna Gruenenfe ld blood pressure, diastolic 90 mm[Hg] Me rocio Fraire blood pressure, systolic 133 mm[Hg] Valeri Fraire pulse rate 84 /min Anitra Fraire oxygen saturation, oximetry 97 % Anitra Fraire respiratory rate E&M 15 /min Anitra Fraire Body Mass Index (Ratio) 29.93 kg/m2 Lenore resendiz Fraire weight E&M 169 [lb_av] Anitra Romeroann blood pressure, diastolic 86 mm[Hg] Pillo Moodyby blood pressure, systolic 122 mm[Hg] Chuy Moodyby pulse rate 83 /min La Nena Mooydby oxygen saturation, oximetry 97 % La Nena Moodyby respiratory rate E&M 16 /min La Nena Moodyby Body Mass Index (Ratio) 29.72 kg/m2 Jorge Moodyby weight E&M 167.8 [lb_av] La Nena Moodyby blood pressure, diastolic 89 mm[Hg] Me rocio Hancock blood pressure, systolic 131 mm[Hg] Valeri Hancock pulse rate 78 /min Anitra Hancock oxygen saturation, oximetry 97 % Anitra Hancock respiratory rate E&M 18 /min Anitra Hancock Body Mass Index (Ratio) 30.29 kg/m2 Lenore resendiz Santi weight E&M 171 [lb_av] Anitra Santi blood pressure, diastolic 80 mm[Hg] Gardenia Nixon blood pressure, systolic 126 mm[Hg] Kavya Nixon pulse rate 108 /min Jered colbert oxygen saturation, oximetry 98 % Jered Nixon respiratory rate E&M 16 /min Mac Nixon Body Mass Index (Ratio) 30.54 kg/m2 Chastity Nixon weight E&M 172.4 [lb_av] Jered quiñonezon blood pressure, diastolic 82 mm[Hg] Ke rri Gruenenfelder blood pressure, systolic 116 mm[Hg] Ker ri Gruenenfelder pulse rate 116 /min Digna Gruenenfe lder oxygen saturation, oximetry 97 % Digna Gruenenfelder respiratory rate E&M 16 /min Digna G ruenenfelder Body Mass Index (Ratio) 30.64 kg/m2 Proctor i Gruenenfelder weight E&M 173 [lb_av] Digna Gruenenfe lder blood pressure, diastolic 87 mm[Hg] Gardenia Nixon blood pressure, systolic 127 mm[Hg] Kavya Nixon pulse rate 100 /min Jered Mena sayra oxygen saturation, oximetry 97 % Jered Messerenson respiratory rate E&M 16 /min Mac Messerenson Body Mass Index (Ratio) 30.89 kg/m2 Chastity Nixon weight E&M 174.4 [lb_av] Jered mcmahon blood pressure, diastolic 76 mm[Hg] Ke rri Chesteruenecandiebenedicter blood pressure, systolic 108 mm[Hg] Ker ri Gruenenfelder pulse rate 95 /min Digna Gruenenfe lder oxygen saturation, oximetry 96 % Digna Gruenenfelder respiratory rate E&M 16 /min Digna G sandyenenfelder Body Mass Index (Ratio) 31.53 kg/m2 Proctor i Gruenenfelder weight E&M 178 [lb_av] Digna Gruenenfe lder blood pressure, diastolic 88 mm[Hg] Gardenia Nixon blood pressure, systolic 133 mm[Hg] Kavya Nixon Body Mass Index (Ratio) 31.14 kg/m2 Chastity Nixon pulse rate 99 /min Jered colbert oxygen saturation, oximetry 97 % Jered Nixon respiratory rate E&M 18 /min Mac Nixon weight E&M 175.8 [lb_av] Jered mcmahon Body Mass Index (Ratio) 31.17 kg/m2 [facility] blood pressure, diastolic 89 mm[Hg] Me rocio Santi blood pressure, systolic 132 mm[Hg] Valeri viral Santi pulse rate 100 /min Anitra Santi oxygen saturation, oximetry 97 % Anitra Santi respiratory rate E&M 18 /min Anitra Santi weight E&M 176 [lb_av] Anitra Santi blood pressure, diastolic 89 mm[Hg] Vt rocio Fraire blood pressure, systolic 121 mm[Hg] Valeri waltera Fraire pulse rate 110 /min Anitra [facility] Body Mass Index (Ratio) 31.53 kg/m2 [facility] oxygen saturation, oximetry 97 % Anitra [facility] respiratory rate E&M 17 /min Anitra [facility] weight E&M 178 [lb_av] [facility] Body Mass Index (Ratio) 31.53 kg/m2 Anea ericka Brown blood pressure, diastolic 93 mm[Hg] An eatris Brown blood pressure, systolic 133 mm[Hg] Ane atris Brown pulse rate 95 /min Aneatris Brown oxygen saturation, oximetry 98 % Aneatris Brown respiratory rate E&M 17 /min Aneatri s Brown weight E&M 178 [lb_av] Aneatris [facility] Body Mass Index (Ratio) 31.53 kg/m2 [facility] blood pressure, diastolic 89 mm[Hg] Me chan Fraire blood pressure, systolic 134 mm[Hg] Valeri Fraire pulse rate 98 /min Anitra Fraire oxygen saturation, oximetry 98 % Anitra Fraire respiratory rate E&M 16 /min Anitra Fraire weight E&M 178 [lb_av] Anitra Fraire Body Mass Index (Ratio) 31.17 kg/m2 Anesera Valdovinos blood pressure, diastolic 90 mm[Hg] An shawn Valdovinos blood pressure, systolic 128 mm[Hg] Ane atris Bonifacio pulse rate 90 /min Aneatris [facility] oxygen saturation, oximetry 96 % Mickiatris [facility] respiratory rate E&M 18 /min Aneatri s [facility] weight E&M 176 [lb_av] Mickiatris [facility] Body Mass Index (Ratio) 32.06 kg/m2 Cynthia ca Bates blood pressure, diastolic 89 mm[Hg] Brian bragg Bates blood pressure, systolic 140 mm[Hg] Teja love Bates pulse rate 94 /min Samantha Bates oxygen saturation, oximetry 97 % Samantha Bates respiratory rate E&M 16 /min Samantha Bates weight E&M 181 [lb_av] Samantha Bates Body Mass Index (Ratio) 31.00 kg/m2 Anesera Valdovinos blood pressure, diastolic 98 mm[Hg] An shawn Valdovinos blood pressure, systolic 134 mm[Hg] Ane atris Bonifacio pulse rate 120 /min Aneatris Bonifacio oxygen saturation, oximetry 97 % Aneatris [facility] respiratory rate E&M 18 /min Aneatri s [facility] weight E&M 175 [lb_av] Aneatris [facility] Body Mass Index (Ratio) 31.00 kg/m2 Anea ericka [facility] blood pressure, diastolic 95 mm[Hg] An shawn [facility] blood pressure, systolic 141 mm[Hg] Ane nikkis [facility] pulse rate 119 /min Aneatris [facility] oxygen saturation, oximetry 99 % Aneatris [facility] respiratory rate E&M 20 /min Aneatri s [facility] weight E&M 175 [lb_av] Aneatris [facility] blood pressure, diastolic, left arm 96 mm [Hg] Aneatris [facility] blood pressure, systolic, left arm 145 mm [Hg] Aneatris [facility] blood pressure, diastolic, right arm 90 m m[Hg] Aneatris [facility] blood pressure, systolic, right arm 125 m m[Hg] Aneatris [facility] blood pressure, diastolic 97 mm[Hg] An shawn [facility] blood pressure, systolic 145 mm[Hg] Ane atris [facility] Body Mass Index (Ratio) 31.35 kg/m2 [facility] pulse rate 104 /min Aneatris [facility] oxygen saturation, oximetry 98 % Aneatris [facility] respiratory rate E&M 18 /min Aneatri s [facility] weight E&M 177 [lb_av] Aneatris [facility] Body Mass Index (Ratio) 31.53 kg/m2 Yoon barnett [facility] blood pressure, diastolic 105 mm[Hg] An shawn [facility] blood pressure, systolic 143 mm[Hg] Micki jordans [facility] pulse rate 106 /min Aneatris [facility] oxygen saturation, oximetry 97 % Aneatris [facility] respiratory rate E&M 18 /min Aneatri s [facility] weight E&M 178 [lb_av] Aneatris [facility] blood pressure, diastolic, left arm 82 mm [Hg] Naldo Mercado RN blood pressure, systolic, left arm 122 mm [Hg] Naldo Mercado RN blood pressure, diastolic, right arm 72 m m[Hg] Naldo Mercado RN blood pressure, systolic, right arm 118 m m[Hg] Naldo Mercado JULIO CESAR blood pressure, diastolic 82 mm[Hg] Darryn harrison Mercado JULIO CESAR blood pressure, systolic 122 mm[Hg] Naldo Mercado JULIO CESAR pulse rate 98 /min Naldo Mercado JULIO CESAR oxygen saturation, oximetry 98 % Naldo Mercado JULIO CESAR respiratory rate E&M 16 /min Naldo vieyratawny HARRELL Body Mass Index (Ratio) 32.18 kg/m2 Naldo Mercado JULIO CESAR weight E&M 181 [lb_av] Naldo Mercado JULIO CESAR Body Mass Index (Ratio) 26.17 kg/m2 Saul Long blood pressure, diastolic, left arm 96 mm [Hg] Madeline Long blood pressure, systolic, left arm 145 mm [Hg] Madeline Long blood pressure, diastolic, right arm 87 m m[Hg] Madeline Long blood pressure, systolic, right arm 120 m m[Hg] Madeline Long blood pressure, diastolic 96 mm[Hg] Ngo blood pressure, systolic 145 mm[Hg] Rick Long pulse rate 102 /min Madeline Long oxygen saturation, oximetry 97 % Madeline Long respiratory rate E&M 16 /min Madeline Long weight E&M 147.2 [lb_av] Madeline Álvarez n height E&M 63 [in_i] Madeline Long ALLERGIES Allergy Name Onset Date Reaction Criticality Status BENADRYL Low Criticality active REGLAN Low Criticality active IBUPROFEN vomit Low Criticality active MORPHINE upset stomach Low Criticality active RESULTS Date Observation Value Provider Reference Range Interpretation Location thyroid stimulating hormone, serum 2.020 ??IU/ML [facility] 0.270 - 4.200 anion gap, serum 18.3 [facility] - albumin/globulin ratio, serum 1.9 g/dL [facility] 1.1 - 2.5 globulin, serum 2.5 [facility] 2.3 - 3.8 urea nitrogen[facility]creatinine [facility], [facility].3 [facility] Glomerular Filtration Rate (calc) 93.8 (?) [facility] 59.0 - chloride, serum 100.7 mmol/L [facility] 98.0 - 107.0 potassium, serum 3.9 mmol/L [facility] 3.5 - 5.1 sodium, serum 143.0 mmol/L [facility] 136.0 - 145.0 creatinine, serum 0.7 mg/dL [facility] 0.5 - 1.0 carbon dioxide, venous blood 24.0 mmol/L [facility] 22.0 - 29.0 albumin, serum 4.7 g/dL [facility] 3.5 - 5.2 calcium, serum 9.4 mg/dL [facility] 8.6 - 10.2 aspartate aminotransferase (SGOT), serum 26.0 1/L [facility] 0.0 - 32.0 alkaline phosphatase, serum 144.0 1/L [facility] 40.0 - 130.0 High alanine aminotransferase (SGPT), serum 31.0 1/L [facility] 0.0 - 33.0 protein, total, serum 7.2 g/dL [facility] 6.6 - 8.7 bilirubin, serum, total 0.3 mg/dL [facility] 0.0 - 1.2 urea nitrogen, blood 10.0 mg/dL [facility] 6.0 - 20.0 blood glucose, random 176.0 mg/dL [facility] 74.0 - 99.0 High red blood cell distribution width, size density 43.8 fL [facility] - immature granulocytes, percentage of total cells, blood 0.3 % [facility] nucleated red blood cells as percent of blood leukocytes 0.0 % [facility] - red blood cell (erythrocyte) count, per high power field 0.0 10*3/UL [facility] - eosinophils as percent of blood leukocytes 2.6 % [facility] - neutrophils as percent of blood leukocytes 64.0 % [facility] - Absolute Neutrophils 4.2 CELLS/UL [facility] 1.5 - 7.8 basophils as percent of blood leukocytes 0.8 % [facility] - Absolute Basophils 0.1 CELLS/UL [facility] 0.0 - 0.2 monocytes as percent of blood leukocytes 6.3 % [facility] - Absolute Monocytes 0.4 CELLS/UL [facility] 0.2 - 1.0 lymphocytes as percent of blood leukocytes 26.0 % [facility] - Absolute Lymphocytes 1.7 CELLS/UL [facility] 0.9 - 3.9 mean platelet volume 9.5 (?) [facility] - platelet count 252.0 THOUSAND/UL [facility] 100.0 - 400.0 mean corpuscular hemoglobin concentration, RBC 33.5 G/DL [facility] 31.0 - 38.0 mean corpuscular hemoglobin, RBC 30.2 pg [facility] 25.0 - 35.0 mean corpuscular volume, RBC 90.1 fL [facility] 75.0 - 100.0 hematocrit, blood 36.4 % [facility] 35.0 - 55.0 hemoglobin, blood 12.2 g/dL [facility] 11.5 - 16.5 erythrocyte count, whole blood 4.0 MILLION/UL [facility] 3.5 - 5.5 Nitrite Urine Negative [facility] Negative urobilinogen, urine 0.2 E.U./dL mg/dl [facility] 0.2 - 1.0 specific gravity, urine 1.015 [facility] 1.001 - 1.035 KETONES, URINE Negative [facility] Negative bilirubin, urine Negative [facility] Negative Glucose Urine Negative [facility] Negative clarity, urine, point Clear [facility] Yellow urine color Yellow [facility] yellow to aranza anion gap, serum 14.4 [facility] - albumin/globulin ratio, serum 2.9 g/dL [facility] 1.1 - 2.5 High globulin, serum 2.9 [facility] 2.3 - 3.8 urea nitrogen/creatinine ratio, serum 30.0 [facility] - Estimated Glomerular Filtration Rate (calc) 93.8 (?) [facility] 59.0 - chloride, serum 99.6 mmol/L [facility] 98.0 - 107.0 potassium, serum 4.3 mmol/L [facility] 3.5 - 5.1 sodium, serum 142.0 mmol/L [facility] 136.0 - 145.0 creatinine, serum 0.7 mg/dL [facility] 0.5 - 1.0 carbon dioxide, venous blood 28.0 mmol/L [facility] 22.0 - 29.0 albumin, serum 4.7 g/dL [facility] 3.5 - 5.2 calcium, serum 9.9 mg/dL [facility] 8.6 - 10.2 aspartate aminotransferase (SGOT), serum 20.0 1/L [facility] 0.0 - 32.0 alkaline phosphatase, serum 131.0 1/L [facility] 40.0 - 130.0 High alanine aminotransferase (SGPT), serum 47.0 1/L [facility] 0.0 - 33.0 High protein, total, serum 7.6 g/dL [facility] 6.6 - 8.7 bilirubin, serum, total 0.3 mg/dL [facility] 0.0 - 1.2 urea nitrogen, blood 21.0 mg/dL [facility] 6.0 - 20.0 High blood glucose, random 121.0 mg/dL [facility] 74.0 - 99.0 High red blood cell distribution width, size density 47.6 fL [facility] - immature granulocytes, percentage of total cells, blood 0.4 % [facility] - nucleated red blood cells as percent of blood leukocytes 0.6 % [facility] - red blood cell (erythrocyte) count, per high power field 0.0 10*3/UL [facility] - eosinophils as percent of blood leukocytes 1.7 % [facility] neutrophils as percent of blood leukocytes 60.9 % [facility] - Absolute Neutrophils 4.4 CELLS/UL [facility] 1.5 - 7.8 basophils as percent of blood leukocytes 0.6 % [facility] - Absolute Basophils 0.0 CELLS/UL [facility] 0.0 - 0.2 monocytes as percent of blood leukocytes 7.1 % [facility] - Absolute Monocytes 0.5 CELLS/UL [facility] 0.2 - 1.0 lymphocytes as percent of blood leukocytes 29.3 % [facility] - Absolute Lymphocytes 2.1 CELLS/UL [facility] 0.9 - 3.9 mean platelet volume 9.2 (?) [facility] - platelet count 279.0 THOUSAND/UL [facility] 100.0 - 400.0 mean corpuscular hemoglobin concentration, RBC 31.2 G/DL [facility] 31.0 - 38.0 mean corpuscular hemoglobin, RBC 29.3 pg [facility] 25.0 - 35.0 mean corpuscular volume, RBC 93.9 fL [facility] 75.0 - 100.0 hematocrit, blood 40.1 % [facility] 35.0 - 55.0 hemoglobin, blood 12.5 g/dL [facility] 11.5 - 16.5 erythrocyte count, whole blood 4.3 MILLION/UL [facility] 3.5 - 5.5 activated partial thromboplastin time 25.2 SECONDS [facility] 23.[facility] - 33.0 prothrombin time (patient) 10.0 s [facility] 9.0 - 11.5 international normalized ratio (INR) 0.9 [facility] 0.9 - 1.1 platelet count 242 10*3/mm3 [facility] hematocrit, blood 36.1 % [facility] thyroid stimulating hormone, serum 2.660 u[IU]/mL [facility] alanine aminotransferase (SGPT), serum 53 1/L [facility] aspartate aminotransferase (SGOT), serum 48 1/L [facility] blood glucose, random 94 mg/dL [facility] creatinine, serum 0.64 mg/dL [facility] [facility], blood 11 mg/dL [facility] potassium, serum 3.9 mmol/L [facility] sodium, serum 139 mmol/L [facility] international normalized ratio (INR) 1.0 [facility] alanine aminotransferase (SGPT), serum 82 1/L [facility] aspartate aminotransferase (SGOT), serum 47 1/L [facility] creatinine, serum 0.60 mg/dL [facility] potassium, serum 3.6 mmol/L [facility] sodium, serum 144 mmol/L [facility] platelet count 240 10*3/uL [facility] hematocrit, blood 35.7 % [facility] HISTORY OF MEDICATION USE Medication Status Instructions Dates Provider Indications Com ments metoprolol tartrate 50 mg tablet active TAKE 1 TABLET BY MOUTH TWICE A DAY Jered Nixon magnesium oxide 400 mg (241.3 mg magnesium) tablet active TAKE 1 TABLET BY MOUTH TWICE A DAY Stella Gerardo magnesium oxide 400 mg (241.3 mg magnesium) tablet completed Take 1 tablet by mouth twice a day - Star Sullivan valsartan 40 mg tablet active 1 tablet by mouth once a day Ming Gaines MD magnesium oxide 400 mg (241.3 mg magnesium) tablet completed 1 tablet by mouth twice a day - Stella Gerardo metoprolol tartrate 50 mg tablet completed Take 1 tablet by mouth twice a day - Jered Nixon PREDNISONE 5 MG (21) ORAL TABLET THERAPY PACK completed As directed - Rashaun Mcgill aspirin 81 mg tablet,delaye d release (DR/EC) active 1 tablet by mouth once a day Ming Gaines MD Lipitor 20 mg tablet active Take 1 once a day Digna Gaitan TRAMADOL HCL 50 MG ORAL TABLET completed take one tablet twice daily - Digna Gaitan PERCOCET 5-325 MG ORAL TABLET completed one tab 3 times daily - La Nena Coyle CEPHALEXIN 500 MG ORAL CAPSULE completed one tab 4 times daily 10 days - Ming Gaines MD NEURONTIN 100 MG ORAL CAPSULE completed po bid - Digna Gaitan TRAMADOL HCL TABLET completed every 6 hours - Ming Gaines MD MEDROL 4 MG ORAL TABLET THERAPY PACK completed Use as directed - Ming Gaines MD COLCHICINE 0.6 MG ORAL CAPSULE completed po bid - Jered Nixon ADVAIR DISKUS 250-50 MCG/DOSE INHALATION AEROSOL POWDER BREATH ACTIVATED completed one tablet twice daily - Digna Gaitan omeprazole 40 mg capsule,delay ed release(DR/EC ) active capsule by mouth once a day Jimmy VELIZ 0.25 MG ORAL TABLET completed p.o. q.h.s.x one week then 0.5 mg at h.s. daily - Anitra Hancock LASIX 20 MG ORAL TABLET completed po daily - Ming Gaines MD MEDROL 4 MG ORAL TABLET THERAPY PACK completed take as directed - Ming Gaines MD take as directed for a ZANTAC 150 MG ORAL TABLET completed ONE TAB TWICE DAILY - Anitra Hancock VICODIN 5-300 MG ORAL TABLET completed po bid - Aneatris Brown LIDODERM 5 % EXTERNAL PATCH completed apply one patch daily - Ming Gaines MD COLCRYS 0.6 MG ORAL TABLET completed 0.6 mg bidx 7 days - Ming Gaines MD TRAMADOL HCL 50 MG ORAL TABLET completed One tab three times daily - Ming Gaines MD OMEPRAZOLE 40 MG ORAL CAPSULE DELAYED RELEASE completed one tab daily - Ming Gaines MD COMBIVENT AEROSOL completed 2 puffs as needed - Anitra Hancock ADVAIR HFA AEROSOL completed 2 puffs twice daily - Anitra Hancock metformin 1,000 mg tablet active 2 pills twice a day Digna Gaitan METOPROLOL TARTRATE 25 MG ORAL TABLET completed one tab. twice daily - Maximiliano Walker MD Prozac 20 mg capsule active capsule by mouth once a day Ming Gaines MD SOCIAL HISTORY Date Observation Value Provider number of grandchildren Ming Gaines MD T jaden Gerardo social history E&M Marital Statu s: Unknown or other S moking History: Smoking History: P atvijay has never smoked. Stella Gerardo social history reviewed E&M revi ewed - no changes required Stella Gerardo passive cigarette sm meet exposure yes Sofía Gill smoking status Never smoker Sofía Gill social history E&M Marital Statu s: Unknown or other S moking History: Smoking History: P atvijay has never smoked. Ming Gaines MD social history reviewed E&M revi ewed - no changes required Ming Gaines MD passive cigarette sm meet exposure yes Sofía Gill smoking status Never smoker Tonstiffany Gill social history E&M Marital Statu s: Unknown or other S moking History: Smoking History: P atient has never smoked. Ming Gaines MD social history reviewed E&M revi ewed - no changes required Ming Gaines MD passive cigarette sm meet exposure yes Chastity Liza smoking status Never smoker Chastity Hogu e number of grandchildren Steve Morataya social history reviewed E&M revi ewed - no changes required Nikko Morataya social history E&M Marital Statu s: Unknown or other S moking History: Smoking History: P atient has never smoked. Nikko Morataya alcohol use no Digna Antonette lder drug use no Digna Gruenenfruben lder passive cigarette sm meet exposure yes Digna Kandy smoking status Never smoker Dignayvon lees social history E&M Marital Statu s: Unknown or other S moking History: S moking History: P atient has never smoked. Ming Gaines MD social history reviewed E&M revi ewed - no changes required Ming Gaines MD alcohol use no Sue Judi drug use no Sue Judi passive cigarette sm meet exposure yes Sue Judi smoking status Never smoker Sue Judi social history reviewed E&M revi ewed - no changes required Richy Caballero alcohol use no Richy Lundb erg drug use no Richy Reyb erg passive cigarette sm meet exposure yes Richy Leberg smoking status Never smoker Richy vidalerg number of grandchildren Ming Gaines MD social history reviewed E&M revi ewed - no changes required Ming Gaines MD alcohol use no Sue Judi drug use no Sue Judi passive cigarette sm meet exposure yes Sue Judi smoking status Never smoker Sue Judi social history reviewed E&M revi ewed - no changes required Ming Gaines MD alcohol use no Digna Gruenenfe lder drug use no Digna Gruenenfe lder passive cigarette sm meet exposure yes Digna Kandy smoking status Never smoker Digna lees social history reviewed E&M revi ewed - no changes required Ming Gaines MD alcohol use no Sue Judi drug use no Sue Judi passive cigarette sm meet exposure yes Sue Judi smoking status Never smoker Sue Judi social history reviewed E&M revi ewed - no changes required Ming Gaines MD alcohol use no Digna Gruenenfe lder drug use no Digna Gruenenfe lder passive cigarette sm meet exposure yes Digna Kandy smoking status Never smoker Digna lees social history reviewed E&M revi ewed - no changes required Ming Gaines MD alcohol use no Digna Gruenenfe lder drug use no Digna Gruenenfe lder passive cigarette sm meet exposure yes Digna Kandy smoking status Never smoker Dignayvon lees social history reviewed E&M revi ewed - no changes required Anitra Fraire alcohol use no Anitra Fraire drug use no Anitra Fraire passive cigarette sm meet exposure yes Anitra Fraire smoking status Never smoker Anitra Land n social history reviewed E&M revi ewed - no changes required Steve Taylor MD social history E&M Marital Statu s: Unknown or other Smoking History: Patient has never smoked. Steve Taylor MD number of grandchildren Steve Coyle alcohol use no La Nena [place] drug use no La Nena Jonna passive cigarette sm meet exposure yes La Nena Jonna smoking status Never smoker La Nena Moodyby social history reviewed E&M revi ewed - no changes required Ming Gaines MD alcohol use no Anitra Hancock drug use no Anitra Hancock passive cigarette sm meet exposure yes Anitra Hancock smoking status Never smoker Anitra Hancock social history reviewed E&M revi ewed - no changes required Ming Gaines MD alcohol use no Jered Mena nson drug use no Jered Rajesh nson passive cigarette sm mete exposure yes Jeredharrison Nixon smoking status Never smoker Jered Sandoval merry social history reviewed E&M revi ewed - no changes required Ming Gaines MD alcohol use no Digna Antonette lder smoking status Never smoker Digna lees social history reviewed E&M revi ewed - no changes required Ming Gaines MD alcohol use no Jeredharrison colbert drug use no Jered Rajesh martinezon passive cigarette sm meet exposure yes Jered Nixon smoking status Never smoker Jreed Sandoval merry social history reviewed E&M revi ewed - no changes required Ming Gaines MD alcohol use no Digna Antonette soriano smoking status Never smoker Digna lees social history reviewed E&M revi ewed - no changes required Ming Gaines MD drug use no Jered colbert passive cigarette sm meet exposure yes Jered Nixon smoking status Never smoker Jered Ugalde social history reviewed E&M revi ewed - no changes required Ming Gaines MD drug use no Anitra Fraire passive cigarette sm meet exposure yes Anitra Fraire smoking status Never smoker Anitra Land n social history reviewed E&M revi ewed - no changes required Ming Gaines MD drug use no Anitra Fraire passive cigarette sm meet exposure yes Anitra Fraire smoking status Never smoker Anitra Land n social history reviewed E&M revi ewed - no changes required Mercedes Valdovinos social history reviewed E&M revi ewed - no changes required Ming Gaines MD drug use no Anitra Romeroann passive cigarette sm meet exposure yes Anitra Fraire smoking status Never smoker Anitra Land n social history reviewed E&M revi ewed - no changes required Ming Gaines MD social history reviewed E&M revi ewed - no changes required Ming Gaines MD social history reviewed E&M revi ewed - no changes required Ming Gaines MD social history reviewed E&M revi ewed - no changes required Ming Gaines MD smoking status Never smoker Faby Aceves social history reviewed E&M revi ewed - no changes required Ming Gaines MD social history E&M Marital Statu s: Unknown or other Naldo Mercado RN social history reviewed E&M reviewed Naldo Mercado RN social history reviewed E&M reviewed Maximiliano Walker MD drug use no Madeline Long passive cigarette sm meet exposure yes Rickcoltengemma Long smoking status never smoker Madeline Damian menendez FUNCTIONAL STATUS Date Observation Value Provider HRA, CV Assess/Plan, Angina (inactive) Management Plan continue current therapy Stella Gerardo HRA, CV Assess/Plan, Angina (inactive) Management Plan continue current therapy Nikko Hood HRA, CV Assess/Plan, Angina (inactive) Management Plan continue current therapy Ming Gaines MD HRA, CV Assess/Plan, Angina (inactive) Management Plan antianginal therapy Richy Leberg MENTAL STATUS Date Observation Value Provider energy level yes Bethany Tebid energy level no Bethany Tebid assessment of judgme nt and insight E&M Alert and oriented to time, place and person. Mood and affect are normal. Naldo Mercado RN FAMILY HISTORY Family Member Condition Mother Family History Unkno wn Father Family History of CV A or Stroke: INSURANCE PROVIDERS Payer name Policy type / Coverage type [place] red constitution party ID [place] MEDIC[place] Medicare [id number] [facility] Commercial insurance [facility] [id number] [facility] MEDICARE COMPLETE HMO Other [id number] ADVANCE DIRECTIVES Name Date DISCUSSED - NO DECISION MADE TREATMENT PLAN Date Name Performer Cardiology - cpoe billing letter Ming Gaines MD Cardiology - cpoe billing letter Ming Gaines MD Cardiology - cpoe billing letter Ming Gaines MD Cardiology - cpoe billing letter Ming Gaines MD Cardiology - cpoe billing letter Ming Gaines MD Cardiology - cpoe billing letter Ming Gaines MD Cardiology Ming Gaines MD Cardiology Ming Gaines MD Cardiology Ming Gaines MD Cardiology Ming Gaines MD Cardiology Ming Gaines MD Cardiology Ming Gaines MD Cardiology Ming Gaines MD Cardiology Ming Gaines MD Electrophysiology Fo llow up : B P today: 110/80 P rior BP: 112/80 (08/26/2018) Labs Reviewed: C reat: 0.7 (03/11/2017) Her updated medication list for this problem includes: Metoprolol Tartrate 50 Mg Oral Tablet (Metoprolol tartrate) ..... One tab. twice daily Aspirin Adult Low Dose 81 Mg Oral Tablet Delayed Release (Aspirin) ..... One tab by mouth daily Nikko Morataya Electrophysiology Fo llow up : C PAP machine currently broken. W ill schedule for sleep titration study. Orders: S leep Study Titration ([id number]) 9 9214 MOD Complex ([id number]) Nikko Morataya Electrophysiology Fo llow up : Edgar bess echo doppler in 1-2 weeks. Orders: C omplete Echo ([id number]) 9 9214 MOD Complex ([id number]) Nikko Morataya Electrophysiology Fo llow up : [facility] [place] ER visit 12/29/18 for palpitations. She wore a 14-day Telesentry 12/2018 which showed sinus rhythm with intermittent 1st degree AVB, rates 66-103bpm, avg HR 95bpm. S tart 400mg Magnesium BID. I ncrease Metoprolol to 50mg BID. Edgar bess 14-day Telesentry in 6 months. Orders: E KG ([id number]) M obile Cardiac Tele ([id number]) 9 9214 MOD Complex ([id number]) Her updated medication list for this problem includes: Metoprolol Tartrate 50 Mg Oral Tablet (Metoprolol tartrate) ..... One tab. twice daily Aspirin Adult Low Dose 81 Mg Oral Tablet Delayed Release (Aspirin) ..... One tab by mouth daily Nikko Morataya Cardiology follow up Ming padilla MD Cardiology follow up Mign padilla MD Cardiology follow up Ming padilla MD Cardiology follow up Ming padilla MD Cardiology:The pt allen d another admission for dizziness and chest discomfort. BP is 120/82 and we will stop Metoprolol. BP today: 120/82 P rior BP: 126/80 (01/06/2018) The following medications were stopped: Metoprolol Tartrate 25 Mg Oral Tablet (Metoprolol tartrate) ..... One tab. twice daily Her updated medication list for this problem includes: Aspirin Adult Low Dose 81 Mg Oral Tablet Delayed Release (Aspirin) ..... One tab by mouth daily Richy [facility] Cardiology:The pt allen d another admission for dizziness and chest discomfort. She has hx of normal coronary arteries. BP is 120/82 and we will stop Metoprolol. Richy [facility] Cardiology:The pt allen d another admission for dizziness and chest discomfort. She has hx of normal coronary arteries. Will try ECP treatment. This patient has angina (defined as chest pain, chest discomfort, or pain in arms, neck, jaw, shoulder, or back, and may include symptoms of shortness of breath, fatigue, dizziness, nausea, or diaphoresis) of [place] Cardiovascular Society Class III (defined as symptoms with everyday living activities, i.e. moderate limitation) or [place] Cardiovascular Society Class IV (defined as inability to perform any activity without angina or angina at rest, i.e. severe limitation). T his patient?s angina is disabling and in my opinion is not readily amenable to surgical intervention by PTCA or cardiac bypass because the patient's coronary anatomy is not readily amenable to such procedures. Richy [facility] Cardiology follow up:Try Medrol dose pack. Ming Gaines MD Cardiology follow up Ming padilla MD Cardiology Follow up :check echo Ming Gaines MD Cardiology Follow up Ming padilla MD Cardiology Follow up Ming padilla MD Cardiology Follow up :seems atypical w ill place on antiflammatory and have pt repeat an echo. she has a long standing hx of pericardial effusion Ming Gaines MD Cardiology follow up Ming padilla MD Cardiology follow up Ming padilla MD Cardiology follow up Ming padilla MD Cardiology follow up Ming padilla MD Cardiology Follow up Ming padilla MD Cardiology Follow up Ming padilla MD Cardiology Follow up Ming padilla MD Cardiology Follow up :Appears musculoskeltal , reproducible Ming Gaines MD Cardiology Follow up Ming padilla MD Cardiology Follow up Ming padilla MD Cardiology Follow up Ming padilla MD Cardiology Ming Gaines MD Cardiology Ming Gaines MD Cardiology Ming Gaines MD Cardiology Ming Gaines MD Cardiology Ming Gaines MD EP:No new syncopal episodes or s ymtoms of dizziness. Steve Taylor MD Cardiology Ming Gaines MD Cardiology Ming Gaines MD Cardiology Ming Gaines MD Cardiology Ming Gaines MD Cardiology Ming Gaines MD Cardiology Ming Gaines MD Cardiology Ming Gaines MD Cardiology Follow up Ming padilla MD Cardiology Follow up Ming padilla MD Cardiology Follow up :Patient had a recent unexplained witnessed syncopal event , has had a similar event in the past w ill schedule her for a reveal monitor Ming Gaines MD Cardiology Follow up Ming padilla MD Cardiology Ming Gaines MD Cardiology Ming Gaines MD Cardiology Ming Gaines MD Cardiology Ming Gaines MD Cardiology Ming Gaines MD Cardiology Ming Gaines MD Cardiology Ming Gaines MD Cardiology Ming Gaines MD fu: H er updated medication list for this problem includes: Metoprolol Tartrate 25 Mg Tabs (Metoprolol tartrate) ..... One tab. twice daily Ming Gaines MD fu: H er updated medication list for this problem includes: Medrol (asa) 4 Mg Oral Tabs (Methylprednisolone) ..... Use as directed Ming Gaines MD follow up: H er updated medication list for this problem includes: Metformin Hcl 500 Mg Tabs (Metformin hcl) ..... 1 tab daily Ming Gaines MD follow up: H er updated medication list for this problem includes: Metoprolol Tartrate 25 Mg Tabs (Metoprolol tartrate) ..... One tab. twice daily Ming Gaines MD follow up: H er updated medication list for this problem includes: Metoprolol Succinate Er [id number] (Metoprolol succinate [id number]) ..... 1 tab twice daily BP today: 121/89 P rior BP: 133/93 (01/16/2015) Labs Reviewed: C reat: 0.64 (06/28/2014) Ming Gaines MD follow up: H er updated medication list for this problem includes: Metoprolol Succinate Er [id number] (Metoprolol succinate [id number]) ..... 1 tab twice daily BP today: 133/93 P rior BP: 134/89 (10/17/2014) Labs Reviewed: C reat: 0.64 (06/28/2014) Ming Gaines MD follow up: T he following medications were removed from the medication list: Lasix 20 Mg Tabs (Furosemide) ..... Po daily Her updated medication list for this problem includes: Metoprolol Succinate Er [id number] (Metoprolol succinate [id number]) ..... 1 tab twice daily BP today: 128/90 P rior BP: 140/89 (09/12/2014) Labs Reviewed: C reat: 0.64 (06/28/2014) Ming Gaines MD follow up: H er updated medication list for this problem includes: Metoprolol Succinate Er [id number]-nec (Metoprolol succinate [id number]) ..... 1 tab twice daily Ming Gaines MD follow up: H er updated medication list for this problem includes: Metoprolol Succinate Er Ap95r-vut (Metoprolol succinate [id number]-glu) ..... 1 tab twice daily Ming Gaines MD follow up: H er updated medication list for this problem includes: Metoprolol Succinate Er Lw89q-uyt (Metoprolol succinate yz00o-xee) ..... 1 tab twice daily BP today: 143/105 P rior BP: 122/82 (10/04/2013) Labs Reviewed: C reat: 0.60 (07/22/2013) Ming Gaines MD Date Name X-Ray, Knee Arterial Duplex Bi-L ower EX Mobile Cardiac Tele Sleep Study Titratio n Complete Echo ECP Commercial TSH, 3RD GENERATION W/REFLEX TO FT4 COMPREHENSIVE METABO LIC PANEL W/EGFR CBC (INCLUDES DIFF/P LT) URINALYSIS, COMPLETE W/REFLEX TO CULTURE COMPREHENSIVE METABO LIC PANEL W/EGFR CBC (INCLUDES DIFF/P LT) PARTIAL THROMBOPLAST IN TIME, ACTIVATED PROTHROMBIN TIME WIT H INR Device Removal - GC CT, Chest Venous Doppler Bilat eral LE Arterial Duplex Uppe r Extremity Bilateral Carotid Duplex Bilat eral Complete Echo Mobile Cardiac Tele HISTORY OF PROCEDURES Procedure Date Procedure Name Provider Procedure Notes S tatus EKG Ming Gaines MD completed EKG Ming Gaines MD completed Event Monitor Ming Gaines MD comple sherin EKG Steve hector MD completed Mobile Cardiac Telemetry - Tech Ming Gaines MD completed Mobile Cardiac Telemetry - Prof Ming Gaines MD completed SNOMED-CT: [id number] Current Medications Documented Ming Gaines MD completed EKG Ming Gaines MD completed SNOMED-CT: [id number] Current Medications Documented Ming Gaines MD completed SNOMED-CT: 35509989 Physical Exam, Performed: Pulse Exam of Foot Ming Gaines MD completed SNOMED-CT: [id number] Current Medications Documented Ming Gaines MD completed SNOMED-CT: 14415873 Physical Exam, Performed: Pulse Exam of Foot Ming Gaines MD completed EKG Ming Gaines MD completed SNOMED-CT: [id number] Current Medications Documented Ming Gaines MD completed SNOMED-CT: 15888026 Physical Exam, Performed: Pulse Exam of Foot Ming Gaines MD completed SNOMED-CT: 600773509023179 Current Medications Documented Ming Gaines MD completed SNOMED-CT: 54235172 Physical Exam, Performed: Pulse Exam of Foot Ming Gaines MD completed SNOMED-CT: [id number] Current Medications Documented Ming Gaines MD completed SNOMED-CT: 54854206 Physical Exam, Performed: Pulse Exam of Foot ulius Claudia DOOLEY completed EKG Steve hector MD completed SNOMED-CT: [id number] Current Medications Documented ulius Claudia DOOLEY completed Loop Recorder Interrogation, Remote Ming Gaines MD INTERROGATION EVALUATION REMOTE </30 D ILR SYS completed ICM Interrogation, Remote (Tech) Ming Gaines MD INTERROGATION EVAL REMOTE </30 D TECH REVIEW completed Loop Recorder Interrogation, Remote Ming Gaines MD INTERROGATION EVALUATION REMOTE </30 D ILR SYS completed ICM Interrogation, Remote (Tech) Ming Gaines MD INTERROGATION EVAL REMOTE </30 D TECH REVIEW completed Loop Recorder Interrogation, Remote Ming Gaines MD INTERROGATION EVALUATION REMOTE </30 D ILR SYS completed ICM Interrogation, Remote (Tech) Ming Gaines MD INTERROGATION EVAL REMOTE </30 D TECH REVIEW completed SNOMED-CT: 90513848 Physical Exam, Performed: Pulse Exam of Foot Ming Gaines MD completed EKG Ming Gaines MD completed SNOMED-CT: [id number] Current Medications Documented Ming Gaines MD completed SNOMED-CT: 99876027 Physical Exam, Performed: Pulse Exam of Foot Ming Gaines MD completed SNOMED-CT: [id number] Current Medications Documented Ming Gaines MD completed Loop Recorder Interrogation, Remote Ming Gaines MD INTERROGATION EVALUATION REMOTE </30 D ILR SYS completed ICM Interrogation, Remote (Tech) Ming Gaines MD INTERROGATION EVAL REMOTE </30 D TECH REVIEW completed Loop Recorder Interrogation, Remote Ming Gaines MD INTERROGATION EVALUATION REMOTE </30 D ILR SYS completed ICM Interrogation, Remote (Tech) Ming Gaines MD INTERROGATION EVAL REMOTE </30 D TECH REVIEW completed SNOMED-CT: 37253653 Physical Exam, Performed: Pulse Exam of Foot Ming Gaines MD completed SNOMED-CT: [id number] Current Medications Documented Ming Gaines MD completed SNOMED-CT: 59838436 Physical Exam, Performed: Pulse Exam of Foot Ming Gaines MD completed SNOMED-CT: [id number] Current Medications Documented Ming Gaines MD completed SNOMED-CT: 91977584 Physical Exam, Performed: Pulse Exam of Foot Ming Gaines MD completed SNOMED-CT: 931872573361334 Current Medications Documented Ming Gaines MD completed EKG Ming Gaines MD completed EKG Ming Gaines MD completed EKG Ming Gaines MD completed EKG Ming Gaines MD completed EKG Sabrina Liang MD complet ed EKG Ming Gaines MD completed EKG Maximiliano Walker MD completed
--- OUTSIDE RECORDS SUMMARY | 2025-03-02 20:17 | XMS_ITS | Encounter Summary ---
Author Organization [facility] Address [address] [facility] [place] [address] Phone Care Team Providers Care Project Admin Name Role Phone Altaf Fowler DO Unavailable [phone] Sanjeev Maldonado MD Primary Care Provider Tuan Martin MD Unavailable Brad Powell MD Unavailable Helen Davis APRN, LAWN CARE TECHNICIAN Unavailable Reason for Visit * Reason Comments Medication Refill Encounter Details Date Type Department Care Team (Late st Contact Info) Description 12/02/2024 [facility]ill [facility] - [place] #2 [place] [address] Helen Davis APRN, LAWN CARE TECHNICIAN #2 [place] [address] Medication Refill Social History Tobacco Use Types [...] Telephone Encounter - Sheree Shafer RN - 12/03/2024 8:29 AM HAND UMBRELLA TIPPER Medication [facility] and signed [facility] standing order for pediatric and adult patients. UMBRELLA TIPPER documented in this encounter Plan of Treatment Not on file documented as of this encounter Visit Diagnoses Diagnosis Gastroesophageal reflux disease without esophagitis Esophageal reflux documented in this encounter Care Teams Project Admin Relationship Specialty Start Date End Date Sanjeev Maldonado MD PCP - General Internal Medicine 02/26/17 Altaf Fowler DO Gastroenterology 01/04/16 Tuan Martin MD [address] [facility] [address] [place] [address] Cardiovascular Disease - Cardiology 08/28/22 Brad Powell MD #[address] [address] Consulting Physician Colon and Rectal Surgery 03/13/23 Helen Davis APRN, LAWN CARE TECHNICIAN #2 [place] [address] Nurse Practitioner Advanced Practice Nurse 02/06/24 documented as of this encounter
--- OUTSIDE RECORDS SUMMARY | 2025-03-02 20:17 | XMS_ITS | Encounter Summary ---
Author Organization [facility] Address [address] [facility] [place] [address] Phone Care Team Providers Care Stripper Black And White Name Role Phone Altaf Fowler DO Unavailable [phone] Sanjeev Maldonado MD Primary Care Provider Tuan Martin MD Unavailable Brad Powell MD Unavailable Helen Davis APRN, SYNOPTIC METEOROLOGIST Unavailable Encounter Details Date Type Department Care Team (Late st Contact Info) Description 09/17/2022 [facility] 1 [place] [address] Mason Donnelly MD #2 [place] [address] Preop testing (Primary Dx) Social History Tobacco Use Types Packs/Day Years [...] file Not on file Not on file COVID-19 Exposure Response Date Recorded In the last 10 days, have yo u been in contact with someone who was confirmed or suspected to have Coronavirus/COVID-19? No / Unsure 09/17/2022 2:09 PM CDT documented as of this encounter Plan of Treatment Not on file documented as of this encounter Results * SARS-COV-2 BY MOLECULAR (09/23/2022 12:30 PM CDT) SARSCOV2 NOT DETECTED (Referenc e Range for this test is Not Detected) [facility] ID NOW 09/23/2022 1:45 PM CDT [facility] Comment:This test was perfor med by a MOLECULAR, NON-PCR method Other NASOPHARYNGEAL STRUCTURE / Unknown Non-Phlebotomy Collection / Unknown 09/23/2022 12:30 PM CDT 09/23/2022 1:21 PM CDT Narrative [facility] - 09/23/2022 1:45 PM CDT This test has been authorized by the FDA under an Emergency Use Authorization (EUA) only. Negative results should be treated as presumptive and, if inconsistent with clinical signs and symptoms or necessary for patient management, the patient should be tested with an alternative molecular assay. Negative results do not preclude SARS-CoV-2 infection or any other respiratory pathogen. Additional information for Clinicians can be found at: https://www.fda.gov/media/317626/download Additional information for Patients can be found at: https://www.fda.gov/media/817513/download Mason Donnelly MD MICROBIOLOGY - GENERAL ORDERABL ES Final Result [facility] #1 [place] [address] documented in this encounter Visit Diagnoses Diagnosis Preop testing- Primary Preoperative examination, unspecified documented in this encounter Care Teams Stripper Black And White Relationship Specialty Start Date End Date Sanjeev Maldonado MD PCP - General Internal Medicine 02/26/17 Altaf Fowler DO Gastroenterology 01/04/16 Tuan Martin MD 1225 [facility] [address] [place] [address] Cardiovascular Disease - Cardiology 08/28/22 Brad Powell MD #[address] [address] Consulting Physician Colon and Rectal Surgery 03/13/23 Helen Davis APRN, SYNOPTIC METEOROLOGIST #2 [place] [address] Nurse Practitioner Advanced Practice Nurse 02/06/24 documented as of this encounter
--- OUTSIDE RECORDS SUMMARY | 2025-03-02 20:17 | XMS_ITS | Encounter Summary ---
Author Organization [facility] Address [address] [facility] [place] [address] Phone Care Team Providers Care Inspector Tester Sorter Name Role Phone Altaf Fowler DO Unavailable [phone] Sanjeev Maldonado MD Primary Care Provider Tuan Martin MD Unavailable Brad Powell MD Unavailable Helen Davis APRN, INSIDE TRUCKER Unavailable Reason for Visit * Reason Comments Medication Refill Encounter Details Date Type Department Care Team (Late st Contact Info) Description 02/01/2024 Refill [facility] - [place] #2 [place] [address] Helen Davis APRN, INSIDE TRUCKER #2 [place] [address] Medication Refill Social History Tobacco Use Types [...] Telephone Encounter - Sheree Shafer RN - 02/04/2024 2:58 PM CDT Medication [facility]illed and signed [facility] medication standing order for pediatric and adult patients. * Telephone Encounter - Leah Ribeiro - 02/02/2024 1:18 PM CDT Office visit scheduled for 02/06/24 with Helen Davis. * Telephone Encounter - Sheree Shafer RN - 02/02/2024 8:58 AM CDT Pharmacy requesting refill of: Requested Prescriptions Pending Prescriptions Disp Refills pantoprazole (PROTONIX) 40 MG Tablet Delayed Response [Pharmacy Med Name: PANTOPRAZOLE SOD DR 40 MGTAB] 180 Tablet 1 Sig: TAKE 1 TABLET BY MOUTH TWICE A DAY BEFORE MEALS Last fill: 05/26/2023 Patients last OV with GI: 08/28/2022 Next Office Visit with GI: none scheduled. Called patient to offer an appt. Left message for patient to call back. documented in this encounter Plan of Treatment Not on file documented as of this encounter Visit Diagnoses Diagnosis Gastroesophageal reflux disease without esophagitis Esophageal reflux documented in this encounter Care Teams Inspector Tester Sorter Relationship Specialty Start Date End Date Sanjeev Maldonado MD PCP - General Internal Medicine 02/26/17 Altaf Fowler DO Gastroenterology 01/04/16 Tuan Martin MD 1225 [facility] [address] [place] [address] Cardiovascular Disease - Cardiology 08/28/22 Brad Powell MD #[address] [address] Consulting Physician Colon and Rectal Surgery 03/13/23 Helen Davis APRN, INSIDE TRUCKER #2 [place] [address] Nurse Practitioner Advanced Practice Nurse 02/06/24 documented as of this encounter
[2025-03-02 20:21] VITALS: BP 132/84; PULSE 114; RESP 20; TEMP 36.9; O2SAT 96
[2025-03-02 21:09] LABS: Influenza A QL RT-PCR Negative (Negative); Influenza B QL RT-PCR Negative (Negative); RSV RNA, RT-PCR Negative (Negative); SARS-CoV-2 RNA PCR Negative (Negative)
--- OUTSIDE RECORDS SUMMARY | 2025-03-03 01:24 | XMS_ITS | Encounter Summary ---
Author Organization [facility] Address [address] [facility] [place] [address] Phone Care Team Providers Care Squadron Worker Name Role Phone Altaf Fowler DO Unavailable [phone] Sanjeev Maldonado MD Primary Care Provider Tuan Martin MD Unavailable Brad Powell MD Unavailable Helen Davis APRN, ASSOCIATE FINANCIAL ANALYST Unavailable Reason for Visit * Reason Comments Medication Refill Encounter Details Date Type Department Care Team (Late st Contact Info) Description 07/04/2022 Refill [facility] - [place] #2 [place] [id number] Nicolasa Jerez April, PAC [address] [place] [address] Medication Refill Social History Tobacco Use Types [...] AM CDT Medication [facility] signed [facility] medication standing order for pediatric and adult patients. * Telephone Encounter - Sheree Shafer RN - 07/08/2022 9:35 AM CDT documented in this encounter Plan of Treatment Not on file documented as of this encounter Visit Diagnoses Not on filedocumented in this encounter Care Teams Squadron Worker Relationship Specialty Start Date End Date Sanjeev Maldonado MD PCP - General Internal Medicine 02/26/17 Altaf Fowler DO Gastroenterology 01/04/16 Tuan Martin MD 1225 [facility] [address] [place] [address] Cardiovascular Disease - Cardiology 08/28/22 Brad Powell MD #[address] [address] Consulting Physician Colon and Rectal Surgery 03/13/23 Helen Davis APRN, ASSOCIATE FINANCIAL ANALYST #2 [place] [address] Nurse Practitioner Advanced Practice Nurse 02/06/24 documented as of this encounter
--- OUTSIDE RECORDS SUMMARY | 2025-03-03 01:24 | XMS_ITS | Clinical Summary ---
Author Organization [facility] Nilesh tawny [facility] Address [address] [facility] [place] [address] Care Team Providers Care Lease Picker Name Role Phone Sanjeev Maldonado MD Primary Care Provider [phone] Allergies Active Allergy Reactions Criticality Noted Date [...] STL ABSTRACTION Provider, Abstract 01/11/2025 2:30 PM MANAGER CARD Telephone Check Up [facility] Oncology [facility] Hematology [facility] [address] [place] [address] Lit Silva MD Chronic anemia (Primary Dx) 12/16/2024 External Device Data STL ABSTRACTION Provider, Abstract 12/09/2024 Refill [facility] Oncology [facility] [address] [place] [address] Lit Silva MD 12/07/2024 External Device Data [...] on file Legal Sex Female 2:43 PM MANAGER CARD Gender Identity Not on file Sexual Orientation [...] Description 05/11/2025 11:30 AM CDT Office Visit [facility] Oncology and Hematology - [place] [address] [facility] [address] [place] [address] Lit Silva MD [address] [facility] [address] [place] [address] Health Maintenance Due Date Last [...] 04/23/2028 04/23/2018 Colorectal Cancer Screening 04/23/[address] [place] [id number] [facility] OPT[facility] PPO [id number] Care Teams Lease Picker Relationship Specialty Start Date End Date Sanjeev Maldonado MD [address] [facility] 4 [place] [id number] PCP - General Internal Medicine 01/19/20
--- OUTSIDE RECORDS SUMMARY | 2025-03-03 01:24 | XMS_ITS | Encounter Summary ---
Author Organization [facility] Address [address] [facility] [place] [address] Phone Care Team Providers Care Intensive Care Medicine Specialist Name Role Phone Altaf Fowler DO Unavailable [phone] Sanjeev Maldonado MD Primary Care Provider [phone] Tuan Martin MD Unavailable Brad Powell MD Unavailable Helen Davis APRN, FIELD ARTILLERY SENIOR SERGEANT Unavailable Reason for Visit * Reason Comments Medication Refill Encounter Details Date Type Department Care Team (Late st Contact Info) Description 04/02/2022 Refill [facility] - G[facility]enterology - [place] #2 [place] [id number] Nicolasa Jerez April, PAC [address] [place] [address] Medication Refill Social History Tobacco Use Types [...] on filedocumented in this encounter Care Teams Intensive Care Medicine Specialist Relationship Specialty Start Date End Date Sanjeev Maldonado MD PCP - General Internal Medicine 02/26/17 Altaf Fowler DO Gastroenterology 01/04/16 Tuan Martin MD 1225 [facility] [address] [place] [address] Cardiovascular Disease - Cardiology 08/28/22 Brad Powell MD #[address] [address] Consulting Physician Colon and Rectal Surgery 03/13/23 Helen Davis APRN, FIELD ARTILLERY SENIOR SERGEANT #2 [place] [address] Nurse Practitioner Advanced Practice Nurse 02/06/24 documented as of this encounter
--- OUTSIDE RECORDS SUMMARY | 2025-03-03 01:24 | XMS_ITS | Clinical Summary ---
Author Organization [facility] Address [address], [facility] [address] [place] [address] Phone Care Team Providers Care Hr Systems Analyst Name Role Phone Altaf Fowler DO Unavailable [phone] Sanjeev Maldonado MD Primary Care Provider [phone] Tuan Martin MD Unavailable Brad Powell MD Unavailable Helen Davis APRN, BOARD RUNNER Unavailable Allergies Active Allergy Reactions Criticality Noted [...] bowel syndrome) Small intestinal bacterial overgrowth Asthma Immunizations Immunization Administration Dates Next Due Covid-19 Vaccine, Vector-nr, Rs-ad26, Pf, 0.5 Ml (Evermede/J&J) 08/24/2021 Pneumococcal Vaccine - 13 Valent 05/20/2017 [...] this topic Medical Devices Implanted Type Area Biology Lecturer Device Identifier Shelf Expiration Date Model / Serial / Lot Clip 360 Resolution 235cm - [id number] Implanted:Qty: 3 on 08/18/2020 by Altaf Fowler DO at [facility] IMPLANT Circa 05/08/2023 [id number] / [id number] / [id number] Procedures Procedure Name Priority Date/Time Associated Diagnosis Comments COLONOSCOPY Routine 04/23/2018 from Last 3 Months or Most Recently Relevant to Health Maintenance Results * COLONOSCOPY (04/23/2018) us Altaf Fowler DO PROCEDURE/MINOR SURGICAL ORDERA BLES Final Result from Last 3 Months or Most Recently Relevant to Health Maintenance Insurance [facility] MEDICARE C [facility] Care Teams Hr Systems Analyst Relationship Specialty Start Date End Date Sanjeev Maldonado MD PCP - General Internal Medicine 02/26/17 Altaf Fowler DO Gastroenterology 01/04/16 Tuan Martin MD [address] [facility] [address] [place] [address] Cardiovascular Disease - Cardiology 08/28/22 Brad Powell MD #[address] [address] Consulting Physician Colon and Rectal Surgery 03/13/23 Helen Davis APRN, BOARD RUNNER #2 [place] [address] Nurse Practitioner Advanced Practice Nurse 02/06/24
--- OUTSIDE RECORDS SUMMARY | 2025-03-03 01:25 | XMS_ITS | Encounter Summary ---
Author Organization [facility] Address [address] [facility] [place] [address] Phone Care Team Providers Care Clinical Engineering Director Name Role Phone Altaf Fowler DO Unavailable [phone] Sanjeev Maldonado MD Primary Care Provider [phone] Tuan Martin MD Unavailable Brad Powell MD Unavailable Helen Davis APRN, LEGAL SUPPORT SPECIALIST Unavailable Encounter Details Date Type Department Care Team (Late st Contact Info) Description 09/17/2022 Transcribe [facility] 1 [place] [address] Mason Donnelly MD #2 [place] [address] Preop testing (Primary Dx) Social History Tobacco [...] Range for this test is Not Detected) [facility] NOW 09/23/2022 1:45 PM CDT [facility] Comment:This test was perfor med by a MOLECULAR, NON-PCR method Other NASOPHARYNGEAL STRUCTURE / Unknown Non-Phlebotomy Collection / Unknown 09/23/2022 12:30 PM CDT 09/23/2022 1:21 PM CDT Narrative [facility] - 09/23/2022 1:45 PM CDT This [...] information for Clinicians can be found at: https://www.fda.gov/media/808071/download Additional information for Patients can be found at: https://www.fda.gov/media/671890/download Mason Donnelly MD MICROBIOLOGY - GENERAL ORDERABL ES Final Result [facility] #1 [place] [address] documented in this encounter Visit Diagnoses Diagnosis Preop testing- Primary Preoperative examination, unspecified documented in this encounter Care Teams Clinical Engineering Director Relationship Specialty Start Date End Date Sanjeev Maldonado MD PCP - General Internal Medicine 02/26/17 Altaf Fowler DO Gastroenterology 01/04/16 Tuan Martin MD 1225 [facility] [address] [place] [address] Cardiovascular Disease - Cardiology 08/28/22 Brad Powell MD #[address] [address] Consulting Physician Colon and Rectal Surgery 03/13/23 Helen Davis APRN, LEGAL SUPPORT SPECIALIST #2 [place] [address] Nurse Practitioner Advanced Practice Nurse 02/06/24 documented as of this encounter
--- OUTSIDE RECORDS SUMMARY | 2025-03-03 01:25 | XMS_ITS | Encounter Summary ---
Author Organization [facility] Address [address] [facility] [place] [place] [address] Phone Care Team Providers Care Clinical Engineering Director Name Role Phone Altaf Fowler DO Unavailable [phone] Sanjeev Maldonado MD Primary Care Provider [phone] Tuan Martin MD Unavailable Brad Powell MD Unavailable Helen Davis APRN, SENIOR SOLUTIONS WORKFLOW CONSULTANT Unavailable Reason for Visit * Reason Comments Medication Refill Encounter Details Date Type Department Care Team (Late st Contact Info) Description 12/02/2024 Refill [facility] - [facility]ology - [place] #2 [place] [address] Helen Davis APRN, SENIOR SOLUTIONS WORKFLOW CONSULTANT #2 [place] [address] Medication Refill Social History Tobacco Use Types [...] Sheree Shafer RN - 12/03/2024 8:29 AM COSMETOLOGY EDUCATOR Medication refilled and signed [facility] [place] medication standing order for pediatric and adult patients. ETOLOGY EDUCATOR documented in this encounter Plan of Treatment Not on file documented as of this encounter Visit Diagnoses Diagnosis Gastroesophageal reflux disease without esophagitis Esophageal reflux documented in this encounter Care Teams Clinical Engineering Director Relationship Specialty Start Date End Date Sanjeev Maldonado MD PCP - General Internal Medicine 02/26/17 Altaf Fowler DO Gastroenterology 01/04/16 Tuan Martin MD [address] [facility] [address] [place] [address] Cardiovascular Disease - Cardiology 08/28/22 Brad Powell MD #[address] [address] Consulting Physician Colon and Rectal Surgery 03/13/23 Helen Davis APRN, SENIOR SOLUTIONS WORKFLOW CONSULTANT #2 [place] [address] Nurse Practitioner Advanced Practice Nurse 02/06/24 documented as of this encounter
--- OUTSIDE RECORDS SUMMARY | 2025-03-03 01:25 | XMS_ITS | Encounter Summary ---
Author Organization [facility] Address [address] [facility] [place] [address] Phone Care Team Providers Care Library Acquisitions Technician Name Role Phone Altaf Fowler DO Unavailable [phone] Sanjeev Maldonado MD Primary Care Provider Tuan Martin MD Unavailable Brad Powell MD Unavailable Helen Davis APRN, ASSOCIATE AGENT INSURANCE SALES Unavailable Reason for Visit * Reason Comments Medication Refill Encounter Details Date Type Department Care Team (Late st Contact Info) Description 05/26/2023 Refill [facility] - [place] #2 [place] [address] Helen Davis APRN, ASSOCIATE AGENT INSURANCE SALES #2 [place] [address] Medication Refill Social History Tobacco Use Types [...] PM CDT Medication [facility] and signed [facility] medication standing order for pediatric and adult patients. documented in this encounter Plan of Treatment Not on file documented as of this encounter Visit Diagnoses Diagnosis Gastroesophageal reflux disease without esophagitis Esophageal reflux documented in this encounter Care Teams Library Acquisitions Technician Relationship Specialty Start Date End Date Sanjeev Maldonado MD PCP - General Internal Medicine 02/26/17 Altaf Fowler DO Gastroenterology 01/04/16 Tuan Martin MD [address] [address] Cardiovascular Disease - Cardiology 08/28/22 Brad Powell MD #[address] [place] [address] [address] Consulting Physician Colon and Rectal Surgery 03/13/23 Helen Davis APRN, ASSOCIATE AGENT INSURANCE SALES #2 [place] [address] Nurse Practitioner Advanced Practice Nurse 02/06/24 documented as of this encounter
--- OUTSIDE RECORDS SUMMARY | 2025-03-03 01:25 | XMS_ITS | CONTINUITY OF CARE DOCUMENT ---
Author Name tanmay donato Address Unknown Organization [facility] Address [address] [facility] [address] [place] [address] Phone [phone] Care Team Providers Care Mobile Heavy Equipment Mechanic Name Role Phone Eder DOOLEY, Ming Unavailable [phone] Sanjeev Maldonado MD Unavailable Sanjeev Maldonado MD Unavailable PROBLEMS Condition Status [...] active Maximiliano Walker MD Dizziness active Richy Federico QUINTEN active Nikko Hood Anemia active Ming Gaines MD ENCOUNTERS Date Type Provider Location Encounter Diag nosis - In-person encounter Office Visit Ming Gaines MD [facility] Anemia - In-person encounter Office Visit Ming Gaines MD [facility] - In-person encounter Office Visit Ming Gaines MD [facility] Office - In-person encounter Office Visit Steve Taylor MD [facility] QUINTEN - In-person encounter Office Visit Ming Gaines MD [facility] - In-person encounter Office Visit Maximiliano Walker MD [facility] Angina pectorisDizziness - In-person encounter Office Visit Ming Gaines MD [facility] - In-person encounter Office Visit Ming Gaines MD [facility] - In-person encounter Office Visit Ming Gaines MD [facility] - In-person encounter Office Visit Ming Gaines MD [facility] - In-person encounter Office Visit Ming Gaines MD [facility] - In-person encounter Office Visit Ming Gaines MD [facility] HYPERCHOLESTEROLEMIAS/P Bio Loop (MRI Safe) removedHypercholesterolemia - In-person encounter Office Visit Steve Taylor MD [facility] - In-person encounter Office Visit Ming [place] Office - In-person encounter Office Visit Ming Gaines MD [facility] - In-person encounter Office Visit Ming Gaines MD [facility] - In-person encounter Office Visit Ming Gaines MD [facility] - In-person encounter Office Visit Ming Gaines MD [facility] Family History of CVA or Stroke: - In-person encounter Office Visit Ming Gaines MD [facility] - In-person encounter Office Visit Ming Gaines MD [facility] PERICARDIAL EFFUSION small on echo 05/08 - In-person encounter Office Visit Ming Gaines MD [facility] Sleep apnea Scheduled for sleep study - In-person encounter Office Visit Ming Gaines MD [facility] - In-person encounter Office Visit Ming Gaines MD [facility] - In-person encounter Office Visit Ming Gaines MD [facility] Sleep apnea Scheduled for sleep study - In-person encounter Office Visit Ming Gaines MD [facility] - In-person encounter Office Visit Ming Gaines MD [facility] - In-person encounter Office Visit Ming Gaines MD [facility] - In-person encounter Office Visit Sabrina Liang MD [facility] - In-person encounter Office Visit Ming Gaines MD [facility] - In-person encounter Office Visit Maximiliano Walker MD [facility] PERICARDIAL EFFUSION small on echo 05/08 - In-person encounter Office Visit Maximiliano Walker MD [facility] CHEST PAIN nl nuc stress test 08/06, nl cors on cath ef 55% 08/06SYNCOPE AND COLLAPSELEG PAIN nl ZACHARY 10/06DIABETES MELLITUSHTN ESSENTIAL VITAL SIGNS Date Observation Value Provider Body Mass Index (Ratio) 28.69 kg/m2 Taew on Akin blood pressure, diastolic 96 mm[Hg] To tiffany Gill blood pressure, systolic 123 mm[Hg] Ton [facility] pulse rate 122 /min [facility] respiratory rate E&M 18 /min [facility] oxygen saturation, oximetry 96 % [facility] weight E&M 162 [lb_av] Tonsha Gill temperature [...] Tons Gill respiratory rate E&M 16 /min [facility] Gill temperature site temporal [facility] Gill height E&M 63 [in_i] Tons Gill [...] [in_i] Sue Judi pulse rate #2 85 [facility] blood pressure, lo tolic, second observation 80 mm[Hg] Evans Ted blood pressure, syst olic, second observation 102 mm[Hg] [facility], [facility] 98 % [facility] pulse rate 85 /min Evans Tebid blood pressure, diastolic 80 mm[Hg] Vi ctoria Tebid blood pressure, systolic 102 mm[Hg] Lenin beba Tebid pulse rate #2 84 Evans Ted blood pressure, lo tolic, second observation 91 mm[Hg] Evans Tebid blood pressure, syst olic, second observation 109 mm[Hg] Bethany Tebid oxygen saturation, oximetry 98 % Evans Ted pulse rate 84 /min Evans Tebid blood pressure, diastolic 91 mm[Hg] Vi ctoria Tebid blood pressure, systolic 109 mm[Hg] Lenin beba Tebid Body Mass Index (Ratio) 30.11 kg/m2 Saúl Caballero pulse rate 76 /min Rashaun guillen oxygen saturation, oximetry 97 % Rashaun Mcgill blood pressure, diastolic 82 mm[Hg] Fortino ludmila Stephensonlyudmiladaniel blood pressure, systolic 120 mm[Hg] [facility] E&M 16 /min [facility] weight E&M 170 [lb_av] Rashaun [facility] blood pressure, resting Yes Chior dariel [facility] height E&M 63 [in_i] Rashaun [facility] Body Mass Index (Ratio) 29.93 kg/m2 Shane [...] Moodyby pulse rate 83 /min [place] Nena Moodyby oxygen saturation, oximetry 97 % [place] [...] Kavya Nixon pulse rate 108 /min Jered clobert oxygen saturation, oximetry 98 % Jered Nixon [...] mcmahon Body Mass Index (Ratio) 31.17 kg/m2 [facility] blood pressure, diastolic 89 mm[Hg] Me rocio Santi blood pressure, systolic 132 mm[Hg] Valeri viral Santi pulse rate 100 /min Anitra Santi oxygen saturation, oximetry 97 % Anitra Santi respiratory rate E&M 18 /min Anitra Santi weight E&M 176 [lb_av] Anitra Santi blood pressure, diastolic 89 mm[Hg] Ar rocio Fraire blood pressure, systolic 121 mm[Hg] Valeri waltera Fraire pulse rate 110 /min Anitra [facility] Body Mass Index (Ratio) 31.53 kg/m2 [facility] oxygen saturation, oximetry 97 % Anitra [facility] respiratory rate E&M 17 /min Anitra [facility] weight E&M 178 [lb_av] [facility] Body Mass Index (Ratio) 31.53 kg/m2 Anea reicka Brown blood pressure, diastolic 93 mm[Hg] An eatris Brown blood pressure, systolic 133 mm[Hg] Ane atris Brown pulse rate 95 /min Aneatris Brown oxygen saturation, oximetry 98 % Aneatris Brown respiratory rate E&M 17 /min Aneatri s Brown weight E&M 178 [lb_av] Aneatris [facility] Body Mass Index (Ratio) 31.53 kg/m2 [facility] blood pressure, diastolic 89 mm[Hg] [...] atris Bonifacio pulse rate 90 /min Aneatris [facility] oxygen saturation, oximetry 96 % Mickiatris [facility] respiratory rate E&M 18 /min Aneatri s [facility] weight E&M 176 [lb_av] Mickiatris [facility] Body Mass Index (Ratio) 32.06 kg/m2 [...] Bonifacio oxygen saturation, oximetry 97 % Aneatris [facility] respiratory rate E&M 18 /min Aneatri s [facility] weight E&M 175 [lb_av] Aneatris [facility] Body Mass Index (Ratio) 31.00 kg/m2 Anea ericka [facility] blood pressure, diastolic 95 mm[Hg] An shawn [facility] blood pressure, systolic 141 mm[Hg] Ane nikkis [facility] pulse rate 119 /min Aneatris [facility] oxygen saturation, oximetry 99 % Aneatris [facility] respiratory rate E&M 20 /min Aneatri s [facility] weight E&M 175 [lb_av] Aneatris [facility] blood pressure, diastolic, left arm 96 mm [Hg] Aneatris [facility] blood pressure, systolic, left arm 145 mm [Hg] Aneatris [facility] blood pressure, diastolic, right arm 90 m m[Hg] Aneatris [facility] blood pressure, systolic, right arm 125 m m[Hg] Aneatris [facility] blood pressure, diastolic 97 mm[Hg] An shawn [facility] blood pressure, systolic 145 mm[Hg] Ane atris [facility] Body Mass Index (Ratio) 31.35 kg/m2 [facility] pulse rate 104 /min Aneatris [facility] oxygen saturation, oximetry 98 % Aneatris [facility] respiratory rate E&M 18 /min Aneatri s [facility] weight E&M 177 [lb_av] Aneatris [facility] Body Mass Index (Ratio) 31.53 kg/m2 Yoon barnett [facility] blood pressure, diastolic 105 mm[Hg] An shawn [facility] blood pressure, systolic 143 mm[Hg] Micki jordans [facility] pulse rate 106 /min Aneatris [facility] oxygen saturation, oximetry 97 % Aneatris [facility] respiratory rate E&M 18 /min Aneatri s [facility] weight E&M 178 [lb_av] Aneatris [facility] blood pressure, diastolic, left arm 82 [...] - 3.8 urea nitrogen/creatinine ratio, serum 14.3 [facility] Estimated Glomerular Filtration Rate (calc) 93.8 [...] - 20.0 blood glucose, random 176.0 mg/dL [facility] 74.0 - 99.0 High red blood cell distribution width, size density 43.8 fL [facility] - immature granulocytes, percentage of total cells, blood 0.3 % [facility] - nucleated red blood cells as percent of blood leukocytes 0.0 % [facility] - red blood cell (erythrocyte) count, [...] cell distribution width, size density 47.6 fL [facility] - immature granulocytes, percentage of total cells, blood 0.4 % [facility] - nucleated red blood cells as percent of blood leukocytes 0.6 % [facility] - red blood cell (erythrocyte) count, per high power field 0.0 10*3/UL [facility] - eosinophils as percent of blood leukocytes 1.7 % [facility] neutrophils as percent of blood leukocytes 60.9 % [facility] - Absolute Neutrophils 4.4 CELLS/UL [facility] 1.5 - 7.8 basophils as percent of blood leukocytes 0.6 % [facility] - Absolute Basophils 0.0 CELLS/UL [facility] 0.0 - 0.2 monocytes as percent of blood leukocytes 7.1 % [facility] - Absolute Monocytes 0.5 CELLS/UL [facility] 0.2 - 1.0 lymphocytes as percent of blood leukocytes 29.3 % [facility] - Absolute Lymphocytes 2.1 CELLS/UL [facility] 0.9 - 3.9 mean platelet volume 9.2 (?) [facility] - platelet count 279.0 THOUSAND/UL [facility] [...] 5.5 activated partial thromboplastin time 25.2 SECONDS [facility] 23.0 - 33.0 prothrombin time (patient) 10.0 s [facility] 9.0 - 11.5 international normalized ratio (INR) 0.9 [facility] 0.9 - 1.1 platelet count 242 10*3/mm3 [facility] hematocrit, blood 36.1 % [facility] thyroid stimulating hormone, serum 2.660 u[IU]/mL [facility] alanine aminotransferase (SGPT), serum 53 1/L [facility] aspartate aminotransferase (SGOT), serum 48 1/L [facility] blood glucose, random 94 mg/dL [facility] creatinine, serum 0.64 mg/dL [facility] urea nitrogen, blood 11 mg/dL [facility] potassium, serum 3.9 mmol/L [facility] sodium, serum 139 mmol/L [facility] international normalized ratio (INR) 1.0 [facility] alanine aminotransferase (SGPT), serum 82 1/L [facility] aspartate aminotransferase (SGOT), serum 47 1/L [facility] creatinine, serum 0.60 mg/dL [facility] potassium, serum 3.6 mmol/L [facility] sodium, serum 144 mmol/L [facility] platelet count 240 10*3/uL [facility] hematocrit, blood 35.7 % [facility] HISTORY OF MEDICATION USE Medication Status Instructions [...] TABLET completed ONE TAB TWICE DAILY - Aintra Hancock VICODIN 5-300 MG ORAL TABLET completed [...] yes Digna Kandy smoking status Never smoker Dignayovn lees social history reviewed E&M revi ewed [...] Steve Coyle alcohol use no [place] Jonna drug use no [place] Jonna passive [...] no Jered Rajesh nson passive cigarette sm meet exposure yes Jeredharrison Nixon smoking status Never [...] Jered Nixon smoking status Never smoker Jered Sandoval [...] Angina (inactive) Management Plan continue current therapy iMng Gaines MD HRA, CV Assess/Plan, Angina (inactive) [...] Payer name Policy type / Coverage type [place] [employer] [place] [employer] Medicare [id number] [facility] Commercial insurance co [facility] [id number] [facility] MEDICARE COMPLETE HMO Other [id number] ADVANCE DIRECTIVES Name Date DISCUSSED - [...] titration study. Orders: S leep Study Titration (CPT-59905) 9 9214 MOD Complex (CPT-13100) Nikko Morataya Electrophysiology Fo llow up : Edgar bess echo doppler in 1-2 weeks. Orders: C omplete Echo ([id number]) 9 9214 MOD Complex (CPT-13385) Nikko Morataya Electrophysiology Fo llow up : Elvia [facility] ER visit 12/29/18 for palpitations. She wore a 14-day Telesentry 12/2018 which showed sinus rhythm with intermittent 1st degree AVB, rates 66-103bpm, avg HR 95bpm. S tart 400mg Magnesium BID. I ncrease Metoprolol to 50mg BID. Edgar bess 14-day Telesentry in 6 months. Orders: E KG (CPT-[id number]) M obile Cardiac Tele (CPT-28671) 9 9214 MOD Complex (CPT-[id number]) Her updated medication list for this problem [...] ..... One tab by mouth daily Richy [facility] Cardiology:The pt allen d another admission for dizziness and chest discomfort. She has hx of normal coronary arteries. BP is 120/82 and we will stop Metoprolol. Richy [facility] Cardiology:The pt allen d another admission for dizziness and chest discomfort. She has hx of normal coronary arteries. Will try ECP treatment. This patient has angina (defined as chest pain, chest discomfort, or pain in arms, neck, jaw, shoulder, or back, and may include symptoms of shortness of breath, fatigue, dizziness, nausea, or diaphoresis) of [place] Cardiovascular Society Class III (defined as symptoms with everyday living activities, i.e. moderate limitation) or [place] Cardiovascular Society Class IV (defined as inability to perform any activity without angina or angina at rest, i.e. severe limitation). T his patient?s angina is disabling and in my opinion is not readily amenable to surgical intervention by PTCA or cardiac bypass because the patient's coronary anatomy is not readily amenable to such procedures. Richy [facility] Cardiology follow up:Try Medrol dose pack. Ming [...] tartrate) ..... One tab. twice daily Ming Gainse MD follow up: H er updated medication list for this problem includes: Metoprolol Succinate Er Ej14c-zsw (Metoprolol succinate [id number]-phj) ..... 1 tab twice daily BP today: 121/89 P rior BP: 133/93 (01/16/2015) Labs Reviewed: C reat: 0.64 (06/28/2014) Ming Gaines MD follow up: H er updated medication list for this problem includes: Metoprolol Succinate Er Il23h-kji (Metoprolol succinate [id number]-sxf) ..... 1 tab twice daily BP today: 133/93 P rior BP: 134/89 (10/17/2014) Labs Reviewed: C reat: 0.64 (06/28/2014) Ming Gaines MD follow up: T he following medications were removed from the medication list: Lasix 20 Mg Tabs (Furosemide) ..... Po daily Her updated medication list for this problem includes: Metoprolol Succinate Er Xv53e-vmm (Metoprolol succinate kz46t-wto) ..... 1 tab twice daily BP today: 128/90 P rior BP: 140/89 (09/12/2014) Labs Reviewed: C reat: 0.64 (06/28/2014) Ming Gaines MD follow up: H er updated medication list for this problem includes: Metoprolol Succinate Er Nx97u-kvb (Metoprolol succinate al85i-xns) ..... 1 tab twice daily Ming Gaines MD follow up: H er updated medication list for this problem includes: Metoprolol Succinate Er Oz78x-klj (Metoprolol succinate wk08a-jim) ..... 1 tab twice daily Ming Gaines MD follow up: H er updated medication list for this problem includes: Metoprolol Succinate Er Py11o-ojq (Metoprolol succinate yz72t-dsb) ..... 1 tab twice daily BP today: [...] - Prof Ming Gaines MD completed SNOMED-CT: 787348717387709 Current Medications Documented Ming Gaines MD completed EKG Ming Gaines MD completed SNOMED-CT: 202150113663080 Current Medications Documented Ming Gaines MD completed SNOMED-CT: 90465676 Physical Exam, Performed: Pulse Exam of Foot Ming Gaines MD completed SNOMED-CT: 233614154987569 Current Medications Documented Ming Gaines MD completed SNOMED-CT: 31205688 Physical Exam, Performed: Pulse Exam of Foot Ming Gaines MD completed EKG Ming Gaines MD completed SNOMED-CT: 811950804517953 Current Medications Documented Ming Gaines MD completed SNOMED-CT: 49347410 Physical Exam, Performed: Pulse Exam of Foot Ming Gaines MD completed SNOMED-CT: 627243374578393 Current Medications Documented Ming Gaines MD completed SNOMED-CT: 74942833 Physical Exam, Performed: Pulse Exam of Foot Ming Gaines MD completed SNOMED-CT: 811788304846463 Current Medications Documented Ming Gaines MD completed SNOMED-CT: 70158781 Physical Exam, Performed: Pulse Exam of Foot ulius Claudia DOOLEY completed EKG Steve hector MD completed SNOMED-CT: 842648298503974 Current Medications Documented ulius Claudia DOOLEY completed [...] REMOTE </30 D TECH REVIEW completed SNOMED-CT: 36205747 Physical Exam, Performed: Pulse Exam of Foot Ming Gaines MD completed EKG Ming Gaines MD completed SNOMED-CT: 179322878557449 Current Medications Documented Ming Gaines MD completed SNOMED-CT: 97825336 Physical Exam, Performed: Pulse Exam of Foot Ming Gaines MD completed SNOMED-CT: 846889795870063 Current Medications Documented Ming Gaines MD completed [...] REMOTE </30 D TECH REVIEW completed SNOMED-CT: 73566308 Physical Exam, Performed: Pulse Exam of Foot Ming Gaines MD completed SNOMED-CT: 284329431784351 Current Medications Documented Ming Gaines MD completed SNOMED-CT: 63397927 Physical Exam, Performed: Pulse Exam of Foot Ming Gaines MD completed SNOMED-CT: 789014604218386 Current Medications Documented Ming Gaines MD completed SNOMED-CT: 58215521 Physical Exam, Performed: Pulse Exam of Foot Ming Gaines MD completed SNOMED-CT: 539654636216145 Current Medications Documented Ming Gaines MD completed EKG Ming Gaines MD completed EKG Ming Gaines MD completed EKG Ming Gaines MD completed EKG Ming Gaines MD completed EKG Sabrina Liang MD complet ed EKG Ming Gaines MD completed EKG Maximiliano Walker MD completed
--- OUTSIDE RECORDS SUMMARY | 2025-03-03 01:25 | XMS_ITS | Encounter Summary ---
Author Organization [facility] Address [address] [facility] [place] [address] Phone Care Team Providers Care Packaging Clerk Name Role Phone Altaf Fowler DO Unavailable [phone] Sanjeev Maldonado MD Primary Care Provider [phone] Tuan Martin MD Unavailable Brad Powell MD Unavailable Helen Davis APRN, ASBESTOS REMOVER Unavailable Reason for Visit * Reason Comments Medication Refill Encounter Details Date Type Department Care Team (Late st Contact Info) Description 05/25/2024 Refill [facility] - Gastroenterology - [place] [address] [place] [address] Helen Davis APRN, ASBESTOS REMOVER [address] [place] [address] Medication Refill Social History Tobacco Use Types [...] AM CDT Medication refilled and signed per [facility] chronic medication standing order for pediatric and adult patients. documented in this encounter Plan of Treatment Not on file documented as of this encounter Visit Diagnoses Diagnosis Gastroesophageal reflux disease without esophagitis Esophageal reflux documented in this encounter Care Teams Packaging Clerk Relationship Specialty Start Date End Date Sanjeev Maldonado MD PCP - General Internal Medicine 02/26/17 Altaf Fowler DO Gastroenterology 01/04/16 Tuan Martin MD [address] [address] Cardiovascular Disease - Cardiology 08/28/22 Brad Powell MD [address] [address] Consulting Physician Colon and Rectal Surgery 03/13/23 Helen Davis APRN, [employer]BESTOS REMOVER [address] [place] [address] Nurse Practitioner Advanced Practice Nurse 02/06/24 documented as of this encounter
--- OUTSIDE RECORDS SUMMARY | 2025-03-03 01:25 | XMS_ITS | Encounter Summary ---
Author Organization [facility] Address [address] [facility] [place] [address] Phone Care Team Providers Care Side Laster Staple Name Role Phone Altaf Fowler DO Unavailable [phone] Sanjeev Maldonado MD Primary Care Provider Tuan Martin MD Unavailable Brad Powell MD Unavailable Helen Davis APRN, METAL FURNACE OPERATOR Unavailable Reason for Visit * Reason Comments Medication Refill Encounter Details Date Type Department Care Team (Late st Contact Info) Description 02/01/2024 Refill [facility] - Gastroenterology - [place] [address] [place] [address] Helen Davsi APRN, METAL FURNACE OPERATOR [address] [place] [address] Medication Refill Social History Tobacco Use Types [...] PM CDT Medication refilled and signed [facility] medication standing order for pediatric and [...] reflux documented in this encounter Care Teams Side Laster Staple Relationship Specialty Start Date End Date Sanjeev Maldonado MD PCP - General Internal Medicine 02/26/17 Altaf Fowler DO Gastroenterology 01/04/16 Tuan Martin MD [address] [facility] [address] [place] [address] Cardiovascular Disease - Cardiology 08/28/22 Brad Powell MD [address] [address] Consulting Physician Colon and Rectal Surgery 03/13/23 Helen Davis APRN, METAL FURNACE OPERATOR [address] [place] [address] Nurse Practitioner Advanced Practice Nurse 02/06/24 documented as of this encounter
== END 2025-03-02 20:30 | disposition left against medical advice (07) ==
PROVIDERS: Emergency Provider Emergency Medicine; PCP Internal Medicine
DX: R50.9 Fever, unspecified (principal); Z20.822 Contact with and (suspected) exposure to COVID-19
CPT/HCPCS: 87637; 99199

== ENCOUNTER 2025-05-30 14:00 | Emergency (ER) | payer OTHER, MEDICARE, SELFPAY ==
--- NOTE | ~2025-05-30 | XR_ITS ---
EXAM/ PROCEDURE: XR foot RT min 3V - 05/30/2025 14:40 CDT HISTORY: 59 years old Female with right foot pain, fall COMPARISON: None available TECHNIQUE: Four view(s) FINDINGS/ IMPRESSION: Acute oblique fracture of the mid fifth metatarsal bone with medial displacement of the distal segmen t. Surrounding soft tissue swelling. Joint space narrowing, subchondral sclerosis, subchondral cyst formation and osteophyte formation, co mpatible with mild osteoarthritis. Reviewed, dictated and finalized at location A.
--- NOTE | ~2025-05-30 | XR_ITS ---
EXAM/ PROCEDURE: XR ankle RT min 3V - 05/30/2025 14:40 CDT HISTORY: 59 years old Female with right ankle pain, fall COMPARISON: None available TECHNIQUE: Four view(s) FINDINGS/ IMPRESSION: There are no fractures or dislocations.Joint space narrowing, subchondral sclerosis, subchondral cyst formation and osteophyte formation, compatible with mild osteoarthritis. Reviewed, dictated and finalized at location A.
[2025-05-30 14:01] VITALS: BP 116/73; PULSE 89; RESP 17; TEMP 36.4; O2SAT 97
--- OUTSIDE RECORDS SUMMARY | 2025-05-30 14:03 | XMS_ITS | Clinical Summary ---
Author Organization [facility] Address [address] [place] [address] Care Team Providers Care Route Inspector Name Role Phone Sanjeev Maldonado MD Primary Care Provider [phone] Allergies Active Allergy Reactions Criticality Noted Date [...] every day before a meal 0 0 04/02/20 16 Active metFORMIN (GLUCOPHAGE) 500 mg tablet take 1 tablet by oral route 2 times every day with morning and evening meals 0 0 04/02/20 16 Active Additional Information Patient taking differently: 1,000 mg, Reported on 04/30/2023 FLUoxetine (FLUoxetine) 10 mg capsule Take one by mouth one time per day 0 0 06/01/20 09 Active losartan (COZAAR) 25 mg tablet Take 1 tablet (25 mg total) by mouth nightly 30 tablet 11 03/27/20 21 Active magnesium oxide (MAG-OX) 400 mg (241.3 mg elemental magnesium) tabletIndicat ions:hypomagn esemia Pt to take 2 tablets in AM and 1 tablet in the PM or as directed. 120 tablet 11 08/01/20 21 Active allopurinoL (ZYLOPRIM) 100 mg tablet Take 1 tablet (100 mg total) by mouth daily 02/23/20 22 Active atorvastatin (LIPITOR) 40 mg tablet Take 1 tablet (40 mg total) by mouth nightly 01/18/20 22 Active gabapentin (NEURONTIN) 600 mg tablet Take 1 tablet (600 mg total) by mouth 3 (three) times a day 01/18/20 22 Active empagliflozin (JARDIANCE) 10 mg tablet Take 1 tablet (10 mg total) by mouth daily 30 tablet 11 04/30/20 23 Active Additional Information Patient taking differently:10 mg oral Daily,Now taking 25 mg daily., Reported on 05/05/2024 albuterol HFA (PROVENTIL HFA,VENTOLIN HFA,PROAIR HFA) 90 mcg/actuation inhaler 2 puffs every 4 (four) hours as needed 09/15/20 23 Active LANTUS 100 unit/mL (3 mL) pen for injection INJECT 20 UNITS OF INSULIN IN THE MORNING & 15 UNITS OF INSULIN IN THE EVENING 04/27/20 24 Active HumaLOG 100 unit/mL pen for injection PLEASE SEE ATTACHED FOR DETAILED DIRECTIONS 04/24/20 24 Active aspirin 81 mg enteric coated tablet TAKE 1 TABLET BY MOUTH EVERY DAY 90 tablet 3 12/03/19 25 Active amLODIPine (NORVASC) 2.5 mg tablet Take 1 tablet (2.5 mg total) by mouth daily 90 tablet 6 05/11/20 25 026 Active cilostazoL (PLETAL) 50 mg tablet TAKE 1 TABLET BY MOUTH TWICE A DAY 180 tablet 3 05/11/20 25 Active nitroglycerin (NITROSTAT) 0.[address] 1 tablet (0.4 mg total) under the tongue every 5 (five) minutes as needed for chest pain May repeat dose q 5 min, up to 3 doses total 90 tablet 2 01/23/20 23 025 Discontinued(Th erapy completed) amLODIPine (NORVASC) 2.5 mg tablet Take 1 tablet (2.5 mg total) by mouth daily 90 tablet 6 05/05/20 24 06/18/2 025 Discontinued cilostazoL (PLETAL) 50 mg tablet TAKE 1 TABLET BY MOUTH TWICE A DAY 180 tablet 3 05/25/20 24 025 Discontinued Active Problems Problem Noted Date Diagnosed Date PAD (peripheral artery disease) 08/27/2023 Raised antibody titer 09/06/2014 Encounters Date Type Department Care Team Description 05/11/2025 9:00 AM CDT Office Visit [facility] Card[facility] [address] [place] [address] Tuan Martin MD Hypertension associated with diabetes (HCC) (Primary Dx); Diastolic dysfunction; QUINTEN (obstructive sleep apnea) from Last 3 Months Surgical History Surgery Date Site/Laterality Comments CHOLECYSTECTOMY [...] on file Legal Sex Female 5:15 AM LOAN APPROVER Gender Identity Not on file Sexual Orientation Not on file Obstetrics History Last Filed Vital Signs Vital Sign Reading Time Taken Comments Blood Pressure 112/70 05/11/2025 8:42 AM CDT Pulse 85 05/11/2025 8:42 AM CDT Temperature 36.5 C (97.7 F) 10/02/2023 8:15 AM LOAN APPROVER Respiratory Rate 16 10/02/2023 8:15 AM LOAN APPROVER Oxygen Saturation 98% 05/11/2025 8:42 AM CDT Inhaled Oxygen Concentration - - Weight 70.1 kg (154 lb 9.6 oz) 05/11/2025 8:42 A M CDT Height 160 cm (5' 3) 05/11/2025 8:42 AM CDT Body Mass Index 27.39 05/11/2025 8:42 AM CDT Plan of Treatment Health Maintenance [...] 2023-2 5 season) 2024 08/24/2021 Influenza Vaccine (Season Ended) 2025 Lipid Panel 05/11/2026 05/11/2025, 04/24, 04/30/2023, Additional history exists Medical Devices Implanted Type Area Java Support Engineer Device Identifier Shelf Expiration Date Model / Serial / Lot Screen Fix [employer] Device Closure Vascade Od5 Fr Femoral Artery [id number] - [id number] Implanted:Qty: 1 on 10/02/2023 by Tuan Martin MD at [facility] Screen Fix [employer] 07/21/2025 [id number] / / [id number] Procedures Procedure Name Priority Date/Time Associated Diagnosis Comments POCT LIPID PANEL Routine 05/11/2025 8:49 AM CDT Hypertension associated with diabetes (HCC) BASIC METABOLIC PANEL Routine 07/23/2021 Chest pain, atypical from Last 3 Months or Most Recently Relevant to Health Maintenance Results * (ABNORMAL) POCT lipid panel (05/11/2025 8:49 AM CDT) Cholesterol, POC 154 <200 MG/DL HDL, POC 39(A) >=40 mg/dL Triglycerides, POC 167(A) <=149 mg/dL LDL Cholesterol POC 81 <=129 mg/dL Chol/HDL Ratio, POC 2.1 NONE Non-HDL Cholesterol, POC 114 NONE mg/dL Cholesterol Total, POC 154 30 - 199 mg/dL Capillary blood 05/11/2025 8 :49 AM CDT Tuan Martin MD POINT OF CARE TEST ORDERABLES Fi nal Result * (ABNORMAL) Basic metabolic panel (07/23/2021) SCRIBED [...] >=60 EXTERNAL LAB SCRIBED eGFR in NonAfrican [place]er >60 >=60 EXTERNAL LAB Blood specimen (specimen) 07/23/2021 Michell Hunt NP LAB BLOOD ORDERABLES Angelika glenda Result EXTERNAL LAB from Last 3 Months or Most Recently Relevant to Health Maintenance Insurance [facility] [place] [address] [facility] MEDICARE ADVANTAGE [facility] Care Teams Route Inspector Relationship Specialty Start Date End Date Sanjeev Maldonado MD PCP - General Internal Medicine 08/30/20
--- OUTSIDE RECORDS SUMMARY | 2025-05-30 14:03 | XMS_ITS | Encounter Summary ---
Author Organization [facility] Address [address] [place] [place] [address] Phone Care Team Providers Care [place] Drill Operator Name Role Phone Altaf Fowler DO Unavailable [phone] Sanjeev Maldonado MD Primary Care Provider Tuan Martin MD Unavailable Brad Powell MD Unavailable Helen Davis APRN CLIENT BUSINESS MANAGER Unavailable Reason for Visit * Reason Comments Medication Refill Encounter Details Date Type Department Care Team (Late st Contact Info) Description 02/01/2024 Refill [facility] - [place] [address] [place] [address] Helen Davis APRN, CLIENT BUSINESS MANAGER [address] [place] [address] Medication Refill Social History Tobacco Use Types [...] PM CDT Medication refilled and signed per [facility] chronic medication standing [...] reflux documented in this encounter Care Teams Hard Rock Drill Operator Relationship Specialty Start Date End Date Sanjeev Maldonado MD PCP - General Internal Medicine 4/5/17 Altaf Fowler DO Gastroenterology 01/04/16 Tuan Martin MD [address] [facility] [address] [place] [address] Cardiovascular Disease - Cardiology 08/28/22 Brad Powell MD [address] [address] Consulting Physician Colon and Rectal Surgery 03/13/23 Helen Davis APRN, CLIENT BUSINESS MANAGER [address] [place] [address] Nurse Practitioner Advanced Practice Nurse 02/06/24 documented as of this encounter
--- OUTSIDE RECORDS SUMMARY | 2025-05-30 14:03 | XMS_ITS | Clinical Summary ---
Author Organization [facility] Address [address] [place] [address] Phone Care Team Providers Care Manager New Product Name Role Phone Altaf Fowler DO Unavailable [phone] Sanjeev Maldonado MD Primary Care Provider [phone] Tuan Martin MD Unavailable Brad Powell MD Unavailable Helen Davis APRN, DIVERSITY MANAGER Unavailable Allergies Active Allergy Reactions Criticality Noted [...] Active Additional Information Patient not taking.Reported on 05/16/2025 Aspirin Low Dose 81 MG Tablet Delayed Response Take 81 mg by mouth daily. 01/23/20 Active losartan (COZAAR) 100 MG Tablet Take 100 mg by mouth daily. 01/08/20 Active nitroGLYCERIN (NITROSTAT) 0.[address] 1 TABLET UNDER TONGUE EVERY 5 MINS, UP TO 3 DOSES NEEDED FOR CHEST PAIN 01/23/20 Active metoprolol tartrate (LOPRESSOR) 50 MG Tablet Take 50 mg by mouth 2 times daily. 01/08/20 Active metFORMIN (GLUCOPHAGE) 1000 MG Tablet Take 1,000 mg by mouth 2 times daily. 03/13/20 23 Active COMPOUNDED MEDICATIONIndic ations:Anal fissure 0.3% nifedipine, 2% lidocaine, 1% hydrocortisone combination cream, apply to anus TID and PRN, preferably 30 minutes before a bowel movement. 30 g 1 03/18/20 Active Additional Information Patient not taking.Reported on 05/16/2025 albuterol sulfate 2.5 MG/0.5ML Nebulizer Soln INHALE [...] TWICE A DAY BEFORE MEALS 180 Tablet 04/20/20 Active carisoprodol (SOMA) 350 MG Tablet Active glimepiride (AMARYL) 1 MG Tablet Take 1 mg by mouth 2 times daily. Active lisinopril (PRINIVIL, ZESTRIL) 5 MG Tablet Active Active Problems Problem Noted Date Diagnosed Date Hepatic steatosis 08/28/2022 Constipation Hiatal hernia Chest pain Overview (11/20/2015): Atypical Diarrhea Gastroparesis GERD (gastroesophageal reflux disease) IBS (irritable bowel syndrome) Small intestinal bacterial overgrowth Asthma Encounters Date Type Department Care Team Description 05/16/2025 9:00 AM CDT [facility] [address] [place] [address] Helen Davis APRN, CNP Gastroesophageal reflux disease without esophagitis (Primary Dx) Discharge Disposition: Discharged to home or Selfcare 05/16/2025 Travel 04/28/2025 [facility] [address] [place] [address] Helen Davis APRN, CNP 04/16/2025 [facility] [place] [address] Helen Davis APRN, CNP Medication Refill from Last 3 Months Immunizations Immunization Administration Dates Next Due Covid-19 Vaccine, Vector-nr, [id number], Pf, 0.5 Ml ([employer]) 08/24/2021 Pneumococcal Vaccine - 13 Valent 05/20/2017 [...] Sign Reading Time Taken Comments Blood Pressure 126/78 05/16/2025 9:10 AM CDT Pulse 88 05/16/2025 9:10 AM CDT Temperature 36.7 C (98 F) 05/16/2025 9:10 AM CDT Respiratory Rate 16 05/16/2025 9:10 AM CDT Oxygen Saturation 97% 05/16/2025 9:10 AM CDT Inhaled Oxygen Concentration - - Weight 70.9 kg (156 lb 6.4 oz) 05/16/2025 9:10 A M CDT Height 160 cm (5' 3) 05/16/2025 9:10 AM CDT Body Mass Index 27.71 05/16/2025 9:10 AM CDT Plan of Treatment Health Maintenance Due Date Last Done Comments Hepatitis C Virus (HCV) Screening 1965 Mammogram 1965 TdaP Immunization 1965 Hepatitis B Immunization (1 of 3 - 19+ 3-dose series) 1984 Cologuard 2010 Immunochemical Fecal Occult Blood 2010 Zoster Immunization (1 of 2) 2015 Pneumococcal Immunization (50+ years) (2 of 2 - PPSV23) 07/15/2017 05/20/2017 SARS-COV-2 Immunization (2 - season) 2024 08/24/2021 Influenza Immunization (#1) 2025 Colonoscopy 05/08/2028 05/08/2021, 07/06/2020, 04/23/2018, Additional history exists Colorectal Cancer Screening 05/08/2028 Respiratory Syncytial Virus (RSV) Immunization (Adult) (1 - 1-dose 75+ series) 2040 Pneumococcal Immunization Combined Discontinued 05/20/2017 Human Papillomavirus (HPV) Immunization Aged Out No longer eligible based on patient's age to complete this topic Meningococcal Immunization (ACWY) Aged Out No longer eligible based on patient's age to complete this topic Rotavirus Immunization Aged Out No lo nger eligible based on patient's age to complete this topic Medical Devices Implanted Type Area Curing Oven Tender Device Identifier Shelf Expiration Date Model / Serial / Lot Clip 360 Resolution 235cm - [id number] Implanted:Qty: 3 on 08/18/2020 by Altaf Fowler, DO at [facility] IMPLANT [employer] 05/08/2023 [id number] / [id number] / [id number] Procedures Procedure Name Priority Date/Time Associated Diagnosis Comments COLONOSCOPY Routine 04/23/2018 from Last 3 Months or Most Recently Relevant to Health Maintenance Results * COLONOSCOPY (04/23/2018) Altaf Fowler DO PROCEDURE/MINOR SURGICAL ORDERA BLES Final Result from Last 3 Months or Most Recently Relevant to Health Maintenance Insurance [facility] MED[facility] Care Teams Manager New Product Relationship Specialty Start Date End Date Sanjeev Maldonado MD PCP - General Internal Medicine 02/26/17 Altaf Fowler DO Gastroenterology 01/04/16 Tuan Martin MD [address] [facility] [address] [place] [address] Cardiovascular Disease - Cardiology 08/28/22 Brad Powell MD [address] [address] Consulting Physician Colon and Rectal Surgery 03/13/23 Helen Davis APRN, DIVERSITY MANAGER [address] [place] [address] Nurse Practitioner Advanced Practice Nurse 02/06/24
--- OUTSIDE RECORDS SUMMARY | 2025-05-30 14:03 | XMS_ITS | Data Portability ---
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 Plan of Treatment Reminders Order Date Submit Date Provider Last Modified By Organization Details Last Modified Time Details Appointments Any 15 2024 08:30A M Aamir Maldonado MD Not available Not available Not available Lab uric acid, serum or plasma 2024 025 [facility] (Lab), [address] [place], [address], 04/29/2025 04:17:08 glycohemo globin, total, blood 2024 025 [facility] (Lab), [address] [place], [address], 04/29/2025 04:17:07 CMP, serum or plasma 2024 025 [facility] (Lab), [address] [place], [address], 04/29/2025 04:17:07 microalbu min, urine 2024 025 [facility] (Lab), [address] [place], [address], 04/29/2025 04:17:07 lipid panel, serum 2024 025 [facility] (Lab), [address] [place], [address], 04/29/2025 04:17:08 vitamin B12, serum 2024 025 [facility] (Lab), [address] [place], [address], 04/29/2025 04:17:08 CBC w/ auto diff 2024 025 [facility] (Lab), [address] [place], [address], 04/29/2025 04:17:08 Referral None recorded. Procedures None recorded. Surgeries None recorded. Imaging MAMMO, screening , digital, bilateral - Please call patient to schedule. [address], [address] [facility] [address], [place], [address], 02/02/2025 10:50:17 CT, chest, w/o contrast [email or web address] ([facility]), [address] [place], [address], 08/18/2024 14:58:37 Medication Orders azelastin e 0.05 % eye drops 2024 025 [facility] #[id number], [address], [place], [address], 05/19/2025 11:04:07 albuterol sulfate HFA 90 mcg/actua tion aerosol inhaler 2024 025 [facility] #[id number], [address], [place], [address], 04/27/2025 14:54:53 albuterol sulfate HFA 90 mcg/actua tion aerosol inhaler 2024 025 [facility][id number], [address], [place], [address], 03/21/2025 12:49:02 Zithromax Z-Amarjit 250 mg tablet 2024 025 [email or web address] [id number], [address], [place], [address], 04/27/2025 14:36:10 Patient TargetsNo targets recorded. Patient Instructions Encounter Date Encounter Id Patient Instructions Last Modified By Organization Details Last Modified Time 03/21/2025 [id number] Increase fluid intake. Use humidification for nasal congestion. Use OTC saline. Avoid decpngestants. Use air purifier to help with asthma. [email or web address] Not available 03/21/2025 12:48:58 05/19/2025 [id number] If symptoms do n ot improve in 3-4 days please call office or return for visit. Not available 05/19/2025 11:29:44 Reason for Referral None Reported. Results Created Date Observation Date Name Description Value Unit Range Abnormal Flag Note LastModifiedBy Organization Detail LastModifiedTime 07/21/2007/21/2024 COMPR EHENS PETTY METAB OLIC PANEL sodium 137 mmol/ L 137-[address] [facility] (Lab) [address] [place], [address], 07/21/2024 19:45:56 07/21/2007/21/2024 COMPR EHENS PETTY METAB OLIC PANEL potassium 3.7 mmol/ L 3.5-5. [address] [facility] (Lab) [address] [place], [address], 07/21/2024 19:45:56 07/21/2007/21/2024 COMPR EHENS PETTY METAB OLIC PANEL chloride 105 mmol/ L 98-[address] [facility] (Lab) [address] [place], [address], 07/21/2024 19:45:56 07/21/20 24 07/21/2024 COMPR EHENS PETTY METAB OLIC PANEL carbon dioxide 22 mmol/ L 22-30 Not Available [facility] (Lab) [address] [place], [address], 07/21/2024 19:45:56 07/21/20 24 07/21/2024 COMPR EHENS PETTY METAB OLIC PANEL anion gap 13.7 mmol/ L 14-22 low Not Available [facility] (Lab) [address] [place], [address], 07/21/2024 19:45:56 07/21/20 24 07/21/2024 COMPR EHENS PETTY METAB OLIC PANEL glucose 145 mg/dL 70-[address] [facility] (Lab) [address] [place], [address], 07/21/2024 19:45:56 07/21/20 24 07/21/2024 COMPR EHENS PETTY METAB OLIC PANEL BUN 18 mg/dL 8-[address] [facility] (Lab) [address] [place], [address], 07/21/2024 19:45:56 07/21/20 24 07/21/2024 COMPR EHENS PETTY METAB OLIC PANEL creatinine 0.61 mg/dL 0.66-1 [address] [facility] (Lab) [address] [place], [address], 07/21/2024 19:45:56 07/21/20 24 07/21/2024 COMPR EHENS PETTY METAB OLIC PANEL GFR >60 Refer ence Range : [place] ge GFR Healt hy Adult : >60 mL/mi n/1.7 3 m2 Chron ic Kidne y Disea se: 15-60 mL/mi n/1.7 3 m2 Kidne y Failu re: <15/m L/min /1.73 m2 www.n iddk. nih.g ov The MDRD study equat ion has not been valid ated in child leonila <18 years of age; pregn ant women ; the elder ly >85 years of age; or in some racia l or ethni c subgr oups, such as Hispa nics. Outsi de the valid ated sona eters , estim ated GFR is less accur ate, requi ring clini precious judgm ent on a case- by-ca se basis . Clini precious inter preta tion for other races and ages must be made by the clini laya. The MDRD study equat ion has not been valid ated for the evalu ation of serum creat inine relat ed to nutri constance l statu s or medic ation usage . For perso ns <18 years of age, a pedia tric GFR calcu lator is avail able on the [facility] websi te: https ://myah w.maria ines danielle.o rg/pr ofess ional s/kdo qi/gf r_cal culat or Not Available [facility] (Lab) [address] [place], [address], 07/21/2024 19:45:56 07/21/20 24 07/21/2024 COMPR EHENS PETTY METAB OLIC PANEL alkaline phosphatase 121 U/L 38-126 Not Available [facility] (Lab) [address] [place], [address], 07/21/2024 19:45:56 07/21/20 24 07/21/2024 COMPR EHENS PETTY METAB OLIC PANEL alanine aminotransfe rase 51 U/L 0-35 high Not Available [facility] (Lab) [address] [place], [address], 07/21/2024 19:45:56 07/21/20 24 07/21/2024 COMPR EHENS PETTY METAB OLIC PANEL aspartate aminotransfe rase 49 U/L 15-37 high Not Available [facility] (Lab) [address] [place], [address], 07/21/2024 19:45:56 07/21/20 24 07/21/2024 COMPR EHENS PETTY METAB OLIC PANEL bilirubin, total 0.60 mg/dL 0.20-[address] [facility] (Lab) [address] [place], [address], 07/21/2024 19:45:56 07/21/20 24 07/21/2024 COMPR EHENS PETTY METAB OLIC PANEL calcium 9.2 mg/dL 8.4-[address] [facility] (Lab) [address] [place], [address], 07/21/2024 19:45:56 07/21/20 24 07/21/2024 COMPR EHENS PETTY METAB OLIC PANEL total protein 7.4 g/dL 6.3-8. [address] [facility] (Lab) [address] [place], [address], 07/21/2024 19:45:56 07/21/20 24 07/21/2024 COMPR EHENS PETTY METAB OLIC PANEL albumin 4.5 g/dL 3.4-5. [address] [facility] (Lab) [address] [place], [address], 07/21/2024 19:45:56 07/21/20 24 07/21/2024 COMPR EHENS PETTY METAB OLIC PANEL globulin 2.9 g/dL 2.6-4. [address] [facility] (Lab) [address] [place], [address], 07/21/2024 19:45:56 07/21/20 24 07/21/2024 COMPR EHENS PETTY METAB OLIC PANEL A/G ratio 1.6 ratio 1.0-2. [address] [facility] (Lab) [address] [place], [address], 07/21/2024 19:45:56 07/21/20 24 07/21/2024 HEMOG LOBIN A1C HA1C 7.0 % 4.0-6. 0 high Diabe tin Magaly mccoy Crite hilda: <5.7% Consi stent with absen ce of diabe tin 5.7-6 .4% Consi stent with incre ased risk for diabe tin (pred iabet es) >OR=6 .5% Consi stent with diabe tin REFER ENCE: Diabe tin Care 2016, 39(Romero ppl.1 ):s13 -s22 [address] [facility] (Lab) [address] [place], [address], 07/21/2024 20:34:16 08/18/20 24 08/18/2024 CT, angio gram, chest , w/ contr ast [facility] [address] [place] [address] Patien t Name: JAIME BLASRACHANA Megan Access ion #: [id number] Sex: F : 1964 8 Dictat ed By: Mau zamora Wong Attend ing Physic yoav: GI MALDONADO ER Orderi ng Physic yoav: GI MALDONADO ER Exam Date: 2023 14:49 PM Exam Name: CTA CHEST FOR PULMON LLUVIA Admitt ing Diagno sis(es ): CTA Chest with intrav enous contra st INDICA TION: chest pain COMPAR ASHLYN: None TECHNI QUE: Multid etecto r spiral CTA of the chest was perfor med of the chest with intrav enous contra st. PULMON LLUVIA ANGIOG CHELSIE PROTOC OL was utiliz ed using a bolus- tracki ng techni que center ed on the main pulmon lluvia artery . Axial, leavitt l and sagitt al multip lanar and MIP reform ats were perfor med. Radiat ion Dose : 1. Chest: CTDI volume is 9.8 mGy. Dose-l ength produc t is 307.3 mGy*cm The dose indica tors for CT are the volume Comput ed Tomogr aphy (CT) Dose Index (CTDIv ol) and the Dose Length Produc t (DLP), and are measur ed in units of mGy and mGy-cm , respec tively . These indica tors are not patien t dose, but values genera sherin from the CT scanne r acquis ition factor s. The report includ es radiat ion exposu re data for exposu res receiv ed during this examin ation. Findin gs: Pulmon lluvia artery : No pulmon lluvia emboli sm Lower neck: Normal thyroi d. Lungs: No focal consol idatio n, pleura l effusi on or pneumo thorax . Heart/ Vascul ar Struct ures: Cardio megaly . Leavitt ry artery calcif icatio ns. Page 1 [facility] [place] [address] [place] [address] Patien t Name: CATHERINE SANDOVAL Access ion #: [id number] Sex: F : 1964 8 Dictat ed By: Mau Wong Attend ing Physic yoav: [facility] Physic yoav: GI MALDONADO Exam Date: 2023 14:49 PM Exam Name: CTA CHEST FOR PULMON LLUVIA Admitt ing Diagno sis(es ): Vascul ar calcif icatio ns of the aorta. Lymph Nodes: No adenop athy Pleura : No pleura l effusi on or signif icant pneumo thorax . Muscul oskele maged: No acute osseou s abnorm ality. Soft tissue s: Normal . Upper abdome n: Hepati c steato sis. IMPRES PRICILLA: No pulmon lluvia emboli sm. No acute thorac ic findin g. Electr onical ly Signed by: Mau Wong at 2023 15:23: 43 PM Page 2 [email or web address] [facility] ([facility]) [address] [place], [address], 08/25/2024 08:02:48 12/20/19 25 12/18/2024 emerg ency dept. visit * No observ ation record ed. BARCODE Not Available 2024 10:44:37 Result Notes Documentation Provider Name and Address Organization Details Recorded Time Ct, Angiogram, Chest, W/ Contrast : [facility] [address] [place] [address] Patient Name: ELIJAH SANDOVAL Sex: F : 1965 Dictated By: Domingo Wong Attending Physician: AAMIR MALDONADO Ordering Physician: AAMIR MALDONADO Exam Date: 08/18/2024 14:49 PM Exam Name: CTA CHEST FOR PULMONARY Admitting Diagnosis(es): CTA Chest with intravenous contrast INDICATION: chest pain COMPARISON: None TECHNIQUE: Multidetector spiral CTA of the chest was performed of the chest with intravenous contrast. PULMONARY ANGIOGRAPHY PROTOCOL was utilized using a bolus-tracking technique centered on the main pulmonary artery. Axial, coronal and sagittal multiplanar and MIP reformats were performed. Radiation Dose : 1. Chest: CTDI volume is 9.8 mGy. Dose-length product is 307.3 mGy*cm The dose indicators for CT are the volume Computed Tomography (CT) Dose Index (CTDIvol) and the Dose Length Product (DLP), and are measured in units of mGy and mGy-cm, respectively. These indicators are not patient dose, but values generated from the CT scanner acquisition factors. The report includes radiation exposure data for exposures received during this examination. Findings: Pulmonary artery: No pulmonary embolism Lower neck: Normal thyroid. Lungs: No focal consolidation, pleural effusion or pneumothorax. Heart/Vascular Structures: Cardiomegaly. Coronary artery calcifications. Page 1 [facility] [address] [place] [address] Patient Name: ELIJAH SANDOVAL Sex: F : 1965 Dictated By: Domingo Wong Attending Physician: ALAN RUTLEDGE Ordering Physician: AAMIR MALDONADO Exam Date: 08/18/2024 14:49 PM Exam Name: CTA CHEST FOR PULMONARY Admitting Diagnosis(es): Vascular calcifications of the aorta. Lymph Nodes: No adenopathy Pleura: No pleural effusion or significant pneumothorax. Musculoskeletal: No acute osseous abnormality. Soft tissues: Normal. Upper abdomen: Hepatic steatosis. IMPRESSION: No pulmonary embolism. No acute thoracic finding. Page 2 Rita Chung shoaib, [place] [facility] 08/25/2024 08:02:48 Problems Name Problem SNOMED Code Status Onset Date Resolution Date Notes Provider Name and Address Organization Details Recorded Time History of herpes zoster 12753647718 9108 Active 2022 Aamir Maldonado MD [address], [place], [address] , [place] [facility] 3 14:31:41 Pain of right knee joint 73959472779 4100 Active 2022 Dolores cramer, [place] [facility] 3 14:30:26 Otalgia of right ear 1779390507 Active 2022 Aamir Maldonado MD [address], [address], [place], [address] , [place] [facility] 3 12:22:53 Acute urinary tract infection 589405769 Active 2022 Aamir Maldonado MD [address], [address], [place], [address] , [facility] 3 14:45:36 Osteoarth ritis of right knee joint 90069679686 9100 Active 2022 Jocelyn SheldonJASON, [place] [facility] 3 15:48:19 Pneumonia 477063140 Active 2022 Aamir Maldonado MD [address], [address], [place], [address] , [facility] 3 15:31:11 Dyspnea on exertion 71403400 Active 2022 Aamir Maldonado MD [address], [address], [place], [address] , [place] [facility] 3 15:54:15 Pruritic rash 04635196 Active 2022 Aamir Maldonado MD [address], [address], [place], [address] , [facility] 3 15:29:39 Urinary symptoms 513652972 Active 2023 Aamir Maldonado MD [address] [facility] [address], [place], [address] , [facility] 4 16:30:13 Eruption 375008577 Active 2023 Breanna Shafer LPN null, [facility] 4 14:52:43 Type 2 diabetes mellitus without complicat ion 534526101 Active 2023 Breanna Shafer LPN null, [facility] 4 12:10:17 Uncontrol led type 2 diabetes mellitus 778386635 Active 2023 Aamir Maldonado MD [address] [facility], [facility] [address], [place], [address] , [facility] 4 15:09:15 Chest wall pain 518228039 Completed Not Available [facility] 3 03:22:21 Tendernes s of chest wall 319814855 Completed 201609/23/2017 Not Available [facility] 3 03:22:21 Benign hypertens ion 88911624 Active Not Available [facility] 3 03:22:21 Injury of ankle 051822740 Completed 202102/13/2023 Lizette terry, RMMegan null, [facility] 3 14:29:37 Contusion 457104327 Completed Not Available [facility] 3 03:22:21 Celluliti s 907065356 Completed Not Available [facility] 3 03:22:21 Abscess 171026481 Completed Not Available [facility] 3 03:22:21 Hyperchol esterolem ia 81448070 Active 2016 Not Available [facility] 3 03:22:21 Acute sinusitis 54754498 Active 2021 Not Available [facility] 3 03:22:21 Pain of right ankle joint 89637208586 075329 Completed 202106/21/2022 Not Available [facility] 3 03:22:22 Otalgia 86663559 Completed 202106/21/2022 Not Available [facility] 3 03:22:22 Erythrocy te sedimenta tion rate outside reference range 092094151 Completed Not Available [facility] 3 03:22:22 Nausea and vomiting 44876871 Completed Not Available [facility] 3 03:22:22 Cobalamin deficienc y 242412499 Active 2019 Not Available [facility] 3 03:22:22 Chronic depressio n 615569922 Active 2020 Not Available [facility] 3 03:22:22 Asthma 420445019 Active Not Available [facility] 3 03:22:22 Steatotic liver disease 936675848 Active 2017 Not Available [facility] 3 03:22:22 Abdominal pain 83087348 Completed Not Available [facility] 3 03:22:22 Neuropath y due to diabetes mellitus 044801711 Active 2020 Not Available [facility] 3 03:22:22 Gastroeso phageal reflux disease 257782961 Active Not Available [facility] 3 03:22:22 Gastroent eritis 86524735 Completed Not Available [facility] 3 03:22:23 Long-term drug therapy Completed 202006/21/2022 Not Available [facility] 3 03:22:23 Dyspnea 431921723 Completed Not Available [facility] 3 03:22:23 Edema 659576447 Completed Not Available [facility] 3 03:22:23 Syncope 472264367 Completed Not Available [facility] 3 03:22:23 Anemia 129560215 Active 2020 Not Available [facility] 3 03:22:23 Eruption 001895638 Completed 202106/21/2022 Breanna Shafer LPN null, [place] - [facility] 4 14:52:43 Strain of calf muscle 106996054 Completed Not Available [facility] 3 03:22:23 Rib pain 815736742 Completed Not Available [facility] 3 03:22:23 Enthesopa thy of hip region 08962018 Completed Not Available [facility] 3 03:22:23 Bronchiti s 33706144 Completed Not Available [facility] 3 03:22:23 Depressiv e disorder 89777750 Active Not Available [facility] 3 03:22:24 Pericardi al effusion 488599780 Completed Not Available [facility] 3 03:22:24 Hypertens petty disorder 00783771 Active 2016 Not Available [facility] 3 03:22:24 Dizziness 309853373 Completed Not Available [facility] 3 03:22:24 Hematoche wilian 688871540 Completed Not Available [facility] 3 03:22:24 Pharyngit is 651957276 Completed Not Available [facility] 3 03:22:24 Type 2 diabetes mellitus 48040747 Active 2016 Not Available [facility] 3 03:22:24 Pain of bilateral knee joints 84812792151 4104 Completed 202202/13/2023 JASON Louise null, [place] [facility] [employer] [facility] 3 14:29:35 Herpes zoster 9031992 Active 2021 Not Available [facility] 3 03:22:24 Cough 51796641 Completed Not Available [facility] 3 03:22:25 Hyperlipi demia 72374569 Active Not Available [facility] 3 03:22:25 Essential hypertens ion 95817075 Active 2021 Not Available [facility] 3 03:22:25 Diarrhea 89657468 Completed Not Available [facility] 3 03:22:25 Increased liver function 07090347 Completed fatty liver, CT abd 2016 Not Available [facility] 3 03:22:25 History of syncope 04357479113 9109 Completed 202006/21/2022 Not Available [facility] 3 03:22:25 Rhinitis 76514481 Completed Not Available [facility] 3 03:22:25 Hemorrhoi ds 71542896 Active Not Available [facility] 3 03:22:26 Dyspareun ia 99657636 Completed Not Available [facility] 3 03:22:26 Diabetes mellitus 63461773 Active Not Available [facility] 3 03:22:26 Pain of elbow region 44761489 Completed Not Available [facility] 3 03:22:26 Hyperglyc emia 92250635 Completed Not Available [facility] 3 03:22:26 Gout 55855371 Active 2018 Not Available [facility] 3 03:22:26 Pain in limb 66191505 Completed Not Available [facility] 3 03:22:27 Contusion of head 475872951 Active 2023 Aamir Maldonado MD [address], [address], [place], [address] , [facility] 4 15:59:50 Chest pain 99989286 Active 2023 Aamir Maldonado MD [address], [address], [place], [address] , [facility] 4 14:35:55 Pulmonary embolism 55790586 Active 2023 Aamir Maldonado MD [address], [address], [place], [address] , [facility] 4 14:36:15 Pain in left lower limb 247387007 Active 2023 Aamir Maldonado MD [address], [address], [place], [address] , [facility] [employer] [facility] [employer] [facility] 4 14:37:09 Sinusitis 92781710 Active 2023 Breann Mandel MA null, [facility] 4 09:15:38 Urinary tract infectiou s disease 28521397 Active 2024 Breann Mandel MA null, [facility] [employer] [facility] 5 17:23:06 Low back pain 111257797 Active 2024 Aamir Maldonado MD [address], [address], [place], [address] , [facility] [employer] [facility] 5 15:03:54 Allergic conjuncti vitis of bilateral eyes 48393480500 9102 Active 2024 KEVEN Roper [address], [address], [place], [address] , [facility] [employer] [facility] 5 10:56:57 Bacterial conjuncti vitis 483728258 Active 2024 KEVEN Roper [address], [address], [place], [address] , [facility] [employer] [facility] 5 10:57:04 Acute conjuncti vitis of left eye Active 2024 KEVEN Roper [address], [address], [place], [address] , [facility] [employer] [facility] 5 11:02:52 Viral conjuncti vitis 48425510 Active 2024 KEVEN Roper [address], [address], [place], [address] , [facility] [employer] [facility] 5 11:03:18 Viral conjuncti vitis 90930938 Active 2024 KEVEN Roper [address], [address], [place], [address] , [facility] [employer] [facility] 5 11:31:31 Notes:Some problems listed i n Documents: #[id number], #[id number], #[id number], #[id number], #[id number], #[id number], #[id number], #[id number], #[id number], #[id number] could not be added to this patient's chart. Please review these documents and add these problems to the patient's chart manually as needed. Problem Notes None recorded. Procedures Surgical History Date Name Laterality Status Provider Name and Address Organization Details Recorded Time 024 Medicare Wellness CPT Code, subsequent completed Helena Caldwell RN [facility] 07/21/2024 16:09:48 024 Advanced Care Planning completed Helena Caldwell RN [facility] 07/21/2024 16:54:04 023 Transitional_Care_M anagement completed JASON Oscar [facility] 07/08/2023 15:06:02 021 SEPTOPLASTY (SURG) completed Not Available [facility] 01/22/2023 03:34:37 021 SEPTOPLASTY (SURG) completed Not Available [facility] 01/22/2023 03:34:37 015 Date of Last Colonoscopy completed Not Available [facility] 01/22/2023 03:14:17 011 [employer] Surgery completed Not Available [facility] 01/22/2023 03:14:20 010 [employer] Surgery completed Not Available [facility] 01/22/2023 03:14:20 003 [employer] Surgery completed Not Available [facility] 01/22/2023 03:14:20 002 [employer] Surgery completed Not Available [facility] 01/22/2023 03:14:20 thyroidectomy completed Not Available [facility] 01/22/2023 03:14:20 thyroidectomy completed Not Available [facility] 01/22/2023 03:14:20 [employer] Surgery completed Not Available [facility] 01/22/2023 03:14:20 cholecystectomy completed Not Available [facility] 01/22/2023 03:14:20 other completed Not Available [facility] 01/22/2023 03:14:20 Gastrointestinal Procedure completed Not Available [facility] 01/22/2023 03:14:20 Imaging Results None recorded. Procedure Notes None recorded. Medical Equipment None Reported. Allergies Allergen ID Allergen Name Allergen Category Reaction Reaction Severity Criticality Documentation Date Start Date Code Code System Note Provider Name and Address Organization Details Recorded Time 6267 Reglan medicatio n other Not available Not available 01/22/2023 9230 RxNorm inter acts with other meds Not Available [facility] 3 03:34:12 6268 Product containin g penicilli n (product) medicatio n Not available Not available Not available 01/22/2023 41664 8001 SNOMED Not Available [facility] 3 03:34:13 6269 morphine medicatio n nausea Not available Not available 01/22/2023 7052 RxNorm Not Available [facility] 3 03:34:13 6270 ibuprofen medicatio n nausea Not available Not available 01/22/2023 5640 RxNorm Not Available [facility] 3 03:34:13 6271 Demerol medicatio n Not available Not available Not available 01/22/2023 66362 1 RxNorm Not Available [facility] 3 03:34:13 6272 codeine medicatio n nausea Not available Not available 01/22/2023 2670 RxNorm Not Available [facility] 3 03:34:13 6273 Benadryl medicatio n hives Not available Not available 01/22/2023 29228 7 RxNorm Not Available [facility] 3 03:34:13 Medications Name Sig Start Date Stop Date Status Note LastModified by Organization Details LastModified Time losartan 50 mg tablet TAKE 1 TABLET BY MOUTH EVERY DAY AT NIGHT 11/09 completed Not Available Not Available Not Available carisopro dol 350 mg tablet active Not Available Not Available No t Available cyclobenz aprine 10 mg tablet TAKE 1 TABLET BY MOUTH 3 TIMES A DAY NEEDED FOR MUSCLE SPASM 12/29 completed Not Available Not Available Not Available atorvasta tin 40 mg tablet TAKE 1 TABLET BY MOUTH EVERYDAY AT BEDTIME 2024 active Not Available Not Available Not Avai lable metformin 500 mg tablet TAKE ONE TABLET TWICE DAILY active Not Available Not Available No t Available azelastin e 0.05 % eye drops INSTILL 1 DROP INTO AFFECTED EYE TWICE A DAY active Not Available Not Available No t Available prednison e 10 mg tablet Take 3 x 2 days, 2 x 2days, 1 x 2 days active Not Available Not Available No t Available gabapenti n 600 mg tablet TAKE 1 TABLET BY MOUTH THREE TIMES A DAY active Not Available Not Available No t Available doxycycli ne hyclate 100 mg capsule TAKE 1 CAPSULE BY MOUTH TWICE A DAY active Not Available Not Available No t Available Carafate 100 mg/mL oral suspensio n 05/07 completed Not Available Not Available Not Available albuterol sulfate 2.5 mg/3 mL (0.083 %) solution for nebulizat ion Inhale 3 mL 4 times a day by nebuliza tion route for 30 days. 08/12 completed Not Available Not Available Not Available OneTouch Ultra Control solution 06/10 completed Not Available Not Available Not Available atorvasta tin 10 mg tablet Take 1 tablet every day by oral route. active Not Available Not Available No t Available azithromy gabbie 250 mg tablet TAKE 2 TABLETS BY MOUTH TODAY, THEN TAKE 1 TABLET DAILY FOR 4 DAYS DIRECTED 04/27 completed Not Available Not Available Not Available cilostazo l 50 mg tablet TAKE 1 TABLET BY MOUTH TWICE A DAY active Not Available Not Available No t Available benzonata te 200 mg capsule TAKE 1 CAPSULE BY MOUTH THREE TIMES A DAY 02/16 completed Not Available Not Available Not Available valacyclo vir 1 gram tablet TAKE 1 TABLET BY MOUTH THREE TIMES A DAY FOR 7 DAYS 12/29 completed Not Available Not Available Not Available hydrocodo ne 5 mg-acetam inophen 325 mg tablet Take 1 tablet 3 times a day by oral route as needed. active Not Available Not Available No t Available prochlorp erazine maleate 5 mg tablet TK 1 T PO Q 6 H NEEDED FOR NAUSEA active Not Available Not Available No t Available ondansetr on HCl 8 mg tablet Take 1 tablet every 8 hours by oral route for 2 days. 05/20 completed Not Available Not Available Not Available meloxicam 15 mg tablet Take 1 tablet every day by oral route. active Not Available Not Available No t Available sucralfat e 1 gram tablet active Not Available Not Available Not Available ondansetr on HCl 4 mg tablet TAKE 1 TABLET ORAL ROUTE EVERY 8 HOURS 12/29 completed Not Available Not Available Not Available prednison e 20 mg tablet TAKE 1 TABLET BY MOUTH EVERY DAY 06/23 completed Not Available Not Available Not Available prednison e 5 mg tablet 02/03 completed Not Available Not Available Not Available diphenoxy late-atro pine 2.5 mg-0.025 mg tablet TAKE 1 TAB AFTER EACH DIARRHEA STOOL. NO MORE THAN 8/DAY active Not Available Not Available No t Available Advair Diskus 100 mcg-50 mcg/dose powder for inhalatio n Inhale 1 puff twice a day by inhalati on route. active Not Available Not Available No t Available Nexium 40 mg capsule,d elayed release active Not Available Not Available Not Available meclizine 12.5 mg tablet Take 1 tablet 3 times a day by oral route as needed. 05/02 completed Not Available Not Available Not Available amlodipin e 2.5 mg tablet TAKE 1 TABLET BY MOUTH EVERY DAY active Not Available Not Available No t Available metronida zole 500 mg tablet TAKE 1 TABLET BY MOUTH THREE TIMES A DAY 11/09 completed Not Available Not Available Not Available ciproflox acin 250 mg tablet TAKE ONE TABLET TWICE DAILY FOR 5 DAYS. 09/23 completed Not Available Not Available Not Available prochlorp erazine maleate 10 mg tablet active Not Available Not Available Not Available allopurin ol 100 mg tablet TAKE 1 TABLET BY MOUTH EVERY DAY 2024 active Not Available Not Available Not Avai lable ciproflox acin 500 mg tablet TK 1 T PO Q 12 H TAT. active Not Available Not Available No t Available sulfameth oxazole 800 mg-trimet hoprim 160 mg tablet Take 1 tablet every 12 hours by oral route for 7 days. 04/06 completed Not Available Not Available Not Available omeprazol e 40 mg capsule,d elayed release TAKE 1 CAPSULE BY MOUTH TWICE A DAY 02/13 completed Not Available Not Available Not Available aspirin 81 mg tablet,de layed release TAKE 1 TABLET BY MOUTH EVERY DAY active Not Available Not Available No t Available tramadol 50 mg tablet TAKE 1 TABLET BY MOUTH TWICE A DAY NEEDED FOR PAIN active Not Available Not Available No t Available triamcino lone acetonide 0.1 % topical cream APPLY A THIN LAYER TO THE AFFECTED AREA(S) BY TOPICAL ROUTE 2 TIMES PER DAY active Not Available Not Available No t Available glimepiri de 2 mg tablet TAKE 1/2 TABLET TWICE A DAY BY MOUTH 07/21 completed Not Available Not Available Not Available glimepiri de 1 mg tablet Take 1 tablet twice a day by oral route. active Not Available Not Available No t Available pantopraz ole 20 mg tablet,de layed release TAKE 1 TABLET BY MOUTH EVERYDAY AT BEDTIME 02/13 completed Not Available Not Available Not Available oxycodone -acetamin ophen 5 mg-325 mg tablet 05/07 completed Not Available Not Available Not Available alprazola m 0.25 mg tablet active Not Available Not Available Not Available famotidin e 20 mg tablet TK 1 T PO Q 12 H 07/21 completed Not Available Not Available Not Available magnesium oxide 400 mg (241.3 mg magnesium ) tablet TAKE 1 TABLET BY MOUTH TWICE A DAY 12/29 completed Not Available Not Available Not Available methocarb franko 750 mg tablet Take by oral route for 8 days. 12/29 completed Not Available Not Available Not Available triamcino lone acetonide 0.025 % topical cream active Not Available Not Available Not Available ropinirol e 0.25 mg tablet TAKE 1 TABLET BY MOUTH 1 3 HOURS BEFORE BEDTIME 02/13 completed Not Available Not Available Not Available dicyclomi ne 20 mg tablet TAKE 1 TABLET BY MOUTH 3 TIMES A DAY 02/13 completed Not Available Not Available Not Available Valium 5 mg tablet Take 1 tablet 1 hour prior to MRI, if needed, take 2nd tablet 15 minutes prior 05/23 completed Not Available Not Available Not Available OneTouch Ultra Test strips USE DIRECTED 3 TIMES A DAY active Not Available Not Available No t Available Kenalog 10 mg/mL suspensio n for injection In office injectio n administ ered by the provider 09/10 completed ND: [id number] 4-20 Not Available Not Available Not Available meclizine 25 mg tablet TK 1 T PO TID PRF DIZZINES S active Not Available Not Available No t Available colesevel am 625 mg tablet 10/27 completed Not Available Not Available Not Available benzonata te 100 mg capsule Take 1 capsule 3 times a day by oral route as needed for cough 03/09 completed per 11/04/24 patient case / ds Not Available Not Available Not Available hydrocodo ne 7.5 mg-acetam inophen 325 mg tablet TAKE 1 TABLET BY MOUTH EVERY 4 HOURS NEEDED 02/15 completed Not Available Not Available Not Available cephalexi n 500 mg capsule TAKE 1 CAPSULE EVERY SIX HOURS FOR 10 DAYS UNTIL ALL TAKEN 04/11 completed Not Available Not Available Not Available pantopraz ole 40 mg tablet,de layed release TAKE 1 TABLET BY MOUTH TWICE A DAY BEFORE MEALS active Not Available Not Available No t Available cyanocoba ivan (vit B-12) 1,000 mcg/mL injection solution INJECT 1 ML BY INTRAMUS CULAR INJECTIO N EVERY 30 DAYS. active Not Available Not Available No t Available metformin 1,000 mg tablet TAKE 1 TABLET BY MOUTH TWICE A DAY 2024 active JEFFREY 04/27/25 NOV 07/27/25 ok to rf Not Available Not Available Not Available triamcino lone acetonide 0.1 % topical ointment APPLY A THIN LAYER TO THE AFFECTED AREA(S) BY TOPICAL ROUTE 2 TIMES PER DAY active Not Available Not Available No t Available ranitidin e 150 mg tablet active Not Available Not Available Not Available clotrimaz ole-betam ethasone 1 %-0.05 % topical cream APPLY TO THE AFFECTED AND SURROUND ING AREAS OF SKIN BY TOPICAL ROUTE 2 TIMES PER DAY IN THE MORNING AND EVENING FOR 2 WEEKS 03/08 completed Not Available Not Available Not Available glimepiri de 4 mg tablet TAKE 1 TABLET TWICE A DAY BY ORAL ROUTE FOR 90 DAYS. 12/29 completed Not Available Not Available Not Available lidocaine 5 % topical patch 03/21 completed Not Available Not Available Not Available promethaz ine 25 mg tablet active Not Available Not Available Not Available losartan 25 mg tablet TAKE 1 TABLET BY MOUTH EVERY DAY active Not Available Not Available No t Available indometha gabbie 25 mg capsule Take 1 capsule 3 times a day by oral route. 02/13 completed Not Available Not Available Not Available metoprolo l tartrate 50 mg tablet TAKE 1 TABLET BY MOUTH TWICE A DAY 2024 active Not Available Not Available Not Avai lable fluoxetin e 10 mg capsule TAKE 1 CAPSULE DAILY IN THE MORNING active Not Available Not Available No t Available Advair Diskus 500 mcg-50 mcg/dose powder for inhalatio n Inhale 1 puff twice a day by inhalati on route. 09/19 completed Not Available Not Available Not Available nitroglyc aristides 0.4 mg sublingua l tablet PLACE 1 TABLET UNDER TONGUE EVERY 5 MINS, UP TO 3 DOSES NEEDED FOR CHEST PAIN active Not Available Not Available No t Available gabapenti n 300 mg capsule TAKE 1 CAPSULE BY MOUTH TWICE A DAY active Not Available Not Available No t Available omeprazol e 20 mg capsule,d elayed release TAKE 2 CAPSULES BY MOUTH EVERY DAY 11/09 completed Not Available Not Available Not Available hydrocort isone 2.5 % topical cream APPLY 2 TIMES DAILY FOR 7 DAYS. APPLICAT ION SITE PERIANAL (DESCRIP TION AND LOCATION ) 10/27 completed Not Available Not Available Not Available etodolac 400 mg tablet active Not Available Not Available Not Available monteluka st 10 mg tablet Take 1 tablet every day by oral route. 02/03 completed Not Available Not Available Not Available hydrocodo ne 5 mg-acetam inophen 500 mg tablet active Not Available Not Available Not Available allopurin ol 300 mg tablet Take 1 tablet every day by oral route. active Not Available Not Available No t Available lisinopri l 5 mg tablet active Not Available Not Available Not Available mupirocin 2 % topical ointment APPLY A SMALL AMOUNT TO THE AFFECTED AREA BY TOPICAL ROUTE 3 TIMES PER DAY active Not Available Not Available No t Available furosemid e 20 mg tablet active Not Available Not Available Not Available gabapenti n 100 mg capsule 05/07 completed Not Available Not Available Not Available levofloxa gabbie 500 mg tablet TAKE 1 TABLET BY MOUTH EVERY DAY 02/15 completed Not Available Not Available Not Available levofloxa gabbie 750 mg tablet 10/27 completed Not Available Not Available Not Available methylpre dnisolone 4 mg tablets in a dose pack TAKE 6 TABLETS ON DAY 1 DIRECTED ON PACKAGE AND DECREASE BY 1 TAB EACH DAY FOR A TOTAL OF 6 DAYS 02/16 completed Not Available Not Available Not Available albuterol sulfate HFA 90 mcg/actua tion aerosol inhaler INHALE 2 PUFFS BY MOUTH EVERY 4 HOURS NEEDED 2024 active JEFFREY: 04/27/25 - NOV: 09/28/25 Not Available Not Available Not Available celecoxib 100 mg capsule TAKE ONE CAPSULE TWICE DAILY active Not Available Not Available No t Available ketoconaz ole 2 % topical cream 03/08 completed Not Available Not Available Not Available hydroxyzi ne HCl 10 mg tablet TAKE 1 TABLET BY MOUTH 3 TIMES A DAY NEEDED FOR ITCHING active Not Available Not Available No t Available clobetaso l 0.05 % scalp solution APPLY TO THE AFFECTED SCALP AREA BY TOPICAL ROUTE 2 TIMES PER DAY IN THE MORNING AND EVENING 02/25 completed Not Available Not Available Not Available ondansetr on 4 mg disintegr ating tablet DISSOLVE 1 TABLET ON TOP OF TONGUE THEN SWALLOW WITH SALIVA EVERY 8 HOURS NEEDED FOR NAUSEA 11/09 completed Not Available Not Available Not Available losartan 100 mg tablet TAKE 1 TABLET BY MOUTH EVERY DAY 10/27 completed Not Available Not Available Not Available albuterol sulfate concentra te 5 mg/mL(0.5 %) solution for nebulizat ion Inhale 0.5 mL 3 times a day by inhalati on route as directed . 03/01 completed Not Available Not Available Not Available fluoxetin e 20 mg capsule TAKE 1 CAPSULE BY MOUTH EVERY DAY 2024 active Not Available Not Available Not Avai lable fluticaso ne propionat e 50 mcg/actua tion nasal spray,jamia pension Inhale 2 sprays every day by intranas al route in the evening. 02/03 completed Not Available Not Available Not Available dicyclomi ne 10 mg capsule TAKE 1 CAPSULE BY MOUTH 3 TIMES A DAY 12/29 completed Not Available Not Available Not Available naproxen 500 mg tablet TAKE 1 TABLET BY MOUTH TWICE A DAY active Not Available Not Available No t Available metoclopr amide 10 mg tablet Take 1 tablet 4 times a day by oral route as needed. 02/13 completed Not Available Not Available Not Available amoxicill in 875 mg-potass ium clavulana te 125 mg tablet TAKE 1 TABLET BY MOUTH TWICE A DAY 12/29 completed Not Available Not Available Not Available oxycodone 5 mg tablet TAKE 1 TABLET EVERY FOUR HOURS NEEDED active Not Available Not Available No t Available Estrace 0.01% (0.1 mg/gram) vaginal cream Insert 1 g every day by vaginal route at bedtime for 14 days. 02/03 completed Not Available Not Available Not Available valsartan 40 mg tablet TK 1 T PO D active Not Available Not Available No t Available Zetia 10 mg tablet Take 1 tablet every day by oral route. 01/13 completed Not Available Not Available Not Available cyclobenz aprine 5 mg tablet Take 1 tablet 3 times a day by oral route. active Not Available Not Available No t Available Senna Plus 8.6 mg-50 mg tablet TAKE 2 TABLETS TWICE A DAY TO PREVENT CONSTIPA TION. DO NOT TAKE IF HAVE LOOSE STOOLS 04/11 completed Not Available Not Available Not Available BD SafetyGli de Tuberculi n Regular Bevel 1 mL 27 x 1/2 syringe USE WITH B12. 04/27 completed Not Available Not Available Not Available metoprolo l tartrate 25 mg tablet TAKE 1 TABLET BY MOUTH TWICE A DAY 12/11 completed Not Available Not Available Not Available albuterol sulfate concentra te 2.5 mg/0.5 mL solution for nebulizat ion INHALE 1 VIAL THREE TIMES DAILY DIRECTED active Not Available Not Available No t Available nitrofura ntoin monohydra te/macroc rystals 100 mg capsule TAKE 1 CAPSULE BY MOUTH EVERY 12 HOURS 04/27 completed Not Available Not Available Not Available OneTouch Ultra2 Meter kit 06/10 completed Not Available Not Available Not Available lidocaine (PF) 10 mg/mL (1 %) injection solution In office injectio n administ ered by the provider 09/10 completed [facility]: [id number] 05-10 Not Available Not Available Not Available BD Ultra-Fin e Short Pen Needle 31 gauge x 5/16 USE DIRECTED WITH INSULIN 04/27 completed Not Available Not Available Not Available Lantus Solostar U-100 Insulin 100 unit/mL (3 mL) subcutane ous pen INJECT 20 UNITS UNDER THE SKIN IN THE MORNING AND 15 UNITS IN THE EVENING 04/27 completed JEFFREY 07/21/24 NOV 08/18/24 ok to rf Not Available Not Available Not Available Humalog KwikPen (U-100) Insulin 100 unit/mL subcutane ous PLEASE SEE ATTACHED FOR DETAILED DIRECTIO NS 07/21 completed Not Available Not Available Not Available Colcrys 0.6 mg tablet active Not Available Not Available Not Available azelastin e 205.5 mcg (0.15 %) nasal spray [place] 1 spray twice a day by intranas al route. active Not Available Not Available No t Available ClearLax 17 gram/dose oral powder MIX 17 GRAMS (LINE IN CAP) OF POWDER IN 8OZ OF LIQUID AND DRINK ONCE A DAY. HOLD IF HAVE LOOSE STOOLS 04/11 completed Not Available Not Available Not Available Dexilant 60 mg capsule, delayed release active Not Available Not Available Not Available Suprep Bowel Prep Kit 17.5 gram-3.13 gram-1.6 gram oral solution active Not Available Not Available Not Available Eliquis 2.5 mg tablet TAKE 1 TABLET EVERY 12 HOURS 04/11 completed Not Available Not Available Not Available Proctozon e-HC 2.5 % topical cream active Not Available Not Available Not Available Jardiance 10 mg tablet TAKE 1 TABLET BY MOUTH EVERY DAY 07/21 completed Not Available Not Available Not Available Jardiance 25 mg tablet TAKE 1 TABLET BY MOUTH EVERY DAY active Not Available Not Available No t Available Proctosol HC 2.5 % topical cream perineal applicato r APPLY A THIN LAYER TO THE AFFECTED AREA(S) BY TOPICAL ROUTE 3 TIMESDAI LY active Not Available Not Available No t Available OneTouch Ultra Blue Test Strip TEST 2 TIMES DAILY 11/09 completed Not Available Not Available Not Available OneTouch Ultra2 Meter 09/10 completed Not Available Not Available Not Available OneTouch Delica Plus Lancet 33 gauge USE TWICE DAILY DIRECTED active Not Available Not Available No t Available Paxlovid 300 mg (150 mg x 2)-100 mg tablets in a dose pack TAKE 3 TABS BY MOUTH TWICE DAILY FOR 5 DAYS, PER PACKAGE INSTRUCT IONS active Not Available Not Available No t Available Vitals Date Recorded Body height Body mass index (BMI) Body weight Body temperature Heart rate Oxygen saturation Oxygen saturation in Arterial blood by Pulse oximetry Systolic And Diastolic Provider Name and Address Organization Details Last Updated DateTime 5 160.02 cm 29.2 kg/m2 57741.7 4 g 97.4 [degF] 77 /min 96 % 96 % 110/76 mm[Hg] Analisa walker [place] [facility] 5 14:48:30 Date Recorded Body height Body mass index (BMI) Body weight Body temperature Heart rate Oxygen saturation Oxygen saturation in Arterial blood by Pulse oximetry Systolic And Diastolic Provider Name and Address Organization Details Last Updated DateTime 5 160.02 cm 30.1 kg/m2 51038.7 g 98.2 [degF] 85 /min 94 % 94 % 120/76 mm[Hg] Analisa Stevensvivekyvon denise [facility] [employer] [facility] 5 12:17:08 Date Recorded Body height Body mass index (BMI) Body weight Body temperature Heart rate Oxygen saturation Oxygen saturation in Arterial blood by Pulse oximetry Systolic And Diastolic Provider Name and Address Organization Details Last Updated DateTime 5 160.02 cm 27.5 kg/m2 74513.8 2 g 97.6 [degF] 86 /min 97 % 97 % 122/74 mm[Hg] Lizette menendez [facility] [employer] [facility] [employer] [facility] 5 14:33:12 Date Recorded Body height Body mass index (BMI) Body weight Body temperature Heart rate Oxygen saturation Oxygen saturation in Arterial blood by Pulse oximetry Systolic And Diastolic Provider Name and Address Organization Details Last Updated DateTime 5 160.02 cm 27.6 kg/m2 61381.4 1 g 97.5 [degF] 85 /min 96 % 96 % 110/70 mm[Hg] Lizette menendez [facility] [employer] [facility] [employer] [facility] 5 10:49:28 Date Recorded Body height Body mass index (BMI) Body weight Body temperature Heart rate Oxygen saturation Oxygen saturation in Arterial blood by Pulse oximetry Systolic And Diastolic Provider Name and Address Organization Details Last Updated DateTime 4 160.02 cm 28.5 kg/m2 89223.3 7 g 97.2 [degF] 84 /min 96 % 96 % 120/80 mm[Hg] Lizette menendez [facility] [employer] [facility] [employer] [facility] 4 14:17:05 Social History Question Answer Notes LastModified by Organization Details LastModified Time Tobacco Smoking Status Never Smoker Not Available [facility] 01/22/2023 03:09:47 Do You Have An Advance Directive? No Paperwork Given 07/21/2024 [email or web address] Information not available 07/21/2024 Is Blood Transfusion Acceptable In An Emergency? Yes [email or web address] Information not available 07/21/2024 What Is Your Level Of Caffeine Consumption? Moderate [email or web address] Information not available 07/21/2024 How Much Tobacco Do You Chew? None [id number] Information not available 01/22/2023 In The 14 Days Before Symptom Onset, Have You Had Close Contact With A Laboratory-conf irmed COVID-19 While That Case Was Ill? No Not Applicable [email or web address] Information not available 07/21/2024 In The 14 Days Before Symptom Onset, Have You Had Close Contact With A Person Who Is Under Investigation For COVID-19 While That Person Was Ill? No Not Applicable [email or web address] Information not available 07/21/2024 What Type Of Diet Are You Following? [id number] [id number] Information not available 01/22/2023 Which Illicit Or Recreational Drugs Have You Used? None [id number] Information not available 01/22/2023 What Is The Highest Grade Or Level Of School You Have Completed Or The Highest Degree You Have Received? [id number] [email or web address] Information not available 07/21/2024 How Many Days Of Moderate To Strenuous Exercise, Like A Brisk Walk, Did You Do In The Last 7 Days? 0 [email or web address] Information not available 07/21/2024 Have There Been Any Changes To Your Family Or Social Situation? Yes Lost A Family Member [email or web address] Information not available 07/21/2024 What Is The Fluoride Status Of Your Home? Fluoridated [email or web address] Information not available 07/21/2024 Are There Any Guns Present In Your Home? No [id number] Information not available 01/22/2023 Do You Use Insect Repellent Routinely? Yes [email or web address] Information not available 07/21/2024 Where Do You Live? SingleLevelHouse [email or web address] Information not available 07/21/2024 Presence Of Domestic Violence No [email or web address] Information not available 07/21/2024 Guns Present In The Home? No [email or web address] Information not available 07/21/2024 Are You Able To Care For Yourself? Yes [email or web address] Information not available 07/21/2024 Are You Blind Or Do Yo Have Difficulty Seeing? No [email or web address] Information not available 07/21/2024 Are You Deaf Or Do You Have Serious Difficulty Hearing? No [email or web address] Information not available 07/21/2024 General Stress Level? Low [email or web address] Information not available 07/21/2024 Live Alone Of With Others? With Others [email or web address] Information not available 07/21/2024 Are You Following A Low Salt Diet? No [email or web address] Information not available 07/21/2024 Do You Have A Medical Power Of Manager Sql? No [email or web address] Information not available 07/21/2024 What Was The Date Of Your Most Recent Tobacco Screening? 05/19/2025 [email or web address] Information not available 05/19/2025 How Many Children Do You Have? 0 [email or web address] Information not available 07/21/2024 Do You Have Any Pets? No [email or web address] Information not available 07/21/2024 What Is Your Relationship Status? [email or web address] Information not available 07/21/2024 Do You Use Your Seat Belt Or Car Seat Routinely? Yes [email or web address] Information not available 07/21/2024 Are You Sexually Active? No [email or web address] Information not available 07/21/2024 Do You Have Smoke And Carbon Monoxide Detectors In Your Home? Yes [email or web address] Information not available 07/21/2024 Are You Passively Exposed To Smoke? Yes [email or web address] Information not available 07/21/2024 Are There Any Smokers In Your House? Yes Spouse [email or web address] Information not available 07/21/2024 What Types Of Sporting Activities Do You Participate In? None [email or web address] Information not available 07/21/2024 Do You Use Sunscreen Routinely? Yes [id number] Information not available 01/22/2023 Has Tobacco Cessation Counseling Been Provided? No [email or web address] Information not available 07/21/2024 Have You Recently Traveled Abroad? No [email or web address] Information not available 07/21/2024 Do You Have Any Dietary Restrictions? Yes Low Calorie, Due To Fatty Liver [email or web address] Information not available 07/21/2024 Sex: Unknown Functional Status Question Answer Note LastModified by Organizat ion Details LastModified Time Do you use any illicit or recreational drugs? No [email or web address] Information not available 07/21/2024 Do you or have you ever used any other forms of tobacco or nicotine? No [email or web address] Information not available 07/21/2024 What is your level of alcohol consumption? None [id number] Information not available 01/22/2023 Are you currently employed? 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 None [email or web address] Information not available 07/21/2024 Mental Status Question Answer Note LastModified by Organization D etails LastModified Time Do you feel stressed (tense, restless, nervous, or anxious, or unable to sleep at night)? [id number] [email or web address] Information not available 07/21/2024 Family History Relationship Description Onset Age of this Age Resolved Age Notes LastModified by Organization Details LastModified Time Father Congestive heart failure 72 [id number] Not available 01/22/2023 03:14:27 Father Myocardial infarction [id number] Not available 01/22/2023 03:14:27 Mother Pulmonary embolism [id number] Not available 01/22/2023 03:14:27 Mother Essential hypertension [id number] Not available 01/22/2023 03:14:27 Unspecified Relation Diabetes mellitus [id number] Not available 01/22/2023 03:14:27 Medical History Condition Response MRSA N SLEEP APNEA N ALLERGIES/HAYFEVER Y OTHER # 1 N LUNG DISEASE/DISORDER N INSOMNIA N COPD N RADIATION / CHEMOTHERAPY N HIGH CHOLESTEROL / HYPERLIPIDEMIA Y HYPERTHYROIDISM N Other # 2 N BLOOD DISEASES N NEUROLOGICAL PROBLEMS N SURGERY N EAR OR HEARING PROBLEMS N HYPOTHYROIDISM N DEPRESSION (INCLUDING POST ) Y HAVE YOU BEEN HOSPITALIZED OR SEEN IN [facility] IN THE PAST YEAR ? N STROKE/TIA N ULCERS Y OBESITY Y ANEURYSM N HISTORY WITH COMPLICATIONS WITH ANESTHES IA ? N USE OF BLOOD THINNERS N NO SIGNIFICANT PAST MEDICAL HISTORY N DIABETES, TYPE Y PARATHYROID DISEASE N ENT N SEASONAL ALLERGIES N HEARTBURN / REFLUX Y ASTHMA Y HEPATITIS / LIVER DISEASE N SLEEP DISORDER Y SEIZURES/EPILEPSY N HEADACHES/MIGRAINES Y CHF N PACEMAKER N DIZZINESS Y AIDS/HIV N FRACTURES N HYPERTENSION Y CANCER: SPECIFY N BLOOD TRANSFUSION Y ANEMIA/BLOOD DISORDER N ANESTHESIA COMPLICATIONS Y CHRONIC EAR INFECTIONS N BRONCHITIS Y TUBERCULOSIS N Gynecological History Statement/Question Response Abnormal Pap N Date of Last Mammogram 08/26/2018 Date of Last Colonoscopy 01/15/2015 Menses Monthly N Date of Last Pap 11/25/2013 Current Control Method Hysterectom y Obstetrics History GPAL:G 0 P 0 0 0 0 Immunizations Vaccine Type Date Status Note Provider Nam e and Address Organization Details Recorded Time COVID-19 vaccine, vector-nr, rS-Ad26, PF, 0.5 mL 1 completed Not Available [facility] 07/16/2023 05:06:33 Pneumococcal conjugate PCV 13 7 completed Not Available [facility] 07/16/2023 05:06:33 Past Encounters Encounter ID Performer Location Encounter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
--- OUTSIDE RECORDS SUMMARY | 2025-05-30 14:03 | XMS_ITS | Encounter Summary ---
Author Organization [facility] Address [address] [facility] [place] [address] Phone Care Team Providers Care Manager Category Name Role Phone Altaf Fowler DO Unavailable [phone] Sanjeev Maldonado MD Primary Care Provider Tuan Martin MD Unavailable Brad Powell MD Unavailable Helen Davis APRN, FUNERAL PROFESSIONAL Unavailable Encounter Details Date Type Department Care Team (Late st Contact Info) Description 09/17/2022 [facility] [place] [address] Mason Donnelly MD #2 [place] [address] Preop testing (Primary Dx) Social History Tobacco [...] Range for this test is Not Detected) [facility] ID NOW 09/23/2022 1:45 PM CDT [facility] Comment:This test was perfor med by a MOLECULAR, NON-PCR method Other NASOPHARYNGEAL STRUCTURE / Unknown Non-Phlebotomy Collection / Unknown 09/23/2022 12:30 PM CDT 09/23/2022 1:21 PM CDT Narrative [facility] - 09/23/2022 1:45 PM CDT This [...] information for Clinicians can be found at: https://www.fda.gov/media/401214/download Additional information for Patients can be found at: https://www.fda.gov/media/577265/download Mason Donnelly MD MICROBIOLOGY - GENERAL ORDERABL ES Final Result [facility] #1 [place] [address] documented in this encounter Visit Diagnoses Diagnosis Preop testing- Primary Preoperative examination, unspecified documented in this encounter Care Teams Manager Category Relationship Specialty Start Date End Date Sanjeev Maldonado MD PCP - General Internal Medicine 02/26/17 Altaf Fowler DO Gastroenterology 01/04/16 Tuan Martin MD [facility] [facility] [address] [place] [address] Cardiovascular Disease - Cardiology 08/28/22 Brad Powell MD #[address] [address] Consulting Physician Colon and Rectal Surgery 03/13/23 Helen Davis APRN, FUNERAL PROFESSIONAL #2 [place] [address] Nurse Practitioner Advanced Practice Nurse 02/06/24 documented as of this encounter
--- OUTSIDE RECORDS SUMMARY | 2025-05-30 14:03 | XMS_ITS | Encounter Summary ---
Author Organization [facility] Address [address] [facility] [place] [address] Phone Care Team Providers Care Jumpbasting Lining Baster Name Role Phone Altaf Fowler DO Unavailable [phone] Sanjeev Maldonado MD Primary Care Provider [phone] Tuan Martin MD Unavailable Brad Powell MD Unavailable Helen Davis APRN SHAREPOINT DESIGNER DEVELOPER Unavailable Reason for Visit * Reason Comments Medication Refill Encounter Details Date Type Department Care Team (Late st Contact Info) Description 05/25/2024 Refill [facility] - G[facility]enterology - [place] #2 [place] [address] Helen Davis APRN, SHAREPOINT DESIGNER DEVELOPER #2 [place] [address] Medication Refill Social History Tobacco Use Types [...] AM CDT Medication refilled and signed [facility] medication standing order for pediatric and adult patients. documented in this encounter Plan of Treatment Not on file documented as of this encounter Visit Diagnoses Diagnosis Gastroesophageal reflux disease without esophagitis Esophageal reflux documented in this encounter Care Teams Jumpbasting Lining Baster Relationship Specialty Start Date End Date Sanjeev Maldonado MD PCP - General Internal Medicine 02/26/17 Altaf Fowler DO Gastroenterology 01/04/16 Tuan Martin MD [address] [address] Cardiovascular Disease - Cardiology 08/28/22 Brad Powell MD #[address] [address] Consulting Physician Colon and Rectal Surgery 03/13/23 Helen Davis APRN, SHAREPOINT DESIGNER DEVELOPER #2 [place] [address] Nurse Practitioner Advanced Practice Nurse 02/06/24 documented as of this encounter
--- OUTSIDE RECORDS SUMMARY | 2025-05-30 14:03 | XMS_ITS | Encounter Summary ---
Author Organization [facility] Address [address] [facility] [place] [address] Phone Care Team Providers Care Supply Tech Name Role Phone Altaf Fowler DO Unavailable [phone] Sanjeev Maldonado MD Primary Care Provider Tuan Martin MD Unavailable Brad Powell MD Unavailable Helen Davis APRN SAFETY SEALER Unavailable Reason for Visit * Reason Comments Medication Refill Encounter Details Date Type Department Care Team (Late st Contact Info) Description 05/26/2023 Refill [facility] - [facility] - [place] #2 [place] [address] Helen Davis APRN, SAFETY SEALER #2 [place] [address] Medication Refill Social History Tobacco Use Types [...] PM CDT Medication [facility] standing order for pediatric and adult patients. documented in this encounter Plan of Treatment Not on file documented as of this encounter Visit Diagnoses Diagnosis Gastroesophageal reflux disease without esophagitis Esophageal reflux documented in this encounter Care Teams Supply Tech Relationship Specialty Start Date End Date Sanjeev Maldonado MD PCP - General Internal Medicine 02/26/17 Altaf Fowler DO Gastroenterology 01/04/16 Tuan Martin MD [address] [address] Cardiovascular Disease - Cardiology 08/28/22 Brad Powell MD #[address] [address] Consulting Physician Colon and Rectal Surgery 03/13/23 Helen Davis APRN, SAFETY SEALER #2 [place] [address] Nurse Practitioner Advanced Practice Nurse 02/06/24 documented as of this encounter
--- OUTSIDE RECORDS SUMMARY | 2025-05-30 14:03 | XMS_ITS | Encounter Summary ---
Author Organization [facility] Address [address] [facility] [place] [address] Phone Care Team Providers Care Assistant Clinical Director Name Role Phone Altaf Fowler DO Unavailable [phone] Sanjeev Maldonado MD Primary Care Provider [phone] Tuan Martin MD Unavailable Brad Powell MD Unavailable Helen Davis APRN SENIOR CATERING SALES MANAGER Unavailable Reason for Visit * Reason Comments Medication Refill Encounter Details Date Type Department Care Team (Late st Contact Info) Description 04/16/2025 Refill [facility] G[facility]enterology - [place] #2 [place] [address] Helen Davis APRN, SENIOR CATERING SALES MANAGER #2 [place] [address] Medication Refill Social History Tobacco Use Types [...] Telephone Encounter - Sheree Shafer RN - 04/20/2025 12:43 PM CDT Medication [facility] and signed [facility] medication standing order for pediatric and adult patients. * Telephone Encounter - Sheree Shafer RN - 04/20/2025 12:41 PM CDT Patient left vm. Called patient back. Reviewed message below. Appt scheduled for 04/26/2025. * Telephone Encounter - Sheree Shafer RN - 04/20/2025 9:42 AM CDT Pharmacy requesting refill of: Requested Prescriptions Pending Prescriptions Disp Refills pantoprazole (PROTONIX) 40 MG Tablet Delayed Response [Pharmacy Med Name: PANTOPRAZOLE SOD DR 40 MGTAB] 180 Tablet 1 Sig: TAKE 1 TABLET BY MOUTH TWICE A DAY BEFORE MEALS Last fill: 12/03/2024 Patients last OV with GI: 02/06/2024 Next Office Visit with GI: none Called patient to offer an appt. Left message for patient to call back. documented in this encounter Plan of Treatment Not on file documented as of this encounter Visit Diagnoses Diagnosis Gastroesophageal reflux disease without esophagitis Esophageal reflux documented in this encounter Care Teams Assistant Clinical Director Relationship Specialty Start Date End Date Sanjeev Maldonado MD PCP - General Internal Medicine 02/26/17 Altaf Fowler DO Gastroenterology 01/04/16 Tuan Martin MD [facility] [address] [place] [address] Cardiovascular Disease - Cardiology 08/28/22 Brad Powell MD #[address] [address] Consulting Physician Colon and Rectal Surgery 03/13/23 Helen Davis APRN, SENIOR CATERING SALES MANAGER #2 [place] [address] Nurse Practitioner Advanced Practice Nurse 02/06/24 documented as of this encounter
--- OUTSIDE RECORDS SUMMARY | 2025-05-30 14:03 | XMS_ITS | Encounter Summary ---
Author Organization [facility] Address [address] [facility] [place] [address] Phone Care Team Providers Care Financial Systems Director Name Role Phone Altaf Fowler DO Unavailable [phone] Sanjeev Maldonado MD Primary Care Provider Tuan Martin MD Unavailable Brad Powell MD Unavailable Helen Davis APRN, DENIER CONTROL OPERATOR Unavailable Reason for Visit * Reason Comments Medication Refill Encounter Details Date Type Department Care Team (Late st Contact Info) Description 07/04/2022 Refill [facility] - [facility]ology - [place] #2 [place] [id number] Nicolasa Jerez April, PAC [address] [place] [address] Medication Refill Social History Tobacco Use Types [...] AM CDT Medication [facility] medication standing order for pediatric and adult patients. * Telephone Encounter - Sheree Shafer RN - 07/08/2022 9:35 AM CDT documented in this encounter Plan of Treatment Not on file documented as of this encounter Visit Diagnoses Not on filedocumented in this encounter Care Teams Financial Systems Director Relationship Specialty Start Date End Date Sanjeev Maldonado MD PCP - General Internal Medicine 02/26/17 Altaf Fowler DO Gastroenterology 01/04/16 Tuan Martin MD 1225 [facility] [address] [place] [address] Cardiovascular Disease - Cardiology 08/28/22 Brad Powell MD #[address] [address] Consulting Physician Colon and Rectal Surgery 03/13/23 Helen Davis APRN, DENIER CONTROL OPERATOR #2 [place] [address] Nurse Practitioner Advanced Practice Nurse 02/06/24 documented as of this encounter
--- OUTSIDE RECORDS SUMMARY | 2025-05-30 14:03 | XMS_ITS | Encounter Summary ---
Author Organization [facility] Address [address] [facility] [place] [address] Phone Care Team Providers Care Cheese Packer Name Role Phone Altaf Fowler DO Unavailable [phone] Sanjeev Maldonado MD Primary Care Provider Tuan Martin MD Unavailable Brad Powell MD Unavailable Helen Davis APRN FIXED CAPITAL CLERK Unavailable Reason for Visit * Reason Comments Medication Refill Encounter Details Date Type Department Care Team (Late st Contact Info) Description 12/02/2024 Refill [facility] - Gastroenterology - [place] #2 [place] [address] Helen Davis APRN, FIXED CAPITAL CLERK #2 [place] [address] Medication Refill Social History Tobacco Use Types [...] Sheree Shafer RN - 12/03/2024 8:29 AM SOCIAL WORK SUPERVISOR Medication refilled and signed [facility] chronic medication standing order for pediatric and adult patients. AL WORK SUPERVISOR documented in this encounter Plan of Treatment Not on file documented as of this encounter Visit Diagnoses Diagnosis Gastroesophageal reflux disease without esophagitis Esophageal reflux documented in this encounter Care Teams Cheese Packer Relationship Specialty Start Date End Date Sanjeev Maldonado MD PCP - General Internal Medicine 02/26/17 Altaf Fowler DO Gastroenterology 01/04/16 Tuan Martin MD 1225 [facility] [address] [place] [address] Cardiovascular Disease - Cardiology 08/28/22 Brad Powell MD #[address] [address] Consulting Physician Colon and Rectal Surgery 03/13/23 Helen Davis APRN, FIXED CAPITAL CLERK #2 [place] [address] Nurse Practitioner Advanced Practice Nurse 02/06/24 documented as of this encounter
--- OUTSIDE RECORDS SUMMARY | 2025-05-30 14:03 | XMS_ITS | Encounter Summary ---
Author Organization [facility] Address [address] [facility] [place] [address] Phone Care Team Providers Care Footwear Stitcher Name Role Phone Altaf Fowler DO Unavailable [phone] Sanjeev Maldonado MD Primary Care Provider Tuan Martin MD Unavailable Brad Powell MD Unavailable Helen Davis APRN, DITCHING MACHINE OPERATOR Unavailable Reason for Visit * Reason Comments Medication Refill Encounter Details Date Type Department Care Team (Late st Contact Info) Description 04/02/2022 Refill [facility] - Gastroenterology - [place] #2 [place] [address] Nicolasa Jerez April, PAC [address] [place] [address] Medication Refill Social History Tobacco Use Types [...] on filedocumented in this encounter Care Teams Footwear Stitcher Relationship Specialty Start Date End Date Sanjeev Maldonado MD PCP - General Internal Medicine 02/26/17 Altaf Fowler DO Gastroenterology 01/04/16 Tuan Martin MD 1225 [facility] [address] [place] [address] Cardiovascular Disease - Cardiology 08/28/22 Brad Powell MD #[address] [address] Consulting Physician Colon and Rectal Surgery 03/13/23 Helen Davis APRN, DITCHING MACHINE OPERATOR #2 [place] [address] Nurse Practitioner Advanced Practice Nurse 02/06/24 documented as of this encounter
--- OUTSIDE RECORDS SUMMARY | 2025-05-30 14:03 | XMS_ITS | Referral Summary ---
Author Organization [facility] Address [address] [place] [address] Care Team Providers Care Rotating Field Assembler Name Role Phone Sanjeev Maldonado MD Primary Care Provider [phone] Encounters Date Type Department Care Team Description 05/11/2025 9:00 AM CDT Office Visit [facility] Cardiology [address] [place] [address] Tuan Martin MD Hypertension associated with diabetes (HCC) (Primary Dx); Diastolic dysfunction; QUINTEN (obstructive sleep apnea) from Last 3 Months Allergies Active Allergy Reactions Criticality Noted Date [...] mouth daily 90 tablet 6 05/05/20 24 025 Discontinued cilostazoL (PLETAL) 50 mg tablet [...] on file 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 Gender Identity Not on file Sexual Orientation Not on file Last Filed Vital Signs Vital Sign Reading Time Taken Comments Blood Pressure 112/70 05/11/2025 8:42 AM CDT Pulse 85 05/11/2025 8:42 AM CDT Temperature 36.5 C (97.7 F) 10/02/2023 8:15 AM AIR VALUE TESTER Respiratory Rate 16 10/02/2023 8:15 AM AIR VALUE TESTER Oxygen Saturation 98% 05/11/2025 8:42 AM CDT Inhaled Oxygen Concentration - - Weight 70.1 kg (154 lb 9.6 oz) 05/11/2025 8:42 A M CDT Height 160 cm (5' 3) 05/11/2025 8:42 AM CDT Body Mass Index 27.39 05/11/2025 8:42 AM CDT Plan of Treatment Not on file Medical Devices Implanted Type Area Engagement Manager Device Identifier Shelf Expiration Date Model / Serial / Lot [employer] Device Closure Vascade Od5 Fr Femoral Artery [id number] - [id number] Implanted:Qty: 1 on 10/02/2023 by Tuan Martin MD at [facility] 07/21/2025 [id number] / / [id number] Procedures Procedure Name Priority Date/Time Associated [...] >=60 EXTERNAL LAB SCRIBED eGFR in NonAfrican German >60 >=60 EXTERNAL LAB Blood specimen (specimen) 07/23/2021 Michell Hunt NP LAB BLOOD ORDERABLES Angelika doshi Result EXTERNAL LAB from Last 3 Months or Most Recently Relevant to Health Maintenance Insurance U[employer] MEDICARE ADVANTAGE MEDICARE ADVANTAGE [facility] Care Teams Rotating Field Assembler Relationship Specialty Start Date End Date Sanjeev Maldonado MD PCP - General Internal Medicine 08/30/20
--- OUTSIDE RECORDS SUMMARY | 2025-05-30 14:03 | XMS_ITS | Clinical Summary ---
Author Organization [facility] Nilesh tawny [facility] Address [address] [facility] [place] [place] [address] Care Team Providers Care Undertaker Assistant Name Role Phone Sanjeev Maldonado MD Primary Care Provider [phone] Allergies Active Allergy Reactions Criticality Noted Date [...] Encounters Date Type Department Care Team Description 05/23/2025 Orders Only [facility] Oncology and Hematology - [place] [address] [address] Lit Silva MD 05/17/2025 External Device Data STL ABSTRACTION Provider, Abstract 05/17/2025 Orders Only [facility] Oncology and Hematology [address] [place] [address] Lit Silva MD 05/16/2025 11:45 AM CDT Office Visit [facility] Oncology and Hematology [address] [place] [address] Lit Silva MD Chronic anemia (Primary Dx) 04/19/2025 External Device Data STL ABSTRACTION Provider, Abstract 04/13/2025 External Device Data STL ABSTRACTION Provider, Abstract 04/12/2025 External Device Data STL ABSTRACTION Provider, Abstract [...] on file 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 Gender Identity Not on file Sexual Orientation Not on file Last Filed Vital Signs Vital Sign Reading Time Taken Comments Blood Pressure 117/74 05/16/2025 10:59 AM CDT Pulse 88 05/16/2025 10:59 AM CDT Temperature 36.8 C (98.3 F) 05/16/2025 10:59 AM CDT Respiratory Rate 15 05/16/2025 10:59 AM CDT Oxygen Saturation 96% 05/16/2025 10:59 AM CDT Inhaled Oxygen Concentration - - Weight 71.3 kg (157 lb 3.2 oz) 05/16/2025 10:59 AM CDT Height 160 cm (5' 3) 08/02/2022 12:13 PM CDT Body Mass Index 27.85 08/02/2022 12:13 PM CDT Plan of Treatment Upcoming Encounters Date Type Department Care Team (Late st Contact Info) Description 09/20/2025 11:30 AM CDT Office Visit [facility] Oncology and Hematology [facility] [address] [facility] [address] [place] [address] Lit Silva MD [address] [facility] [address] [place] [address] Health Maintenance Due Date Last Done Comments DIABETES ANNUAL FOOT EXAM 1983 DIABETES ANNUAL RETINAL EXAM 1983 DIABETES MICROALBUMIN ANNUAL SCREEN 1983 LDL CHOLESTEROL ANNUAL 1983 DTAP/TDAP/TD VACCINES (1 - Tdap) 1984 HEPATITIS B VACCINES (1 of 3 - 19+ 3-dose series) 1984 HPV/Cotest (21-29) 1986 CERVICAL CANCER SCREENING 1995 HPV/Cotest (30-65) 1995 PAP SMEAR 1995 BREAST CANCER SCREENING 2005 FIT-DNA Q 3 years 2010 FIT/FOBT Q 1 year 2010 Flex Sig/CT Colonography Q 5 years 2010 ZOSTER VACCINE (1 of 2) 2015 COVID-19 Vaccine (2 - season) 07/25/202411/2020 DIABETES HBA1C Q 6 MONTHS 01/21/2025 07/21/2024 INFLUENZA VACCINE (#1) 2025 COLORECTAL SCREENING 04/23/2028 04/23/2018, 01/15/20 15 Colorectal Cancer Screening 04/23/2028 Procedures Procedure Name Priority Date/Time Associated Diagnosis Comments CBC WITH DIFFERENTIAL Routine 05/11/2025 5:10 PM CDT VITAMIN B12 AND FOLATE Routine 05/11/2025 1:26 PM CDT from Last 3 Months Results * CBC WITH DIFFERENTIAL (05/11/2025 5:10 PM CDT) Blood us Lit Silva MD HEMATOLOGY ORDERABLES Final Res ult * VITAMIN B12 AND FOLATE (05/11/2025 1:26 PM CDT) Blood Lit Silva MD CHEMISTRY ORDERABLES Final Resu lt from Last 3 Months Insurance [facility] [id number] [place] [address] [facility] [id number] Care Teams Undertaker Assistant Relationship Specialty Start Date End Date Sanjeev Maldonado MD [address] [address] PCP - General Internal Medicine 01/19/20
--- NOTE | 2025-05-30 14:05 | ED.LOWEXIN ---
HPI - Extremity Injury (Lower) General Chief Complaint: Extremity Injury, Lower Stated Complaint: I think I broke my right foot Time Seen by Provider: 05/30/25 14:05 Focused HPI: This is a 59-year-old female that presents to the emergency department for right foot pain after an injury today. Reports she had climbed up onto her dresser to try to move a mattress. She fell, sustained injury to her right foot. She did not hit her head or lose consciousness. Denies any other injuries or focal areas of pain. GENERAL: Well-appearing, well-nourished, and in no acute distress. HEAD: Normocephalic, atraumatic. CHEST: Clear to auscultation. ?No respiratory distress. HEART: Regular rate and rhythm.? NEURO: ?Alert and oriented x3. EXTREMITY: Right foot/ankle without obvious deformity. Normal DP pulse. Normal sensation Patient screened in triage and initial orders placed.? ?Additional care and disposition to be based upon?diagnostic testing and treatment. Related Data Home Medications ?Medication ?Instructions ?Recorded ?Confirmed ?Last Taken ?Type atorvastatin 20 mg tablet 20 mg PO DAILY 06/21/20 02/02/25 07/01/23 21:00 History fluoxetine 20 mg tablet 20 mg PO DAILY 06/21/20 02/02/25 07/02/23 09:00 History gabapentin 300 mg capsule 300 mg PO BID 06/21/20 02/02/25 07/02/23 09:00 History metformin 1,000 mg tablet 2,000 mg PO BID 06/21/20 02/02/25 07/02/23 09:00 History metoprolol succinate 25 mg 25 mg PO BID 06/21/20 02/02/25 07/02/23 09:00 History tablet,extended release 24 hr magnesium 500 mg tablet 15 mg PO BID 09/13/20 02/02/25 07/02/23 09:00 History allopurinol 100 mg tablet 100 mg PO DAILY 08/29/21 02/02/25 07/01/23 21:00 History empagliflozin 10 mg tablet 25 mg PO HS 07/02/23 02/02/25 07/01/23 21:00 History (Jardiance) insulin glargine 100 unit/mL 10 unit subcut HS 03/25/24 02/02/25 Unknown History subcutaneous solution (Lantus U-100 Insulin) insulin glargine 100 unit/mL 15 unit subcut QAM 03/25/24 02/02/25 Unknown History subcutaneous solution (Lantus U-100 Insulin) insulin lispro 100 unit/mL 1 sliding scale dose subcut 03/25/24 02/02/25 Unknown History subcutaneous solution (Humalog USEASDIRECTD U-100 Insulin) Allergies Allergy/AdvReac Type Severity Reaction Status Date / Time codeine Allergy Unknown cold sores Verified 03/02/25 20:26 diphenhydramine Allergy Unknown BREAKS ME Verified 03/02/25 20:26 OUT doxycycline Allergy Unknown Nausea Verified 03/02/25 20:26 guaifenesin (Entex T) Allergy Unknown Skin Verified 03/02/25 20:26 Reaction naproxen Allergy Unknown Unknown Verified 03/02/25 20:26 Penicillins Allergy Unknown Unknown Verified 03/02/25 20:26 prednisone Allergy Unknown Unknown Verified 03/02/25 20:26 pseudoephedrine (Entex T) Allergy Unknown Skin Verified 03/02/25 20:26 Reaction ibuprofen AdvReac Mild nausea Verified 03/02/25 20:26 METOCLOPRAMIDE HCL Allergy Mild INTERACTS Uncoded 03/02/25 20:26 WITH PROZAC Review of Systems Review of Systems: All systems reviewed & are unremarkable except as noted in HPI and below PMFSH Past Medical History Medical History (Updated 05/30/25 @ 17:34 by Mary Solo PA-C) Non-insulin dependent diabetes mellitus Asthma Hypertension Anemia Surgical History Surgical History (Updated 02/02/25 @ 14:29 by Mitra Jordan CMA) H/O: hysterectomy History of cholecystectomy History of left knee replacement Family History Family History (Updated 02/02/25 @ 14:29 by Mitra Jordan CMA) Sibling Family history of elevated blood lipids Family history of diabetes mellitus in first degree relative Mother Family history of diabetes mellitus in first degree relative Pulmonary embolism Father Family history of congestive heart failure Other Cerebrovascular accident Diabetes mellitus Family history of allergic disorder Family history of cardiovascular disease Family history of kidney disease Hypertension Social History Social History (Updated 02/02/25 @ 14:34 by Mary Mendoza CMA) Smoking status: Never smoker Alcohol intake: never Substance use: never Do You Feel Safe in your Home?: Yes Lack of Transportation: No Lack of Food: Never True Current Housing: I Have Housing Concerned About Future Housing: No Difficulty Paying Gas/Electric Bills: No Difficulty Paying for Meds: No Currently Unemployed: No Education: High School Diploma/GED Difficulty w/ Childcare or Family Care: Decline to Answer Gender identity (if verbalized by the patient): Female Spiritual care concerns: No Exam Narrative: GENERAL: Well-appearing, well-nourished, and in no acute distress. HEAD: Normocephalic, atraumatic. EYES: EOMI. CHEST: Clear to auscultation. No respiratory distress. No wheezes rales or rhonchi HEART: Regular rate and rhythm. No murmur heard. Normal peripheral pulses. EXTREMITIES: Normal range of motion. Right foot with swelling and bruising laterally. Normal DP pulse. Normal sensation SKIN: Warm, dry, no rash. NEURO: No focal deficits. Alert and oriented x3. PSYCH: Normal mood and affect Course Vital Signs Vital signs: Vital Signs Temperature 97.5 F L 05/30/25 14:01 Pulse Rate 89 05/30/25 14:01 Respiratory Rate 17 05/30/25 14:01 Blood Pressure 116/73 05/30/25 14:01 Pulse Oximetry 97 05/30/25 14:01 Oxygen Delivery Room Air 05/30/25 14:01 Temperature 97.9 F 05/30/25 15:50 Pulse Rate 87 05/30/25 15:50 Respiratory Rate 18 05/30/25 15:50 Blood Pressure 106/74 05/30/25 15:50 Pulse Oximetry 97 05/30/25 15:50 Oxygen Delivery Room Air 05/30/25 14:01 Procedures Orthopedic Splinting/Casting Injury #1: Splinting/Casting Date: 05/30/25 Splinting/Casting Time: 17:36 Side: right Lower Extremity Injury Location: foot Lower Extremity Immobilizer: posterior splint Splint: customized in ED OCL: short leg Pre-Procedure Neuro Vascular Exam: normal Post-Procedure Neuro Vascular Exam: normal Other Orthopedic Equipment: crutches and walker (patient has a walker at home) MDM - Extremity Injury (Lower) MDM Narrative Medical decision making narrative: Patient presents to the emergency department for right foot pain after an injury today. She is neurovascularly intact. Right foot and ankle x-ray show 5th metatarsal fracture. Patient placed in a short-leg posterior. Will be given crutches. She also reports she has a walker at home. She will be given follow-up with Orthopedics. She was given warnings to return to the ER Differential Diagnosis Differential diagnosis: Likely ankle fracture and other (Foot fracture) Imaging Data Radiologist's impression: EXAM/ PROCEDURE: XR foot RT min 3V - 05/30/2025 14:40 CDT HISTORY: 59 years old Female with right foot pain, fall COMPARISON: None available TECHNIQUE: Four view(s) FINDINGS/ IMPRESSION: Acute oblique fracture of the mid fifth metatarsal bone with medial displacement of the distal segment. Surrounding soft tissue swelling. Joint space narrowing, subchondral sclerosis, subchondral cyst formation and osteophyte formation, compatible with mild osteoarthritis. Critical Care Time Critical Care Time Critical Care Time: No Discharge Plan Discharge Clinical Impression: Fracture of fifth metatarsal bone of right foot Qualifiers: Encounter type: initial encounter Fracture type: closed Fracture alignment: displaced Qualified Code(s): S92.351A - Displaced fracture of fifth metatarsal bone, right foot, initial encounter for closed fracture Patient Disposition: Home Condition: Stable Instructions: Foot Fracture in Adults (ED) Additional Instructions: Return to the ER if you experience fever, redness and swelling of your extremity, numbness or any other symptoms that are concerning to you Wear splint and use crutches or walker. No weight on the affected leg. Ice and elevate extremity. Pain medication as needed and directed. Follow up with orthopedics for further care. Patient Language: Upper Sorbian Prescriptions: New hydrocodone-acetaminophen 5-325 mg tablet 1 tablet PO Q6H PRN (Reason: pain) Qty: 20 0RF No Action atorvastatin 20 mg Tablet 20 mg PO DAILY fluoxetine 20 mg Tablet 20 mg PO DAILY metformin 1,000 mg Tablet 2,000 mg PO BID gabapentin 300 mg Capsule 300 mg PO BID metoprolol succinate 25 mg Tablet Extended Release 24 Hr 25 mg PO BID magnesium 500 mg Tablet 15 mg PO BID allopurinol 100 mg Tablet 100 mg PO DAILY insulin glargine [Lantus U-100 Insulin] 100 unit/mL Solution 10 unit SUBCUT HS insulin glargine [Lantus U-100 Insulin] 100 unit/mL Solution 15 unit SUBCUT QAM insulin lispro [Humalog U-100 Insulin] 100 unit/mL Solution 1 sliding scale dose SUBCUT USEASDIRECTD Jardiance 10 mg tablet 25 mg PO HS cyclobenzaprine 10 mg tablet 10 mg PO TID PRN (Reason: muscle spasm) Qty: 20 0RF pantoprazole 20 mg tablet,delayed release (DR/EC) 20 mg PO HS Qty: 10 0RF albuterol sulfate 2.5 mg/0.5 mL solution for nebulization 5 mg inhalation Q6H PRN (Reason: shortness of breath or wheezing) Qty: 30 0RF benzonatate 200 mg capsule 200 mg PO BID PRN (Reason: cough) Qty: 8 0RF Follow-up/Referrals: Erica,Sanjeev Pozo MD [Primary Care Provider] - Chavo Adamson MD [Physician] -
--- OUTSIDE RECORDS SUMMARY | 2025-05-30 14:33 | XMS_ITS | Encounter Summary ---
Author Organization [facility] Address [address] [facility] [place] [address] Phone Care Team Providers Care Summer School Coordinator Name Role Phone Altaf Fowler DO Unavailable [phone] Sanjeev Maldonado MD Primary Care Provider [phone] Tuan Martin MD Unavailable Brad Powell MD Unavailable Helen Davis APRN, HOSPITALITY INTERNSHIP Unavailable Reason for Visit * Reason Comments Medication Refill Encounter Details Date Type Department Care Team (Late st Contact Info) Description 07/04/2022 Refill [facility] - [place] [address] [place] [id number] Nicolasa Jerez April, PAC [address] [place] [address] Medication Refill Social History Tobacco Use Types [...] AM CDT Medication refilled and signed per [facility] chronic medication standing order for pediatric and adult patients. * Telephone Encounter - Sheree Shafer RN - 07/08/2022 9:35 AM CDT documented in this encounter Plan of Treatment Not on file documented as of this encounter Visit Diagnoses Not on filedocumented in this encounter Care Teams Summer School Coordinator Relationship Specialty Start Date End Date Sanjeev Maldonado MD PCP - General Internal Medicine 02/26/17 Altaf Fowler DO Gastroenterology 01/04/16 Tuan Martin MD [address] [facility] [address] [place] [address] Cardiovascular Disease - Cardiology 08/28/22 Brad Powell MD [address] [address] Consulting Physician Colon and Rectal Surgery 03/13/23 Helen Davis APRN, HOSPITALITY INTERNSHIP [address] [place] [address] Nurse Practitioner Advanced Practice Nurse 02/06/24 documented as of this encounter
--- OUTSIDE RECORDS SUMMARY | 2025-05-30 14:33 | XMS_ITS | Clinical Summary ---
Author Organization [facility] Nilesh tawny [facility] Address [address] [facility] [address] Care Team Providers Care Information Engineer Name Role Phone Sanjeev Maldonado MD Primary Care Provider [phone] Allergies Active Allergy Reactions Criticality Noted Date [...] Department Care Team Description 05/23/2025 Orders Only [facility] Oncology and Hematology - [place] [address] [address] Lit Silva MD 05/17/2025 External Device Data STL ABSTRACTION Provider, Abstract 05/17/2025 Orders Only [facility] Oncology and Hematology [place] [address] [place] [address] Lit Silva MD 05/16/2025 11:45 AM CDT Office Visit [facility] Oncology and Hematology [address] [place] [address] Lit Silva MD Chronic anemia (Primary Dx) [...] on file 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 Gender Identity Not on file Sexual Orientation [...] Description 09/20/2025 11:30 AM CDT Office Visit [facility] Oncology and Hematology [facility] [address] [facility] [address] [place] [address] Lit Silva MD [address] [facility] [address] [place] [address] Health Maintenance Due Date Last [...] lt from Last 3 Months Insurance [facility] [id number] [facility] Address: [facility] [address] [place] [address] [facility] [id number] Care Teams Information Engineer Relationship Specialty Start Date End Date Sanjeev Maldonado MD [address] [address] PCP - General Internal Medicine 01/19/20
--- OUTSIDE RECORDS SUMMARY | 2025-05-30 14:33 | XMS_ITS | Encounter Summary ---
Author Organization [facility] Address [address] [facility] [place] [address] Phone Care Team Providers Care Hospitalist Medical Director Name Role Phone Altaf Fowler DO Unavailable [phone] Sanjeev Maldonado MD Primary Care Provider Tuan Martin MD Unavailable Brad Powell MD Unavailable Helen Davis APRN, FITTER WELDER Unavailable Reason for Visit * Reason Comments Medication Refill Encounter Details Date Type Department Care Team (Late st Contact Info) Description 04/02/2022 Refill [facility] - G[facility]enterology - [place] [address] [place] [address] Nicolasa Jerez April, PAC [address] [place] [address] Medication Refill Social History Tobacco Use Types [...] on filedocumented in this encounter Care Teams Hospitalist Medical Director Relationship Specialty Start Date End Date Sanjeev Maldonado MD PCP - General Internal Medicine 02/26/17 Altaf Fowler DO Gastroenterology 01/04/16 Tuan Martin MD [address] [facility] [address] [place] [address] Cardiovascular Disease - Cardiology 08/28/22 Brad Powell MD #[address] [address] Consulting Physician Colon and Rectal Surgery 03/13/23 Helen Davis APRN, FITTER WELDER [address] [place] [address] Nurse Practitioner Advanced Practice Nurse 02/06/24 documented as of this encounter
--- OUTSIDE RECORDS SUMMARY | 2025-05-30 14:33 | XMS_ITS | Encounter Summary ---
Author Organization [facility] Address [address] [facility] [place] [address] Phone Care Team Providers Care Orthotics Assistant Name Role Phone Altaf Fowler DO Unavailable [phone] Sanjeev Maldonado MD Primary Care Provider [phone] Tuan Martin MD Unavailable Brad Powell MD Unavailable Helen Davis APRN CONFERENCE CONCIERGE Unavailable Reason for Visit * Reason Comments Medication Refill Encounter Details Date Type Department Care Team (Late st Contact Info) Description 04/16/2025 Refill [facility] - Gastroenterology - [place] [address] [place] [address] Helen Davis APRN, CONFERENCE CONCIERGE [address] [place] [address] Medication Refill Social History Tobacco Use Types [...] PM CDT Medication [facility] chronic medication standing [...] reflux documented in this encounter Care Teams Orthotics Assistant Relationship Specialty Start Date End Date Sanjeev Maldonado MD PCP - General Internal Medicine 02/26/17 Altaf Fowler DO Gastroenterology 01/04/16 Tuan Martin MD [address] [facility] [address] [place] [address] Cardiovascular Disease - Cardiology 08/28/22 Brad Powell MD #[address] [address] Consulting Physician Colon and Rectal Surgery 03/13/23 Helen Davis APRN, CONFERENCE CONCIERGE [address] [place] [address] Nurse Practitioner Advanced Practice Nurse 02/06/24 documented as of this encounter
--- OUTSIDE RECORDS SUMMARY | 2025-05-30 14:33 | XMS_ITS | Referral Summary ---
Author Organization [facility] Address [address] [place] [address] Care Team Providers Care Nurse Ob Name Role Phone Sanjeev Maldonado MD Primary Care Provider [phone] Encounters Date Type Department Care Team Description 05/11/2025 9:00 AM CDT Office Visit [facility] Cardiology [address] [place] [address] Tuan Martin MD Hypertension associated [...] on file Legal Sex Female 5:15 AM DIRECTOR WEIGHTS AND MEASURES Gender Identity Not on file Sexual Orientation Not on file Last Filed Vital Signs Vital Sign [place] Time Taken Comments Blood Pressure 112/70 05/11/2025 8:42 AM CDT Pulse 85 05/11/2025 8:42 AM CDT Temperature 36.5 C (97.7 F) 10/02/2023 8:15 AM DIRECTOR WEIGHTS AND MEASURES Respiratory Rate 16 10/02/2023 8:15 AM DIRECTOR WEIGHTS AND MEASURES Oxygen Saturation 98% 05/11/2025 8:42 AM CDT Inhaled Oxygen Concentration - - Weight 70.1 kg (154 lb 9.6 oz) 05/11/2025 8:42 A M CDT Height 160 cm (5' 3) 05/11/2025 8:42 AM CDT Body Mass Index 27.39 05/11/2025 8:42 AM CDT Plan of Treatment Not on file Medical Devices Implanted Type Area Geospatial Technologist Device Identifier Shelf Expiration Date Model / Serial / Lot [employer] Device Closure Vascade Od5 Fr Femoral Artery [id number] - [id number] Implanted:Qty: 1 on 10/02/2023 by Tuan Martin MD at [facility] 07/21/2025 700-500DX-0 [id number] / / [id number] Procedures Procedure Name Priority Date/Time Associated [...] >=60 EXTERNAL LAB SCRIBED eGFR in NonAfrican [place] >60 >=60 EXTERNAL LAB Blood specimen (specimen) 07/23/2021 Michell Hunt NP LAB BLOOD ORDERABLES Angelika doshi Result EXTERNAL LAB from Last 3 Months or Most Recently Relevant to Health Maintenance Insurance [employer] MEDICARE ADVANTAGE MEDICARE ADVANTAGE [facility] Care Teams Nurse Ob Relationship Specialty Start Date End Date Sanjeev Maldonado MD PCP - General Internal Medicine 08/30/20
--- OUTSIDE RECORDS SUMMARY | 2025-05-30 14:33 | XMS_ITS | Clinical Summary ---
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 Gender Identity Not on file Sexual Orientation Not on file Obstetrics History Last Filed Vital Signs Vital Sign [place] Time Taken Comments Blood Pressure 112/70 05/11/2025 8:42 AM CDT Pulse 85 05/11/2025 8:42 AM CDT Temperature 36.5 C (97.7 F) 10/02/2023 8:15 AM RENTAL CLERK TOOL AND EQUIPMENT Respiratory Rate 16 10/02/2023 8:15 AM RENTAL CLERK TOOL AND EQUIPMENT Oxygen Saturation 98% 05/11/2025 8:42 AM CDT [...] history exists Medical Devices Implanted Type Area Station Detective Device Identifier Shelf Expiration Date Model / Serial / Lot [employer] Device Closure Vascade Od5 Fr Femoral Artery [id number] - [id number] Implanted:Qty: 1 on 10/02/2023 by Tuan Martin MD at [facility] [employer] 07/21/2025 700-500DX-0 [id number] / / [id number] Procedures Procedure Name Priority Date/Time Associated [...] >=60 EXTERNAL LAB SCRIBED eGFR in NonAfrican Montenegrin >60 >=60 EXTERNAL LAB Blood specimen (specimen) 07/23/2021 Michell Hunt NP LAB BLOOD ORDERABLES Angelika glenda Result EXTERNAL LAB from Last 3 Months or Most Recently Relevant to Health Maintenance Insurance [facility] MEDICARE [facility]ANTAGE [facility] Address: [facility] [address] [place] [address] [place] [address] [facility] MEDICARE AD[facility]ANTAGE [facility] MEDICARE Address: [facility] [address] [place] [address] [facility] Care Teams Dietitian Research Relationship Specialty Start Date End Date Sanjeev Maldonado MD PCP - General Internal Medicine 08/30/20
--- OUTSIDE RECORDS SUMMARY | 2025-05-30 14:33 | XMS_ITS | Clinical Summary ---
Author Organization [facility] Address [address] [address] [place] [address] Phone Care Team Providers Care Manager Patient Name Role Phone Altaf Fowler DO Unavailable [phone] Sanjeev Maldonado MD Primary Care Provider [phone] Tuan Martin MD Unavailable Brad Powell MD Unavailable Helen Davis APRN, WINDERMAN Unavailable Allergies Active Allergy Reactions Criticality Noted [...] Description 05/16/2025 9:00 AM CDT [facility] [address] [place] [address] Helen Davis APRN, CNP Gastroesophageal reflux disease without esophagitis (Primary Dx) Discharge Disposition: Discharged to home or Selfcare 05/16/2025 Travel [facility] [place] [address] Helen Davis APRN, CNP 04/16/2025 [facility] [place] [address] Helen Davis APRN, CNP Medication Refill from Last 3 Months Immunizations Immunization Administration Dates Next Due Covid-19 Vaccine, Vector-nr, Rs-ad26, Pf, 0.5 Ml (elastic.io/J&J) 08/24/2021 Pneumococcal Vaccine - 13 Valent 05/20/2017 [...] this topic Medical Devices Implanted Type Area Unix Architect Device Identifier Shelf Expiration Date Model / Serial / Lot Clip 360 Resolution 235cm - [id number] Implanted:Qty: 3 on 08/18/2020 by Altaf Fowler, DO at [facility] IMPLANT [employer] 05/08/2023 [id number] / [id number] / [id number] Procedures Procedure Name Priority Date/Time Associated Diagnosis Comments COLONOSCOPY Routine 04/23/2018 from Last 3 Months or Most Recently Relevant to Health Maintenance Results * COLONOSCOPY (04/23/2018) Altaf Fowler DO PROCEDURE/MINOR SURGICAL ORDERA BLES Final Result from Last 3 Months or Most Recently Relevant to Health Maintenance Insurance [facility] MEDICARE C [facility] Care Teams Manager Patient Relationship Specialty Start Date End Date Sanjeev Maldonado MD PCP - General Internal Medicine 02/26/17 Altaf Fowler DO Gastroenterology 01/04/16 Tuan Martin MD [address] [facility] [address] [place] [address] Cardiovascular Disease - Cardiology 08/28/22 Brad Powell MD #[address] [address] Consulting Physician Colon and Rectal Surgery 03/13/23 Helen Davis APRN, WINDERMAN [address] [place] [address] Nurse Practitioner Advanced Practice Nurse 02/06/24
--- OUTSIDE RECORDS SUMMARY | 2025-05-30 14:34 | XMS_ITS | Encounter Summary ---
Author Organization [facility] Address [address] [facility] [place] [address] Phone Care Team Providers Care Cement Block Maker Name Role Phone Altaf Fowler DO Unavailable [phone] Sanjeev Maldonado MD Primary Care Provider Tuan Martin MD Unavailable Brad Powell MD Unavailable Helen Davis APRN ASBESTOS SHINGLE INSPECTOR Unavailable Reason for Visit * Reason Comments Medication Refill Encounter Details Date Type Department Care Team (Late st Contact Info) Description 05/26/2023 Refill [facility] - [place] #2 [place] [address] Helen Davis APRN, ASBESTOS SHINGLE INSPECTOR #2 [place] [address] Medication Refill Social History Tobacco Use Types [...] PM CDT Medication [facility] standing order for pediatric and adult patients. documented in this encounter Plan of Treatment Not on file documented as of this encounter Visit Diagnoses Diagnosis Gastroesophageal reflux disease without esophagitis Esophageal reflux documented in this encounter Care Teams Cement Block Maker Relationship Specialty Start Date End Date Sanjeev Maldonado MD PCP - General Internal Medicine 02/26/17 Altaf Fowler DO Gastroenterology 01/04/16 Tuan Martin MD [address] [address] Cardiovascular Disease - Cardiology 08/28/22 Brad Powell MD #[address] [address] Consulting Physician Colon and Rectal Surgery 03/13/23 Helen Davis APRN, ASBESTOS SHINGLE INSPECTOR #2 [place] [address] Nurse Practitioner Advanced Practice Nurse 02/06/24 documented as of this encounter
--- OUTSIDE RECORDS SUMMARY | 2025-05-30 14:34 | XMS_ITS | Encounter Summary ---
Author Organization [facility] Address [address] [facility] [place] [address] Phone Care Team Providers Care Escort Vehicle Driver Name Role Phone Altaf Fowler DO Unavailable [phone] Sanjeev Maldonado MD Primary Care Provider Tuan Martin MD Unavailable Brad Powell MD Unavailable Helen Davis APRN, DIRECTOR OF MARKETING OPERATIONS Unavailable Encounter Details Date Type Department Care Team (Late st Contact Info) Description 09/17/2022 [facility] 1 [place] [address] Mason Donnelly MD #2 [place] [address] Preop testing (Primary Dx) Social History Tobacco [...] Range for this test is Not Detected) [facility] ID NOW 09/23/2022 1:45 PM CDT [facility] Comment:This test was perfor med by a MOLECULAR, NON-PCR method Other NASOPHARYNGEAL STRUCTURE / Unknown Non-Phlebotomy Collection / Unknown 09/23/2022 12:30 PM CDT 09/23/2022 1:21 PM CDT Narrative [facility] - 09/23/2022 1:45 [...] information for Clinicians can be found at: https://www.fda.gov/media/168828/download Additional information for Patients can be found at: https://www.fda.gov/media/352334/download Mason Donnelly MD MICROBIOLOGY - GENERAL ORDERABL ES Final Result [facility] #1 [place] [address] documented in this encounter Visit Diagnoses Diagnosis Preop testing- Primary Preoperative examination, unspecified documented in this encounter Care Teams Escort Vehicle Driver Relationship Specialty Start Date End Date Sanjeev Maldonado MD PCP - General Internal Medicine 02/26/17 Altaf Fowler DO Gastroenterology 01/04/16 Tuan Martin MD [facility] [address] [place] [address] Cardiovascular Disease - Cardiology 08/28/22 Brad Powell MD #[address] [address] Consulting Physician Colon and Rectal Surgery 03/13/23 Helen Davis APRN, DIRECTOR OF MARKETING OPERATIONS #2 [place] [address] Nurse Practitioner Advanced Practice Nurse 02/06/24 documented as of this encounter
--- OUTSIDE RECORDS SUMMARY | 2025-05-30 14:34 | XMS_ITS | Encounter Summary ---
Author Organization [facility] Address [address] [facility] [place] [address] Phone Care Team Providers Care Orthopedic Cast Specialist Name Role Phone Altaf Fowler DO Unavailable [phone] Sanjeev Maldonado MD Primary Care Provider Tuan Martin MD Unavailable Brad Powell MD Unavailable Helen Davis APRN STRANNER Unavailable Reason for Visit * Reason Comments Medication Refill Encounter Details Date Type Department Care Team (Late st Contact Info) Description 05/25/2024 Refill [facility] - [place] #2 [place] [address] Helen Davis APRN, STRANNER #2 [place] [address] Medication Refill Social History Tobacco Use Types [...] reflux documented in this encounter Care Teams Orthopedic Cast Specialist Relationship Specialty Start Date End Date Sanjeev Maldonado MD PCP - General Internal Medicine 02/26/17 Altaf Fowler DO Gastroenterology 01/04/16 Tuan Martin MD [address] [address] Cardiovascular Disease - Cardiology 08/28/22 Brad Powell MD #[address] [address] Consulting Physician Colon and Rectal Surgery 03/13/23 Helen Davis APRN, STRANNER #2 [place] [address] Nurse Practitioner Advanced Practice Nurse 02/06/24 documented as of this encounter
--- OUTSIDE RECORDS SUMMARY | 2025-05-30 14:34 | XMS_ITS | Encounter Summary ---
Author Organization [facility] Address [address] [facility] [place] [address] Phone Care Team Providers Care Mds Coordinator Name Role Phone Altaf Fowler DO Unavailable [phone] Sanjeev Maldonado MD Primary Care Provider Tuan Martin MD Unavailable Brad Powell MD Unavailable Helen Davis APRN DISBURSEMENT CLERK Unavailable Reason for Visit * Reason Comments Medication Refill Encounter Details Date Type Department Care Team (Late st Contact Info) Description 02/01/2024 Refill [facility] - [place] #2 [place] [address] Helen Davis APRN, DISBURSEMENT CLERK #2 [place] [address] Medication Refill Social History Tobacco Use Types [...] PM CDT Medication refilled and signed [facility] medication standing order for pediatric and [...] reflux documented in this encounter Care Teams Mds Coordinator Relationship Specialty Start Date End Date Sanjeev Maldonado MD PCP - General Internal Medicine 4/5/17 Altaf Fowler DO Gastroenterology 01/04/16 Tuan Martin MD 1225 [facility] 2310 [place] [address] Cardiovascular Disease - Cardiology 08/28/22 Brad Powell MD #[address] [address] Consulting Physician Colon and Rectal Surgery 03/13/23 Helen Davis APRN, DISBURSEMENT CLERK #2 [place] [address] Nurse Practitioner Advanced Practice Nurse 02/06/24 documented as of this encounter
--- OUTSIDE RECORDS SUMMARY | 2025-05-30 14:34 | XMS_ITS | Encounter Summary ---
Author Organization [facility] Address [address] [facility] [place] [address] Phone Care Team Providers Care Fiction And Nonfiction Writer Prose Name Role Phone Altaf Fowler DO Unavailable [phone] Sanjeev Maldonado MD Primary Care Provider Tuan Mratin MD Unavailable Brad Powell MD Unavailable Helen Davis APRN COMMUNITY SERVICE SPECIALIST Unavailable Reason for Visit * Reason Comments Medication Refill Encounter Details Date Type Department Care Team (Late st Contact Info) Description 12/02/2024 Refill [facility] - [place] #2 [place] [address] Helen Davis APRN, COMMUNITY SERVICE SPECIALIST #2 [place] [address] Medication Refill Social History Tobacco Use Types [...] Sheree Shafer RN - 12/03/2024 8:29 AM VEHICLE ASSEMBLER Medication refilled and signed [facility] medication standing order for pediatric and adult patients. CLE ASSEMBLER documented in this encounter Plan of Treatment Not on file documented as of this encounter Visit Diagnoses Diagnosis Gastroesophageal reflux disease without esophagitis Esophageal reflux documented in this encounter Care Teams Fiction And Nonfiction Writer Prose Relationship Specialty Start Date End Date Sanjeev Maldonado MD PCP - General Internal Medicine 02/26/17 Altaf Fowler DO Gastroenterology 01/04/16 Tuan Martin MD [facility]25 [facility] [address] [place] [address] Cardiovascular Disease - Cardiology 08/28/22 Brad Powell MD #[address] [address] Consulting Physician Colon and Rectal Surgery 03/13/23 Helen Davis APRN, COMMUNITY SERVICE SPECIALIST #2 [place] [address] Nurse Practitioner Advanced Practice Nurse 02/06/24 documented as of this encounter
[2025-05-30 15:50] VITALS: BP 106/74; PULSE 87; RESP 18; TEMP 36.6; O2SAT 97
[2025-05-30] MEDS: ACETAMINOPHEN 325 MG TABLET 650 MG PO (17:31)
[2025-05-30] MEDS: HYDROcodone/acetaminophen (*CRX) 5-325 MG TABLET 1 TAB PO (17:32)
== END 2025-05-30 18:37 | disposition home or self-care (01) ==
PROVIDERS: Emergency Provider Physician Assistant; PCP Internal Medicine
DX: S92.351A Displaced fracture of fifth metatarsal bone, right foot, initial encounter for closed fracture (principal); W08.XXXA Fall from other furniture, initial encounter; E11.9 Type 2 diabetes mellitus without complications; Z79.4 Long term (current) use of insulin; J45.909 Unspecified asthma, uncomplicated; I10 Essential (primary) hypertension
CPT/HCPCS: 29515; 73610; 73630; 99284; A9270

== ENCOUNTER 2025-06-29 15:14 | Emergency (ER) | payer OTHER, MEDICARE, SELFPAY ==
[2025-06-29] VITALS (7 sets, daily range): BP systolic 114–122; BP diastolic 67–79; PULSE 98–130; RESP 17–19; TEMP 36.6; O2SAT 93–96
--- NOTE | ~2025-06-29 | XR_ITS ---
CHEST RADIOGRAPH CLINICAL HISTORY: palpitations . COMPARISON: 08/09/2024 TECHNIQUE: Single portable view of the chest. FINDINGS The cardiomediastinal silhouette is unremarkable. The lungs are clear. IMPRESSION: No focal infiltrate or effusion. Reviewed, dictated and finalized at location A.
--- NOTE | ~2025-06-29 | CT_ITS ---
EXAMINATION: CTA chest PE abdomen pel DATE: 06/29/2025 16:52 INDICATION: Shortness of breath, chest pain and right lower quadrant abdominal pain. TECHNIQUE: Computed tomography (CT) pulmonary angiogram of the chest was performed with 100 mL Omnipa que-350 intravenous contrast. Additional 3D reconstructions utilizing coronal maximum intensity proje ction (MIP) were performed. CT of the abdomen and pelvis was performed with intravenous contrast util izing the same contrast bolus following a short delay. Automated exposure control and iterative recon struction technique were employed. The dose-length product was 801.04 mGy-cm. COMPARISON: None FINDINGS: Chest: No pulmonary embolism. No interval change in a few small pleural-based nodules, the largest measuring 5 mm along the lateral right upper lobe and a couple 4 mm nodule in the left and right major fissure s likely representing a fissural lymph nodes. There is been significant interval improvement in a few small regions of subtle interstitial and groundglass opacities which are most likely infectious/infl ammatory in etiology. No new airspace opacities or pneumonia or enlarging pulmonary nodules. No pulmo nary edema or pleural effusion. Heart size is normal. Small amount of atherosclerotic coronary artery calcific lesion. Decrease in size of a small pericardial effusion. Thoracic aorta is normal in calib er with no dissection. No pathologically enlarged thoracic lymphadenopathy. Mild to moderate lower th oracic predominant spondylosis. Abdomen/pelvis: Unchanged mild dilation the common bile duct which measures up to 9 mm which is within normal limits post cholecystectomy with surgical clips the gallbladder fossa. No intrahepatic biliary ductal dilati on. Overall liver size appears normal however the left hepatic lobe is relatively small and the right hepatic lobe extends caudally to the level of the iliac crest. Spleen, pancreas, bilateral adrenal g lands and kidneys are normal. Bowels including appendix are normal. Bladder distended but otherwise u nremarkable. The uterus and left ovary are not identified and have likely been surgically resected. R ight ovary is unremarkable. No free intraperitoneal gas or fluid. No pathologically enlarged abdomina l or pelvic lymphadenopathy. Mild lumbar spondylosis. IMPRESSION: 1. Interval improvement in scattered bowel subtle interstitial and groundglass opacities in both lung s which were likely infectious/inflammatory etiology including pneumonia/respiratory bronchiolitis or hypersensitivity pneumonitis. No pulmonary embolism or other acute cardiopulmonary disease. 2. Unchanged small pericardial effusion. 3. No acute intra-abdominal/pelvic process. Reviewed, dictated and finalized at location A. IMPRESSION: 1. Interval improvement in scattered bowel subtle interstitial and groundglass opacities in both lungs which were likely infectious/inflammatory etiology incl uding pneumonia/respiratory bronchiolitis or hypersensitivity pneumonitis. No p ulmonary embolism or other acute cardiopulmonary disease. 2. Unchanged small pericardial effusion. 3. No acute intra-abdominal/pelvic process.
--- NOTE | 2025-06-29 15:18 | ECG_ITS ---
Test Date: 2025-06-29 15:29:38 Measurements Intervals [place] Rate: 128 P: 50 MD: 214 QRS: -3 QRSD: 89 T: 13 QT: 399 QTc: 583 Interpretive Statements SINUS TACHYCARDIA LOW QRS VOLTAGE IN LIMB LEADS POSSIBLE ANTERIOR MYOCARDIAL INFARCTION , OF INDETERMINATE AGE BORDERLINE ST-T WAVE ABNORMALITY- INFERIOR LEADS BASELINE ARTIFACT- I, II, III, AVR, AVL, AVF, V1-V6 ABNORMAL ECG Compared to ECG 08/09/2024 19:17:56 HEART RATE HAS INCREASED Electronically Signed On 06-29-2025 15:31:37 CDT by Thom Pack D.O.
--- OUTSIDE RECORDS SUMMARY | 2025-06-29 15:20 | XMS_ITS | Encounter Summary ---
Author Organization [facility] Address [address] [facility] [place] [address] Phone Care Team Providers Care Head Of Product Name Role Phone Altaf Fowler DO Unavailable [phone] Sanjeev Maldonado MD Primary Care Provider Tuan Martin MD Unavailable Brad Powell MD Unavailable Helen Davis APRN, SALARY AND WAGE ADMINISTRATOR Unavailable Reason for Visit * Reason Comments Medication Refill Encounter Details Date Type Department Care Team (Late st Contact Info) Description 04/02/2022 Refill [facility] - [place] #2 [place] [id number] Nicolasa Jerez April, PAC [address] [place] [address] Medication Refill Social History Tobacco Use Types [...] on filedocumented in this encounter Care Teams Head Of Product Relationship Specialty Start Date End Date Sanjeev Maldonado MD PCP - General Internal Medicine 02/26/17 Altaf Fowler DO Gastroenterology 01/04/16 Tuan Martin MD [address] [facility] [address] [place] [address] Cardiovascular Disease - Cardiology 08/28/22 Brad Powell MD #[address] [address] Consulting Physician Colon and Rectal Surgery 03/13/23 Helen Davis APRN, SALARY AND WAGE ADMINISTRATOR #2 [place] [address] Nurse Practitioner Advanced Practice Nurse 02/06/24 documented as of this encounter
--- OUTSIDE RECORDS SUMMARY | 2025-06-29 15:20 | XMS_ITS | Encounter Summary ---
Author Organization [facility] Address [address] [facility] [address] Phone Care Team Providers Care Secondary English Teacher Name Role Phone Altaf Fowler DO Unavailable [phone] Sanjeev Maldonado MD Primary Care Provider [phone] Tuan Martin MD Unavailable Brad Powell MD Unavailable Helen Davis APRN DIRECTOR DRUG SAFETY Unavailable Reason for Visit * Reason Comments Medication Refill Encounter Details Date Type Department Care Team (Late st Contact Info) Description 04/16/2025 Refill [facility] - [place] #2 [place] [address] Helen Davis APRN, DIRECTOR DRUG SAFETY #2 [place] [address] Medication Refill Social History Tobacco Use Types [...] PM CDT Medication [facility]illed and signed [facility] medication standing order for pediatric and [...] reflux documented in this encounter Care Teams Secondary English Teacher Relationship Specialty Start Date End Date Sanjeev Maldonado MD PCP - General Internal Medicine 02/26/17 Altaf Fowler DO Gastroenterology 01/04/16 Tuan Martin MD [facility]25 [facility] [address] [place] [address] Cardiovascular Disease - Cardiology 08/28/22 Brad Powell MD #[address] [address] Consulting Physician Colon and Rectal Surgery 03/13/23 Helen Davis APRN, DIRECTOR DRUG SAFETY #2 [place] [address] Nurse Practitioner Advanced Practice Nurse 02/06/24 documented as of this encounter
--- OUTSIDE RECORDS SUMMARY | 2025-06-29 15:20 | XMS_ITS | Clinical Summary ---
Author Organization [facility] Address [address] [facility] [address] [place] [address] Phone Care Team Providers Care Yarder Boss Name Role Phone Altaf Fowler DO Unavailable [phone] Sanjeev Maldonado MD Primary Care Provider [phone] Tuan Martin MD Unavailable Brad Powell MD Unavailable Helen Davis APRN, DINKEY ENGINE FIRER Unavailable Allergies Active Allergy Reactions Criticality Noted [...] Description 05/16/2025 9:00 AM CDT [facility] #2 [place] [address] Helen Davis APRN, CNP Gastroesophageal reflux disease without esophagitis (Primary Dx) Discharge Disposition: Discharged to home or Selfcare 05/16/2025 Travel 04/28/2025 [facility]2 [place] [address] Helen Davis APRN, CNP 04/16/2025 [facility] [place] [address] Helen Davis APRN, CNP Medication Refill from Last 3 Months Immunizations Immunization Administration Dates Next Due Covid-19 Vaccine, Vector-nr, Rs-ad26, Pf, 0.5 Ml (tarpipe/J&J) 08/24/2021 Pneumococcal Vaccine - 13 Valent 05/20/2017 [...] Immunization (50+ years) (2 of 2 - PPSV23, PCV20, or PCV21) 07/15/2017 05/20/2017 SARS-COV-2 Immunization (2 - season) [...] this topic Medical Devices Implanted Type Area Bowling Ball Assembler Device Identifier Shelf Expiration Date Model / Serial / Lot Clip 360 Resolution 235cm - [id number] Implanted:Qty: 3 on 08/18/2020 by Altaf Fowler, at [facility] IMPLANT [employer] 05/08/2023 [id number] / [id number] / [id number] Procedures Procedure Name Priority Date/Time Associated Diagnosis Comments COLONOSCOPY Routine 04/23/2018 from Last 3 Months or Most Recently Relevant to Health Maintenance Results * COLONOSCOPY (04/23/2018) Altaf Fowler DO PROCEDURE/MINOR SURGICAL ORDERA BLES Final Result from Last 3 Months or Most Recently Relevant to Health Maintenance Insurance [facility] MED[facility] C [employer] Care Teams Yarder Boss Relationship Specialty Start Date End Date Sanjeev Maldonado MD PCP - General Internal Medicine 02/26/17 Altaf Fowler DO Gastroenterology 01/04/16 Tuan Martin MD 1225 [facility] [address] [place] [address] Cardiovascular Disease - Cardiology 08/28/22 Brad Powell MD #[address] [address] Consulting Physician Colon and Rectal Surgery 03/13/23 Helen Davis APRN, DINKEY ENGINE FIRER #2 [place] [address] Nurse Practitioner Advanced Practice Nurse 02/06/24
--- OUTSIDE RECORDS SUMMARY | 2025-06-29 15:20 | XMS_ITS | Encounter Summary ---
Author Organization [facility] Address [address] [facility] [place] [address] Phone Care Team Providers Care Stock Clipper Name Role Phone Altaf Fowler DO Unavailable [phone] Sanjeev Maldonado MD Primary Care Provider Tuan Martin MD Unavailable Brad Powell MD Unavailable Helen Davis APRN, COMMERCIAL SALES DIRECTOR Unavailable Reason for Visit * Reason Comments Medication Refill Encounter Details Date Type Department Care Team (Late st Contact Info) Description 07/04/2022 Refill [facility] - [place] #2 [place] [address] Nicolasa Jerez April, PAC [address] [place] [address] Medication Refill Social History Tobacco Use Types [...] AM CDT Medication [facility] order for pediatric and adult patients. * Telephone Encounter - Sheree Shafer RN - 07/08/2022 9:35 AM CDT documented in this encounter Plan of Treatment Not on file documented as of this encounter Visit Diagnoses Not on filedocumented in this encounter Care Teams Stock Clipper Relationship Specialty Start Date End Date Sanjeev Maldonado MD PCP - General Internal Medicine 02/26/17 Altaf Fowler DO Gastroenterology 01/04/16 Tuan Martin MD 1225 [facility] [address] [place] [address] Cardiovascular Disease - Cardiology 08/28/22 Brad Powell MD #[address] [address] Consulting Physician Colon and Rectal Surgery 03/13/23 Helen Davis APRN, COMMERCIAL SALES DIRECTOR #2 [place] [address] Nurse Practitioner Advanced Practice Nurse 02/06/24 documented as of this encounter
--- OUTSIDE RECORDS SUMMARY | 2025-06-29 15:21 | XMS_ITS | Clinical Summary ---
Author Organization [facility] Address [address] [facility] [address] Care Team Providers Care Manager Privacy Name Role Phone Sanjeev Maldonado MD Primary Care Provider Allergies Active Allergy Reactions Criticality Noted Date [...] Encounters Date Type Department Care Team Description 06/28/2025 External Device Data STL ABSTRACTION Provider, Abstract 05/23/2025 Orders Only [facility] - [place] [address] [place] [address] Lit Silva MD 05/17/2025 External Device Data STL ABSTRACTION Provider, Abstract 05/17/2025 Orders Only [facility] [address] [place] [address] Lit Silva MD 05/16/2025 11:45 AM CDT Office Visit [facility] [address] [place] [address] Lit Silva MD Chronic anemia (Primary Dx) [...] on file Legal Sex Female 2:43 PM AREA CAPTAIN Gender Identity Not on file Sexual Orientation [...] Description 09/20/2025 11:30 AM CDT Office Visit [facility] [place] [address] [facility] [address] [place] [address] Lit Silva MD [address] [facility] [address] [place] [address] Health Maintenance Due Date Last [...] Resu lt from Last [address] [facility] [id number] [facility] Address: [address] [id number] Care Teams Manager Privacy Relationship Specialty Start Date End Date Sanjeev Maldonado MD [address] [facility] 4 [place] [address] PCP - General Internal Medicine 01/19/20
--- OUTSIDE RECORDS SUMMARY | 2025-06-29 15:21 | XMS_ITS | Encounter Summary ---
Author Organization [facility] Address [address] [facility] [place] [address] Phone Care Team Providers Care Education Professor Name Role Phone Altaf Fowler DO Unavailable [phone] Sanjeev Maldonado MD Primary Care Provider Tuan Martin MD Unavailable Brad Powell MD Unavailable Helen Davis APRN LABEL OPERATOR Unavailable Reason for Visit * Reason Comments Medication Refill Encounter Details Date Type Department Care Team (Late st Contact Info) Description 05/26/2023 Refill [facility] - [place] #2 [place] [address] Helen Davis APRN, LABEL OPERATOR #2 [place] [address] Medication Refill Social History Tobacco Use Types [...] CDT Medication ref[facility] and signed [facility] order for pediatric and adult patients. documented in this encounter Plan of Treatment Not on file documented as of this encounter Visit Diagnoses Diagnosis Gastroesophageal reflux disease without esophagitis Esophageal reflux documented in this encounter Care Teams Education Professor Relationship Specialty Start Date End Date Sanjeev Maldonado MD PCP - General Internal Medicine 02/26/17 Altaf Fowler DO Gastroenterology 01/04/16 Tuan Martin MD [address] [address] Cardiovascular Disease - Cardiology 08/28/22 Brad Powell MD #[address] [address] Consulting Physician Colon and Rectal Surgery 03/13/23 Helen Davis APRN, LABEL OPERATOR #2 [place] [address] Nurse Practitioner Advanced Practice Nurse 02/06/24 documented as of this encounter
--- OUTSIDE RECORDS SUMMARY | 2025-06-29 15:21 | XMS_ITS | Encounter Summary ---
Author Organization [facility] Address [address] [facility] [place] [address] Phone Care Team Providers Care Locomotive Boilermaker Name Role Phone Altaf Fowler DO Unavailable [phone] Sanjeev Maldonado MD Primary Care Provider Tuan Martin MD Unavailable Brad Powell MD Unavailable Helen Davis APRN, BUSINESS LAW PROFESSOR Unavailable Encounter Details Date Type Department Care Team (Late st Contact Info) Description 09/17/2022 [facility] 1 [place] [address] Mason Donnelly MD #2 [place] [address] Preop testing (Primary Dx) Social History Tobacco [...] Range for this test is Not Detected) [facility] G[facility] ID NOW 09/23/2022 1:45 PM CDT [facility] Comment:This test was perfor med by a MOLECULAR, NON-PCR method Other NASOPHARYNGEAL STRUCTURE / Unknown Non-Phlebotomy Collection / Unknown 09/23/2022 12:30 PM CDT 09/23/2022 1:21 PM CDT Narrative [facility] 09/23/2022 1:45 PM CDT [...] information for Clinicians can be found at: https://www.fda.gov/media/392912/download Additional information for Patients can be found at: https://www.fda.gov/media/264486/download Mason Donnelly MD MICROBIOLOGY - GENERAL ORDERABL ES Final Result [facility] #1 [place] [address] documented in this encounter Visit Diagnoses Diagnosis Preop testing- Primary Preoperative examination, unspecified documented in this encounter Care Teams Locomotive Boilermaker Relationship Specialty Start Date End Date Sanjeev Maldonado MD PCP - General Internal Medicine 02/26/17 Altaf Fowler DO Gastroenterology 01/04/16 Tuan Martin MD [facility]25 [facility] [address] [place] [address] Cardiovascular Disease - Cardiology 08/28/22 Brad Powell MD #[address] [address] Consulting Physician Colon and Rectal Surgery 03/13/23 Helen Davis APRN, BUSINESS LAW PROFESSOR #2 [place] [address] Nurse Practitioner Advanced Practice Nurse 02/06/24 documented as of this encounter
--- OUTSIDE RECORDS SUMMARY | 2025-06-29 15:21 | XMS_ITS | Encounter Summary ---
Author Organization [facility] Address [address] [facility] [place] [address] Phone Care Team Providers Care Talent Engineer Name Role Phone Altaf Fowler DO Unavailable [phone] Sanjeev Maldonado MD Primary Care Provider [phone] Tuan Martin MD Unavailable Brad Powell MD Unavailable Helen Davis APRN BILINGUAL ELEMENTARY SCHOOL TEACHER Unavailable Reason for Visit * Reason Comments Medication Refill Encounter Details Date Type Department Care Team (Late st Contact Info) Description 02/01/2024 Refill [facility] - [place] #2 [place] [address] Helen Davis APRN, BILINGUAL ELEMENTARY SCHOOL TEACHER #2 [place] [address] Medication Refill Social History Tobacco Use Types [...] PM CDT Medication refilled and signed [facility] [place] [place] chronic medication standing order for pediatric and [...] reflux documented in this encounter Care Teams Talent Engineer Relationship Specialty Start Date End Date Sanjeev Maldonado MD PCP - General Internal Medicine 4/5/17 Altaf Fowler DO Gastroenterology 01/04/16 Tuan Martin MD [address] [facility] [address] [place] [address] Cardiovascular Disease - Cardiology 08/28/22 Brad Powell MD #[address] [address] Consulting Physician Colon and Rectal Surgery 03/13/23 Helen Davis APRN, BILINGUAL ELEMENTARY SCHOOL TEACHER #2 [place] [address] Nurse Practitioner Advanced Practice Nurse 02/06/24 documented as of this encounter
--- OUTSIDE RECORDS SUMMARY | 2025-06-29 15:21 | XMS_ITS | Clinical Summary ---
Author Organization [facility] Address [address] [place] [address] Care Team Providers Care [employer] Physical Education Teacher Name Role Phone Sanjeev Maldonado MD Primary Care Provider [phone] Allergies Active Allergy Reactions Criticality Noted Date [...] 3 (three) times a day 2 Active empagliflozin (JARDIANCE) 10 mg tablet Take [...] SEE ATTACHED FOR DETAILED DIRECTIONS 4 Active aspirin 81 mg enteric coated tablet TAKE 1 TABLET BY MOUTH EVERY DAY 90 tablet 3 5 Active amLODIPine (NORVASC) 2.5 mg tablet Take 1 tablet (2.5 mg total) by mouth daily 90 tablet 6 5 05/11/20 26 Active cilostazoL (PLETAL) 50 mg tablet TAKE 1 TABLET BY MOUTH TWICE A DAY 180 tablet 3 5 Active Active Problems Problem Noted Date Diagnosed Date PAD (peripheral artery disease) 08/27/2023 Raised antibody titer 09/06/2014 Encounters Date Type Department Care Team Description 05/11/2025 9:00 AM CDT Office Visit [facility] Cardiology [address] [place] [address] Tuan Martin MD Hypertension associated [...] Hx Other Medical partial hystere ctomy; Comments: 04/02/2016 - Hyperlipidemia Diabetes mellitus (HCC) Sleep [...] on file Legal Sex Female 5:15 AM HAND SPRING REPAIRER HELPER Gender Identity Not on file Sexual Orientation Not on file Obstetrics History Last Filed Vital Signs Vital Sign Reading Time Taken Comments Blood Pressure 112/70 05/11/2025 8:42 AM CDT Pulse 85 05/11/2025 8:42 AM CDT Temperature 36.5 C (97.7 F) 10/02/2023 8:15 AM HAND SPRING REPAIRER HELPER Respiratory Rate 16 10/02/2023 8:15 AM HAND SPRING REPAIRER HELPER Oxygen Saturation 98% 05/11/2025 8:42 AM CDT [...] 5 season) 2024 08/24/2021 Influenza Vaccine (#1) 2025 Lipid Panel 05/11/2026 05/11/2025, 04/24, 04/30/2023, Additional history exists Medical Devices Implanted Type Area Fermenter Helper Device Identifier Shelf Expiration Date Model / Serial / Lot [employer] Device Closure Vascade Od5 Fr Femoral Artery [id number] - [id number] Implanted:Qty: 1 on 10/02/2023 by Tuan Martin MD at [facility] [employer] [facility] 07/21/2025 [id number] / / [id number] Procedures Procedure Name Priority Date/Time Associated [...] >=60 EXTERNAL LAB SCRIBED eGFR in NonAfrican Malagasy >60 >=60 EXTERNAL LAB Blood specimen (specimen) 07/23/2021 Michell Hunt NP LAB BLOOD ORDERABLES Angelika l Result Performing Organization Address City/State/[facility] Co de Phone Number EXTERNAL LAB from Last 3 Months or Most Recently Relevant to Health Maintenance Insurance [facility] MEDICARE ADVANT[facility] MEDICARE Address: [facility] [address] [place] [address] [facility] MEDICARE ADVANTAGE [facility] MEDICARE Address: [address] [address] [place] [address] [facility] HMO/PPO Address: [address] [address] [place] [address] Care Teams High School Physical Education Teacher Relationship Specialty Start Date End Date Sanjeev Maldonado MD PCP - General Internal Medicine 08/30/20
--- OUTSIDE RECORDS SUMMARY | 2025-06-29 15:21 | XMS_ITS | Encounter Summary ---
Author Organization [facility] Address [address] [facility] [place] [address] Phone Care Team Providers Care Casting Repairer Name Role Phone Altaf Fowler DO Unavailable [phone] Sanjeev Maldonado MD Primary Care Provider [phone] Tuan Martin MD Unavailable Brad Powell MD Unavailable Helen Davis APRN BOSS MINER Unavailable Reason for Visit * Reason Comments Medication Refill Encounter Details Date Type Department Care Team (Late st Contact Info) Description 05/25/2024 Refill [facility] - [facility] - [place] #2 [place] [address] Helen Davis APRN, BOSS MINER [address]2 [place] [address] Medication Refill Social History Tobacco Use Types [...] AM CDT Medication refilled and signed per [facility] [place] medication standing order for pediatric and adult patients. documented in this encounter Plan of Treatment Not on file documented as of this encounter Visit Diagnoses Diagnosis Gastroesophageal reflux disease without esophagitis Esophageal reflux documented in this encounter Care Teams Casting Repairer Relationship Specialty Start Date End Date Sanjeev Maldonado MD PCP - General Internal Medicine 02/26/17 Altaf Fowler DO Gastroenterology 01/04/16 Tuan Martin MD [address] [address] Cardiovascular Disease - Cardiology 08/28/22 Brad Powell MD #[address] [address] Consulting Physician Colon and Rectal Surgery 03/13/23 Helen Davis APRN, BOSS MINER [address]2 [place] [address] Nurse Practitioner Advanced Practice Nurse 02/06/24 documented as of this encounter
--- OUTSIDE RECORDS SUMMARY | 2025-06-29 15:21 | XMS_ITS | Encounter Summary ---
Author Organization [facility] Address [address] [facility] [place] [address] Phone Care Team Providers Care Cook Helper Dessert Name Role Phone Altaf Fowler DO Unavailable [phone] Sanjeev Maldonado MD Primary Care Provider Tuan Martin MD Unavailable Brad Powell MD Unavailable Helen Davis APRN RESIDENT MEDICAL OFFICER Unavailable Reason for Visit * Reason Comments Medication Refill Encounter Details Date Type Department Care Team (Late st Contact Info) Description 12/02/2024 Refill [facility] - [facility]ology - [place] #2 [place] [address] Helen Davis APRN, RESIDENT MEDICAL OFFICER #2 [place] [address] Medication Refill Social History Tobacco Use Types [...] Sheree Shafer RN - 12/03/2024 8:29 AM GUIDE CRUISE Medication [facility] [place] [facility] order for pediatric and adult patients. E CRUISE documented in this encounter Plan of Treatment Not on file documented as of this encounter Visit Diagnoses Diagnosis Gastroesophageal reflux disease without esophagitis Esophageal reflux documented in this encounter Care Teams Cook Helper Dessert Relationship Specialty Start Date End Date Sanjeev Maldonado MD PCP - General Internal Medicine 02/26/17 Altaf Fowler DO Gastroenterology 01/04/16 Tuan Martin MD [address] [facility] [address] [place] [address] Cardiovascular Disease - Cardiology 08/28/22 Brad Powell MD #[address] [address] Consulting Physician Colon and Rectal Surgery 03/13/23 Helen Davis APRN, RESIDENT MEDICAL OFFICER #2 [place] [address] Nurse Practitioner Advanced Practice Nurse 02/06/24 documented as of this encounter
--- OUTSIDE RECORDS SUMMARY | 2025-06-29 15:21 | XMS_ITS | Encounter Summary ---
Author Organization [facility] Address [address] [place] [address] Care Team Providers Care Steam Powerplant Supervisor Name Role Phone Sanjeev Maldonado MD Primary Care Provider [phone] Encounter Details Date Type Department Care Team (Late st Contact Info) Description 06/28/2025 External Device Data ST[place] ABSTRACTION Provider, Abstract NO ADDRESS ON FILE Social History Tobacco Use Types Packs/Day Years Used Date Smoking Tobacco: Never Smokeless Tobacco: Never Alcohol Use Standard Drinks/Week Comments Never 0 (1 standard drink = 0.6 oz pur e alcohol) Comments No Sex and Gender Information Value Date Recorded Sex Assigned at Not on file Legal Sex Female 2:43 PM PREP ROOM SUPERVISOR Gender Identity Not on file Sexual Orientation Not on file documented as of this encounter Plan of Treatment Upcoming Encounters Date Type Department Care Team (Late st Contact Info) Description 09/20/2025 11:30 AM CDT Office Visit [facility] Oncology and Hematology - [place] [address] [place] [address] [address] [place] [address] [place] [address] [place] [address] [address] [place] [address] documented as of this encounter Visit Diagnoses Not on filedocumented in this encounter Care Teams Steam Powerplant Supervisor Relationship Specialty Start Date End Date Sanjeev Maldonado MD [address] [facility] [address] [place] [address] PCP - General Internal Medicine 01/19/20 documented as of this encounter
[2025-06-29 15:46] LABS: Hematocrit 35.1 % (37.0-47.0); Hemoglobin 11.5 g/dL (12.0-15.0); Immature Granulocyte Percent A 0.3 % (0-0.5); Lymphocytes Absolute Auto 1.62 K/mm3 (0.9-3.2); Mean Corpuscular HGB Conc 32.8 g/dl (32-36); Mean Corpuscular Hemoglobin 27.6 pg (26-34); Mean Corpuscular Volume 84.2 fl (80-100); Nucleated Red Blood Cells Absolute Auto 0.000 K/mm3 (0.0-0.012); Nucleated Red Blood Cells Perc 0.0 % (0.0-0.2); Platelet Count Result 218 k/mm3 (150-375); Red Blood Count 4.17 M/mm3 (4.2-5.4); White Blood Count 6.5 K/mm3 (4.5-10.0)
--- NOTE | 2025-06-29 15:50 | ED_ITS ---
HPI - General Adult General Chief complaint: Arrhythmia/Palpitations Stated complaint: sob, elevated HR Time Seen by Provider: 06/29/25 15:37 History of Present Illness HPI narrative: This is a 59-year-old female presenting ED with chief complaint chest pain and shortness of breath. Patient says for last 3 days she has felt like there was a ?brick on her chest. ?. He is nonradiating 6/10 intensity. Pain is worse with exertion. She has denied fevers URI symptoms nausea vomiting or diarrhea. She does have right lower quadrant pain which she says maybe because she is for the bathroom. Patient broke her foot 5 weeks ago is in a walking boot. She also has left calf. No history of DVT PE. Related Data Home Medications ?Medication ?Instructions ?Recorded ?Confirmed ?Last Taken ?Type atorvastatin 20 mg tablet 20 mg PO DAILY 06/21/20 02/02/25 07/01/23 21:00 History fluoxetine 20 mg tablet 20 mg PO DAILY 06/21/20 02/02/25 07/02/23 09:00 History gabapentin 300 mg capsule 300 mg PO BID 06/21/20 02/02/25 07/02/23 09:00 History metformin 1,000 mg tablet 2,000 mg PO BID 06/21/20 02/02/25 07/02/23 09:00 History metoprolol succinate 25 mg 25 mg PO BID 06/21/20 02/02/25 07/02/23 09:00 History tablet,extended release 24 hr magnesium 500 mg tablet 15 mg PO BID 09/13/20 02/02/25 07/02/23 09:00 History allopurinol 100 mg tablet 100 mg PO DAILY 08/29/21 02/02/25 07/01/23 21:00 History empagliflozin 10 mg tablet 25 mg PO HS 07/02/23 02/02/25 07/01/23 21:00 History (Jardiance) insulin glargine 100 unit/mL 10 unit subcut HS 03/25/24 02/02/25 Unknown History subcutaneous solution (Lantus U-100 Insulin) insulin glargine 100 unit/mL 15 unit subcut QAM 03/25/24 02/02/25 Unknown History subcutaneous solution (Lantus U-100 Insulin) insulin lispro 100 unit/mL 1 sliding scale dose subcut 03/25/24 02/02/25 Unknown History subcutaneous solution (Humalog USEASDIRECTD U-100 Insulin) Allergies Allergy/AdvReac Type Severity Reaction Status Date / Time codeine Allergy Unknown cold sores Verified 03/02/25 20:26 diphenhydramine Allergy Unknown BREAKS ME Verified 03/02/25 20:26 OUT doxycycline Allergy Unknown Nausea Verified 03/02/25 20:26 guaifenesin (Entex T) Allergy Unknown Skin Verified 03/02/25 20:26 Reaction naproxen Allergy Unknown Unknown Verified 03/02/25 20:26 Penicillins Allergy Unknown Unknown Verified 03/02/25 20:26 prednisone Allergy Unknown Unknown Verified 03/02/25 20:26 pseudoephedrine (Entex T) Allergy Unknown Skin Verified 03/02/25 20:26 Reaction ibuprofen AdvReac Mild nausea Verified 03/02/25 20:26 METOCLOPRAMIDE HCL Allergy Mild INTERACTS Uncoded 03/02/25 20:26 WITH PROZAC PMFSH Past Medical History Medical History (Updated 06/29/25 @ 20:48 by Heber Christian MD) Non-insulin dependent diabetes mellitus Asthma Hypertension Anemia Surgical History Surgical History (Updated 02/02/25 @ 14:29 by Mitra Jordan CMA) H/O: hysterectomy History of cholecystectomy History of left knee replacement Family History Family History (Updated 02/02/25 @ 14:29 by Mitra Jordan CMA) Sibling Family history of elevated blood lipids Family history of diabetes mellitus in first degree relative Mother Family history of diabetes mellitus in first degree relative Pulmonary embolism Father Family history of congestive heart failure Other Cerebrovascular accident Diabetes mellitus Family history of allergic disorder Family history of cardiovascular disease Family history of kidney disease Hypertension Social History Social History (Updated 02/02/25 @ 14:34 by Mary Mendoza CMA) Smoking status: Never smoker Alcohol intake: never Substance use: never Do You Feel Safe in your Home?: Yes Lack of Transportation: No Lack of Food: Never True Current Housing: I Have Housing Concerned About Future Housing: No Difficulty Paying Gas/Electric Bills: No Difficulty Paying for Meds: No Currently Unemployed: No Education: High School Diploma/GED Difficulty w/ Childcare or Family Care: Decline to Answer Gender identity (if verbalized by the patient): Female Spiritual care concerns: No Exam 2 Narrative: APPEARANCE: No apparent distress. Head: atraumatic. EYES: EOMI, NOSE: Atraumatic NECK: Trachea midline RESPIRATORY: No increased rate of breathing clear to auscultation CARDIOVASCULAR: Tachycardic, no peripheral edema, chest pain is reproducible with a crowing rooster manuever ABDOMINAL: Non-distended tenderness palpation the right lower quadrant MUSCULOSKELETAl: No obvious deformities right foot is in a walking boot NEURO: Alert. Moving 4/4 extremities SKIN:: Warm, dry. Normal color PSYCHIATRIC: Normal affect Course Vital Signs Vital signs: Vital Signs Temperature 97.8 F 06/29/25 15:44 Pulse Rate 130 H 06/29/25 15:44 Respiratory Rate 19 06/29/25 15:44 Blood Pressure 122/79 06/29/25 15:44 Pulse Oximetry 93 06/29/25 15:44 Oxygen Delivery Room Air 06/29/25 15:44 Temperature 97.8 F 06/29/25 15:44 Pulse Rate 98 06/29/25 20:41 Respiratory Rate 19 06/29/25 20:41 Blood Pressure 115/72 06/29/25 20:41 Pulse Oximetry 96 06/29/25 20:41 Oxygen Delivery Room Air 06/29/25 15:44 Medical Decision Making [facility] Narrative Medical decision making narrative: -Course: 59-year-old female presenting with chest pain. Pain is reproducible with the the crowing rooster manuever. Patient was tachycardic on arrival so a broader workup was ordered including a CT PE. CT PE did not reveal pulmonary embolism. Showed some very subtle/mild and improving improving ground-glass opacities throughout the lungs. I do not believe this is causing her symptoms. Initial EKG showed sinus tachycardia. Troponins were negative x2. BNP is undetectable. White count is 6.5. The rest of her laboratory studies within normal limits. Her family arrived after the initial interview and said the patient does not drink any water at all if she can help it. Patient was given fluid resuscitation with significant improvement in her tachycardia. She was also given her home dose of metoprolol which she had not taken yet. Her heart rate then improved to a normal rate. On re-evaluation patient is resting comfortably. Pain is atypical and reproducible. Troponins negative x2 with no ischemic changes in EKG. Vital signs have improved w/ fluids. I am comfortable discharging the patient home to follow-up with her primary care physician. She should return if she develops any new or worsening symptoms. -DDX includes but is not limited to: PE, pneumonia, dehydration sepsis UTI Vital Signs Vital Signs: Vital Signs Temperature 97.8 F 06/29/25 15:44 Pulse Rate 130 H 06/29/25 15:44 Respiratory Rate 19 06/29/25 15:44 Blood Pressure 122/79 06/29/25 15:44 Pulse Oximetry 93 06/29/25 15:44 Oxygen Delivery Room Air 06/29/25 15:44 Temperature 97.8 F 06/29/25 15:44 Pulse Rate 98 06/29/25 20:41 Respiratory Rate 19 06/29/25 20:41 Blood Pressure 115/72 06/29/25 20:41 Pulse Oximetry 96 06/29/25 20:41 Oxygen Delivery Room Air 06/29/25 15:44 Lab Data 06/29/25 15:31 06/29/25 15:31 Labs: Lab Results 06/29/25 06/29/25 06/29/25 Range/Units 15:31 16:04 17:59 WBC 6.5 (4.5-10.0) K/mm3 RBC 4.17 L (4.2-5.4) M/mm3 Hgb 11.5 L (12.0-15.0) g/dL Hct 35.1 L (37.0-47.0) % MCV 84.2 (80-100) fl MCH 27.6 (26-34) pg MCHC 32.8 (32-36) g/dl RDW 13.7 (11.5-14.5) % Plt Count 218 (150-375) k/mm3 MPV 8.9 (7.4-10.4) fl Immature Gran % (Auto) 0.3 (0-0.5) % Neut % (Auto) 66.6 (45.5-73.1) % Lymph % (Auto) 24.9 (18.3-44.2) % Crowley % (Auto) 6.0 (2.6-8.5) % Eos % (Auto) 1.7 (0-4.4) % Baso % (Auto) 0.5 (0.2-1.2) % Lymph # (Auto) 1.62 (0.9-3.2) K/mm3 Crowley # (Auto) 0.4 (0.1-0.6) K/mm3 Eos # (Auto) 0.1 (0-0.3) K/mm3 Baso # (Auto) 0.0 (0.0-0.1) K/mm3 Abs Immat Gran (auto) 0.02 (0.00-0.031) K/mm3 Absolute Neuts (auto) 4.3 (1.3-6.7) K/mm3 Absolute Nucleated RBC 0.000 (0.0-0.012) K/mm3 Nucleated RBC % 0.0 (0.0-0.2) % PT 13.9 (11.1-14.7) Seconds INR 1.1 APTT 27.0 (22.3-36.8) Seconds Sodium 136 L (137-145) mmol/L Potassium 3.5 (3.4-5.0) mmol/L Chloride 105 (98-107) mmol/L Carbon Dioxide 19 L (22-30) mmol/L Anion Gap 12 (4-12) mmol/L BUN 8 D (7-17) mg/dL Creatinine 0.66 L (0.7-1.0) mg/dL Estim Creat Clear Calc 75 ml/min Estimated GFR > 60 (59 - ) Glucose 147 H (65-110) mg/dL Calcium 9.2 (8.4-10.2) mg/dL Total Bilirubin 0.5 (0.2-1.3) mg/dL AST 67 H (14-36) U/L ALT 67 H (6-35) U/L Alkaline Phosphatase 175 H (38-126) U/L Troponin I < 0.012 < 0.012 (0.000-0.034) ng/mL NT-Pro-B Natriuret Pep < 20 (19.9-100) pg/mL Total Protein 7.6 (6.3-8.2) g/dL Albumin 4.4 (3.5-5.1) g/dL Lipase 120 (23-300) U/L Influenza A (RT-PCR) Negative (Negative) Influenza B (RT-PCR) Negative (Negative) RSV (RT-PCR) Negative (Negative) SARS-CoV-2 RNA (RT-PCR) Negative (Negative) Discharge Plan Discharge Clinical Impression: Atypical chest pain, Acute dehydration Patient Disposition: Home Condition: Stable Instructions: Antibiotic Form, Dehydration (DC) Additional Instructions: You were seen in the emergency department for chest pain. Please use Tylenol as needed for pain. Please make sure you are drinking plenty of fluids as you are very dehydrated on arrival. Please follow-up with your primary care physician in 3-5 days to ensure your condition is improving. If you develop worsening chest pain, shortness of breath or fevers please return to the ED for re- evaluation. Patient Language: Armenian Prescriptions: No Action atorvastatin 20 mg Tablet 20 mg PO DAILY fluoxetine 20 mg Tablet 20 mg PO DAILY metformin 1,000 mg Tablet 2,000 mg PO BID gabapentin 300 mg Capsule 300 mg PO BID metoprolol succinate 25 mg Tablet Extended Release 24 Hr 25 mg PO BID magnesium 500 mg Tablet 15 mg PO BID allopurinol 100 mg Tablet 100 mg PO DAILY insulin glargine [Lantus U-100 Insulin] 100 unit/mL Solution 10 unit SUBCUT HS insulin glargine [Lantus U-100 Insulin] 100 unit/mL Solution 15 unit SUBCUT QAM insulin lispro [Humalog U-100 Insulin] 100 unit/mL Solution 1 sliding scale dose SUBCUT USEASDIRECTD Jardiance 10 mg tablet 25 mg PO HS cyclobenzaprine 10 mg tablet 10 mg PO TID PRN (Reason: muscle spasm) Qty: 20 0RF pantoprazole 20 mg tablet,delayed release (DR/EC) 20 mg PO HS Qty: 10 0RF albuterol sulfate 2.5 mg/0.5 mL solution for nebulization 5 mg inhalation Q6H PRN (Reason: shortness of breath or wheezing) Qty: 30 0RF benzonatate 200 mg capsule 200 mg PO BID PRN (Reason: cough) Qty: 8 0RF hydrocodone-acetaminophen 5-325 mg tablet 1 tablet PO Q6H PRN (Reason: pain) Qty: 20 0RF Follow-up/Referrals: Erica,Sanjeev Pozo MD [Primary Care Provider] -
[2025-06-29] MEDS: SODIUM CHLORIDE 0.9% IV 1,000 ML 999 ML IV CONT ×3 (15:54→20:21)
[2025-06-29 15:55] LABS: INR 1.1; Prothrombin Time 13.9 Seconds (11.1-14.7)
[2025-06-29 15:56] LABS: Partial Thromboplastin Time 27.0 Seconds (22.3-36.8)
[2025-06-29 15:59] LABS: Alanine Aminotransferase 67 U/L (6-35); Albumin Level 4.4 g/dL (3.5-5.1); Alkaline Phosphatase 175 U/L (38-126); Anion Gap 12 mmol/L (4-12); Aspartate Amino Transferase 67 U/L (14-36); Bilirubin,Total 0.5 mg/dL (0.2-1.3); Blood Urea Nitrogen 8 mg/dL (7-17); Calcium 9.2 mg/dL (8.4-10.2); Carbon Dioxide 19 mmol/L (22-30); Chloride 105 mmol/L (98-107); Estimated CRCL calculation 75 ml/min; Estimated Glomerular Filt Rate > 60; Glucose 147 mg/dL (65-110); Lipase 120 U/L (23-300); Potassium 3.5 mmol/L (3.4-5.0); Sodium 136 mmol/L (137-145); Total Protein 7.6 g/dL (6.3-8.2)
[2025-06-29] MEDS: IPRATROPIUM 0.5 MG/ALBUTEROL SULFATE 2.5 MG AMPUL.NEB 3 ML 6 ML INHALATION (16:02)
[2025-06-29 16:13] LABS: Troponin I < 0.012 ng/mL (0.000-0.034)
[2025-06-29 16:20] LABS: NT Pro B Type Natriuretic Pept < 20 pg/mL (19.9-100)
--- OUTSIDE RECORDS SUMMARY | 2025-06-29 16:40 | XMS_ITS | Encounter Summary ---
Author Organization [facility] Address [address] [facility] [place] [address] Phone Care Team Providers Care Vehicle Delivery Worker Name Role Phone Altaf Fowler DO Unavailable [phone] Sanjeev Maldonado MD Primary Care Provider Tuan Martin MD Unavailable Brad Powell MD Unavailable Helen Davis APRN FINANCE PROFESSOR Unavailable Reason for Visit * Reason Comments Medication Refill Encounter Details Date Type Department Care Team (Late st Contact Info) Description 05/26/2023 Refill [facility] - [facility] - [place] #2 [place] [address] Helen Davis APRN, FINANCE PROFESSOR #2 [place] [address] Medication Refill Social History Tobacco Use Types [...] PM CDT Medication refilled and signed [facility] chronic medication standing order for pediatric and adult patients. documented in this encounter Plan of Treatment Not on file documented as of this encounter Visit Diagnoses Diagnosis Gastroesophageal reflux disease without esophagitis Esophageal reflux documented in this encounter Care Teams Vehicle Delivery Worker Relationship Specialty Start Date End Date Sanjeev Maldonado MD PCP - General Internal Medicine 02/26/17 Altaf Fowler DO Gastroenterology 01/04/16 Tuan Martin MD [address] [address] Cardiovascular Disease - Cardiology 08/28/22 Brad Powell MD #[address] [address] Consulting Physician Colon and Rectal Surgery 03/13/23 Helen Davis APRN, FINANCE PROFESSOR #2 [place] [address] Nurse Practitioner Advanced Practice Nurse 02/06/24 documented as of this encounter
--- OUTSIDE RECORDS SUMMARY | 2025-06-29 16:40 | XMS_ITS | Clinical Summary ---
Author Organization [facility] Address [address] [place] [address] Care Team Providers Care Pulpwood Buyer Name Role Phone Sanjeev Maldonado MD Primary Care Provider [phone] Allergies Active Allergy Reactions Criticality Noted Date [...] Description 05/11/2025 9:00 AM CDT Office Visit [facility] Cardiology [address] [place] [address] Tuan Martin MD Hypertension [...] on file Legal Sex Female 5:15 AM TOP DYEING MACHINE TENDER Gender Identity Not on file Sexual Orientation Not on file Obstetrics History Last Filed Vital Signs Vital Sign Reading Time Taken Comments Blood Pressure 112/70 05/11/2025 8:42 AM CDT Pulse 85 05/11/2025 8:42 AM CDT Temperature 36.5 C (97.7 F) 10/02/2023 8:15 AM TOP DYEING MACHINE TENDER Respiratory Rate 16 10/02/2023 8:15 AM TOP DYEING MACHINE TENDER Oxygen Saturation 98% 05/11/2025 8:42 AM CDT [...] history exists Medical Devices Implanted Type Area Aircraft Armorer Device Identifier Shelf Expiration Date Model / Serial / Lot [place] [employer] Device Closure Vascade Od5 Fr Femoral Artery [id number] - [id number] Implanted:Qty: 1 on 10/02/2023 by Tuan Martin MD at [facility] 07/21/2025 [id number] / / [id number] Procedures Procedure Name Priority Date/Time Associated [...] blood 05/11/2025 8 :49 AM CDT Tuan Mratin MD POINT OF CARE TEST ORDERABLES Fi [...] >=60 EXTERNAL LAB SCRIBED eGFR in NonAfrican Venezuelan >60 >=60 EXTERNAL LAB Blood specimen (specimen) 07/23/2021 Michell Hunt NP LAB BLOOD ORDERABLES Angelika l Result Performing Organization Address City/State/[facility] Co de Phone Number EXTERNAL LAB from Last 3 Months or Most Recently Relevant to Health Maintenance Insurance [facility]IC[facility] ADV[facility]IC[facility] Care Teams Pulpwood Buyer Relationship Specialty Start Date End Date Sanjeev Maldonado MD PCP - General Internal Medicine 08/30/20
--- OUTSIDE RECORDS SUMMARY | 2025-06-29 16:40 | XMS_ITS | Encounter Summary ---
Author Organization [facility] Address [address] [facility] [place] [address] Phone Care Team Providers Care Residential Property Consultant Name Role Phone Altaf Fowler DO Unavailable [phone] Sanjeev Maldonado MD Primary Care Provider Tuan Martin MD Unavailable Brad Powell MD Unavailable Helen Davis APRN TIMBER SETTER Unavailable Reason for Visit * Reason Comments Medication Refill Encounter Details Date Type Department Care Team (Late st Contact Info) Description 12/02/2024 Refill [facility] G[facility]enterology - [place] [address]2 [place] [address] Helen Davis APRN, TIMBER SETTER [address]2 [place] [address] Medication Refill Social History Tobacco Use Types [...] Sheree Shafer RN - 12/03/2024 8:29 AM WORSTED WINDER Medication refilled and signed [place] [facility] [place] standing order for pediatric and adult patients. TED WINDER documented in this encounter Plan of Treatment Not on file documented as of this encounter Visit Diagnoses Diagnosis Gastroesophageal reflux disease without esophagitis Esophageal reflux documented in this encounter Care Teams Residential Property Consultant Relationship Specialty Start Date End Date Sanjeev Maldonado MD PCP - General Internal Medicine 02/26/17 Altaf Fowler DO Gastroenterology 01/04/16 Tuan Martin MD [address] [facility] [address] [place] [address] Cardiovascular Disease - Cardiology 08/28/22 Brad Powell MD #[address] [address] Consulting Physician Colon and Rectal Surgery 03/13/23 Helen Davis APRN, TIMBER SETTER [address]2 [place] [address] Nurse Practitioner Advanced Practice Nurse 02/06/24 documented as of this encounter
--- OUTSIDE RECORDS SUMMARY | 2025-06-29 16:40 | XMS_ITS | Encounter Summary ---
Author Organization [facility] Address [address] [facility] [place] [address] Phone Care Team Providers Care Solar Sales Advisor Name Role Phone Altaf Fowler DO Unavailable [phone] Sanjeev Maldonado MD Primary Care Provider [phone] Tuan Martin MD Unavailable Brad Powell MD Unavailable Helen Davis APRN LABORATORY AIDE Unavailable Reason for Visit * Reason Comments Medication Refill Encounter Details Date Type Department Care Team (Late st Contact Info) Description 02/01/2024 Refill [facility] - Gastroenterology - [place] [address]2 [place] [address] Helen Davis APRN, LABORATORY AIDE [address]2 [place] [address] Medication Refill Social History Tobacco Use Types [...] Medication refilled and signed per [facility] chronic medication standing order for pediatric and [...] reflux documented in this encounter Care Teams Solar Sales Advisor Relationship Specialty Start Date End Date Sanjeev Maldonado MD PCP - General Internal Medicine 4/5/17 Altaf Folwer DO Gastroenterology 01/04/16 Tuan Martin MD 1225 [facility] [address] [place] [address] Cardiovascular Disease - Cardiology 08/28/22 Brad Powell MD #[address] [address] Consulting Physician Colon and Rectal Surgery 03/13/23 Helen Davis APRN, LABORATORY AIDE [address]2 [place] [address] Nurse Practitioner Advanced Practice Nurse 02/06/24 documented as of this encounter
--- OUTSIDE RECORDS SUMMARY | 2025-06-29 16:40 | XMS_ITS | Encounter Summary ---
Author Organization [facility] Address [address] [facility] [place] [address] Phone Care Team Providers Care Sound Technician Supervisor Name Role Phone Altaf Fowler DO Unavailable [phone] Sanjeev Maldonado MD Primary Care Provider Tuan Martin MD Unavailable Brad Powell MD Unavailable Helen Davis APRN, ADMINISTRATIVE ASSISTANT Unavailable Reason for Visit * Reason Comments Medication Refill Encounter Details Date Type Department Care Team (Late st Contact Info) Description 07/04/2022 Refill [facility] - Gastroenterology - [place] [address]2 [place] [id number] Nicolasa Jerez April, PAC [address] [place] [address] Medication Refill Social History Tobacco Use Types [...] AM CDT Medication refilled and signed [facility] chronic medication standing order for pediatric and adult patients. * Telephone Encounter - Sheree Shafer RN - 07/08/2022 9:35 AM CDT documented in this encounter Plan of Treatment Not on file documented as of this encounter Visit Diagnoses Not on filedocumented in this encounter Care Teams Sound Technician Supervisor Relationship Specialty Start Date End Date Sanjeev Maldonado MD PCP - General Internal Medicine 02/26/17 Altaf Fowler DO Gastroenterology 01/04/16 Tuan Martin MD 1225 [facility] [address] [place] [address] Cardiovascular Disease - Cardiology 08/28/22 Brad Powell MD #[address] [address] Consulting Physician Colon and Rectal Surgery 03/13/23 Helen Davis APRN, ADMINISTRATIVE ASSISTANT #2 [place] [address] Nurse Practitioner Advanced Practice Nurse 02/06/24 documented as of this encounter
--- OUTSIDE RECORDS SUMMARY | 2025-06-29 16:40 | XMS_ITS | Encounter Summary ---
Author Organization [facility] Address [address] [facility] [place] [address] Phone Care Team Providers Care Professor Of Geology Name Role Phone Altaf Fowler DO Unavailable [phone] Sanjeev Maldonado MD Primary Care Provider [phone] Tuan Martin MD Unavailable Brad Powell MD Unavailable Helen Davis APRN GUM ROLLING MACHINE OPERATOR Unavailable Reason for Visit * Reason Comments Medication Refill Encounter Details Date Type Department Care Team (Late st Contact Info) Description 05/25/2024 Refill [facility] - Gastroenterology - [place] [address]2 [place] [address] Helen Davis APRN, GUM ROLLING MACHINE OPERATOR #2 [place] [address] Medication Refill Social History Tobacco Use Types [...] CDT Medication [facility] [place] [facility] order for pediatric and adult patients. documented in this encounter Plan of Treatment Not on file documented as of this encounter Visit Diagnoses Diagnosis Gastroesophageal reflux disease without esophagitis Esophageal reflux documented in this encounter Care Teams Professor Of Geology Relationship Specialty Start Date End Date Sanjeev Maldonado MD PCP - General Internal Medicine 02/26/17 Altaf Fowler DO Gastroenterology 01/04/16 Tuan Martin MD [address] [address] Cardiovascular Disease - Cardiology 08/28/22 Brad Powell MD #[address] [address] Consulting Physician Colon and Rectal Surgery 03/13/23 Helen Davis APRN, GUM ROLLING MACHINE OPERATOR #2 [place] [address] Nurse Practitioner Advanced Practice Nurse 02/06/24 documented as of this encounter
--- OUTSIDE RECORDS SUMMARY | 2025-06-29 16:40 | XMS_ITS | Encounter Summary ---
Author Organization [facility] Address [address] [facility] [place] [address] Phone Care Team Providers Care Mold Closer Name Role Phone Altaf Fowler DO Unavailable [phone] Sanjeev Maldonado MD Primary Care Provider [phone] Tuan Martin MD Unavailable Brad Powell MD Unavailable Helen Davis APRN DITCH RIDER Unavailable Reason for Visit * Reason Comments Medication Refill Encounter Details Date Type Department Care Team (Late st Contact Info) Description 04/16/2025 Refill [facility] - Gastroenterology - [place] #2 [place] [address] Helen Davis APRN, DITCH RIDER [address]2 [place] [address] Medication Refill Social History Tobacco Use Types [...] PM CDT Medication [facility] and signed [facility] chronic medication standing [...] reflux documented in this encounter Care Teams Mold Closer Relationship Specialty Start Date End Date Sanjeev Maldonado MD PCP - General Internal Medicine 02/26/17 Altaf Fowler DO Gastroenterology 01/04/16 Tuan Martin MD [facility]25 [facility] [address] [place] [address] Cardiovascular Disease - Cardiology 08/28/22 Brad Powell MD #[address] [address] Consulting Physician Colon and Rectal Surgery 03/13/23 Helen Davis APRN, DITCH RIDER [address]2 [place] [address] Nurse Practitioner Advanced Practice Nurse 02/06/24 documented as of this encounter
--- OUTSIDE RECORDS SUMMARY | 2025-06-29 16:40 | XMS_ITS | Encounter Summary ---
Author Organization [facility] Address [address] [facility] [place] [address] Phone Care Team Providers Care Tool Trouble Shooter Name Role Phone Altaf Fowler DO Unavailable [phone] Sanjeev Maldonado MD Primary Care Provider Tuan Martin MD Unavailable Brad Powell MD Unavailable Helen Davis APRN, MERCHANDISE PRESENTATION MANAGER Unavailable Reason for Visit * Reason Comments Medication Refill Encounter Details Date Type Department Care Team (Late st Contact Info) Description 04/02/2022 Refill [facility] - Gastroenterology - [place] #2 [place] [id number] Nicolasa Jerez April, PAC [address] [place] [address] Medication Refill Social History Tobacco Use Types [...] on filedocumented in this encounter Care Teams Tool Trouble Shooter Relationship Specialty Start Date End Date Sanjeev Maldonado MD PCP - General Internal Medicine 02/26/17 Altaf Fowler DO Gastroenterology 01/04/16 Tuan Martin MD 1225 [facility] [address] [place] [address] Cardiovascular Disease - Cardiology 08/28/22 Brad Powell MD #[address] [address] Consulting Physician Colon and Rectal Surgery 03/13/23 Helen Davis APRN, MERCHANDISE PRESENTATION MANAGER #2 [place] [address] Nurse Practitioner Advanced Practice Nurse 02/06/24 documented as of this encounter
--- OUTSIDE RECORDS SUMMARY | 2025-06-29 16:40 | XMS_ITS | Clinical Summary ---
Author Organization [facility] Nilesh tawny [facility] Address [address] [facility] [place] [address] Care Team Providers Care Principle Software Engineer Name Role Phone Sanjeev Maldonado MD [...] STL ABSTRACTION Provider, Abstract 05/23/2025 Orders Only [facility] Oncology and Hematology - [place] [address] [place] [address] Lit Silva MD 05/17/2025 External Device Data STL ABSTRACTION Provider, Abstract 05/17/2025 Orders Only [facility] Oncology and Hematology [facility] [address] [place] [address] Lit Silva MD 05/16/2025 11:45 AM CDT Office Visit [facility] Oncology and Hematology [facility] [address] [place] [address] Lit Silva MD Chronic anemia (Primary Dx) [...] on file 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 Gender Identity Not on file Sexual Orientation [...] Description 09/20/2025 11:30 AM CDT Office Visit [facility] Oncology and Hematology - [place] [address] [facility] [address] [place] [address] Lit Silva MD [address] [facility] [address] [place] [address] Health Maintenance Due Date Last [...] Resu lt from Last 3 Months Insurance [facility] [id number] [facility] Address: [address] [place] [id number] Care Teams Principle Software Engineer Relationship Specialty Start Date End Date Sanjeev Maldonado MD [address] [facility] 4 [place] [address] PCP - General Internal Medicine 01/19/20
--- OUTSIDE RECORDS SUMMARY | 2025-06-29 16:40 | XMS_ITS | Encounter Summary ---
Author Organization [facility] Address [address] [facility] [place] [address] Phone Care Team Providers Care Tunnel Mucker Name Role Phone Altaf Fowler DO Unavailable [phone] Sanjeev Maldonado MD Primary Care Provider Tuan Martin MD Unavailable Brad Powell MD Unavailable Helen Davis APRN, FILM EDITOR Unavailable Encounter Details Date Type Department Care Team (Late st Contact Info) Description 09/17/2022 [facility] 1 [place] [address] Mason Donnelly MD #2 [place] [address] Preop testing (Primary Dx) Social History Tobacco [...] Range for this test is Not Detected) [facility] ID NOW 09/23/2022 1:45 PM CDT [facility] Comment:This test was perfor med by a MOLECULAR, NON-PCR method Other NASOPHARYNGEAL STRUCTURE / Unknown Non-Phlebotomy Collection / Unknown 09/23/2022 12:30 PM CDT 09/23/2022 1:21 PM CDT Narrative [facility] - 09/23/2022 1:45 PM CDT [...] information for Clinicians can be found at: https://www.fda.gov/media/174023/download Additional information for Patients can be found at: https://www.fda.gov/media/656440/download Mason Donnelly MD MICROBIOLOGY - GENERAL ORDERABL ES Final Result [facility] #[address] [place] [address] documented in this encounter Visit Diagnoses Diagnosis Preop testing- Primary Preoperative examination, unspecified documented in this encounter Care Teams Tunnel Mucker Relationship Specialty Start Date End Date Sanjeev Maldonado MD PCP - General Internal Medicine 02/26/17 Altaf Fowler DO Gastroenterology 01/04/16 Tuan Martin MD [address] [facility] [address] [place] [address] Cardiovascular Disease - Cardiology 08/28/22 Brad Powell MD #[address] [address] Consulting Physician Colon and Rectal Surgery 03/13/23 Helen Davis APRN, FILM EDITOR #2 [place] [address] Nurse Practitioner Advanced Practice Nurse 02/06/24 documented as of this encounter
--- OUTSIDE RECORDS SUMMARY | 2025-06-29 16:40 | XMS_ITS | Clinical Summary ---
Author Organization [facility] Address [address] [address] [place] [address] Phone Care Team Providers Care Pillowcase Cleaner Name Role Phone Altaf Fowler DO Unavailable [phone] Sanjeev Maldonado MD Primary Care Provider [phone] Tuan Martin MD Unavailable Brad Powell MD Unavailable Helen Davis APRN, TECHNOLOGY INSTRUCTOR Unavailable Allergies Active Allergy Reactions Criticality Noted [...] Description 05/16/2025 9:00 AM CDT [facility] #2 [place] [address] Helen Davis APRN, CNP Gastroesophageal reflux disease without esophagitis (Primary Dx) Discharge Disposition: Discharged to home or Selfcare 05/16/2025 Travel 04/28/2025 [facility] [place] [address] Helen Davis APRN, CNP 04/16/2025 [facility] [place] [address] Helen Davis APRN, CNP Medication Refill from Last 3 Months Immunizations Immunization Administration Dates Next Due Covid-19 Vaccine, Vector-nr, Rs-ad26, Pf, 0.5 Ml ([employer]J) 08/24/2021 Pneumococcal Vaccine - 13 Valent 05/20/2017 [...] this topic Medical Devices Implanted Type Area Digital Content Coordinator Device Identifier Shelf Expiration Date Model / Serial / Lot Clip 360 Resolution 235cm - [id number] Implanted:Qty: 3 on 08/18/2020 by Altaf Fowler, at [facility] IMPLANT Smart Picture Tech 05/08/2023 [id number] / [id number] / [id number] Procedures Procedure Name Priority Date/Time Associated Diagnosis Comments COLONOSCOPY Routine 04/23/2018 from Last 3 Months or Most Recently Relevant to Health Maintenance Results * COLONOSCOPY (04/23/2018) Altaf Fowler DO PROCEDURE/MINOR SURGICAL ORDERA BLES Final Result from Last 3 Months or Most Recently Relevant to Health Maintenance Insurance [facility] [place] [address] Care Teams Pillowcase Cleaner Relationship Specialty Start Date End Date Sanjeev Maldonado MD PCP - General Internal Medicine 02/26/17 Altaf Fowler DO Gastroenterology 01/04/16 Tuan Martin MD 12[address] [facility] [address] [place] [address] Cardiovascular Disease - Cardiology 08/28/22 Brad Powell MD #[address] [address] Consulting Physician Colon and Rectal Surgery 03/13/23 Helen Davis APRN, TECHNOLOGY INSTRUCTOR #2 [place] [address] Nurse Practitioner Advanced Practice Nurse 02/06/24
--- OUTSIDE RECORDS SUMMARY | 2025-06-29 16:40 | XMS_ITS | Encounter Summary ---
Author Organization [facility] Address 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 Gender Identity Not on file Sexual Orientation Not on file documented as of this encounter Plan of Treatment Upcoming Encounters Date Type Department Care Team (Late st Contact Info) Description 09/20/2025 11:30 AM CDT Office Visit [facility] Oncology and Hematology - [place] [address] [place] [address] [address] [place] [address] [place] [address] [place] [address] [address] [place] [address] documented as of this encounter Visit Diagnoses Not on filedocumented in this encounter Care Teams Maple Products Supervisor Relationship Specialty Start Date End Date Sanjeev Maldonado MD [address] [facility] 4 [place] [address] PCP - General Internal Medicine 01/19/20 documented as of this encounter
[2025-06-29 16:44] LABS: Influenza A QL RT-PCR Negative (Negative); Influenza B QL RT-PCR Negative (Negative); RSV RNA, RT-PCR Negative (Negative); SARS-CoV-2 RNA PCR Negative (Negative)
--- NOTE | 2025-06-29 18:07 | ECG_ITS ---
Test Date: 2025-06-29 17:58:46 Measurements Intervals [place] Rate: 125 P: 33 WV: 208 QRS: 111 QRSD: 98 T: 4 QT: 414 QTc: 599 Interpretive Statements SINUS TACHYCARDIA RIGHT AXIS DEVIATION LOW QRS VOLTAGE IN PRECORDIAL LEADS POSSIBLE ANTERIOR MYOCARDIAL INFARCTION , OF INDETERMINATE AGE BORDERLINE ST-T WAVE ABNORMALITY- ANTEROLAT/INF LEADS ABNORMAL ECG Compared to ECG 06/29/2025 15:29:38 NO SIGNIFICANT CHANGE Electronically Signed On 06-30-2025 07:52:03 CDT by Thom Pack D.O.
[2025-06-29 18:35] LABS: Troponin I < 0.012 ng/mL (0.000-0.034)
[2025-06-29] MEDS: METOPROLOL SUCCINATE EXT REL 25 MG TABCR PO (20:02)
[2025-06-29] MEDS: ACETAMINOPHEN 500 MG TABLET 1000 MG PO (20:03)
[2025-06-29] MEDS: oxyCODONE HCL (*CRX) 5 MG TAB IR PO (20:03)
== END 2025-06-29 21:06 | disposition home or self-care (01) ==
PROVIDERS: Emergency Medicine; Emergency Provider Emergency Medicine; PCP Internal Medicine
DX: R07.89 Other chest pain (principal); E86.0 Dehydration; Z20.822 Contact with and (suspected) exposure to COVID-19; I10 Essential (primary) hypertension; E11.9 Type 2 diabetes mellitus without complications; J45.909 Unspecified asthma, uncomplicated; D64.9 Anemia, unspecified; Z96.642 Presence of left artificial hip joint; Z90.710 Acquired absence of both cervix and uterus; Z90.49 Acquired absence of other specified parts of digestive tract; Z79.899 Other long term (current) drug therapy; Z79.84 Long term (current) use of oral hypoglycemic drugs; Z79.4 Long term (current) use of insulin; R94.31 Abnormal electrocardiogram [ECG] [EKG]; R00.0 Tachycardia, unspecified
CPT/HCPCS: 36415; 71045; 71275; 74177; 80053; 83690; 83880; 84484; 85025; 85610; 85730; 87637; 93005; 94640; 96360; 96361; 99284; A9270; J7030; Q9967

== ENCOUNTER 2025-07-08 13:39 | Observation (INO) | payer OTHER, MEDICARE, SELFPAY ==
[2025-07-08] VITALS (7 sets, daily range): BP systolic 120–136; BP diastolic 71–84; PULSE 80–120; RESP 16–23; TEMP 36.3–37.7; O2SAT 95–98; BMI 28.0
--- NOTE | ~2025-07-08 | XR_ITS ---
XR chest 2V 07/08/2025 14:18 Indication: Chest pain Procedure: 2 view chest Comparison: Comparison to multiple prior studies sequentially, with oldest reviewed study dated 07/2023. Findings: Left lower lobe infiltrates may represent atelectasis or developing pneumonia. Heart size n ormal. Right lung clear. No significant effusion, edema or pneumothorax. Impression: 1: Left lower lobe infiltrates may represent atelectasis or developing pneumonia. Reviewed, dictated and finalized at location A. Impression: 1: Left lower lobe infiltrates may represent atelectasis or developing pneumoni a.
--- OUTSIDE RECORDS SUMMARY | 2025-07-08 13:43 | XMS_ITS | Encounter Summary ---
Author Organization [facility] Address [address] [facility] [place] [address] Phone Care Team Providers Care Supervisor Malt House Name Role Phone Altaf Fowler DO Unavailable [phone] Sanjeev Maldonado MD Primary Care Provider Tuan Martin MD Unavailable Brad Powell MD Unavailable Helen Davis APRN, SAND CONDITIONER Unavailable Reason for Visit * Reason Comments Medication Refill Encounter Details Date Type Department Care Team (Late st Contact Info) Description 07/04/2022 Refill [facility] - [place] #2 [place] [id number] Nicolasa Jerez April, PAC [address] [place] [address] Medication Refill Social History Tobacco Use Types [...] AM CDT Medication refilled and signed per [facility] chronic medication standing order for pediatric and adult patients. * Telephone Encounter - Sheree Shafer RN - 07/08/2022 9:35 AM CDT documented in this encounter Plan of Treatment Not on file documented as of this encounter Visit Diagnoses Not on filedocumented in this encounter Care Teams Supervisor Malt House Relationship Specialty Start Date End Date Sanjeev Maldonado MD PCP - General Internal Medicine 02/26/17 Altaf Fowler DO Gastroenterology 01/04/16 Tuan Martin MD 1225 [facility] [address] [place] [address] Cardiovascular Disease - Cardiology 08/28/22 Brad Powell MD #[address] [address] Consulting Physician Colon and Rectal Surgery 03/13/23 Helen Davis APRN, SAND CONDITIONER #2 [place] [address] Nurse Practitioner Advanced Practice Nurse 02/06/24 documented as of this encounter
--- OUTSIDE RECORDS SUMMARY | 2025-07-08 13:43 | XMS_ITS | Clinical Summary ---
Author Organization [facility] Address [address] [address] [place] [address] Phone Care Team Providers Care Distribution Sales Representative Name Role Phone Altaf Fowler DO Unavailable [phone] Sanjeev Maldonado MD Primary Care Provider [phone] Tuan Martin MD Unavailable Brad Powell MD Unavailable Helen Davis APRN, WELCOME CENTER AGENT Unavailable Allergies Active Allergy Reactions Criticality Noted [...] Description 05/16/2025 9:00 AM CDT [facility] #2 [place] [address] Helen Davis APRN, CNP Gastroesophageal reflux disease without esophagitis (Primary Dx) Discharge Disposition: Discharged to home or Selfcare 05/16/2025 Travel 04/28/20[facility] [place] [address] Helen Davis APRN, CNP 04/16/2025 [facility] [place] [address] Helen Davis APRN, CNP Medication Refill from Last 3 Months Immunizations Immunization Administration Dates Next Due Covid-19 Vaccine, Vector-nr, Rs-ad26, Pf, 0.5 Ml (TrumpIT/J&J) 08/24/2021 Pneumococcal Vaccine - 13 Valent 05/20/2017 [...] this topic Medical Devices Implanted Type Area Superintendent House Device Identifier Shelf Expiration Date Model / Serial / Lot Clip 360 Resolution 235cm - [id number] Implanted:Qty: 3 on 08/18/2020 by Altaf Fowler, at [facility] IMPLANT Switchboard 05/08/2023 [id number] / [id number] / [id number] Procedures Procedure Name Priority Date/Time Associated Diagnosis Comments COLONOSCOPY Routine 04/23/2018 from Last 3 Months or Most Recently Relevant to Health Maintenance Results * COLONOSCOPY (04/23/2018) Altaf Fowler DO PROCEDURE/MINOR SURGICAL ORDERA BLES Final Result from Last 3 Months or Most Recently Relevant to Health Maintenance Insurance [facility] MEDICARE C [employer] Care Teams Distribution Sales Representative Relationship Specialty Start Date End Date Sanjeev Maldonado MD PCP - General Internal Medicine 02/26/17 Altaf Fowler DO Gastroenterology 01/04/16 Tuan Martin MD 12[address] [facility] [address] [place] [address] Cardiovascular Disease - Cardiology 08/28/22 Brad Powell MD #[address] [address] Consulting Physician Colon and Rectal Surgery 03/13/23 Helen Davis APRN, WELCOME CENTER AGENT [address]2 [place] [address] Nurse Practitioner Advanced Practice Nurse 02/06/24
--- OUTSIDE RECORDS SUMMARY | 2025-07-08 13:43 | XMS_ITS | Clinical Summary ---
Author Organization [facility]wny [facility] Address [address] [facility] [place] [address] Care Team Providers Care Global Marketing Intern Name Role Phone Sanjeev Maldonado MD Primary Care Provider [phone] Allergies Active Allergy Reactions Criticality Noted Date [...] STL ABSTRACTION Provider, Abstract 05/23/2025 Orders Only [facility] Oncology and Hematology - [place] [address] [place] [address] Lit Silva MD 05/17/2025 External Device Data STL ABSTRACTION Provider, Abstract 05/17/2025 Orders Only [facility] Oncology and Hematology [facility] [address] [place] [address] Lit Silva MD 05/16/2025 11:45 AM CDT Office Visit [facility] Oncology and Hematology [facility] [address] [place] [address] Lit Silva MD Chronic anemia (Primary Dx) [...] on file 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 Gender Identity Not on file Sexual Orientation [...] Description 09/20/2025 11:30 AM CDT Office Visit [facility] Oncology and Hematology - [place] [address] [facility] [address] [place] [address] Lit Silva MD [address] [facility] [address] [place] [address] Health Maintenance Due Date Last [...] Resu lt from Last 3 Months Insurance [facility] [id number] [facility] [place] [place] Address: [address] [id number] Care Teams Global Marketing Intern Relationship Specialty Start Date End Date Sanjeev Maldonado MD [address] [facility] [address] [place] [address] PCP - General Internal Medicine 01/19/20
--- OUTSIDE RECORDS SUMMARY | 2025-07-08 13:43 | XMS_ITS | Encounter Summary ---
Author Organization [facility] Address [address] [facility] [place] [address] Phone Care Team Providers Care Non Destructive Testing Engineer Name Role Phone Altaf Fowler DO Unavailable [phone] Sanjeev Maldonado MD Primary Care Provider Tuan Martin MD Unavailable Brad Powell MD Unavailable Helen Davis APRN HEALTHCARE MARKETER Unavailable Reason for Visit * Reason Comments Medication Refill Encounter Details Date Type Department Care Team (Late st Contact Info) Description 02/01/2024 Refill [facility] - [place] #2 [place] [address] Helen Davis APRN, HEALTHCARE MARKETER #2 [place] [address] Medication Refill Social History Tobacco Use Types [...] PM CDT Medication [facility]illed and signed [facility] chronic medication standing order for pediatric and [...] reflux documented in this encounter Care Teams Non Destructive Testing Engineer Relationship Specialty Start Date End Date Sanjeev Maldonado MD PCP - General Internal Medicine 4/5/17 Altaf Fowler DO Gastroenterology 01/04/16 Tuan Martin MD 12[address] [facility] [address]10 [place] [address] Cardiovascular Disease - Cardiology 08/28/22 Brad Powell MD #[address] [address] Consulting Physician Colon and Rectal Surgery 03/13/23 Helen Davis APRN, HEALTHCARE MARKETER [address]2 [place] [address] Nurse Practitioner Advanced Practice Nurse 02/06/24 documented as of this encounter
--- OUTSIDE RECORDS SUMMARY | 2025-07-08 13:43 | XMS_ITS | Encounter Summary ---
Author Organization [facility] Address [address] [facility] [place] [address] Phone Care Team Providers Care Jigger Crown Pouncing Machine Operator Name Role Phone Altaf Fowler DO Unavailable [phone] Sanjeev Maldonado MD Primary Care Provider Tuan Martin MD Unavailable Brad Powell MD Unavailable Helen Davis APRN, HEALTH ADVISOR Unavailable Reason for Visit * Reason Comments Medication Refill Encounter Details Date Type Department Care Team (Late st Contact Info) Description 04/02/2022 Refill [facility] - [place] #2 [place] [id number] Nicolasa Jerez April, PAC [address] [place] [address] Medication Refill Social History Tobacco Use Types [...] on filedocumented in this encounter Care Teams Jigger Crown Pouncing Machine Operator Relationship Specialty Start Date End Date Sanjeev Maldonado MD PCP - General Internal Medicine 02/26/17 Altaf Fowler DO Gastroenterology 01/04/16 Tuan Martin MD 1225 [facility] [address] [place] [address] Cardiovascular Disease - Cardiology 08/28/22 Brad Powell MD #[address] [address] Consulting Physician Colon and Rectal Surgery 03/13/23 Helen Davis APRN, HEALTH ADVISOR #2 [place] [address] Nurse Practitioner Advanced Practice Nurse 02/06/24 documented as of this encounter
--- OUTSIDE RECORDS SUMMARY | 2025-07-08 13:43 | XMS_ITS | Encounter Summary ---
Author Organization [facility] Address [address] [facility] [place] [address] Phone Care Team Providers Care Metallurgical Engineer Name Role Phone Altaf Fowler DO Unavailable [phone] Sanjeev Maldonado MD Primary Care Provider Tuan Martin MD Unavailable Brad Powell MD Unavailable Helen Davis APRN LOAN REVIEW ANALYST Unavailable Reason for Visit * Reason Comments Medication Refill Encounter Details Date Type Department Care Team (Late st Contact Info) Description 05/25/2024 Refill [facility] - Gastroenterology - [place] #2 [place] [address] Helen Davis APRN, LOAN REVIEW ANALYST #2 [place] [address] Medication Refill Social History Tobacco Use Types [...] AM CDT Medication [facility] and signed [facility] medication standing order for pediatric and adult patients. documented in this encounter Plan of Treatment Not on file documented as of this encounter Visit Diagnoses Diagnosis Gastroesophageal reflux disease without esophagitis Esophageal reflux documented in this encounter Care Teams Metallurgical Engineer Relationship Specialty Start Date End Date Sanjeev Maldonado MD PCP - General Internal Medicine 02/26/17 Altaf Fowler DO Gastroenterology 01/04/16 Tuan Martin MD [address] [address] Cardiovascular Disease - Cardiology 08/28/22 Brad Powell MD #[address] [address] Consulting Physician Colon and Rectal Surgery 03/13/23 Helen Davis APRN, LOAN REVIEW ANALYST #2 [place] [address] Nurse Practitioner Advanced Practice Nurse 02/06/24 documented as of this encounter
--- OUTSIDE RECORDS SUMMARY | 2025-07-08 13:43 | XMS_ITS | Encounter Summary ---
Author Organization [facility] Address [address] [place] [address] Care Team Providers Care Foot Orthopedist Name Role Phone Sanjeev Maldnoado MD Primary Care Provider [phone] Encounter Details Date Type Department Care Team (Late st Contact Info) Description 07/05/[address] 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 She states so far her heart beats have been normal this week. She requested an appt be scheduled so I did schedule with CT on 07/28. Contact: documented in this encounter Plan of Treatment Not on file documented as of this encounter Visit Diagnoses Not on filedocumented in this encounter Care Teams Foot Orthopedist Relationship Specialty Start Date End Date Sanjeev Maldonado MD PCP - General Internal Medicine 08/30/20 documented as of this encounter
--- OUTSIDE RECORDS SUMMARY | 2025-07-08 13:43 | XMS_ITS | Clinical Summary ---
Author Organization [facility] Address [address] [place] [address] Care Team Providers Care Engraver Automatic Name Role Phone Sanjeev Maldonado MD Primary Care Provider [phone] Allergies Active Allergy Reactions Criticality Noted Date [...] Encounters Date Type Department Care Team Description 07/05/[address] [facility] Cardiology [address] [facility] [address] [place] [address] Tuan Martin MD 05/11/2025 9:00 AM CDT Office Visit 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 Gender Identity Not on file Sexual Orientation Not on file Obstetrics History Last Filed Vital Signs Vital Sign Reading Time Taken Comments Blood Pressure 112/70 05/11/2025 8:42 AM CDT Pulse 85 05/11/2025 8:42 AM CDT Temperature 36.5 C (97.7 F) 10/02/2023 8:15 AM BALLPOINT PEN ASSEMBLY MACHINE OPERATOR Respiratory Rate 16 10/02/2023 8:15 AM BALLPOINT PEN ASSEMBLY MACHINE OPERATOR Oxygen Saturation 98% 05/11/2025 8:42 AM CDT [...] Pneumococcal vaccine <65 (2 of 2 - PPSV23, PCV20, or PCV21) 07/15/2017 05/20/2017 eGFR 07/23/2022 07/23/2021 Covid-19 Vaccine (2 - 2023-2 5 season) 2024 08/24/2021 Influenza Vaccine (#1) 2025 Lipid Panel 05/11/2026 05/11/2025, 04/24, 04/30/2023, Additional history exists Medical Devices Implanted Type Area [place] Guide Device Identifier Shelf Expiration Date Model / Serial / Lot NOL[employer] [facility] Device Closure Vascade Od5 Fr Femoral Artery [id number] - [id number] Implanted:Qty: 1 on 10/02/2023 by Tuan Martin MD at [facility] 07/21/2025 [id number] / / [id number] Procedures Procedure Name Priority Date/Time Associated [...] >=60 EXTERNAL LAB SCRIBED eGFR in NonAfrican Grenadian >60 >=60 EXTERNAL LAB Blood specimen (specimen) 07/23/2021 Michell Hunt NP LAB BLOOD ORDERABLES Angelika l Result EXTERNAL LAB from Last 3 Months or Most Recently Relevant to Health Maintenance Insurance [facility]IC[facility] Address: [address] [address] [place] [address] [facility]IC[facility] Address: [address] [address] [place] [address] [facility] H[facility]/PPO Address: [address] [address] [place] [address] Care Teams Engraver Automatic Relationship Specialty Start Date End Date Sanjeev Maldonado MD PCP - General Internal Medicine 08/30/20
--- OUTSIDE RECORDS SUMMARY | 2025-07-08 13:43 | XMS_ITS | Encounter Summary ---
Author Organization [facility] Address [address] [facility] [place] [address] Phone Care Team Providers Care Mainspring Winder Name Role Phone Altaf Fowler DO Unavailable [phone] Sanjeev Maldonado MD Primary Care Provider Tuan Martin MD Unavailable Brad Powell MD Unavailable Helen Davis APRN COIL TIER Unavailable Reason for Visit * Reason Comments Medication Refill Encounter Details Date Type Department Care Team (Late st Contact Info) Description 04/16/2025 Refill [facility] - [place] #2 [place] [address] Helen Davis APRN, COIL TIER [address] [place] [address] Medication Refill Social History Tobacco Use Types [...] PM CDT Medication [facility] and signed [facility] standing [...] reflux documented in this encounter Care Teams Mainspring Winder Relationship Specialty Start Date End Date Sanjeev Maldonado MD PCP - General Internal Medicine 02/26/17 Altaf Fowler DO Gastroenterology 01/04/16 Tuan Martin MD [address] [facility] [address] [place] [address] Cardiovascular Disease - Cardiology 08/28/22 Brad Powell MD #[address] [address] Consulting Physician Colon and Rectal Surgery 03/13/23 Helen Davis APRN, COIL TIER #[address] [place] [address] Nurse Practitioner Advanced Practice Nurse 02/06/24 documented as of this encounter
--- OUTSIDE RECORDS SUMMARY | 2025-07-08 13:43 | XMS_ITS | Encounter Summary ---
Author Organization [facility] Address [address] [facility] [place] [address] Phone Care Team Providers Care Cargo Mate Name Role Phone Altaf Fowler DO Unavailable [phone] Sanjeev Maldonado MD Primary Care Provider [phone] Tuan Martin MD Unavailable Brad Powell MD Unavailable Helen Davis APRN, ENERGY TRADER Unavailable Encounter Details Date Type Department Care Team (Late st Contact Info) Description 09/17/2022 [facility] 1 [place] [address] Mason Donnelly MD #2 [place] [address] Preop testing (Primary Dx) Social History Tobacco [...] Range for this test is Not Detected) [facility] NOW 09/23/2022 1:45 PM [...] information for Clinicians can be found at: https://www.fda.gov/media/061278/download Additional information for Patients can be found at: https://www.fda.gov/media/855320/download Mason Donnelly MD MICROBIOLOGY - GENERAL ORDERABL ES Final Result [facility] #1 [place] [address] documented in this encounter Visit Diagnoses Diagnosis Preop testing- Primary Preoperative examination, unspecified documented in this encounter Care Teams Cargo Mate Relationship Specialty Start Date End Date Sanjeev Maldonado MD PCP - General Internal Medicine 02/26/17 Altaf Fowler DO Gastroenterology 01/04/16 Tuan Martin MD [facility] [facility] [address] [place] [address] Cardiovascular Disease - Cardiology 08/28/22 Brad Powell MD #[address] [address] Consulting Physician Colon and Rectal Surgery 03/13/23 Helen Davis APRN, ENERGY TRADER #2 [place] [address] Nurse Practitioner Advanced Practice Nurse 02/06/24 documented as of this encounter
--- OUTSIDE RECORDS SUMMARY | 2025-07-08 13:44 | XMS_ITS | Encounter Summary ---
Author Organization [facility] Address [address] [facility] [place] [address] Phone Care Team Providers Care Mattress Maker Name Role Phone Altaf Fowler DO Unavailable [phone] Sanjeev Maldonado MD Primary Care Provider Tuan Martin MD Unavailable Brad Powell MD Unavailable Helen Davis APRN FARE COLLECTOR Unavailable Reason for Visit * Reason Comments Medication Refill Encounter Details Date Type Department Care Team (Late st Contact Info) Description 05/26/2023 Refill [facility] - [place] #2 [place] [address] Helen Davis APRN, FARE COLLECTOR #2 [place] [address] Medication Refill Social History Tobacco Use Types [...] PM CDT Medication [facility] medication standing order for pediatric and adult patients. documented in this encounter Plan of Treatment Not on file documented as of this encounter Visit Diagnoses Diagnosis Gastroesophageal reflux disease without esophagitis Esophageal reflux documented in this encounter Care Teams Mattress Maker Relationship Specialty Start Date End Date Sanjeev Maldonado MD PCP - General Internal Medicine 02/26/17 Altaf Fowler DO Gastroenterology 01/04/16 Tuan Martin MD [address] [address] Cardiovascular Disease - Cardiology 08/28/22 Brad Powell MD #[address] [address] Consulting Physician Colon and Rectal Surgery 03/13/23 Helen Davis APRN, FARE COLLECTOR #2 [place] [address] Nurse Practitioner Advanced Practice Nurse 02/06/24 documented as of this encounter
--- OUTSIDE RECORDS SUMMARY | 2025-07-08 13:44 | XMS_ITS | Encounter Summary ---
Author Organization [facility] Address [address] [facility] [place] [address] Phone Care Team Providers Care Paper Guillotine Operator Name Role Phone Altaf Fowler DO Unavailable [phone] Sanjeev Maldonado MD Primary Care Provider [phone] Tuan Martin MD Unavailable Brad Powell MD Unavailable Helen Davis APRN MAKE UP GIRL Unavailable Reason for Visit * Reason Comments Medication Refill Encounter Details Date Type Department Care Team (Late st Contact Info) Description 12/02/2024 Refill [facility] - [place] #2 [place] [address] Helen Davis APRN, MAKE UP GIRL #2 [place] [address] Medication Refill Social History Tobacco Use Types [...] Sheree Shafer RN - 12/03/2024 8:29 AM OIL WELL PUMPER Medication refilled and signed [facility] medication standing order for pediatric and adult patients. WELL PUMPER documented in this encounter Plan of Treatment Not on file documented as of this encounter Visit Diagnoses Diagnosis Gastroesophageal reflux disease without esophagitis Esophageal reflux documented in this encounter Care Teams Paper Guillotine Operator Relationship Specialty Start Date End Date Sanjeev Maldonado MD PCP - General Internal Medicine 02/26/17 Altaf Fowler DO Gastroenterology 01/04/16 Tuan Martin MD 1225 [facility] [address] [place] [address] Cardiovascular Disease - Cardiology 08/28/22 Brad Powell MD #[address] [address] Consulting Physician Colon and Rectal Surgery 03/13/23 Helen Davis APRN, MAKE UP GIRL #2 [place] [address] Nurse Practitioner Advanced Practice Nurse 02/06/24 documented as of this encounter
--- NOTE | 2025-07-08 13:54 | ECG_ITS ---
Test Date: 2025-07-08 13:58:16 Measurements Intervals [place] Rate: 117 P: 53 MO: 172 QRS: 20 QRSD: 90 T: 42 QT: 361 QTc: 505 Interpretive Statements SINUS TACHYCARDIA LOW QRS VOLTAGE IN LIMB LEADS BORDERLINE R WAVE PROGRESSION, ANTERIOR LEADS BORDERLINE ST-T WAVE ABNORMALITY- ANTEROLAT/INF LEADS ABNORMAL ECG Compared to ECG 06/29/2025 17:58:46 NO SIGNIFICANT CHANGE Electronically Signed On 07-08-2025 14:10:10 CDT by Thom Pack D.O.
[2025-07-08 14:18] LABS: Hematocrit 35.0 % (37.0-47.0); Hemoglobin 11.4 g/dL (12.0-15.0); Immature Granulocyte Percent A 0.4 % (0-0.5); Lymphocytes Absolute Auto 1.91 K/mm3 (0.9-3.2); Mean Corpuscular HGB Conc 32.6 g/dl (32-36); Mean Corpuscular Hemoglobin 27.1 pg (26-34); Mean Corpuscular Volume 83.3 fl (80-100); Nucleated Red Blood Cells Absolute Auto 0.000 K/mm3 (0.0-0.012); Nucleated Red Blood Cells Perc 0.0 % (0.0-0.2); Platelet Count Result 252 k/mm3 (150-375); Red Blood Count 4.20 M/mm3 (4.2-5.4); White Blood Count 5.5 K/mm3 (4.5-10.0)
[2025-07-08 14:30] LABS: INR 1.0; Prothrombin Time 13.6 Seconds (11.1-14.7)
[2025-07-08 14:31] LABS: Alanine Aminotransferase 32 U/L (6-35); Albumin Level 4.6 g/dL (3.5-5.1); Alkaline Phosphatase 119 U/L (38-126); Anion Gap 15 mmol/L (4-12); Aspartate Amino Transferase 38 U/L (14-36); Bilirubin,Total 0.5 mg/dL (0.2-1.3); Blood Urea Nitrogen 13 mg/dL (7-17); Calcium 9.7 mg/dL (8.4-10.2); Carbon Dioxide 21 mmol/L (22-30); Chloride 103 mmol/L (98-107); Estimated CRCL calculation 76 ml/min; Estimated Glomerular Filt Rate > 60; Glucose 164 mg/dL (65-110); Lipase 184 U/L (23-300); Partial Thromboplastin Time 27.6 Seconds (22.3-36.8); Potassium 3.6 mmol/L (3.4-5.0); Sodium 139 mmol/L (137-145); Total Protein 7.7 g/dL (6.3-8.2)
[2025-07-08 14:41] LABS: Troponin I < 0.012 ng/mL (0.000-0.034)
--- NOTE | 2025-07-08 16:07 | ED.GENADULT ---
HPI - General Adult General Chief complaint: Shortness of Breath/Dyspnea Stated complaint: trouble breathing Time Seen by Provider: 07/08/25 15:04 History of Present Illness HPI narrative: This is a 59-year-old female presenting for difficulty breathing and racing heart. Patient was seen here 1 week ago with similar symptoms but had been discharged home. Her symptoms have not improved and in fact have gotten worse. She woke up this morning feeling unwell. Her heart has been racing. She feels short of breath. She also has subjective fevers and chills today Related Data Home Medications ?Medication ?Instructions ?Recorded ?Confirmed ?Last Taken ?Type atorvastatin 20 mg tablet 20 mg PO DAILY 06/21/20 07/08/25 07/07/25 History fluoxetine 20 mg tablet 20 mg PO DAILY 06/21/20 07/08/25 07/08/25 History gabapentin 300 mg capsule 300 mg PO BID 06/21/20 07/08/25 07/08/25 History metformin 1,000 mg tablet 2,000 mg PO BID 06/21/20 07/08/25 07/08/25 History metoprolol succinate 25 mg 25 mg PO BID 06/21/20 07/08/25 07/08/25 History tablet,extended release 24 hr magnesium 500 mg tablet 15 mg PO BID 09/13/20 07/08/25 07/08/25 History allopurinol 100 mg tablet 100 mg PO DAILY 08/29/21 07/08/25 07/07/25 History empagliflozin 10 mg tablet 25 mg PO HS 07/02/23 07/08/25 07/01/23 21:00 History (Jardiance) Allergies Allergy/AdvReac Type Severity Reaction Status Date / Time codeine Allergy Unknown cold sores Verified 07/08/25 18:28 diphenhydramine Allergy Unknown BREAKS ME Verified 07/08/25 18:28 OUT doxycycline Allergy Unknown Nausea Verified 07/08/25 18:28 guaifenesin (Entex T) Allergy Unknown Skin Verified 07/08/25 18:28 Reaction naproxen Allergy Unknown Unknown Verified 07/08/25 18:28 Penicillins Allergy Unknown Unknown Verified 07/08/25 15:08 prednisone Allergy Unknown Unknown Verified 07/08/25 18:28 pseudoephedrine (Entex T) Allergy Unknown Skin Verified 07/08/25 18:28 Reaction ibuprofen AdvReac Mild nausea Verified 07/08/25 18:28 METOCLOPRAMIDE HCL Allergy Mild INTERACTS Uncoded 07/08/25 18:28 WITH PROZAC PMFSH Past Medical History Medical History (Updated 07/20/25 @ 21:18 by Heber Christian MD) Anemia Non-insulin dependent diabetes mellitus Asthma Hypertension Surgical History Surgical History (Updated 02/02/25 @ 14:29 by Mitra Jordan [facility]) H/O: hysterectomy History of cholecystectomy History of left knee replacement Family History Family History Sibling Family history of elevated blood lipids Family history of diabetes mellitus in first degree relative Mother Family history of diabetes mellitus in first degree relative Pulmonary embolism Father Family history of congestive heart failure Other Cerebrovascular accident Diabetes mellitus Family history of allergic disorder Family history of cardiovascular disease Family history of kidney disease Hypertension Social History Social History (Updated 02/02/25 @ 14:34 by Mary Mendoza [facility]) Smoking status: Never smoker Alcohol intake: never Substance use: never Do You Feel Safe in your Home?: Yes Lack of Transportation: No Lack of Food: Never True Current Housing: I Have Housing Concerned About Future Housing: No Difficulty Paying Gas/Electric Bills: No Difficulty Paying for Meds: No Currently Unemployed: No Education: High School Diploma/GED Difficulty w/ Childcare or Family Care: Decline to Answer Gender identity (if verbalized by the patient): Female Spiritual care concerns: No Exam Narrative: APPEARANCE: No apparent distress. Head: atraumatic. EYES: EOMI, NOSE: Atraumatic NECK: Trachea midline RESPIRATORY: Tachypneic, clear to auscultation CARDIOVASCULAR: Tachycardic, no peripheral edema ABDOMINAL: Non-distended soft nontender MUSCULOSKELETAl: No obvious deformities NEURO: Alert. Moving 4/4 extremities SKIN:: Hot to touch PSYCHIATRIC: Normal affect Course Vital Signs Vital signs: Vital Signs Temperature 98.2 F 07/08/25 13:52 Pulse Rate 119 H 07/08/25 13:52 Respiratory Rate 18 07/08/25 13:52 Blood Pressure 136/82 07/08/25 13:52 Pulse Oximetry 98 07/08/25 13:52 Temperature 97.9 F 07/09/25 05:39 Pulse Rate 100 07/09/25 09:26 Respiratory Rate 16 07/09/25 08:34 Blood Pressure 126/77 07/09/25 05:39 Pulse Oximetry 93 07/09/25 08:37 Oxygen Delivery Room Air 07/09/25 09:30 Medical Decision Making MDM Narrative Medical decision making narrative: -Course: 59-year-old female bounced back to the ED 1 day after week after previous visit with a racing heart, difficulty breathing. Rectal temperature is 99.8?, however she is hot to touch and has been having subjective fevers and chills at home. She is tachycardic in the 120s. Chest x-ray shows developing pneumonia in the left lower lobe. Patient will be started on antibiotics and given fluid resuscitation. Patient be admitted to the hospital for further management. -DDX includes but is not limited to: Pneumonia, viral syndrome -Test considered but not ordered: Patient had a more exhaustive workup [address] with negative [address] PE and viral swabs. Vital Signs Vital Signs: Vital Signs Temperature 98.2 F 07/08/25 13:52 Pulse Rate 119 H 07/08/25 13:52 Respiratory Rate 18 07/08/25 13:52 Blood Pressure 136/82 07/08/25 13:52 Pulse Oximetry 98 07/08/25 13:52 Temperature 97.9 F 07/09/25 05:39 Pulse Rate 100 07/09/25 09:26 Respiratory Rate 16 07/09/25 08:34 Blood Pressure 126/77 07/09/25 05:39 Pulse Oximetry 93 07/09/25 08:37 Oxygen Delivery Room Air 07/09/25 09:30 Lab Data 07/09/25 08:24 07/09/25 08:24 Labs: Lab Results 07/08/25 07/08/25 07/08/25 Range/Units 14:01 16:40 16:41 WBC 5.5 (4.5-10.0) K/mm3 RBC 4.20 (4.2-5.4) M/mm3 Hgb 11.4 L (12.0-15.0) g/dL Hct 35.0 L (37.0-47.0) % MCV 83.3 (80-100) fl MCH 27.1 (26-34) pg MCHC 32.6 (32-36) g/dl RDW 14.0 (11.5-14.5) % Plt Count 252 (150-375) k/mm3 MPV 8.5 (7.4-10.4) fl Immature Gran % (Auto) 0.4 (0-0.5) % Neut % (Auto) 55.5 (45.5-73.1) % Lymph % (Auto) 35.0 (18.3-44.2) % Mcdonald % (Auto) 7.0 (2.6-8.5) % Eos % (Auto) 1.6 (0-4.4) % Baso % (Auto) 0.5 (0.2-1.2) % Lymph # (Auto) 1.91 (0.9-3.2) K/mm3 Mcdonald # (Auto) 0.4 (0.1-0.6) K/mm3 Eos # (Auto) 0.1 (0-0.3) K/mm3 Baso # (Auto) 0.0 (0.0-0.1) K/mm3 Abs Immat Gran (auto) 0.02 (0.00-0.031) K/mm3 Absolute Neuts (auto) 3.0 (1.3-6.7) K/mm3 Absolute Nucleated RBC 0.000 (0.0-0.012) K/mm3 Nucleated RBC % 0.0 (0.0-0.2) % PT 13.6 (11.1-14.7) Seconds INR 1.0 APTT 27.6 (22.3-36.8) Seconds Sodium 139 (137-145) mmol/L Potassium 3.6 (3.4-5.0) mmol/L Chloride 103 (98-107) mmol/L Carbon Dioxide 21 L (22-30) mmol/L Anion Gap 15 H (4-12) mmol/L BUN 13 D (7-17) mg/dL Creatinine 0.65 L (0.7-1.0) mg/dL Estim Creat Clear Calc 76 ml/min Estimated GFR > 60 (59 - ) Glucose 164 H (65-110) mg/dL Calcium 9.7 (8.4-10.2) mg/dL Total Bilirubin 0.5 (0.2-1.3) mg/dL AST 38 H (14-36) U/L ALT 32 (6-35) U/L Alkaline Phosphatase 119 (38-126) U/L Troponin I < 0.012 (0.000-0.034) ng/mL Total Protein 7.7 (6.3-8.2) g/dL Albumin 4.6 (3.5-5.1) g/dL Lipase 184 (23-300) U/L Urine Color Yellow (Yellow) Urine Appearance Clear (Clear) Urine pH 5.0 (5.0-9.0) Ur Specific [place] 1.011 (1.001-1.035) Urine Protein Negative (Negative) mg/dL Urine Glucose (UA) 3+ H (Negative) mg/dL Urine Ketones Negative (Negative) mg/dL Ur Blood (Man) Negative (Negative) Urine Nitrate Negative (Negative) Urine Bilirubin Negative (Negative) Urine Urobilinogen 0.2 (<2.0) mg/dL Leukocyte Esterase Rfl Negative (Negative) JT/UL Influenza A (RT-PCR) Negative (Negative) Influenza B (RT-PCR) Negative (Negative) RSV (RT-PCR) Negative (Negative) SARS-CoV-2 RNA (RT-PCR) Negative (Negative) Discharge Plan Discharge Clinical Impression: PNA (pneumonia) Qualifiers: Pneumonia type: due to unspecified organism Laterality: bilateral Lung location: unspecified part of lung Qualified Code(s): J18.9 - Pneumonia, unspecified organism Patient Disposition: Still a Patient Condition: Improved
--- OUTSIDE RECORDS SUMMARY | 2025-07-08 16:09 | XMS_ITS | Encounter Summary ---
Author Organization [facility] Address [address] [facility] [place] [address] Phone Care Team Providers Care Call Center Agent Name Role Phone Altaf Fowler DO Unavailable [phone] Sanjeev Maldonado MD Primary Care Provider Tuan Martin MD Unavailable Brad Powell MD Unavailable Helen Davis APRN AIR SAW OPERATOR Unavailable Reason for Visit * Reason Comments Medication Refill Encounter Details Date Type Department Care Team (Late st Contact Info) Description 04/16/2025 [facility]ill [facility] - [place] [address]2 [place] [address] Helen Davis APRN, AIR SAW OPERATOR [address]2 [place] [address] Medication Refill Social History Tobacco Use Types [...] PM CDT Medication refilled and signed [facility] [...] reflux documented in this encounter Care Teams Call Center Agent Relationship Specialty Start Date End Date Sanjeev Maldonado MD PCP - General Internal Medicine 02/26/17 Altaf Fowler DO Gastroenterology 01/04/16 Tuan Martin MD [facility] [facility] [address] [place] [address] Cardiovascular Disease - Cardiology 08/28/22 Brad Powell MD #[address] [address] Consulting Physician Colon and Rectal Surgery 03/13/23 Helen Davis APRN, AIR SAW OPERATOR [address] [place] [address] Nurse Practitioner Advanced Practice Nurse 02/06/24 documented as of this encounter
--- OUTSIDE RECORDS SUMMARY | 2025-07-08 16:09 | XMS_ITS | Clinical Summary ---
Author Organization [facility] Address [address], [facility] [address] [place] [address] Phone Care Team Providers Care Golf Manager Name Role Phone Altaf Fowler DO Unavailable [phone] Sanjeev Maldonado MD Primary Care Provider [phone] Tuan Martin MD Unavailable Brad Powell MD Unavailable Helen Davis APRN, ASSISTIVE TECHNOLOGY TRAINER Unavailable Allergies Active Allergy Reactions Criticality Noted [...] Description 05/16/2025 9:00 AM CDT [facility] [address] [place] [address] Helen Davis APRN, CNP Gastroesophageal reflux disease without esophagitis (Primary Dx) Discharge Disposition: Discharged to home or Selfcare 05/16/2025 Travel [facility]20[facility] [place] [address] Helen Davis APRN, CNP 04/16/2025 [facility] [place] [address] Helen Davis APRN, CNP Medication Refill from Last 3 Months Immunizations Immunization Administration Dates Next Due Covid-19 Vaccine, Vector-nr, Rs-ad26, Pf, 0.5 Ml (IntY/J&J) 08/24/2021 Pneumococcal Vaccine - 13 Valent 05/20/2017 [...] this topic Medical Devices Implanted Type Area Hospital Educator Device Identifier Shelf Expiration Date Model / Serial / Lot Clip 360 Resolution 235cm - [id number] Implanted:Qty: 3 on 08/18/2020 by Altaf Fowler, at [facility] IMPLANT [employer] 05/08/2023 [id number] / [id number] / [id number] Procedures Procedure Name Priority Date/Time Associated Diagnosis Comments COLONOSCOPY Routine 04/23/2018 from Last 3 Months or Most Recently Relevant to Health Maintenance Results * COLONOSCOPY (04/23/2018) Altaf Fowler DO PROCEDURE/MINOR SURGICAL ORDERA BLES Final Result from Last 3 Months or Most Recently Relevant to Health Maintenance Insurance [facility] MEDICARE C [employer] Care Teams Golf Manager Relationship Specialty Start Date End Date Sanjeev Maldonado MD PCP - General Internal Medicine 02/26/17 Altaf Fowler DO Gastroenterology 01/04/16 Tuan Martin MD [address] [facility] [address] [place] [address] Cardiovascular Disease - Cardiology 08/28/22 Brad Powell MD #[address] [address] Consulting Physician Colon and Rectal Surgery 03/13/23 Helen Davis APRN, ASSISTIVE TECHNOLOGY TRAINER [address]2 [place] [address] Nurse Practitioner Advanced Practice Nurse 02/06/24
--- OUTSIDE RECORDS SUMMARY | 2025-07-08 16:09 | XMS_ITS | Encounter Summary ---
Author Organization [facility] Address [address] [facility] [place] [address] Phone Care Team Providers Care Parts Identifier Name Role Phone Altaf Fowler DO Unavailable [phone] Sanjeev Maldonado MD Primary Care Provider Tuan Martin MD Unavailable Brad Powell MD Unavailable Helen Davis APRN, QUANTITY SURVEYOR Unavailable Reason for Visit * Reason Comments Medication Refill Encounter Details Date Type Department Care Team (Late st Contact Info) Description 04/02/2022 Refill [facility] - [place] [address]2 [place] [id number] Nicolasa Jerez April, PAC [address] [place] [address] Medication Refill Social History Tobacco Use Types [...] on filedocumented in this encounter Care Teams Parts Identifier Relationship Specialty Start Date End Date Sanjeev Maldonado MD PCP - General Internal Medicine 02/26/17 Altaf Fowler DO Gastroenterology 01/04/16 Tuan Martin MD [address] [facility] [address] [place] [address] Cardiovascular Disease - Cardiology 08/28/22 Brad Powell MD #[address] [address] Consulting Physician Colon and Rectal Surgery 03/13/23 Helen Davis APRN, QUANTITY SURVEYOR [address] [place] [address] Nurse Practitioner Advanced Practice Nurse 02/06/24 documented as of this encounter
--- OUTSIDE RECORDS SUMMARY | 2025-07-08 16:09 | XMS_ITS | Encounter Summary ---
Author Organization [facility] Address [address] [place] [address] Care Team Providers Care Software Development Specialist Name Role Phone Sanjeev Maldonado MD Primary Care Provider [phone] Encounter Details Date Type Department Care Team (Late st Contact Info) Description 07/05/[address] [facility] Cardiology [address] [place] [address] Tuan Martin MD [address] [facility] [place] [address] [facility] [place] [address] [place] [address] Social History Tobacco Use Types [...] on file Legal Sex Female 5:15 AM MOLECULAR BIOLOGY DIRECTOR Gender Identity Not on file Sexual Orientation [...] on filedocumented in this encounter Care Teams Software Development Specialist Relationship Specialty Start Date End Date Sanjeev Maldonado MD PCP - General Internal Medicine 08/30/20 documented as of this encounter
--- OUTSIDE RECORDS SUMMARY | 2025-07-08 16:10 | XMS_ITS | Encounter Summary ---
Author Organization [facility] Address [address] [facility] [place] [address] Phone Care Team Providers Care Lodging House Keeper Name Role Phone Altaf Fowler DO Unavailable [phone] Sanjeev Maldonado MD Primary Care Provider Tuan Martin MD Unavailable Brad Powell MD Unavailable Helen Davis APRN HI LOW TRUCK DRIVER Unavailable Reason for Visit * Reason Comments Medication Refill Encounter Details Date Type Department Care Team (Late st Contact Info) Description 05/26/2023 Refill [facility] - [place] [address] [place] [address] Helen Davis APRN, [place] LOW TRUCK DRIVER [address] [place] [address] Medication Refill Social History Tobacco Use Types [...] PM CDT Medication refilled and signed [facility] chronic medication standing order for pediatric and adult patients. documented in this encounter Plan of Treatment Not on file documented as of this encounter Visit Diagnoses Diagnosis Gastroesophageal reflux disease without esophagitis Esophageal reflux documented in this encounter Care Teams Lodging House Keeper Relationship Specialty Start Date End Date Sanjeev Maldonado MD PCP - General Internal Medicine 02/26/17 Altaf Fowler DO Gastroenterology 01/04/16 Tuan Martin MD [address] [address] Cardiovascular Disease - Cardiology 08/28/22 Brad Powell MD #[address] [address] Consulting Physician Colon and Rectal Surgery 03/13/23 Helen Davis APRN, [place] LOW TRUCK DRIVER [address] [place] [address] Nurse Practitioner Advanced Practice Nurse 02/06/24 documented as of this encounter
--- OUTSIDE RECORDS SUMMARY | 2025-07-08 16:10 | XMS_ITS | Clinical Summary ---
Author Organization [facility] Address [address] [place] [address] Care Team Providers Care Machine Tester Name Role Phone Sanjeev Maldonado MD Primary Care Provider [phone] Allergies Active Allergy Reactions Criticality Noted Date [...] Type Department Care Team Description 07/05/2025 Telephone [facility] Cardiology [address] [facility] [address] [place] [address] Tuan Martin MD 05/11/2025 9:00 AM CDT Office Visit [facility] Cardiology [address] [facility] [address] [place] [address] Tuan Martin MD Hypertension associated with [...] on file Legal Sex Female 5:15 AM APPLIANCE WORKER Gender Identity Not on file Sexual Orientation Not on file Obstetrics History Last Filed Vital Signs Vital Sign Reading Time Taken Comments Blood Pressure 112/70 05/11/2025 8:42 AM CDT Pulse 85 05/11/2025 8:42 AM CDT Temperature 36.5 C (97.7 F) 10/02/2023 8:15 AM APPLIANCE WORKER Respiratory Rate 16 10/02/2023 8:15 AM APPLIANCE WORKER Oxygen Saturation 98% 05/11/2025 8:42 AM CDT [...] history exists Medical Devices Implanted Type Area Kiln Car Unloader Device Identifier Shelf Expiration Date Model / Serial / Lot Attraction World [facility] Device Closure Vascade Od5 Fr Femoral Artery [id number] - [id number] Implanted:Qty: 1 on 10/02/2023 by Tuan Martin MD at [facility] Net Transmit & Receive [facility] 07/21/2025 [id number] / / [id number] Procedures Procedure Name Priority Date/Time Associated [...] >=60 EXTERNAL LAB SCRIBED eGFR in NonAfrican Ecuadorean >60 >=60 EXTERNAL LAB Blood specimen (specimen) 07/23/2021 Michell Hunt NP LAB BLOOD ORDERABLES Angelika l Result EXTERNAL LAB from Last 3 Months or Most Recently Relevant to Health Maintenance Insurance [facility] MEDICARE ADVANTAGE [facility] MEDICARE ADVANTAGE [facility] Care Teams Machine Tester Relationship Specialty Start Date End Date Sanjeev Maldonado MD PCP - General Internal Medicine 08/30/20
--- OUTSIDE RECORDS SUMMARY | 2025-07-08 16:10 | XMS_ITS | Encounter Summary ---
Author Organization [facility] Address [address] [facility] [place] [address] Phone Care Team Providers Care Supervising Fire Marshal Name Role Phone Altaf Fowler DO Unavailable [phone] Sanjeev Maldonado MD Primary Care Provider [phone] Tuan Martin MD Unavailable Brad Powell MD Unavailable Helen Davis APRN COOK BOAT Unavailable Reason for Visit * Reason Comments Medication Refill Encounter Details Date Type Department Care Team (Late st Contact Info) Description 12/02/2024 Refill [facility] - [place] [address]2 [place] [address] Helen Davis APRN, COOK BOAT [address] [place] [address] Medication Refill Social History Tobacco Use Types [...] Sheree Shafer RN - 12/03/2024 8:29 AM BORDER PATROL OFFICER Medication refilled and signed per [facility] chronic medication standing order for pediatric and adult patients. ER PATROL OFFICER documented in this encounter Plan of Treatment Not on file documented as of this encounter Visit Diagnoses Diagnosis Gastroesophageal reflux disease without esophagitis Esophageal reflux documented in this encounter Care Teams Supervising Fire Marshal Relationship Specialty Start Date End Date Sanjeev Maldonado MD PCP - General Internal Medicine 02/26/17 Altaf Fowler DO Gastroenterology 01/04/16 Tuan Martin MD [address] [facility] [address] [place] [address] Cardiovascular Disease - Cardiology 08/28/22 Brad Powell MD #[address] [address] Consulting Physician Colon and Rectal Surgery 03/13/23 Helen Davis APRN, COOK BOAT [address] [place] [address] Nurse Practitioner Advanced Practice Nurse 02/06/24 documented as of this encounter
--- OUTSIDE RECORDS SUMMARY | 2025-07-08 16:10 | XMS_ITS | Encounter Summary ---
Author Organization [facility] Address [address] [facility] [place] [address] Phone Care Team Providers Care Contact Assembler Name Role Phone Altaf Fowler DO Unavailable [phone] Sanjeev Maldonado MD Primary Care Provider [phone] Tuan Martin MD Unavailable Brad Powell MD Unavailable Helen Davis APRN, GAS REFRIGERATOR SERVICER Unavailable Encounter Details Date Type Department Care Team (Late st Contact Info) Description 09/17/2022 [facility] [address] [place] [address] Mason Donnelly MD #2 [place] [address] Preop testing (Primary Dx) Social History Tobacco [...] Range for this test is Not Detected) [facility] GILL ID NOW 09/23/2022 1:[address] Comment:This test was perfor med by a MOLECULAR, NON-PCR method Other NASOPHARYNGEAL STRUCTURE / Unknown Non-Phlebotomy Collection / Unknown 09/23/2022 12:30 PM CDT 09/23/2022 1:21 PM [address] [facility] - 09/23/2022 1:45 [...] information for Clinicians can be found at: https://www.fda.gov/media/256469/download Additional information for Patients can be found at: https://www.fda.gov/media/635590/download Mason Donnelly MD MICROBIOLOGY - GENERAL ORDERABL ES Final Result [facility] #[address] [place] [address] documented in this encounter Visit Diagnoses Diagnosis Preop testing- Primary Preoperative examination, unspecified documented in this encounter Care Teams Contact Assembler Relationship Specialty Start Date End Date Sanjeev Maldonado MD PCP - General Internal Medicine 02/26/17 Altaf Fowler DO Gastroenterology 01/04/16 Tuan Martin MD [facility] [facility] [address] [place] [address] Cardiovascular Disease - Cardiology 08/28/22 Brad Powell MD #[address] [address] Consulting Physician Colon and Rectal Surgery 03/13/23 Helen Davis APRN, GAS REFRIGERATOR SERVICER [address] [place] [address] Nurse Practitioner Advanced Practice Nurse 02/06/24 documented as of this encounter
--- OUTSIDE RECORDS SUMMARY | 2025-07-08 16:10 | XMS_ITS | Encounter Summary ---
Author Organization [facility] Address [address] [facility] [place] [address] Phone Care Team Providers Care Printing Gray Cloth Tender Name Role Phone Altaf Fowler DO Unavailable [phone] Sanjeev Maldonado MD Primary Care Provider Tuan Martin MD Unavailable Brad Powell MD Unavailable Helen Davis APRN LITIGATION CLAIM REPRESENTATIVE Unavailable Reason for Visit * Reason Comments Medication Refill Encounter Details Date Type Department Care Team (Late st Contact Info) Description 05/25/2024 Refill [facility] - [place] #2 [place] [address] Helen Davis APRN, LITIGATION CLAIM REPRESENTATIVE [address] [place] [address] Medication Refill Social History Tobacco Use Types [...] AM CDT Medication refilled and signed [facility] medication standing order for pediatric and adult patients. documented in this encounter Plan of Treatment Not on file documented as of this encounter Visit Diagnoses Diagnosis Gastroesophageal reflux disease without esophagitis Esophageal reflux documented in this encounter Care Teams Printing Gray Cloth Tender Relationship Specialty Start Date End Date Sanjeev Maldonado MD PCP - General Internal Medicine 02/26/17 Altaf Fowler DO Gastroenterology 01/04/16 Tuan Martin MD [address] [address] Cardiovascular Disease - Cardiology 08/28/22 Brad Powell MD #[address] [address] Consulting Physician Colon and Rectal Surgery 03/13/23 Helen Davis APRN, LITIGATION CLAIM REPRESENTATIVE #2 [place] [address] Nurse Practitioner Advanced Practice Nurse 02/06/24 documented as of this encounter
--- OUTSIDE RECORDS SUMMARY | 2025-07-08 16:10 | XMS_ITS | Encounter Summary ---
Author Organization [facility] Address [address] [facility] [place] [address] Phone Care Team Providers Care Server Systems Administrator Name Role Phone Altaf Fowler DO Unavailable [phone] Sanjeev Maldonado MD Primary Care Provider Tuan Martin MD Unavailable Brad Powell MD Unavailable Helen Davis APRN TRAIN ELECTRONIC TECHNICIAN Unavailable Reason for Visit * Reason Comments Medication Refill Encounter Details Date Type Department Care Team (Late st Contact Info) Description 02/01/2024 Refill [facility] Gastroenterology - [place] #2 [place] [address] Helen Davis APRN, TRAIN ELECTRONIC TECHNICIAN #2 [place] [address] Medication Refill Social History Tobacco Use Types [...] PM CDT Medication refilled and signed [facility] medication standing order for pediatric and [...] reflux documented in this encounter Care Teams Server Systems Administrator Relationship Specialty Start Date End Date Sanjeev Maldonado MD PCP - General Internal Medicine 4/5/17 Altaf Fowler DO Gastroenterology 01/04/16 Tuan Martin MD 1225 [facility] 2310 [place] [address] Cardiovascular Disease - Cardiology 08/28/22 Brad Powell MD #[address] [address] Consulting Physician Colon and Rectal Surgery 03/13/23 Helen Davis APRN, TRAIN ELECTRONIC TECHNICIAN #2 [place] [address] Nurse Practitioner Advanced Practice Nurse 02/06/24 documented as of this encounter
--- OUTSIDE RECORDS SUMMARY | 2025-07-08 16:10 | XMS_ITS | Encounter Summary ---
Author Organization [facility] Address [address] [facility] [place] [address] Phone Care Team Providers Care Tank Builder And Erector Name Role Phone Altaf Fowler DO Unavailable [phone] Sanjeev Maldonado MD Primary Care Provider Tuan Martin MD Unavailable Brad Powell MD Unavailable Helen Davis APRN, DIET COUNSELOR Unavailable Reason for Visit * Reason Comments Medication Refill Encounter Details Date Type Department Care Team (Late st Contact Info) Description 07/04/2022 Refill [facility] - G[facility]enterology - [place] #2 [place] [phone] Nicolasa Jerez April, PAC [address] [place] [address] Medication Refill Social History Tobacco Use Types [...] AM CDT Medication refilled and signed [facility] medication standing order for pediatric and adult patients. * Telephone Encounter - Sheree Shafer RN - 07/08/2022 9:35 AM CDT documented in this encounter Plan of Treatment Not on file documented as of this encounter Visit Diagnoses Not on filedocumented in this encounter Care Teams Tank Builder And Erector Relationship Specialty Start Date End Date Sanjeev Maldonado MD PCP - General Internal Medicine 02/26/17 Altaf Fowler DO Gastroenterology 01/04/16 Tuan Martin MD 1225 [facility] 2310 [place] [address] Cardiovascular Disease - Cardiology 08/28/22 Brad Powell MD #[address] [address] Consulting Physician Colon and Rectal Surgery 03/13/23 Helen Davis APRN, DIET COUNSELOR #2 [place] [address] Nurse Practitioner Advanced Practice Nurse 02/06/24 documented as of this encounter
--- OUTSIDE RECORDS SUMMARY | 2025-07-08 16:10 | XMS_ITS | Clinical Summary ---
Author Organization [facility] N[facility] tawny [facility] Address [address] [facility] [place] [address] Care Team Providers Care Java Web Developer Name Role Phone Sanjeev Maldonado MD Primary Care Provider [phone] Allergies Active Allergy Reactions Criticality Noted Date [...] ABSTRACTION Provider, Abstract 05/23/2025 Orders Only [facility] Oncology and Hematology - [place] [address] [place] [address] Lit Silva MD 05/17/2025 External Device Data STL ABSTRACTION Provider, Abstract 05/17/2025 Orders Only [facility] Oncology and Hematology [facility] [address] [place] [address] Lit Silva MD 05/16/2025 11:45 AM CDT Office Visit [facility] Oncology and Hematology [facility] [address] [place] [address] Lit Silva MD Chronic anemia (Primary Dx) [...] on file Legal Sex Female 2:43 PM PIPE LAYER Gender Identity Not on file Sexual Orientation [...] 09/20/2025 11:30 AM CDT Office Visit [facility] Oncology and Hematology - [place]y [address] [facility] [address] [place] [address] Lit Silva MD [address] [facility] [address] [place] [address] Health Maintenance Due Date Last [...] Resu lt from Last 3 Months Insurance [facility] [id number] [facility] Address: [address] [place] [id number] Care Teams Java Web Developer Relationship Specialty Start Date End Date Sanjeev Maldonado MD [address] [facility] 4 [place] [address] PCP - General Internal Medicine 01/19/20
[2025-07-08] MEDS: ACETAMINOPHEN 500 MG TABLET 1000 MG PO (16:38)
[2025-07-08] MEDS: cefTRIAXone 1 GM in SODIUM CHLORIDE 0.9% IV 50 ML 100 ML IVPB (16:39)
[2025-07-08 16:49] LABS: Add Urine Microscopic? NO; Appearance Urine Clear (Clear); Glucose Urine UA 3+ mg/dL (Negative); Leukocyte Esterase Ur Negative LEU/UL (Negative); Nitrate Urine Negative (Negative); Specific Grav Ur 1.011 (1.001-1.035)
[2025-07-08] MEDS: SODIUM CHLORIDE 0.9% IV 1,000 ML 999 ML IV CONT ×2 (17:01→17:24)
[2025-07-08 17:24] LABS: Influenza A QL RT-PCR Negative (Negative); Influenza B QL RT-PCR Negative (Negative); RSV RNA, RT-PCR Negative (Negative); SARS-CoV-2 RNA PCR Negative (Negative)
[2025-07-08] MEDS: DOXYCYCLINE IV 100 MG in SODIUM CHLORIDE 0.9% IV 100 ML IVPB (17:24)
--- OUTSIDE RECORDS SUMMARY | 2025-07-08 18:06 | XMS_ITS | Encounter Summary ---
Author Organization [facility] Address [address] [facility] [place] [address] Phone Care Team Providers Care Review Trainer Name Role Phone Altaf Fowler DO Unavailable [phone] Sanjeev Maldonado MD Primary Care Provider [phone] Tuan Martin MD Unavailable Brad Powell MD Unavailable Helen Davis APRN UTILITY WORKER FORGE Unavailable Reason for Visit * Reason Comments Medication Refill Encounter Details Date Type Department Care Team (Late st Contact Info) Description 02/01/2024 Refill [facility] - Gastroenterology - [place] #2 [place] [address] Helen Davis APRN, UTILITY WORKER FORGE [address]2 [place] [address] Medication Refill Social History Tobacco Use Types [...] PM CDT Medication [facility]illed and signed [facility] medication standing order for pediatric and [...] reflux documented in this encounter Care Teams Review Trainer Relationship Specialty Start Date End Date Sanjeev Maldonado MD PCP - General Internal Medicine 4/5/17 Altaf Fowler DO Gastroenterology 01/04/16 Tuan Martin MD 1225 [facility] 2310 [place] [address] Cardiovascular Disease - Cardiology 08/28/22 Brad Powell MD #[address] [address] Consulting Physician Colon and Rectal Surgery 03/13/23 Helen Davis APRN, UTILITY WORKER FORGE [address]2 [place] [address] Nurse Practitioner Advanced Practice Nurse 02/06/24 documented as of this encounter
--- OUTSIDE RECORDS SUMMARY | 2025-07-08 18:06 | XMS_ITS | Encounter Summary ---
Author Organization [facility] Address [address] [facility] [place] [address] Phone Care Team Providers Care Placer Miner Name Role Phone Altaf Fowler DO Unavailable [phone] Sanjeev Maldonado MD Primary Care Provider Tuan Martin MD Unavailable Brad Powell MD Unavailable Helen Davis APRN TIMBER SIZER Unavailable Reason for Visit * Reason Comments Medication Refill Encounter Details Date Type Department Care Team (Late st Contact Info) Description 05/25/2024 Refill [facility] - Gastroenterology - [place] #2 [place] [address] Helen Davis APRN, TIMBER SIZER #2 [place] [address] Medication Refill Social History Tobacco Use Types [...] CDT Medication [facility] signed [facility] medication standing order for pediatric and adult patients. documented in this encounter Plan of Treatment Not on file documented as of this encounter Visit Diagnoses Diagnosis Gastroesophageal reflux disease without esophagitis Esophageal reflux documented in this encounter Care Teams Placer Miner Relationship Specialty Start Date End Date Sanjeev Maldonado MD PCP - General Internal Medicine 02/26/17 Altaf Fowler DO Gastroenterology 01/04/16 Tuan Martin MD [address] [address] Cardiovascular Disease - Cardiology 08/28/22 Brad Powell MD #[address] [address] Consulting Physician Colon and Rectal Surgery 03/13/23 Helen Davis APRN, TIMBER SIZER #2 [place] [address] Nurse Practitioner Advanced Practice Nurse 02/06/24 documented as of this encounter
--- OUTSIDE RECORDS SUMMARY | 2025-07-08 18:06 | XMS_ITS | Clinical Summary ---
Author Organization [facility] Address [address] [place] [address] Care Team Providers Care Manager Of Program Name Role Phone Sanjeev Maldonado MD Primary Care Provider [phone] Allergies Active Allergy Reactions Criticality Noted Date [...] [facility] Cardiology [address] [facility] [address] [place] [address] Tuan Martin MD 05/11/2025 9:00 AM CDT Office Visit [facility] Cardiology [address] [facility] [address] [place] [address] Tuan Martin MD Hypertension associated with [...] on file Legal Sex Female 5:15 AM SOFTWARE TEST SPECIALIST Gender Identity Not on file Sexual Orientation Not on file Obstetrics History Last Filed Vital Signs Vital Sign Reading Time Taken Comments Blood Pressure 112/70 05/11/2025 8:42 AM CDT Pulse 85 05/11/2025 8:42 AM CDT Temperature 36.5 C (97.7 F) 10/02/2023 8:15 AM SOFTWARE TEST SPECIALIST Respiratory Rate 16 10/02/2023 8:15 AM SOFTWARE TEST SPECIALIST Oxygen Saturation 98% 05/11/2025 8:42 AM CDT [...] history exists Medical Devices Implanted Type Area Pumper Head Device Identifier Shelf Expiration Date Model / Serial / Lot [employer] [facility] Device Closure Vascade Od5 Fr Femoral Artery [id number] - [id number] Implanted:Qty: 1 on 10/02/2023 by Tuan Martin MD at [facility] [employer] [facility] 07/21/2025 [id number] / / [id number] Procedures Procedure Name Priority Date/Time Associated [...] >=60 EXTERNAL LAB SCRIBED eGFR in NonAfrican Hong Konger >60 >=60 EXTERNAL LAB Blood specimen (specimen) 07/23/2021 Michell Hunt NP LAB BLOOD ORDERABLES Angelika l Result EXTERNAL LAB from Last 3 Months or Most Recently Relevant to Health Maintenance Insurance [facility] MEDICARE ADVANTAGE [facility] MEDICARE ADVANTAGE [facility] Care Teams Manager Of Program Relationship Specialty Start Date End Date Sanjeev Maldonado MD PCP - General Internal Medicine 08/30/20
--- OUTSIDE RECORDS SUMMARY | 2025-07-08 18:06 | XMS_ITS | Encounter Summary ---
Author Organization [facility] Address [address] [facility] [place] [address] Phone Care Team Providers Care Delivery And Installation Subcontractor Name Role Phone Altaf Fowler DO Unavailable [phone] Sanjeev Maldonado MD Primary Care Provider Tuan Martin MD Unavailable Brad Powell MD Unavailable Helen Davis APRN, NET FRONT END DEVELOPER Unavailable Reason for Visit * Reason Comments Medication Refill Encounter Details Date Type Department Care Team (Late st Contact Info) Description 07/04/2022 Refill [facility] - Gastroenterology - [place] #2 [place] [address] Nicolasa Jerez April, PAC [address] [place] [address] Medication Refill Social History Tobacco Use Types [...] CDT Medication [facility] and signed [facility] medication standing order for pediatric and adult patients. * Telephone Encounter - Sheree Shafer RN - 07/08/2022 9:35 AM CDT documented in this encounter Plan of Treatment Not on file documented as of this encounter Visit Diagnoses Not on filedocumented in this encounter Care Teams Delivery And Installation Subcontractor Relationship Specialty Start Date End Date Sanjeev Maldonado MD PCP - General Internal Medicine 02/26/17 Altaf Fowler DO Gastroenterology 01/04/16 Tuan Martin MD 1225 [facility] 2310 [place] [address] Cardiovascular Disease - Cardiology 08/28/22 Brad Powell MD #[address] [address] Consulting Physician Colon and Rectal Surgery 03/13/23 Helen Davis APRN, NET FRONT END DEVELOPER #2 [place] [address] Nurse Practitioner Advanced Practice Nurse 02/06/24 documented as of this encounter
--- OUTSIDE RECORDS SUMMARY | 2025-07-08 18:06 | XMS_ITS | Encounter Summary ---
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
--- OUTSIDE RECORDS SUMMARY | 2025-07-08 18:06 | XMS_ITS | Encounter Summary ---
Author Organization [facility] Address [address] [facility] [place] [address] Phone Care Team Providers Care Coagulator Name Role Phone Altaf Fowler DO Unavailable [phone] Sanjeev Maldonado MD Primary Care Provider Tuan Martin MD Unavailable Brad Powell MD Unavailable Helen Davis APRN JACK PRIZER Unavailable Reason for Visit * Reason Comments Medication Refill Encounter Details Date Type Department Care Team (Late st Contact Info) Description 05/26/2023 Refill [facility] - Gastroenterology - [place] #2 [place] [address] Helen Davis APRN, JACK PRIZER [address]2 [place] [address] Medication Refill Social History Tobacco Use Types [...] PM CDT Medication [facility]illed and signed [facility] medication standing order for pediatric and adult patients. documented in this encounter Plan of Treatment Not on file documented as of this encounter Visit Diagnoses Diagnosis Gastroesophageal reflux disease without esophagitis Esophageal reflux documented in this encounter Care Teams Coagulator Relationship Specialty Start Date End Date Sanjeev Maldonado MD PCP - General Internal Medicine 02/26/17 Altaf Fowler DO Gastroenterology 01/04/16 Tuan Martin MD [address] [address] Cardiovascular Disease - Cardiology 08/28/22 Brad Powell MD #[address] [address] Consulting Physician Colon and Rectal Surgery 03/13/23 Helen Davis APRN, JACK PRIZER #[address] [place] [address] Nurse Practitioner Advanced Practice Nurse 02/06/24 documented as of this encounter
--- OUTSIDE RECORDS SUMMARY | 2025-07-08 18:06 | XMS_ITS | Encounter Summary ---
Author Organization [facility] Address [address] [facility] [address] Phone Care Team Providers Care Sales Force Developer Name Role Phone Altaf Fowler DO Unavailable [phone] Sanjeev Maldonado MD Primary Care Provider Tuan Martin MD Unavailable Brad Powell MD Unavailable Helen Davis APRN, PIN MACHINE TENDER Unavailable Encounter Details Date Type Department Care Team (Late st Contact Info) Description 09/17/[address] [facility] [address] [place] [address] Mason Donnelly MD #2 [place] [address] Preop testing (Primary Dx) Social History Tobacco [...] Range for this test is Not Detected) [facility] GILL ID NOW 09/23/2022 1:45 PM CDT [facility] Comment:This test was perfor med by a MOLECULAR, NON-PCR method Other NASOPHARYNGEAL STRUCTURE / Unknown Non-Phlebotomy Collection / Unknown 09/23/2022 12:30 PM CDT 09/23/2022 1:21 PM CDT Narrative [facility] - 09/23/2022 1:45 PM CDT This [...] information for Clinicians can be found at: https://www.fda.gov/media/639335/download Additional information for Patients can be found at: https://www.fda.gov/media/689995/download Mason Donnelly MD MICROBIOLOGY - GENERAL ORDERABL ES Final Result [facility] #1 [place] [address] documented in this encounter Visit Diagnoses Diagnosis Preop testing- Primary Preoperative examination, unspecified documented in this encounter Care Teams Sales Force Developer Relationship Specialty Start Date End Date Sanjeev Maldonado MD PCP - General Internal Medicine 02/26/17 Altaf Fowler DO Gastroenterology 01/04/16 Tuan Martin MD 1225 [facility] [address] [place] [address] Cardiovascular Disease - Cardiology 08/28/22 Brad Powell MD #[address] [address] Consulting Physician Colon and Rectal Surgery 03/13/23 eHlen Davis APRN, PIN MACHINE TENDER #2 [place] [address] Nurse Practitioner Advanced Practice Nurse 02/06/24 documented as of this encounter
--- OUTSIDE RECORDS SUMMARY | 2025-07-08 18:06 | XMS_ITS | Clinical Summary ---
Author Organization [facility] Address [address] [place], [facility] [address] [place] [address] Phone Care Team Providers Care Med Peds Name Role Phone Altaf Fowler DO Unavailable [phone] Sanjeev Maldonado MD Primary Care Provider [phone] Tuan Martin MD Unavailable Brad Powell MD Unavailable Helen Davis APRN, SURVEILLANCE SYSTEMS ENGINEER Unavailable Allergies Active Allergy Reactions Criticality Noted [...] Description 05/16/2025 9:00 AM CDT [facility] #2 [place] [address] Helen Davis APRN, CNP Gastroesophageal reflux disease without esophagitis (Primary Dx) Discharge Disposition: Discharged to home or Selfcare 05/16/2025 Travel 04/28/2025 [facility] [place] [address] Helen Davis APRN, CNP 04/16/2025 [facility]2 [place] [address] Helen Davis APRN, CNP Medication Refill from Last 3 Months Immunizations Immunization Administration Dates Next Due Covid-19 Vaccine, Vector-nr, Rs-ad26, Pf, 0.5 Ml (ROBAUTO/J&J) 08/24/2021 Pneumococcal Vaccine - 13 Valent 05/20/2017 [...] this topic Medical Devices Implanted Type Area Bobbin Presser Device Identifier Shelf Expiration Date Model / Serial / Lot Clip 360 Resolution 235cm - [id number] Implanted:Qty: 3 on 08/18/2020 by Altaf Fowler, at [facility] IMPLANT [employer] 05/08/2023 [id number] / [id number] / [id number] Procedures Procedure Name Priority Date/Time Associated Diagnosis Comments COLONOSCOPY Routine 04/23/2018 from Last 3 Months or Most Recently Relevant to Health Maintenance Results * COLONOSCOPY (04/23/2018) Altaf Fowler DO PROCEDURE/MINOR SURGICAL ORDERA BLES Final Result from Last 3 Months or Most Recently Relevant to Health Maintenance Insurance [facility] MEDIC[facility] C [employer] Care Teams Med Peds Relationship Specialty Start Date End Date Sanjeev Maldonado MD PCP - General Internal Medicine 02/26/17 Altaf Fowler DO Gastroenterology 01/04/16 Tuan Martin MD 1225 [facility] [address]10 [place] [address] Cardiovascular Disease - Cardiology 08/28/22 Brad Powell MD #[address] [address] Consulting Physician Colon and Rectal Surgery 03/13/23 Helen Davis APRN, SURVEILLANCE SYSTEMS ENGINEER #2 [place] [address] Nurse Practitioner Advanced Practice Nurse 02/06/24
--- OUTSIDE RECORDS SUMMARY | 2025-07-08 18:06 | XMS_ITS | Encounter Summary ---
Author Organization [facility] Address [address] [facility] [place] [address] Phone Care Team Providers Care Farm Helper Name Role Phone Altaf Fowler DO Unavailable [phone] Sanjeev Maldonado MD Primary Care Provider Tuan Martin MD Unavailable Brad Powell MD Unavailable Helen Davis APRN, DIVING JUDGE Unavailable Reason for Visit * Reason Comments Medication Refill Encounter Details Date Type Department Care Team (Late st Contact Info) Description 04/02/2022 Refill [facility]ology - [place] #2 [place] [phone] Nicolasa Jerez April, PAC [address] [place] [address] Medication Refill Social History Tobacco Use Types [...] on filedocumented in this encounter Care Teams Farm Helper Relationship Specialty Start Date End Date Sanjeev Maldonado MD PCP - General Internal Medicine 02/26/17 Altaf Fowler DO Gastroenterology 01/04/16 Tuan Martin MD [address] [facility] [address] [place] [address] Cardiovascular Disease - Cardiology 08/28/22 Brad Powell MD #[address] [address] Consulting Physician Colon and Rectal Surgery 03/13/23 Helen Davis APRN, DIVING JUDGE #2 [place] [address] Nurse Practitioner Advanced Practice Nurse 02/06/24 documented as of this encounter
--- OUTSIDE RECORDS SUMMARY | 2025-07-08 18:06 | XMS_ITS | Encounter Summary ---
Author Organization [facility] Address [address] [facility] [place] [address] Phone Care Team Providers Care Product Marketing Consultant Name Role Phone Altaf Fowler DO Unavailable [phone] Sanjeev Maldonado MD Primary Care Provider [phone] Tuan Martin MD Unavailable Brad Powell MD Unavailable Helen Davis APRN SANDWICH BOARD CARRIER Unavailable Reason for Visit * Reason Comments Medication Refill Encounter Details Date Type Department Care Team (Late st Contact Info) Description 04/16/2025 Refill [facility]ology - [place] #2 [place] [address] Helen Davis APRN, SANDWICH BOARD CARRIER #2 [place] [address] Medication Refill Social History Tobacco Use Types [...] reflux documented in this encounter Care Teams Product Marketing Consultant Relationship Specialty Start Date End Date Sanjeev Maldonado MD PCP - General Internal Medicine 02/26/17 Altaf Fowler DO Gastroenterology 01/04/16 Tuan Martin MD 1225 [facility] [address] [place] [address] Cardiovascular Disease - Cardiology 08/28/22 Brad Powell MD #[address] [address] Consulting Physician Colon and Rectal Surgery 03/13/23 Helen Davis APRN, SANDWICH BOARD CARRIER #2 [place] [address] Nurse Practitioner Advanced Practice Nurse 02/06/24 documented as of this encounter
--- OUTSIDE RECORDS SUMMARY | 2025-07-08 18:06 | XMS_ITS | Encounter Summary ---
Author Organization [facility] Address [address] [facility] [place] [address] Phone Care Team Providers Care Rotary Furnace Operator Name Role Phone Altaf Fowler DO Unavailable [phone] Sanjeev Maldonado MD Primary Care Provider Tuan Martin MD Unavailable Brad Powell MD Unavailable Helen Davis APRN PEARL GLUE OPERATOR Unavailable Reason for Visit * Reason Comments Medication Refill Encounter Details Date Type Department Care Team (Late st Contact Info) Description 12/02/2024 Refill [facility] - Gastroenterology - [place] [address] [place] [address] Helen Davis APRN, PEARL GLUE OPERATOR [address] [place] [address] Medication Refill Social History Tobacco Use Types [...] Sheree Shafer RN - 12/03/2024 8:29 AM TOOL CRIB LEAD Medication refilled and signed per [facility] chronic medication standing order for pediatric and adult patients. CRIB LEAD documented in this encounter Plan of Treatment Not on file documented as of this encounter Visit Diagnoses Diagnosis Gastroesophageal reflux disease without esophagitis Esophageal reflux documented in this encounter Care Teams Rotary Furnace Operator Relationship Specialty Start Date End Date Sanjeev Maldonado MD PCP - General Internal Medicine 02/26/17 Altaf Fowler DO Gastroenterology 01/04/16 Tuan Martin MD [address] [facility] [address] [id number] Cardiovascular Disease - Cardiology 08/28/22 Brad Powell MD [address] [address] Consulting Physician Colon and Rectal Surgery 03/13/23 Helen Davis APRN, PEARL GLUE OPERATOR [address] [place] [address] Nurse Practitioner Advanced Practice Nurse 02/06/24 documented as of this encounter
--- OUTSIDE RECORDS SUMMARY | 2025-07-08 18:06 | XMS_ITS | Clinical Summary ---
Author Organization [facility] Nilesh tawny [facility] Address [address] [place] [address] Care Team Providers Care Superintendent Drilling And Production Name Role Phone Sanjeev Maldonado MD Primary Care Provider [phone] Allergies Active Allergy Reactions Criticality Noted Date [...] STL ABSTRACTION Provider, Abstract 05/23/2025 Orders Only [facility] Oncology and Hematology - [address] [place] [phone] Lit Silva MD 05/17/2025 External Device Data STL ABSTRACTION Provider, Abstract 05/17/2025 Orders Only [facility] Oncology and Hematology [facility] [address] [place] [address] Lit Silva MD 05/16/2025 11:45 AM CDT Office Visit [facility] Oncology and Hematology 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 Gender Identity Not on file Sexual Orientation [...] Description 09/20/2025 11:30 AM CDT Office Visit [facility] Oncology and Hematology - Rudy [address] [facility] [address] [place] [address] Lit Silva MD [address] [facility] [address] [place] [address] Health Maintenance Due Date Last [...] Resu lt from Last 3 Months Insurance [facility] [id number] [place] [id number] Care Teams Superintendent Drilling And Production Relationship Specialty Start Date End Date Sanjeev Maldonado MD [address] [facility] [address] [place] [id number] PCP - General Internal Medicine 01/19/20
--- NOTE | 2025-07-08 18:24 | ADMGEN ---
This patient, Lina Sandoval, was admitted to Medical Room 252-01. Patient/family oriented to hospital policies and general routines including ID bracelet, bed and alarms, visiting hours, pain management, procedures, bathroom and other care routines, personal items, smoking policy, room service/diet, and visiting hours. Information on how to activate the Rapid Response Team has been discussed. Patient/Family are encouraged to report perceived risks to care and to ask questions if they do not understand what they are told or what they should do.
--- NOTE | 2025-07-08 20:06 | P.HP_ITS ---
H&P: HPI History of Present Illness Date/Time: 07/08/25 20:06 Chief Complaint: shortness of breath Narrative: 59-year-old female with past medical history of diabetes, hypertension, asthma presents the hospital with shortness of breath. Patient states that she has had shortness of breath and cough for the last 3-4 days. Today when she woke up she felt like her heart was racing and that she had fever and chills so she presented to the emergency room. She denies nausea or vomiting. Lab work in the ED shows hemoglobin 11.4, carbon dioxide 21, anion gap of 15, creatinine of 0.65, glucose of 164, AST of 38, troponins are negative, UA is negative for infection. Chest x-ray shows lower lobe infiltrates. Patient was started on Rocephin and doxycycline for pneumonia. Review of Systems Review of Systems: 12 systems were reviewed and are negativ e except for as per HPI. PMFSH Past Medical History Medical History (Updated 07/09/25 @ 01:23 by Farzaneh Raymond APRN) Anemia Non-insulin dependent diabetes mellitus Asthma Hypertension Surgical History Surgical History (Updated 02/02/25 @ 14:29 by Mitra Jordan CMA) H/O: hysterectomy History of cholecystectomy History of left knee replacement Family History Family History Sibling Family history of elevated blood lipids Family history of diabetes mellitus in first degree relative Mother Family history of diabetes mellitus in first degree relative Pulmonary embolism Father Family history of congestive heart failure Other Cerebrovascular accident Diabetes mellitus Family history of allergic disorder Family history of cardiovascular disease Family history of kidney disease Hypertension Social History Social History (Updated 02/02/25 @ 14:34 by Mary Mendoza CONDUCTOR AND ENGINEER) Smoking status: Never smoker Alcohol intake: never Substance use: never Do You Feel Safe in your Home?: Yes Lack of Transportation: No Lack of Food: Never True Current Housing: I Have Housing Concerned About Future Housing: No Difficulty Paying Gas/Electric Bills: No Difficulty Paying for Meds: No Currently Unemployed: No Education: High School Diploma/GED Difficulty w/ Childcare or Family Care: Decline to Answer Gender identity (if verbalized by the patient): Female Spiritual care concerns: No Meds Home Medications and Allergies Home Medications ?Medication ?Instructions ?Recorded ?Confirmed ?Type atorvastatin 20 mg tablet 20 mg PO DAILY 06/21/20 07/08/25 History fluoxetine 20 mg tablet 20 mg PO DAILY 06/21/20 07/08/25 History gabapentin 300 mg capsule 300 mg PO BID 06/21/20 07/08/25 History metformin 1,000 mg tablet 2,000 mg PO BID 06/21/20 07/08/25 History metoprolol succinate 25 mg 25 mg PO BID 06/21/20 07/08/25 History tablet,extended release 24 hr magnesium 500 mg tablet 15 mg PO BID 09/13/20 07/08/25 History allopurinol 100 mg tablet 100 mg PO DAILY 08/29/21 07/08/25 History empagliflozin 10 mg tablet 25 mg PO HS 07/02/23 07/08/25 History (Jardiance) albuterol sulfate 2.5 mg/0.5 mL 5 mg inhalation Q6H PRN shortness 07/05/23 07/08/25 Rx solution for nebulization of breath or wheezing #30 ea Allergies Allergy/AdvReac Type Severity Reaction Status Date / Time codeine Allergy Unknown cold sores Verified 07/08/25 18:28 diphenhydramine Allergy Unknown BREAKS ME Verified 07/08/25 18:28 OUT doxycycline Allergy Unknown Nausea Verified 07/08/25 18:28 guaifenesin (Entex T) Allergy Unknown Skin Verified 07/08/25 18:28 Reaction naproxen Allergy Unknown Unknown Verified 07/08/25 18:28 Penicillins Allergy Unknown Unknown Verified 07/08/25 15:08 prednisone Allergy Unknown Unknown Verified 07/08/25 18:28 pseudoephedrine (Entex T) Allergy Unknown Skin Verified 07/08/25 18:28 Reaction ibuprofen AdvReac Mild nausea Verified 07/08/25 18:28 METOCLOPRAMIDE HCL Allergy Mild INTERACTS Uncoded 07/08/25 18:28 WITH PROZAC Vital Signs Vital Signs - 24 hr 07/08/25 13:52 07/08/25 15:07 07/08/25 16:45 Temperature 98.2 F 99.8 F H Pulse Rate 119 H 120 H 106 H Respiratory Rate 18 23 H 20 Blood Pressure 136/82 121/84 Pulse Oximetry 98 97 95 Oxygen Delivery Room Air 07/08/25 17:08 07/08/25 18:41 07/08/25 18:59 Temperature 97.5 F L 97.5 F L Pulse Rate 80 Respiratory Rate 16 Blood Pressure 120/71 Pulse Oximetry 96 Oxygen Delivery Room Air Exam Narrative: General: No acute distress HEENT: normocephalic, atraumatic. Mucous membranes moist. EOMI, PERRLA, bilateral sclera anicteric, no conjunctival injection. Neck supple without JVD, lymphadenopathy, or bruit. Respiratory: Diminished to ascultation bilaterally. No rales/rhonic/wheezes. Cardiovascular: Regular rate and rhythm, normal S1-S2 upon ascultation. No murmurs, rubs, or clicks. capillary refill less than 3 second. Abdomen: Soft, round, no pulsatile masses, nondistended and nontender. No rebound, no guarding. Bowel sounds present to all four quadrants. No high pitch or tinkling sounds, resonant to percussion. Extremities: No cyanosis, clubbing, or edema present. Pulses are palpable 2/2. Active ROM to all four extremities. Neuro: Alert and orientated x 4. PERRLA. Cranial nerves 2-12 intact without focal deficit. Skin: Warm, dry, and intact, without rash, erythema, or lesion. Psych: pleasant, cooperative, normal speech, normal affect, no hallucinations, no dysarthia Right foot boot H&P: Results Labs Labs: Short CBC 07/08/25 Range/Units 14:01 WBC 5.5 (4.5-10.0) K/mm3 Hgb 11.4 L (12.0-15.0) g/dL Hct 35.0 L (37.0-47.0) % Plt Count 252 (150-375) k/mm3 [facility] 07/08/25 14:01 Sodium 139 Potassium 3.6 Chloride 103 Carbon Dioxide 21 L BUN 13 D Creatinine 0.65 L Glucose 164 H Calcium 9.7 Cardiac Enzymes 07/08/25 Range/Units 14:01 Troponin I < 0.012 (0.000-0.034) ng/mL Liver Function 07/08/25 Range/Units 14:01 Total Bilirubin 0.5 (0.2-1.3) mg/dL AST 38 H (14-36) U/L ALT 32 (6-35) U/L Alkaline Phosphatase 119 (38-126) U/L Albumin 4.6 (3.5-5.1) g/dL Urine 07/08/25 Range/Units 16:41 Urine Color Yellow (Yellow) Urine Appearance Clear (Clear) Urine pH 5.0 (5.0-9.0) Ur Specific [place] 1.011 (1.001-1.035) Urine Protein Negative (Negative) mg/dL Urine Glucose (UA) 3+ H (Negative) mg/dL Assessment and Plan Assessment and plan (1) Hypertension: Code(s): I10 - Essential (primary) hypertension Status: Acute Assessment and Plan: Continue metoprolol (2) Diabetes: Code(s): E11.9 - Type 2 diabetes mellitus without complications Status: Acute Assessment and Plan: Hold oral anti-hyperglycemic medications while in hospital Diabetic diet Accu-Cheks a.c. HS SSI (3) B12 deficiency anemia: Code(s): D51.9 - Vitamin B12 deficiency anemia, unspecified Status: Acute Assessment and Plan: No signs of acute bleeding CBC in the morning (4) Pneumonia: Qualifiers: Laterality: bilateral Lung location: unspecified part of lung Pneumonia type: due to unspecified organism Qualified Code(s): J18.9 - Pneumonia, unspecified organism Code(s): J18.9 - Pneumonia, unspecified organism Status: Acute Assessment and Plan: IV doxy and Rocephin IVF for hydration DuDelbert Patient has allergy to Guaifenesin (5) Closed right ankle fracture: Code(s): S82.891A - Other fracture of right lower leg, initial encounter for closed fracture Status: Acute Assessment and Plan: Patient states that she broke her foot 5 weeks ago, continue previous orthopedic plan of boot with weight-bearing tolerate Continue gabapentin Quality VTE Prophylaxis VTE prophylaxis: mechanical ordered and pharmacologic ordered Hospitalist MIPS Advance Care Plan I have confirmed that the patient's Advanced Care Plan is present, code status is documented, or surrogate decision maker is listed in patient medical record.: Yes Medication Reconciliation I have utilized all available resources to obtain, update and review the patients current medications (includes all prescriptions, OTC, herbals, cannabis, and nutritional supplements).: Yes
[2025-07-08 20:32] LABS: Troponin I < 0.012 ng/mL (0.000-0.034)
[2025-07-08] MEDS: GABAPENTIN 300 MG CAPSULE PO (21:45)
[2025-07-09] VITALS (10 sets, daily range): BP systolic 126; BP diastolic 77; PULSE 75–100; RESP 16–18; TEMP 36.6; O2SAT 93–96
[2025-07-09] MEDS: IPRATROPIUM 0.5 MG/ALBUTEROL SULFATE 2.5 MG AMPUL.NEB 3 ML INHALATION ×2 (02:30→08:36)
[2025-07-09] MEDS: DOXYCYCLINE IV 100 MG in SODIUM CHLORIDE 0.9% IV 100 ML IVPB (06:20)
[2025-07-09] MEDS: SODIUM CHLORIDE 0.9% IV 1,000 ML 75 ML IV CONT (06:20)
[2025-07-09 08:57] LABS: Hematocrit 33.3 % (37.0-47.0); Hemoglobin 10.4 g/dL (12.0-15.0); Immature Granulocyte Percent A 0.2 % (0-0.5); Lymphocytes Absolute Auto 1.21 K/mm3 (0.9-3.2); Mean Corpuscular HGB Conc 31.2 g/dl (32-36); Mean Corpuscular Hemoglobin 26.8 pg (26-34); Mean Corpuscular Volume 85.8 fl (80-100); Nucleated Red Blood Cells Absolute Auto 0.000 K/mm3 (0.0-0.012); Nucleated Red Blood Cells Perc 0.0 % (0.0-0.2); Platelet Count Result 199 k/mm3 (150-375); Red Blood Count 3.88 M/mm3 (4.2-5.4); White Blood Count 4.2 K/mm3 (4.5-10.0)
[2025-07-09 09:20] LABS: Anion Gap 12 mmol/L (4-12); Blood Urea Nitrogen 11 mg/dL (7-17); Calcium 8.6 mg/dL (8.4-10.2); Carbon Dioxide 22 mmol/L (22-30); Chloride 106 mmol/L (98-107); Estimated CRCL calculation 83 ml/min; Estimated Glomerular Filt Rate > 60; Glucose 166 mg/dL (65-110); Potassium 3.4 mmol/L (3.4-5.0); Sodium 140 mmol/L (137-145)
[2025-07-09] MEDS: ATORVASTATIN 20 MG TABLET PO (09:26)
[2025-07-09] MEDS: GABAPENTIN 300 MG CAPSULE PO (09:26)
[2025-07-09] MEDS: ENOXAPARIN 40 MG/0.4 ML SYRINGE SUB-Q (09:26)
[2025-07-09] MEDS: METOPROLOL TARTRATE 25 MG TABLET PO (09:26)
[2025-07-09] MEDS: DOCUSATE SODIUM 100 MG CAPSULE PO (09:26)
--- NOTE | 2025-07-09 10:43 | P.DS_ITS ---
DS: Admitting Diagnosis Discharge Date 07/09/2025 Admitting Diagnosis LLL pneumonia DS: Discharge Diagnosis Discharge Diagnosis (1) Hypertension: Code(s): I10 - Essential (primary) hypertension Status: Acute Assessment and Plan: Continue metoprolol (2) Diabetes: Code(s): E11.9 - Type 2 diabetes mellitus without complications Status: Acute Assessment and Plan: Hold oral anti-hyperglycemic medications while in hospital Diabetic diet Accu-Cheks a.c. HS SSI (3) B12 deficiency anemia: Code(s): D51.9 - Vitamin B12 deficiency anemia, unspecified Status: Acute Assessment and Plan: No signs of acute bleeding CBC in the morning (4) Pneumonia: Qualifiers: Laterality: bilateral Lung location: unspecified part of lung Pneumonia type: due to unspecified organism Qualified Code(s): J18.9 - Pneumon ia, unspecified organism Code(s): J18.9 - Pneumonia, unspecified organism Status: Acute Assessment and Plan: IV doxy and Rocephin IVF for hydration DuoNebs Patient has allergy to Guaifenesin (5) Closed right ankle fracture: Code(s): S82.891A - Other fracture of right lower leg, initial encounter for closed fracture Status: Acute Assessment and Plan: Patient states that she broke her foot 5 weeks ago, continue previous orthopedic plan of boot with weight-bearing tolerate Continue gabapentin DS: Summary Hospital Course Hospital Course: 59-year-old female with history of diabetes hypertension asthma presented to emergency department July 08 with complaints of 3-4 days of increasing cough shortness of breath and fevers. Upon presentation to emergency department chest x-ray revealed left lower lobe infiltrate. She was treated with ceftriaxone and doxycycline and nebulizer therapy. As she was not wheezing no steroids were added. Admission her white count was 5.4 and on day of discharge 4.2. Hemoglobin was 11.4. Fasting blood sugar on day of discharge was 166. AST was 38 ALT 32. She was tolerating med and diet well. Ambulating to the bathroom and in the hallway independently on day of discharge. She continued to wear her right lower extremity walking boot due to fracture and was to follow up with orthopedist soon for that. Time Spent with Patient Time attestation: Total time spent providing and/or coordinating discharge services: Exam Narrative: General: No acute distress HEENT: normocephalic, atraumatic. Mucous membranes moist. EOMI, PERRLA, bilateral sclera anicteric, no conjunctival injection Neck: No JVD Respiratory: NL effort, frequent dry cough, few LLL fine crackles Cardiovascular: Regular rate and rhythm, normal S1-S2. No murmurs, rubs, or clicks Abdomen: Soft, round, no pulsatile masses, nondistended and nontender. No rebound, no guarding. Bowel sounds present to all four quadrants. No high pitch or tinkling sounds, resonant to percussion Extremities: No cyanosis, clubbing, or edema Neuro: Alert and orientated x 4. PERRLA. Cranial nerves 2-12 intact without focal deficit Skin: Warm, dry, and intact, without rash, erythema, or lesion Psych: pleasant, cooperative, normal speech, normal affect, no hallucinations, no dysarthria MS: RLE walking boot DS: Data Data Completed and Pending Labs on day of discharge: Labs from last 24 hours 07/09/25 07/08/25 07/08/25 08:24 22:04 19:48 WBC 4.2 L RBC 3.88 L Hgb 10.4 L Hct 33.3 L MCV 85.8 MCH 26.8 MCHC 31.2 L RDW 14.1 Plt Count 199 MPV 8.5 Immature Gran % (Auto) 0.2 Neut % (Auto) 62.8 Lymph % (Auto) 28.7 [place] % (Auto) 6.9 Eos % (Auto) 0.9 Baso % (Auto) 0.5 Lymph # (Auto) 1.21 [place] # (Auto) 0.3 Eos # (Auto) 0.0 Baso # (Auto) 0.0 Abs Immat Gran (auto) 0.01 Absolute Neuts (auto) 2.7 Absolute Nucleated RBC 0.000 Nucleated RBC % 0.0 PT INR APTT Sodium 140 Potassium 3.4 Chloride 106 Carbon Dioxide 22 Anion Gap 12 BUN 11 Creatinine 0.59 L Estim Creat Clear Calc 83 Estimated GFR > 60 Glucose 166 H POC Capillary Glucose 127 H Calcium 8.6 Total Bilirubin AST ALT Alkaline Phosphatase Troponin I < 0.012 Total Protein Albumin Lipase Urine Color Urine Appearance Urine pH Ur Specific [place] Urine Protein Urine Glucose (UA) Urine Ketones Ur Blood (Man) Urine Nitrate Urine Bilirubin Urine Urobilinogen Leukocyte Esterase Rfl Influenza A (RT-PCR) Influenza B (RT-PCR) RSV (RT-PCR) SARS-CoV-2 RNA (RT-PCR) 07/08/25 07/08/25 07/08/25 16:41 16:40 14:01 WBC 5.5 RBC 4.20 Hgb 11.4 L Hct 35.0 L MCV 83.3 MCH 27.1 MCHC 32.6 RDW 14.0 Plt Count 252 MPV 8.5 Immature Gran % (Auto) 0.4 Neut % (Auto) 55.5 Lymph % (Auto) 35.0 [place] % (Auto) 7.0 Eos % (Auto) 1.6 Baso % (Auto) 0.5 Lymph # (Auto) 1.91 [place] # (Auto) 0.4 Eos # (Auto) 0.1 Baso # (Auto) 0.0 Abs Immat Gran (auto) 0.02 Absolute Neuts (auto) 3.0 Absolute Nucleated RBC 0.000 Nucleated RBC % 0.0 PT 13.6 INR 1.0 APTT 27.6 Sodium 139 Potassium 3.6 Chloride 103 Carbon Dioxide 21 L Anion Gap 15 H BUN 13 D Creatinine 0.65 L Estim Creat Clear Calc 76 Estimated GFR > 60 Glucose 164 H POC Capillary Glucose Calcium 9.7 Total Bilirubin 0.5 AST 38 H ALT 32 Alkaline Phosphatase 119 Troponin I < 0.012 Total Protein 7.7 Albumin 4.6 Lipase 184 Urine Color Yellow Urine Appearance Clear Urine pH 5.0 Ur Specific [place] 1.011 Urine Protein Negative Urine Glucose (UA) 3+ H Urine Ketones Negative Ur Blood (Man) Negative Urine Nitrate Negative Urine Bilirubin Negative Urine Urobilinogen 0.2 Leukocyte Esterase Rfl Negative Influenza A (RT-PCR) Negative Influenza B (RT-PCR) Negative RSV (RT-PCR) Negative SARS-CoV-2 RNA (RT-PCR) Negative Discharge Plan Discharge Discharging Clinician: Pasha Bryan Patient Disposition: Home Activity: as tolerated Diet: heart healthy, diabetic and low sodium Patient Instructions: Antibiotic Form Patient Language: Latvian Stand Alone Forms: General Discharge Information Follow-up/Referrals: Erica,Sanjeev Pozo MD [Primary Care Provider] - 1 Week (F/u LLL pneumonia) Discharge Medications: New acetaminophen 325 mg Tablet 650 mg PO Q4H PRN (Reason: Mild Pain (1-3) Or Fever) Qty: 60 0RF azithromycin 500 mg tablet 500 mg PO DAILY 3 Days Qty: 4 0RF cefdinir 300 mg capsule 300 mg PO Q12H Qty: 10 0RF Continued atorvastatin 20 mg Tablet 20 mg PO DAILY fluoxetine 20 mg Tablet 20 mg PO DAILY metformin 1,000 mg Tablet 2,000 mg PO BID gabapentin 300 mg Capsule 300 mg PO BID metoprolol succinate 25 mg Tablet Extended Release 24 Hr 25 mg PO BID magnesium 500 mg Tablet 15 mg PO BID allopurinol 100 mg Tablet 100 mg PO DAILY Jardiance 10 mg tablet 25 mg PO HS albuterol sulfate 2.5 mg/0.5 mL solution for nebulization 5 mg inhalation Q6H PRN (Reason: shortness of breath or wheezing) Qty: 30 0RF Date of admission: 07/08/25 17:59 Primary Care Provider: Erica,Sanjeev Pozo Admitting Provider: Donovan Polk Attending physician on admission: Donovan Polk Condition: Improved
== END 2025-07-09 11:35 | disposition home or self-care (01) ==
LOC: ANHED 16:08 → ANH2MED 07-09 05:09
PROVIDERS: Nurse Practitioner Gerontology; Physician Assistant; Admitting Provider Family Medicine; Emergency Provider Emergency Medicine; PCP Internal Medicine; Visit Provider Internal Medicine
DX: J18.9 Pneumonia, unspecified organism (principal); D51.9 Vitamin B12 deficiency anemia, unspecified; S82.891A Other fracture of right lower leg, initial encounter for closed fracture; J45.909 Unspecified asthma, uncomplicated; I10 Essential (primary) hypertension; E11.9 Type 2 diabetes mellitus without complications; Z96.652 Presence of left artificial knee joint; Z79.84 Long term (current) use of oral hypoglycemic drugs; Z20.822 Contact with and (suspected) exposure to COVID-19
CPT/HCPCS: 36415; 71046; 80048; 80053; 81003; 82948; 83690; 84484; 85025; 85610; 85730; 87040; 87637; 93005; 94640; 96372; 96374; 97161; 99285; A9270; G0378; J0696; J1650; J7030

== ENCOUNTER 2025-07-27 14:06 | Outpatient (CLI) | payer MEDICARE, OTHER, SELFPAY ==
--- NOTE | ~2025-07-27 | XR_ITS ---
EXAMINATION: XR chest 2V 07/27/2025 14:41 INDICATION: History of recent pneumonia PROCEDURE: 2 view chest COMPARISON: 07/08/2025 FINDINGS: The lungs are clear. The cardiomediastinal silhouette is within normal limits. There are no pleural effusions. There is no pneumothorax suspected. IMPRESSION: 1: NO ACUTE CARDIOPULMONARY DISEASE. Reviewed, dictated and finalized at location O.
--- OUTSIDE RECORDS SUMMARY | 2025-07-27 15:34 | XMS_ITS | Clinical Summary ---
Author Organization [facility] Address [address] [address] [place] [address] Phone Care Team Providers Care Lap Machine Operator Name Role Phone Altaf Fowler DO Unavailable [phone] Sanjeev Maldonado MD Primary Care Provider [phone] Tuan Martin MD Unavailable Brad Powell MD Unavailable Helen Davis APRN, BIAZZI NITRATOR OPERATOR Unavailable Allergies Active Allergy Reactions Criticality Noted [...] MG Tablet TAKE ONE TABLET TWICE DAILY Active valsartan (DIOVAN) 40 MG Tablet nightly. Active allopurinol (ZYLOPRIM) 100 MG Tablet daily. Active ondansetron (ZOFRAN) 4 MG Tablet Take 1 Tablet by mouth every 8 hours as needed (Take 1 tab by mouth every 8 hours as needed for nausea). 15 Tablet 1 Active Additional Information Patient not taking.Reported on 05/16/2025 Aspirin Low Dose 81 MG Tablet Delayed Response Take 81 mg by mouth daily. Active losartan (COZAAR) 100 MG Tablet Take 100 mg by mouth daily. Active nitroGLYCERIN (NITROSTAT) 0.[address] 1 TABLET UNDER TONGUE EVERY 5 MINS, UP TO 3 DOSES NEEDED FOR CHEST PAIN Active metoprolol tartrate (LOPRESSOR) 50 MG Tablet Take 50 mg by mouth 2 times daily. Active metFORMIN (GLUCOPHAGE) 1000 MG Tablet Take 1,000 mg by mouth 2 times daily. Active COMPOUNDED MEDICATIONIndi cations:Anal fissure 0.3% nifedipine, 2% lidocaine, 1% hydrocortisone combination cream, apply to anus TID and PRN, preferably 30 minutes before a bowel movement. 30 g 1 Active Additional Information Patient not taking.Reported on 05/16/2025 albuterol sulfate 2.5 MG/0.5ML Nebulizer Soln INHALE 1 VIAL THREE TIMES DAILY DIRECTED Active Jardiance 10 MG Tablet Take 10 mg by mouth daily. Active OneTouch Ultra Strip USE TO TEST TWICE DAILY Active naproxen (NAPROSYN) 500 MG Tablet Take 500 mg by mouth 2 times daily. Active carisoprodol (SOMA) 350 MG Tablet Active glimepiride (AMARYL) 1 MG Tablet Take 1 mg by mouth 2 times daily. Active lisinopril (PRINIVIL, ZESTRIL) 5 MG Tablet Active pantoprazole (PROTONIX) 40 MG Tablet Delayed ResponseIndica tions:Gastroes ophageal reflux disease without esophagitis TAKE 1 TABLET BY MOUTH TWICE A DAY BEFORE MEALS 180 Tablet 025 Active pantoprazole (PROTONIX) 40 MG Tablet Delayed ResponseIndica tions:Gastroes ophageal reflux disease without esophagitis TAKE 1 TABLET BY MOUTH TWICE A DAY BEFORE MEALS 180 Tablet 025 2024 Discontinued Active Problems Problem Noted Date Diagnosed Date Hepatic steatosis 08/28/2022 Constipation Hiatal hernia Chest pain Overview (11/20/2015): Atypical Diarrhea Gastroparesis GERD (gastroesophageal reflux disease) IBS (irritable bowel syndrome) Small intestinal bacterial overgrowth Asthma Encounters Date Type Department Care Team Description [facility] [place] [address] Helen Davis APRN, CNP Medication Refill 05/16/2025 9:00 AM CDT Office Visit [facility] [address] [place] [address] Helen Davis APRN, CNP Gastroesophageal reflux disease without esophagitis (Primary Dx) Discharge Disposition: Discharged to home or Selfcare 05/16/2025 Travel 04/28/2025 Telephone [facility] [address] [place] [address] Helen Davis APRN, CNP from Last 3 Months Immunizations Immunization Administration Dates Next Due Covid-19 Vaccine, Vector-nr, Rs-ad26, Pf, 0.5 Ml ([employer]) 08/24/2021 Pneumococcal Vaccine - 13 Valent 05/20/2017 [...] - PPSV23, PCV20, or PCV21) 07/15/2017 05/20/2017 Influenza Immunization (#1) 2025 SARS-COV-2 Immunization (2 - 2024- season) 2025 08/24/2021 Colonoscopy 05/08/2028 05/08/2021, 07/06/2020, 04/23/2018, Additional history [...] this topic Medical Devices Implanted Type Area Beater Tender Device Identifier Shelf Expiration Date Model / Serial / Lot Clip 360 Resolution 235cm - [id number] Implanted:Qty: 3 on 08/18/2020 by Altaf Fowler DO at [facility] IMPLANT [employer] 05/08/2023 [id number] / [id number] / [id number] Procedures Procedure Name Priority Date/Time Associated Diagnosis Comments COLONOSCOPY Routine 04/23/2018 from Last 3 Months or Most Recently Relevant to Health Maintenance Results * COLONOSCOPY (04/23/2018) Altaf Fowler DO PROCEDURE/MINOR SURGICAL ORDERA BLES Final Result from Last 3 Months or Most Recently Relevant to Health Maintenance Insurance [facility] MEDICARE C [employer] Care Teams Lap Machine Operator Relationship Specialty Start Date End Date Sanjeev Maldonado MD PCP - General Internal Medicine 02/26/17 Altaf Fowler DO Gastroenterology 01/04/16 Tuan Martin MD 1225 [facility] [address] [place] [address] Cardiovascular Disease - Cardiology 08/28/22 Brad Powell MD #[address] [address] Consulting Physician Colon and Rectal Surgery 03/13/23 Helen Davis APRN, BIAZZI NITRATOR OPERATOR #2 [place] [address] Nurse Practitioner Advanced Practice Nurse 02/06/24
--- OUTSIDE RECORDS SUMMARY | 2025-07-27 15:34 | XMS_ITS | Encounter Summary ---
Author Organization [facility] Address [address] [facility] [place] [address] Phone Care Team Providers Care Cage Fighter Name Role Phone Altaf Fowler DO Unavailable [phone] Sanjeev Maldonado MD Primary Care Provider Tuan Martin MD Unavailable Brad Powell MD Unavailable Helen Davis APRN REFRIGERATION MECHANIC Unavailable Reason for Visit * Reason Comments Medication Refill Encounter Details Date Type Department Care Team (Late st Contact Info) Description 07/21/2025 Refill [facility] - [place] #2 [place] [address] Helen Davis APRN, REFRIGERATION MECHANIC [address]2 [place] [address] Medication Refill Social History Tobacco Use Types [...] Telephone Encounter - Sheree Shafer RN - 07/21/2025 3:42 PM CDT Medication refilled and signed [facility] medication standing order for pediatric and adult patients. documented in this encounter Plan of Treatment Not on file documented as of this encounter Visit Diagnoses Diagnosis Gastroesophageal reflux disease without esophagitis Esophageal reflux documented in this encounter Care Teams Cage Fighter Relationship Specialty Start Date End Date Sanjeev Maldonado MD PCP - General Internal Medicine 02/26/17 Altaf Fowler DO Gastroenterology 01/04/16 Tuan Martin MD [address] [address] Cardiovascular Disease - Cardiology 08/28/22 Brad Powell MD #[address] [address] Consulting Physician Colon and Rectal Surgery 03/13/23 Helen Davis APRN, REFRIGERATION MECHANIC [address]2 [place] [address] Nurse Practitioner Advanced Practice Nurse 02/06/24 documented as of this encounter
--- OUTSIDE RECORDS SUMMARY | 2025-07-27 15:34 | XMS_ITS | Encounter Summary ---
Author Organization [facility] Address [address] [facility] [place] [address] Phone Care Team Providers Care Director [employer] Name Role Phone Altaf Fowler DO Unavailable [phone] Sanjeev Maldonado MD Primary Care Provider [phone] Tuan Martin MD Unavailable Brad Powell MD Unavailable Helen Davis APRN CHIPS SCREEN TENDER Unavailable Reason for Visit * Reason Comments Medication Refill Encounter Details Date Type Department Care Team (Late st Contact Info) Description 04/16/2025 Refill [facility] - [place] #2 [place] [address] Helen Davis APRN, CHIPS SCREEN TENDER [address]2 [place] [address] Medication Refill Social History Tobacco Use Types [...] PM CDT Medication refilled and signed [facility] chronic medication standing [...] reflux documented in this encounter Care Teams Director [employer] Relationship Specialty Start Date End Date Sanjeev Maldonado MD PCP - General Internal Medicine 02/26/17 Altaf Fowler DO Gastroenterology 01/04/16 Tuan Martin MD [facility] [address] [place] [address] Cardiovascular Disease - Cardiology 08/28/22 Brad Powell MD #[address] [address] Consulting Physician Colon and Rectal Surgery 03/13/23 Helen Davis APRN, CHIPS SCREEN TENDER [address]2 [place] [address] Nurse Practitioner Advanced Practice Nurse 02/06/24 documented as of this encounter
--- OUTSIDE RECORDS SUMMARY | 2025-07-27 15:35 | XMS_ITS | Clinical Summary ---
Author Organization [facility] Address [address] [place] [address] Care Team Providers Care Home Health Rn Name Role Phone Sanjeev Maldonado MD Primary Care Provider [phone] Allergies Active Allergy Reactions Criticality Noted Date [...] Department Care Team Description 07/05/[address] [facility] Cardiology [address] [facility] [address] [place] [address] Tuan Martin MD 05/11/2025 9:00 AM CDT Office Visit [facility] Cardiology [address] [facility] [address] [place] [address] Tuan Martin MD Hypertension associated with [...] on file Legal Sex Female 5:15 AM QA TEST LEAD Gender Identity Not on file Sexual Orientation Not on file Obstetrics History Last Filed Vital Signs Vital Sign Reading Time Taken Comments Blood Pressure 112/70 05/11/2025 8:42 AM CDT Pulse 85 05/11/2025 8:42 AM CDT Temperature 36.5 C (97.7 F) 10/02/2023 8:15 AM QA TEST LEAD Respiratory Rate 16 10/02/2023 8:15 AM QA TEST LEAD Oxygen Saturation 98% 05/11/2025 8:42 AM CDT [...] eGFR 07/23/2022 07/23/2021 Covid-19 Vaccine (2 - 2024-2 6 season) 2025 08/24/2021 Influenza Vaccine (#1) 2025 Lipid Panel 05/11/2026 05/11/2025, 04/24, 04/30/2023, Additional history exists Medical Devices Implanted Type Area Nba Player Device Identifier Shelf Expiration Date Model / Serial / Lot Aw[employer]omi Device Closure Vascade Od5 Fr Femoral Artery [id number] - [id number] Implanted:Qty: 1 on 10/02/2023 by Tuan Martin MD at [facility] [employer] [facility] 07/21/2025 [id number] / / [id number] Procedures Procedure Name Priority Date/Time Associated [...] >=60 EXTERNAL LAB SCRIBED eGFR in NonAfrican French >60 >=60 EXTERNAL LAB Blood specimen (specimen) 07/23/2021 Michell Hunt NP LAB BLOOD ORDERABLES Angelika l Result EXTERNAL LAB from Last 3 Months or Most Recently Relevant to Health Maintenance Insurance [facility] MEDICARE ADVANTAGE [facility] MEDICARE ADVANTAGE [facility] Care Teams Home Health Rn Relationship Specialty Start Date End Date Sanjeev Maldonado MD PCP - General Internal Medicine 08/30/20
--- OUTSIDE RECORDS SUMMARY | 2025-07-27 15:35 | XMS_ITS | Encounter Summary ---
Author Organization [facility] Address [address] [facility] [place] [address] Phone Care Team Providers Care Underwriting Assistant Name Role Phone Altaf Fowler DO Unavailable [phone] Sanjeev Maldonado MD Primary Care Provider [phone] Tuan Martin MD Unavailable Brad Powell MD Unavailable Helen Davis APRN, CENTRAL SUPPLY NURSE Unavailable Reason for Visit * Reason Comments Medication Refill Encounter Details Date Type Department Care Team (Late st Contact Info) Description 04/02/2022 Refill [facility] - [place] #2 [place] [id number] Nicolasa Jerez April, PAC [address] [place] [address] Medication Refill Social History Tobacco Use Types [...] on filedocumented in this encounter Care Teams Underwriting Assistant Relationship Specialty Start Date End Date Sanjeev Maldonado MD PCP - General Internal Medicine 02/26/17 Altaf Fowler DO Gastroenterology 01/04/16 Tuan Martin MD 1225 [facility] [address] [place] [address] Cardiovascular Disease - Cardiology 08/28/22 Brad Powell MD #[address] [address] Consulting Physician Colon and Rectal Surgery 03/13/23 Helen Davis APRN, CENTRAL SUPPLY NURSE #2 [place] [address] Nurse Practitioner Advanced Practice Nurse 02/06/24 documented as of this encounter
--- OUTSIDE RECORDS SUMMARY | 2025-07-27 15:35 | XMS_ITS | Encounter Summary ---
Author Organization [facility] Address [address] [facility] [place] [address] Phone Care Team Providers Care Truck Loader And Unloader Name Role Phone Altaf Fowler DO Unavailable [phone] Sanjeev Maldonado MD Primary Care Provider [phone] Tuan Martin MD Unavailable Brad Powell MD Unavailable Helen Davis APRN SPORTS REPORTER Unavailable Reason for Visit * Reason Comments Medication Refill Encounter Details Date Type Department Care Team (Late st Contact Info) Description 02/01/2024 Refill [facility] - [place] #2 [place] [address] Helen Davis APRN, SPORTS REPORTER #2 [place] [address] Medication Refill Social History Tobacco Use Types [...] PM CDT Medication refilled and signed [facility] medication standing order for pediatric and [...] reflux documented in this encounter Care Teams Truck Loader And Unloader Relationship Specialty Start Date End Date Sanjeev Maldonado MD PCP - General Internal Medicine 4/5/17 Altaf Fowler DO Gastroenterology 01/04/16 Tuan Martin MD 1225 [facility] [address] [place] [address] Cardiovascular Disease - Cardiology 08/28/22 Brad Powell MD #[address] [address] Consulting Physician Colon and Rectal Surgery 03/13/23 Helen Davis APRN, SPORTS REPORTER #[address] [place] [address] Nurse Practitioner Advanced Practice Nurse 02/06/24 documented as of this encounter
--- OUTSIDE RECORDS SUMMARY | 2025-07-27 15:35 | XMS_ITS | Encounter Summary ---
Author Organization [facility] Address [address] [facility] [place] [address] Phone Care Team Providers Care Router Operator Pin Name Role Phone Altaf Fowler DO Unavailable [phone] Sanjeev Maldonado MD Primary Care Provider Tuan Martin MD Unavailable Brad Powell MD Unavailable Helen Davis APRN TENTER Unavailable Reason for Visit * Reason Comments Medication Refill Encounter Details Date Type Department Care Team (Late st Contact Info) Description 05/26/2023 Refill [facility] - [place] #2 [place] [address] Helen Davis APRN, TENTER #2 [place] [address] Medication Refill Social History Tobacco Use Types [...] reflux documented in this encounter Care Teams Router Operator Pin Relationship Specialty Start Date End Date Sanjeev Maldonado MD PCP - General Internal Medicine 02/26/17 Altaf Fowler DO Gastroenterology 01/04/16 Tuan Martin MD [address] [address] Cardiovascular Disease - Cardiology 08/28/22 Brad Powell MD #[address] [address] Consulting Physician Colon and Rectal Surgery 03/13/23 Helen Davis APRN, TENTER #2 [place] [address] Nurse Practitioner Advanced Practice Nurse 02/06/24 documented as of this encounter
--- OUTSIDE RECORDS SUMMARY | 2025-07-27 15:35 | XMS_ITS | Encounter Summary ---
Author Organization [facility] Address [address] [address] [facility] [address] Phone Care Team Providers Care Supply Planner Name Role Phone Altaf Fowler DO Unavailable [phone] Sanjeev Maldonado MD Primary Care Provider [phone] Tuan Martin MD Unavailable Brad Powell MD Unavailable Helen Davis APRN, VALUE STREAM MANAGER Unavailable Encounter Details Date Type Department Care Team (Late st Contact Info) Description 09/17/2022 [facility] 1 [place] [address] Mason Donnelly MD #2 [place] [address] Preop testing (Primary Dx) Social History Tobacco [...] Range for this test is Not Detected) [facility] ID NOW 09/23/2022 1:45 PM CDT [facility] Comment:This test was perfor med by a MOLECULAR, NON-PCR method Other NASOPHARYNGEAL STRUCTURE / Unknown Non-Phlebotomy Collection / Unknown 09/23/2022 12:30 PM CDT 09/23/2022 1:21 PM CDT Narrative [facility] - 09/23/2022 1:45 PM CDT This [...] information for Clinicians can be found at: https://www.fda.gov/media/544522/download Additional information for Patients can be found at: https://www.fda.gov/media/236616/download Mason Donnelly MD MICROBIOLOGY - GENERAL ORDERABL ES Final Result [facility] #[address] [place] [address] documented in this encounter Visit Diagnoses Diagnosis Preop testing- Primary Preoperative examination, unspecified documented in this encounter Care Teams Supply Planner Relationship Specialty Start Date End Date Sanjeev Maldonado MD PCP - General Internal Medicine 02/26/17 Altaf Fowler DO Gastroenterology 01/04/16 Tuan Martin MD [facility] [facility] [address] [place] [address] Cardiovascular Disease - Cardiology 08/28/22 Brad Powell MD #[address] [address] Consulting Physician Colon and Rectal Surgery 03/13/23 Helen Davis APRN, VALUE STREAM MANAGER #2 [place] [address] Nurse Practitioner Advanced Practice Nurse 02/06/24 documented as of this encounter
--- OUTSIDE RECORDS SUMMARY | 2025-07-27 15:35 | XMS_ITS | Encounter Summary ---
Author Organization [facility] Address [address] [facility] [place] [address] Phone Care Team Providers Care Loading And Unloading Supervisor Name Role Phone Altaf Fowler DO Unavailable [phone] Sanjeev Maldonado MD Primary Care Provider Tuan Martin MD Unavailable Brad Powell MD Unavailable Helen Davis APRN, ACCOUNTING REPRESENTATIVE Unavailable Reason for Visit * Reason Comments Medication Refill Encounter Details Date Type Department Care Team (Late st Contact Info) Description 07/04/2022 Refill [facility] - [place] #2 [place] [phone] Nicolasa Jerez April, PAC [address] [place] [address] Medication Refill Social History Tobacco Use Types [...] AM CDT Medication [facility] and signed [facility] medication standing order for pediatric and adult patients. * Telephone Encounter - Sheree Shafer RN - 07/08/2022 9:35 AM CDT documented in this encounter Plan of Treatment Not on file documented as of this encounter Visit Diagnoses Not on filedocumented in this encounter Care Teams Loading And Unloading Supervisor Relationship Specialty Start Date End Date Sanjeev Maldonado MD PCP - General Internal Medicine 02/26/17 Altaf Fowler DO Gastroenterology 01/04/16 Tuan Martin MD 1225 [facility] [address] [place] [address] Cardiovascular Disease - Cardiology 08/28/22 Brad Powell MD #[address] [address] Consulting Physician Colon and Rectal Surgery 03/13/23 Helen Davis APRN, ACCOUNTING REPRESENTATIVE #2 [place] [address] Nurse Practitioner Advanced Practice Nurse 02/06/24 documented as of this encounter
--- OUTSIDE RECORDS SUMMARY | 2025-07-27 15:35 | XMS_ITS | Clinical Summary ---
Author Organization [facility] Address [address] [place] [address] Care Team Providers Care Principal Strategist Name Role Phone Sanjeev Maldonado MD Primary Care Provider [phone] Allergies Active Allergy Reactions Criticality Noted Date [...] 05/23/2025 Orders Only [facility] Oncology and Hematology - [place] [address] [place] [address] Lit Silva MD 05/17/2025 External Device Data STL ABSTRACTION Provider, Abstract 05/17/2025 Orders Only [facility] Oncology and Hematology - [place] [address] [place] [address] iLt Silva MD 05/16/2025 11:45 AM CDT Office Visit [facility] Oncology and Hematology - [place] [address] [place] [address] Lit Silva MD Chronic anemia (Primary Dx) from Last 3 Months Family History Medical [...] on file 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 [address] [place] [address] Health Maintenance Due Date Last [...] AND FOLATE (05/11/2025 1:26 PM CDT) Blood us Lit Silva MD CHEMISTRY ORDERABLES Final Resu lt from Last 3 Months Insurance [facility] [id number] [facility] OPTIONS PPO [id number] Care Teams Principal Strategist Relationship Specialty Start Date End Date Sanjeev Maldonado MD [address] [address] PCP - General Internal Medicine 01/19/20
--- OUTSIDE RECORDS SUMMARY | 2025-07-27 15:35 | XMS_ITS | Encounter Summary ---
Author Organization [facility] Address [address] [facility] [place] [address] Phone Care Team Providers Care Architectural Manager Name Role Phone Altaf Fowler DO Unavailable [phone] Sanjeev Maldonado MD Primary Care Provider [phone] Tuan Martin MD Unavailable Brad Powell MD Unavailable Helen Davis APRN MEDICAL OPERATIONS SUPERVISOR Unavailable Reason for Visit * Reason Comments Medication Refill Encounter Details Date Type Department Care Team (Late st Contact Info) Description 05/25/2024 Refill [facility] - [place] #2 [place] [address] Helen Davis APRN, MEDICAL OPERATIONS SUPERVISOR #2 [place] [address] Medication Refill Social History Tobacco Use Types [...] refilled and signed [facility] medication standing order for pediatric and adult patients. documented in this encounter Plan of Treatment Not on file documented as of this encounter Visit Diagnoses Diagnosis Gastroesophageal reflux disease without esophagitis Esophageal reflux documented in this encounter Care Teams Architectural Manager Relationship Specialty Start Date End Date Sanjeev Maldonado MD PCP - General Internal Medicine 02/26/17 Altaf Fowler DO Gastroenterology 01/04/16 Tuan Martin MD [address] [address] Cardiovascular Disease - Cardiology 08/28/22 Brad Powell MD #[address] [address] Consulting Physician Colon and Rectal Surgery 03/13/23 Helen Davis APRN, MEDICAL OPERATIONS SUPERVISOR #2 [place] [address] Nurse Practitioner Advanced Practice Nurse 02/06/24 documented as of this encounter
--- OUTSIDE RECORDS SUMMARY | 2025-07-27 15:35 | XMS_ITS | Encounter Summary ---
Author Organization [facility] Address [address] [place] [address] Care Team Providers Care Analog Device Designer Name Role Phone Sanjeev Maldonado MD Primary Care Provider [phone] Encounter Details Date Type Department Care Team (Late st Contact Info) Description 07/05/2025 Telephone [facility] Cardiology [address] [place] [address] Tuan Martin MD [address] [facility] [place] [address] [facility] [address] [place] [address] Social History Tobacco Use Types [...] on file 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
--- OUTSIDE RECORDS SUMMARY | 2025-07-27 15:35 | XMS_ITS | Encounter Summary ---
Author Organization [facility] Address [address] [facility] [place] [address] Phone Care Team Providers Care Disassembler Product Name Role Phone Altaf Fowler DO Unavailable [phone] Sanjeev Maldonado MD Primary Care Provider [phone] Tuan Martin MD Unavailable Brad Powell MD Unavailable Helen Davis APRN MANUFACTURING ENGINEERING TECHNICIAN Unavailable Reason for Visit * Reason Comments Medication Refill Encounter Details Date Type Department Care Team (Late st Contact Info) Description 12/02/2024 Refill [facility] - [facility] - [place] #2 [place] [address] Helen Davis APRN, MANUFACTURING ENGINEERING TECHNICIAN [address]2 [place] [address] Medication Refill Social History Tobacco Use Types [...] Sheree Shafer RN - 12/03/2024 8:29 AM PARTY PLAN SALES UNIT SALES LEADER Medication refilled and signed [facility] medication standing order for pediatric and adult patients. Y PLAN SALES UNIT SALES LEADER documented in this encounter Plan of Treatment Not on file documented as of this encounter Visit Diagnoses Diagnosis Gastroesophageal reflux disease without esophagitis Esophageal reflux documented in this encounter Care Teams Disassembler Product Relationship Specialty Start Date End Date Sanjeev Maldonado MD PCP - General Internal Medicine 02/26/17 Altaf Fowler DO Gastroenterology 01/04/16 Tuan Martin MD [address] [facility] [address] [place] [address] Cardiovascular Disease - Cardiology 08/28/22 Brad Powell MD #[address] [address] Consulting Physician Colon and Rectal Surgery 03/13/23 Helen Davis APRN, MANUFACTURING ENGINEERING TECHNICIAN [address] [place] [address] Nurse Practitioner Advanced Practice Nurse 02/06/24 documented as of this encounter
== END 2025-07-27 14:07 | disposition home or self-care (01) ==
PROVIDERS: PCP Internal Medicine
DX: Z87.01 Personal history of pneumonia (recurrent) (principal)
CPT/HCPCS: 71046

== ENCOUNTER 2025-07-30 17:29 | Emergency (ER) | payer OTHER, MEDICARE, SELFPAY ==
--- OUTSIDE RECORDS SUMMARY | 2025-07-28 09:30 | XMS_ITS | Encounter Summary ---
Author Organization [facility] Address [address] [place] [address] Care Team Providers Care Software Technical Lead Name Role Phone Sanjeev Maldonado MD Primary Care Provider [phone] Reason for Referral * Cardiology (Routine) - Closed Specialty Diagnoses / Procedures Referred By Contac t Referred To Contact Diagnoses Palpitations PVC (premature ventricular contraction) Procedures 24 HR Holter Monitor Michell Hunt NP [address] [address] Phone: tel: fax: Referral ID Status Reason Start Date Expiration Date Visits Re quested Visits Authorized [id number] Closed 07/28/2025 08/27/2026 1 1 Reason for Visit * Reason Comments Follow-up Encounter Details Date Type Department Care Team (Late st Contact Info) Description 07/28/2025 9:30 AM CDT Office Visit [facility] Cardiology [address] [place] [phone] Michell Hunt NP [address] [address] Palpitations (Primary Dx); Chest pain, unspecified type; PVC (premature ventricular contraction); History of recent pneumonia Social History Tobacco Use Types Packs/Day Years [...] on file 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 Gender Identity Not on file Sexual Orientation Not on file documented as of this encounter Last Filed Vital Signs Vital Sign Reading Time Taken Comments Blood Pressure 116/82 07/28/2025 9:16 AM CDT Pulse 77 07/28/2025 9:16 AM CDT Temperature - - Respiratory Rate 18 07/28/2025 9:16 AM CDT Oxygen Saturation 95% 07/28/2025 9:16 AM CDT Inhaled Oxygen Concentration - - Weight 69.9 kg (154 lb) 07/28/2025 9:16 AM CDT Height 160 cm (5' 3) 07/28/2025 9:16 AM CDT Body Mass Index 27.28 07/28/2025 9:16 AM CDT documented in this encounter Progress Notes * Michlel Hunt NP - 07/28/2025 9:30 AM CDT Images from the original note were not included. [facility] Cardiology [address] [place] [address] Date of Visit: 07/28/2025 Patient ID: Lina Sandoval 1965 Chief Complaint Patient presents with Follow-up Lina Sandoval is a 59 y.o. female who is an established patient of Dr. Martin with a history of hypertension and diastolic dysfunction coming to the office for complaint of palpitations and chest pain. History of Present Illness: Lina Sandoval is a 59 y.o. female with hypertension, type 2 diabetes mellitus, dyslipidemia, history of atypical chest pains. 08/30/2020 initial evaluation-patient is here to reestablish cardiovascular care. She used to follow up with in the past, and lately with Dr. Gaines at [facility]. Patient has longstanding history of chest discomfort, which happens occasionally in the left parasternal area. It is not always related to exertion. It is sharp, last for about 2-3 minutes. She denies dyspnea on exertion. There is no known prior history of clinical VT, heart failure or any arrhythmias. Patient states that she was treated with iron therapy for anemia. Patient states that she used to lose blood due to what she describes as hemorrhoids. Her recent hemoglobin was 12.8. She went to [facility] Emergency room on 07/13/2020 with elevated heart rate, and was found to have sinus tachycardia. CT scan of the chest was negative for PE. Patient also gives longstanding history of chronic pericardial effusion. Recent PE showed small stable pericardial effusion. 03/21/2021-patient is here for the follow-up visit after echocardiogram which showed thickening of the pericardium without significant pericardial effusion. She denies any recurrent chest discomfort.She has baseline dyspnea on exertion, able to walk about half block before she gets short of breath. Patient does give history of asthma but has not seen and blast hole driller. She reports compliance with current medical regimen. 01/22/2023-on the follow-up visit today, patient states that she has been experiencing dyspnea on mild exertion, able to walk less than 1 block, associated with chest pressure. He denies palpitations, dizziness or syncope. No PND, orthopnea lower extremity swelling. Patient has history of QUINTEN, but has not been compliant with CPAP. She is willing to be evaluated at sleep medicine clinic. In addition, patient reports numbness and tingling in left hand and left lower extremity. She reports compliance with current medical regimen. Patient has history of hypomagnesemia, and has been on magnesium supplementation. 04/30/2023-patient is here for the follow-up visit after recent MPI which was negative for ischemia. She states that she was leaning [facility] with complaints of leg discomfort. Shereports discomfort in bilateral calves after walking a certain distance, unable to quantify the distance. No rest pain. No ischemic foot ulcers. Denies any recurrent chest pain. 08/13/2023-patient is here for the routine follow-up visit. She was admitted to [facility] on 07/02/2023 with community-acquired pneumonia. Patient was treated with antibiotics. From cardiovascular standpoint, patient reports bilateral lower extremity claudication, predominantly in the left calf after she walks less than half a block. She describes her pain as cramping sensation in the left calf. She also has occasional discomfort at rest during the night. Denies any ischemic foot ulcers. She reports compliance with current medical regimen. Denies any ongoing tobacco abuse. Patient hashistory of smoking. 05/05/2024-patient is here for the follow-up visit after peripheral angiogram which did not show any significant obstructive peripheral artery disease, however, very sluggish blood flow was seen in lower extremities bilaterally. Lately, patient denies any claudication in lower extremities. She is able to walk about half a mile without any lower extremity discomfort. No chest pain or shortness of breath. Reports compliance with current medical regimen. Intolerant to CPAP machine. 05/11/2025-on the follow-up visit today, patient reports occasional dyspnea which she attributes toasthma. No anginal chest pain. Denies lifestyle limiting lower extremity claudication at present. Patient has not been compliant with empagliflozin due to insurance reasons. She has history of intolerance to CPAP. 07/28/2025 office visit with EYE CARE PROFESSIONAL: Last month she had a pretty sudden onset chest pain which she describes like a 50 lb weight on her chest with a needle/stabbing pain across the chest and middle back,worse on the left side of the chest. She went to PCP on 06/29/2025. She was told her heart rate waselevated at 150 and she was taken by ambulance to [facility] where she was diagnosed with pne umonia and dehydration, given treatment with antibiotic, steroid, inhaler, and discharged the following day. She believes she had an echo during the admission. Today she reports that she is still having the chest pain and feels it more when she moves around. The chest feels sore like someone hit her. She is also feeling palpitations which are more noticeable at night and more noticeable when she is sitting still. 12-lead ECG performed in the office today was independently interpreted by me and showed sinus rhythm with PVCs, low voltage, rate 65 beats per minute Medical History: Past Medical History: Diagnosis Date Asthma Asthma Diabetes mellitus (HCC) Gastroesophageal reflux disease GERD HX OTHER MEDICAL pericard effusion w/o tamponade -chronic HX OTHER MEDICAL hemithyroidectomy; Comments: EMB 04/02/2016 - HX OTHER MEDICAL partial hysterectomy; Comments: EMB 04/02/2016 - Hyperlipidemia Hypertension Hypertension PONV (postoperative nausea and vomiting) Sleep apnea Past Surgical History: Procedure Laterality Date CARDIAC CATHETERIZATION CHOLECYSTECTOMY Cholecystectomy Social History Tobacco Use Smoking Status Never Smokeless Tobacco Never Social History Tobacco Use Smoking status: Never Smokeless tobacco: Never Substance and Sexual Activity Drug use: No Sexual activity: Defer Alcohol Use: Not on file Family History Problem Relation Age of Onset Other Father Implantable Defibrillator; Heart disease Father Diabetes type II Other Family history of Diabetes mellitus type 2; No Known Problems Mother Review of Systems Constitutional: Negative for malaise/fatigue, weight gain and weight loss. Cardiovascular: Positive for chest pain and palpitations. Negative for leg swelling, near-syncope, orthopnea, paroxysmal nocturnal dyspnea and syncope. Respiratory: Negative for cough, shortness of breath and sleep disturbances due to breathing. Hematologic/Lymphatic: Negative for bleeding problem. Does not bruise/bleed easily. Vital Signs: BP 116/82 (BP Location: Left arm, Patient Position: Sitting) Pulse 77 Resp 18 Ht 160 cm (5' 3) Wt 69.9 kg (154 lb) SpO2 95% BMI 27.28 kg/m?? Physical Exam Constitutional: General: She is not in acute distress. Appearance: She is well-developed. HENT: Head: Normocephalic and atraumatic. Eyes: General: No scleral icterus. Conjunctiva/sclera: Conjunctivae normal. Neck: Vascular: No JVD. Trachea: No tracheal deviation. Cardiovascular: Rate and Rhythm: Normal rate and regular rhythm. Extrasystoles are present. Heart sounds: Normal heart sounds. Pulmonary: Effort: Pulmonary effort is normal. No respiratory distress. Breath sounds: Rales present. Skin: General: Skin is warm and dry. Neurological: Mental Status: She is alert and oriented to person, place, and time. Psychiatric: Mood and Affect: Mood normal. Behavior: Behavior normal. Allergies Allergen Reactions Diphenhydramine Hives and Rash Reaction: Rash, Meperidine Hives Metoclopramide Hallucinations, Hives, Other (See comments), Rash, Shortness of breath and Stomach upset Reaction: Abdominal pain, Penicillins Other (See comments), Rash and Shortness of breath Opioids - Morphine Analogues Rash Reaction: Rash, Ibuprofen Stomach upset, Nausea And Vomiting, Other (See comments) and Vomiting Reaction: Abdominal pain, Morphine Nausea only, Nausea And Vomiting and Other (See comments) Current Outpatient Medications: albuterol HFA (PROVENTIL HFA,VENTOLIN HFA,PROAIR HFA) 90 mcg/actuation inhaler, 2 puffs every 4 (four) hours as needed, Disp: , Rfl: allopurinoL (ZYLOPRIM) 100 mg tablet, Take 1 tablet (100 mg total) by mouth daily, Disp: , Rfl: amLODIPine (NORVASC) 2.5 mg tablet, Take 1 tablet (2.5 mg total) by mouth daily, Disp: 90 tablet, Rfl: 6 aspirin 81 mg enteric coated tablet, TAKE 1 TABLET BY MOUTH EVERY DAY, Disp: 90 tablet, Rfl: 3 atorvastatin (LIPITOR) 40 mg tablet, Take 1 tablet (40 mg total) by mouth nightly, Disp: , Rfl: cilostazoL (PLETAL) 50 mg tablet, TAKE 1 TABLET BY MOUTH TWICE A DAY, Disp: 180 tablet, Rfl: 3 FLUoxetine (FLUoxetine) 10 mg capsule, Take one by mouth one time per day, Disp: 0, Rfl: 0 gabapentin (NEURONTIN) 600 mg tablet, Take 1 tablet (600 mg total) by mouth 3 (three) times a day, Disp: , Rfl: HumaLOG 100 unit/mL pen for injection, PLEASE SEE ATTACHED FOR DETAILED DIRECTIONS, Disp: , Rfl: LANTUS 100 unit/mL (3 mL) pen for injection, INJECT 20 UNITS OF INSULIN IN THE MORNING & 15 UNITS OF INSULIN IN THE EVENING, Disp: , Rfl: losartan (COZAAR) 25 mg tablet, Take 1 tablet (25 mg total) by mouth nightly, Disp: 30 tablet, Rfl:11 magnesium oxide (MAG-OX) 400 mg (241.3 mg elemental magnesium) tablet, Pt to take 2 tablets in AM and 1 tablet in the PM or as directed., Disp: 120 tablet, Rfl: 11 metFORMIN (GLUCOPHAGE) 500 mg tablet, take 1 tablet by oral route 2 times every day with morning and evening meals (Patient taking differently: 2 tablets (1,000 mg total)), Disp: 0, Rfl: 0 omeprazole (PriLOSEC) 40 mg capsule, take 1 capsule by oral route every day before a meal, Disp: 0,Rfl: 0 empagliflozin (JARDIANCE) 10 mg tablet, Take 1 tablet (10 mg total) by mouth daily (Patient not taking: Reported on 07/28/2025), Disp: 30 tablet, Rfl: 11 Lab Results Component Value Date CREATININE 0.60 (A) 07/23/2021 No results found for: WBC, HGB, HCT, MCV, PLT No results found for this or any previous visit (from the past 4 hours). Lab Results Component Value Date POCCHOL 154 05/11/2025 POCHDL 39 (A) 05/11/2025 POCTRIG 167 (A) 05/11/2025 POCLDL 81 05/11/2025 POCNONHDL 114 05/11/2025 POCCHLPL 154 05/11/2025 Assessment: Diagnoses and all orders for this visit: Palpitations (Primary) - Electrocardiogram Report - 24 HR Holter Monitor; Future Chest pain, unspecified type PVC (premature ventricular contraction) - 24 HR Holter Monitor; Future History of recent pneumonia Plan/Recommendations: She had a brief hospital admission last month for pneumonia. Her symptoms are ongoing. Her symptomsand physical exam are more consistent with unresolved pneumonia rather than cardiac chest pain. I will request a copy of her records from the hospitalization to see if an echocardiogram was done. If it was not, I will have her come back to our office for an echo at her earliest convenience. The echo should be done to rule out pericarditis if it was not done in the hospital. Due to her complaint of palpitations and the PVC seen on her ECG, I will place a 24 hour Holter monitor to quantify these she just had labs for PCP on July 05 and her potassium and renal function were normal. Further re commendations to follow once I get these hospital records and the results of her Holter monitor. 07/28/2025 ELZBIETA Muro- Nurse Practitioner with [facility] This note is dictated and transcribed using [employer]. Gaming Director variancesmay occur. Despite proofreading, typographical errors may occur. documented in this encounter Plan of Treatment Pending Results Name Type Priority Associated Diagnoses Date /Time 24 HR Holter Monitor Cardiac Services Routine Palpitations PVC (premature ventricular contraction) 07/28/2025 10:19 AM CDT Scheduled Orders Name Type Priority Associated Diagnoses Orde r Schedule 24 HR Holter Monitor Cardiac Services Routine Palpitations PVC (premature ventricular contraction) Expected: 07/28/2025, Expires: 07/28/2026 documented as of this encounter Procedures Procedure Name Priority Date/Time Associated Diagnosis Comments ELECTROCARDIOGRAM REPORT Routine 07/28/2025 Palpitations documented in this encounter Results * Electrocardiogram Report (07/28/2025) 07/28/2025 Michell Hunt EYE CARE PROFESSIONAL ECG ORDERABLES Edited Re richie - Final documented in this encounter Visit Diagnoses Diagnosis Palpitations- Primary Chest pain, unspecified type PVC (premature ventricular contraction) Other premature beats History of recent pneumonia documented in this encounter Care Teams Software Technical Lead Relationship Specialty Start Date End Date Sanjeev Maldonado MD PCP - General Internal Medicine 08/30/20 documented as of this encounter
--- NOTE | ~2025-07-30 | XR_ITS ---
EXAMINATION: XR chest 2V DATE: 07/30/2025 18:38 INDICATION: Shortness of breath. TECHNIQUE: PA and lateral views of the chest were obtained. COMPARISON: Chest radiograph dated 07/27/25 FINDINGS: The lungs are clear with no focal airspace opacities, pulmonary edema, pleural effusion or pneumothorax. The cardiomediastinal silhouette is normal. Visualized bones and soft tissues are unremarkable. Cholecystectomy clips in right upper quadrant. IMPRESSION: 1. No acute cardiopulmonary disease. Reviewed, dictated and finalized at location A.
--- NOTE | 2025-07-30 17:30 | ECG_ITS ---
Test Date: 2025-07-30 17:34:26 Measurements Intervals [place] Rate: 79 P: 47 WI: 200 QRS: -3 QRSD: 81 T: 12 QT: 391 QTc: 448 Interpretive Statements SINUS RHYTHM LOW QRS VOLTAGE IN PRECORDIAL LEADS [QRS DEFLECTION < 1.0 mV IN CHEST LEADS] ANTEROSEPTAL MYOCARDIAL INFARCTION , OF INDETERMINATE AGE [40+ ms Q WAVE IN V1-V4] Compared to ECG 07/08/2025 13:58:16 Myocardial infarct finding now present Sinus tachycardia no longer present Electronically Signed On 07-31-2025 15:50:46 CDT by Santana Garcia M.D.
--- OUTSIDE RECORDS SUMMARY | 2025-07-30 17:31 | XMS_ITS | Encounter Summary ---
Author Organization [facility] Address [address] [facility] [place] [address] Phone Care Team Providers Care Retail Interior Designer Name Role Phone Altaf Fowler DO Unavailable [phone] Sanjeev Maldonado MD Primary Care Provider [phone] Tuan Martin MD Unavailable Brad Powell MD Unavailable Helen Davis APRN MANAGER SPANISH Unavailable Reason for Visit * Reason Comments Medication Refill Encounter Details Date Type Department Care Team (Late st Contact Info) Description 07/21/2025 Refill [facility] - G[facility]ology - [place] [address]2 [place] [address] Helen Davis APRN, MANAGER SPANISH [address] [place] [address] Medication Refill Social History Tobacco Use Types [...] PM CDT Medication [facility] and signed [facility] medication standing order for pediatric and adult patients. documented in this encounter Plan of Treatment Not on file documented as of this encounter Visit Diagnoses Diagnosis Gastroesophageal reflux disease without esophagitis Esophageal reflux documented in this encounter Care Teams Retail Interior Designer Relationship Specialty Start Date End Date Sanjeev Maldonado MD PCP - General Internal Medicine 02/26/17 Altaf Fowler DO Gastroenterology 01/04/16 Tuan Martin MD [address] [address] Cardiovascular Disease - Cardiology 08/28/22 Brad Powell MD #[address] [address] Consulting Physician Colon and Rectal Surgery 03/13/23 Helen Davis APRN, MANAGER SPANISH [address] [place] [address] Nurse Practitioner Advanced Practice Nurse 02/06/24 documented as of this encounter
--- OUTSIDE RECORDS SUMMARY | 2025-07-30 17:31 | XMS_ITS | Encounter Summary ---
Author Organization [facility] Address [address] [facility] [place] [address] Phone Care Team Providers Care Stamp Analyst Name Role Phone Altaf Fowler DO Unavailable [phone] Sanjeev Maldonado MD Primary Care Provider Tuan Martin MD Unavailable Brad Powell MD Unavailable Helen Davis APRN, DATABASES SOFTWARE CONSULTANT Unavailable Reason for Visit * Reason Comments Medication Refill Encounter Details Date Type Department Care Team (Late st Contact Info) Description 07/04/2022 Refill [facility] - [facility]ology - [place] #2 [place] [id number] Nicolasa Jerez April, PAC [address] [place] [address] Medication Refill Social History Tobacco Use Types [...] AM CDT Medication [facility] order for pediatric and adult patients. * Telephone Encounter - Sheree Shafer RN - 07/08/2022 9:35 AM CDT documented in this encounter Plan of Treatment Not on file documented as of this encounter Visit Diagnoses Not on filedocumented in this encounter Care Teams Stamp Analyst Relationship Specialty Start Date End Date Sanjeev Maldonado MD PCP - General Internal Medicine 02/26/17 Altaf Fowler DO Gastroenterology 01/04/16 Tuan Martin MD 1225 [facility] [address] [place] [address] Cardiovascular Disease - Cardiology 08/28/22 Brad Powell MD #[address] [address] Consulting Physician Colon and Rectal Surgery 03/13/23 Helen Davis APRN, DATABASES SOFTWARE CONSULTANT [address] [place] [address] Nurse Practitioner Advanced Practice Nurse 02/06/24 documented as of this encounter
--- OUTSIDE RECORDS SUMMARY | 2025-07-30 17:31 | XMS_ITS | Encounter Summary ---
Author Organization [facility] Address [address] [facility] [place] [address] Phone Care Team Providers Care Comp Field Case Manager Name Role Phone Altaf Fowler DO Unavailable [phone] Sanjeev Maldonado MD Primary Care Provider [phone] Tuan Martin MD Unavailable Brad Powell MD Unavailable Helen Davis APRN ROOM SERVER Unavailable Reason for Visit * Reason Comments Medication Refill Encounter Details Date Type Department Care Team (Late st Contact Info) Description 05/25/2024 Refill [facility] - [facility]ology - [place] [address]2 [place] [address] Helen Davis APRN, ROOM SERVER [address] [place] [address] Medication Refill Social History Tobacco Use Types [...] AM CDT Medication refilled and signed [facility] medication standing order for pediatric and adult patients. documented in this encounter Plan of Treatment Not on file documented as of this encounter Visit Diagnoses Diagnosis Gastroesophageal reflux disease without esophagitis Esophageal reflux documented in this encounter Care Teams Comp Field Case Manager Relationship Specialty Start Date End Date Sanjeev Maldonado MD PCP - General Internal Medicine 02/26/17 Altaf Fowler DO Gastroenterology 01/04/16 Tuan Martin MD [address] [address] Cardiovascular Disease - Cardiology 08/28/22 Brad Powell MD #[address] [address] Consulting Physician Colon and Rectal Surgery 03/13/23 Helen Davis APRN, ROOM SERVER [address] [place] [address] Nurse Practitioner Advanced Practice Nurse 02/06/24 documented as of this encounter
--- OUTSIDE RECORDS SUMMARY | 2025-07-30 17:31 | XMS_ITS | Encounter Summary ---
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
--- OUTSIDE RECORDS SUMMARY | 2025-07-30 17:31 | XMS_ITS | Clinical Summary ---
Author Organization [facility] Nilesh tawny [facility] Address [address] [place] [address] Care Team Providers Care Grid Maker Name Role Phone Sanjeev Maldonado MD Primary Care Provider [phone] Allergies Active Allergy Reactions Criticality Noted Date [...] STL ABSTRACTION Provider, Abstract 05/23/2025 Orders Only [facility] Oncology and Hematology - Rudy [address] [place] [address] Lit Silva MD 05/17/2025 External Device Data STL ABSTRACTION Provider, Abstract 05/17/2025 Orders Only [facility] Oncology and Hematology - Rudy [address] [place] [address] Lit Silva MD 05/16/2025 11:45 AM CDT Office Visit [facility] Oncology and Hematology - Rud[address] [place] [address] Lit Silva MD Chronic anemia (Primary Dx) [...] on file 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 Gender Identity Not on file Sexual Orientation [...] Description 09/20/2025 11:30 AM CDT Office Visit [facility] Oncology and Hematology - Rudy [address] [place] [address] Lit Silva MD [address] [facility] [address] [place] [address] Health Maintenance Due Date Last [...] 2010 ZOSTER VACCINE (1 of 2) 2015 DIABETES HBA1C Q 6 MONTHS 01/21/2025 07/21/2024 INFLUENZA VACCINE (#1) 2025 COVID-19 Vaccine (2 - season) 07/25/202511/2020 COLORECTAL SCREENING 04/23/2028 04/23/2018, 01/15/20 15 Colorectal [...] [facility] [id number] [facility] OPTIONS PPO [id number] Care Teams Grid Maker Relationship Specialty Start Date End Date Sanjeev Maldonado MD [address] [address] PCP - General Internal Medicine 01/19/20
--- OUTSIDE RECORDS SUMMARY | 2025-07-30 17:31 | XMS_ITS | Encounter Summary ---
Author Organization [facility] Address [address] [facility] [place] [address] Phone Care Team Providers Care Building Repair Maintenance Supervisor Name Role Phone Altaf Fowler DO Unavailable [phone] Sanjeev Maldonado MD Primary Care Provider Tuan Martin MD Unavailable Brad Powell MD Unavailable Helen Davis APRN DRAWER IN PLAIN LOOM Unavailable Reason for Visit * Reason Comments Medication Refill Encounter Details Date Type Department Care Team (Late st Contact Info) Description 05/26/2023 Refill [facility] - [place] #2 [place] [address] Helen Davis APRN, DRAWER IN PLAIN LOOM [address]2 [place] [address] Medication Refill Social History Tobacco Use Types [...] PM CDT Medication refilled and signed [facility] chronic medication standing order for pediatric and adult patients. documented in this encounter Plan of Treatment Not on file documented as of this encounter Visit Diagnoses Diagnosis Gastroesophageal reflux disease without esophagitis Esophageal reflux documented in this encounter Care Teams Building Repair Maintenance Supervisor Relationship Specialty Start Date End Date Sanjeev Maldonado MD PCP - General Internal Medicine 02/26/17 Altaf Fowler DO Gastroenterology 01/04/16 Tuan Martin MD [address] [address] Cardiovascular Disease - Cardiology 08/28/22 Brad Powell MD #[address] [address] Consulting Physician Colon and Rectal Surgery 03/13/23 Helen Davis APRN, DRAWER IN PLAIN LOOM [address] [place] [address] Nurse Practitioner Advanced Practice Nurse 02/06/24 documented as of this encounter
--- OUTSIDE RECORDS SUMMARY | 2025-07-30 17:31 | XMS_ITS | Encounter Summary ---
Author Organization [facility] Address [address] [facility] [address] [facility] [address] Phone Care Team Providers Care Lumber Kiln Operator Name Role Phone Altaf Fowler DO Unavailable [phone] Sanjeev Maldonado MD Primary Care Provider [phone] Tuan Martin MD Unavailable Brad Powell MD Unavailable Helen Davis APRN, CHILDREN'S TUTOR NURSERY Unavailable Encounter Details Date Type Department Care Team (Late st Contact Info) Description 09/17/2022 [facility] 1 [place] [address] Mason Donnelly MD [address] [place] [address] Preop testing (Primary Dx) Social History Tobacco [...] Range for this test is Not Detected) [facility] ID NOW 09/23/2022 1:45 PM CDT [facility] Comment:This test was perfor med by a MOLECULAR, NON-PCR method Other NASOPHARYNGEAL STRUCTURE / Unknown Non-Phlebotomy Collection / Unknown 09/23/2022 12:30 PM CDT 09/23/2022 1:21 PM CDT Narrative [facility] - 09/23/2022 1:45 PM CDT This [...] information for Clinicians can be found at: https://www.fda.gov/media/173085/download Additional information for Patients can be found at: https://www.fda.gov/media/719078/download Mason Donnelly MD MICROBIOLOGY - GENERAL ORDERABL ES Final Result [facility] #1 [place] [address] documented in this encounter Visit Diagnoses Diagnosis Preop testing- Primary Preoperative examination, unspecified documented in this encounter Care Teams Lumber Kiln Operator Relationship Specialty Start Date End Date Sanjeev Maldonado MD PCP - General Internal Medicine 02/26/17 Altaf Fowler DO Gastroenterology 01/04/16 Tuan Martin MD [address] [facility] [address] [place] [address] Cardiovascular Disease - Cardiology 08/28/22 Brad Powell MD #[address] [address] Consulting Physician Colon and Rectal Surgery 03/13/23 Helen Davis APRN, CHILDREN'S TUTOR NURSERY #2 [place] [address] Nurse Practitioner Advanced Practice Nurse 02/06/24 documented as of this encounter
--- OUTSIDE RECORDS SUMMARY | 2025-07-30 17:31 | XMS_ITS | Encounter Summary ---
Author Organization [facility] Address [address] [facility] [place] [address] Phone Care Team Providers Care Property And Casualty Insurance Agent Name Role Phone Altaf Fowler DO Unavailable [phone] Sanjeev Maldonado MD Primary Care Provider Tuan Martin MD Unavailable Brad Powell MD Unavailable Helen Davis APRN, MEDIA COORDINATOR Unavailable Reason for Visit * Reason Comments Medication Refill Encounter Details Date Type Department Care Team (Late st Contact Info) Description 04/02/2022 Refill [facility] - [facility]ology - [place] [address]2 [place] [id number] Nicolasa Jerez April, PAC [address] [place] [address] Medication Refill Social History Tobacco Use Types [...] on filedocumented in this encounter Care Teams Property And Casualty Insurance Agent Relationship Specialty Start Date End Date Sanjeev Maldonado MD PCP - General Internal Medicine 02/26/17 Altaf Fowler DO Gastroenterology 01/04/16 Tuan Martin MD [address] [facility] [address] [place] [address] Cardiovascular Disease - Cardiology 08/28/22 Brad Powell MD #[address] [address] Consulting Physician Colon and Rectal Surgery 03/13/23 Helen Davis APRN, MEDIA COORDINATOR #2 [place] [address] Nurse Practitioner Advanced Practice Nurse 02/06/24 documented as of this encounter
--- OUTSIDE RECORDS SUMMARY | 2025-07-30 17:31 | XMS_ITS | Clinical Summary ---
Author Organization [facility] Address [address] [place] [address] Care Team Providers Care Alcoholism Worker Name Role Phone Sanjeev Maldonado MD Primary Care Provider [phone] Allergies Active Allergy Reactions Criticality Noted Date [...] Patient taking differently: 1,000 mg, Reported on 07/28/2025 FLUoxetine (FLUoxetine) 10 mg capsule Take one [...] tablet 11 3 Active Additional Information Patient not taking.Reported on 07/28/2025 albuterol HFA (PROVENTIL HFA,VENTOLIN HFA,PROAIR HFA) 90 [...] Encounters Date Type Department Care Team Description 07/28/2025 10:30 AM CDT Ancillary Procedure [facility] Cardiology [address] [place] [address] [place] [address] Palpitations; PVC (premature ventricular contraction) 07/28/2025 9:30 AM CDT Office Visit [facility] Cardiology [address] [place] [phone] Micehll Hunt NP Palpitations (Primary Dx); Chest pain, unspecified type; PVC (premature ventricular contraction); History of recent pneumonia 07/05/2025 Telephone [facility] Cardiology [address] [place] [address] Tuan Martin MD 05/11/2025 9:00 AM CDT Office Visit [facility] Cardiology [address] [place] [address] Tuan Martin MD Hypertension associated [...] on file 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 Gender Identity Not on file Sexual Orientation Not on file Obstetrics History Last Filed Vital Signs Vital Sign Reading Time Taken Comments Blood Pressure 116/82 07/28/2025 9:16 AM CDT Pulse 77 07/28/2025 9:16 AM CDT Temperature 36.5 C (97.7 F) 10/02/2023 8:15 AM SIDE SEAM TENDER Respiratory Rate 18 07/28/2025 9:16 AM CDT Oxygen Saturation 95% 07/28/2025 9:16 AM CDT Inhaled Oxygen Concentration - - Weight 69.9 kg (154 lb) 07/28/2025 9:16 AM CDT Height 160 cm (5' 3) 07/28/2025 9:16 AM CDT Body Mass Index 27.28 07/28/2025 9:16 AM CDT Plan of Treatment Health Maintenance [...] season) 2025 08/24/2021 Influenza Vaccine (#1) 2025 11/11/2006 Lipid Panel 05/11/2026 05/11/2025, 04/24, 04/30/2023, Additional history exists Medical Devices Implanted Type Area Sap Trainer Device Identifier Shelf Expiration Date Model / Serial / Lot [employer] Device Closure Vascade Od5 Fr Femoral Artery [id number] - [id number] Implanted:Qty: 1 on 10/02/2023 by Tuan Martin MD at [facility] 07/21/2025 [id number] / / [id number] Procedures Procedure Name Priority Date/Time Associated Diagnosis Comments ELECTROCARDIOGRAM REPORT Routine 07/28/2025 Palpitations POCT LIPID PANEL Routine 05/11/2025 8:49 AM CDT Hypertension associated with diabetes (HCC) BASIC METABOLIC PANEL Routine 07/23/2021 Chest pain, atypical from Last 3 Months or Most Recently Relevant to Health Maintenance Results * Electrocardiogram Report (07/28/2025) 07/28/2025 Michell Hunt NP ECG ORDERABLES Edited Re sult - Final * (ABNORMAL) POCT lipid panel (05/11/2025 8:49 [...] - 10.2 mg/dl EXTERNAL LAB SCRIBED eGFR >60 >=60 EXTERNAL LAB SCRIBED eGFR >60 >=60 EXTERNAL LAB Blood specimen (specimen) 07/23/2021 us Michell Hunt NP LAB BLOOD ORDERABLES Angelika l Result EXTERNAL LAB from Last 3 Months or Most Recently Relevant to Health Maintenance Insurance [facility] MEDICARE ADVANTAGE [facility] MEDICARE ADVANTAGE [facility] MEDICARE Address: [address] [address] [place] [address] [facility] HMO/PPO Address: [facility] [id number] [place] [address] Care Teams Alcoholism Worker Relationship Specialty Start Date End Date Sanjeev Maldonado MD PCP - General Internal Medicine 08/30/20
--- OUTSIDE RECORDS SUMMARY | 2025-07-30 17:31 | XMS_ITS | Encounter Summary ---
Author Organization [facility] Address [address] [facility] [place] [address] Phone Care Team Providers Care Cryptographer Name Role Phone Altaf Fowler DO Unavailable [phone] Sanjeev Maldonado MD Primary Care Provider Tuan Martin MD Unavailable Brad Powell MD Unavailable Helen Davis APRN STEEL SPAR OPERATOR Unavailable Reason for Visit * Reason Comments Medication Refill Encounter Details Date Type Department Care Team (Late st Contact Info) Description 02/01/2024 Refill [facility] - G[facility]enterology - [place] #2 [place] [address] Helen Davis APRN, STEEL SPAR OPERATOR [address]2 [place] [address] Medication Refill Social History Tobacco Use Types [...] PM CDT Medication refilled and signed [facility] standing order for [...] reflux documented in this encounter Care Teams Cryptographer Relationship Specialty Start Date End Date Sanjeev Maldonado MD PCP - General Internal Medicine 4/5/17 Altaf Fowler DO Gastroenterology 01/04/16 Tuan Martin MD [address] [facility] [address] [place] [address] Cardiovascular Disease - Cardiology 08/28/22 Brad Powell MD #[address] [address] Consulting Physician Colon and Rectal Surgery 03/13/23 Helen Davis APRN, STEEL SPAR OPERATOR [address] [place] [address] Nurse Practitioner Advanced Practice Nurse 02/06/24 documented as of this encounter
--- OUTSIDE RECORDS SUMMARY | 2025-07-30 17:31 | XMS_ITS | Clinical Summary ---
Author Organization [facility] Address [address] [place] [address] [place] [address] Phone Care Team Providers Care Diesel Automotive Technician Name Role Phone Altaf Fowler DO Unavailable Sanjeev Maldonado MD Primary Care Provider [phone] Tuan Martin MD Unavailable Brad Powell MD Unavailable Helen Davis APRN, BUSINESS PLANNER Unavailable Allergies Active Allergy Reactions Criticality Noted [...] Type Department Care Team Description 07/21/2025 [facility]ill [facility] #2 [place] [address] Helen Davis APRN, HOSSEIN Medication Refill 05/16/2025 9:00 AM CDT [facility] [address]2 [place] [address] Helen Davis APRN, HOSSEIN Gastroesophageal reflux disease without esophagitis (Primary Dx) Discharge Disposition: Discharged to home or Selfcare 05/16/2025 Travel from Last 3 Months Immunizations Immunization Administration Dates Next Due Covid-19 Vaccine, Vector-nr, Rs-ad26, Pf, 0.5 Ml (Gummii/J&J) 08/24/2021 Pneumococcal Vaccine - 13 Valent 05/20/2017 [...] Immunization (#1) 2025 SARS-COV-2 Immunization (2 - season) 2025 08/24/2021 Colonoscopy 05/08/2028 05/08/2021, 05/25, 04/23/2018, Additional [...] this topic Medical Devices Implanted Type Area Zigzag Tunnel Elastic Operator Device Identifier Shelf Expiration Date Model / Serial / Lot Clip 360 Resolution 235cm - [id number] Implanted:Qty: 3 on 08/18/2020 by Altaf Fowler, DO at [facility] IMPLANT Nomi 05/08/2023 [id number] / [id number] / [id number] Procedures Procedure Name Priority Date/Time Associated Diagnosis Comments COLONOSCOPY Routine 04/23/2018 from Last 3 Months or Most Recently Relevant to Health Maintenance Results * COLONOSCOPY (04/23/2018) Altaf Fowler DO PROCEDURE/MINOR SURGICAL ORDERA BLES Final Result from Last 3 Months or Most Recently Relevant to Health Maintenance Insurance [facility] MEDIC[facility] C [facility] Care Teams Diesel Automotive Technician Relationship Specialty Start Date End Date Sanjeev Maldonado MD PCP - General Internal Medicine 02/26/17 Altaf Fowler DO Gastroenterology 01/04/16 Tuan Martin MD 1225 [facility] [address] [place] [address] Cardiovascular Disease - Cardiology 08/28/22 Brad Powell MD #[address] [address] Consulting Physician Colon and Rectal Surgery 03/13/23 Helen Davis APRN, BUSINESS PLANNER [address]2 [place] [address] Nurse Practitioner Advanced Practice Nurse 02/06/24
--- OUTSIDE RECORDS SUMMARY | 2025-07-30 17:31 | XMS_ITS | Encounter Summary ---
Author Organization [facility] Address [address] [facility] [place] [address] Phone Care Team Providers Care Rn Emergency Name Role Phone Altaf Fowler DO Unavailable [phone] Sanjeev Maldonado MD Primary Care Provider Tuan Martin MD Unavailable Brad Powell MD Unavailable Helen Davis APRN YARN CARRIER Unavailable Reason for Visit * Reason Comments Medication Refill Encounter Details Date Type Department Care Team (Late st Contact Info) Description 12/02/2024 Refill [facility] - G[facility]ology - [place] #2 [place] [address] Helen Davis APRN, YARN CARRIER [address]2 [place] [address] Medication Refill Social History Tobacco Use Types [...] Sheree Shafer RN - 12/03/2024 8:29 AM WOOD AND HARDWARE OUTFITTER Medication [facility]illed and signed [facility] standing order for pediatric and adult patients. AND HARDWARE OUTFITTER documented in this encounter Plan of Treatment Not on file documented as of this encounter Visit Diagnoses Diagnosis Gastroesophageal reflux disease without esophagitis Esophageal reflux documented in this encounter Care Teams Rn Emergency Relationship Specialty Start Date End Date Sanjeev Maldonado MD PCP - General Internal Medicine 02/26/17 Altaf Fowler DO Gastroenterology 01/04/16 Tuan Martin MD [address] [facility] [address] [place] [address] Cardiovascular Disease - Cardiology 08/28/22 Brad Powell MD #[address] [address] Consulting Physician Colon and Rectal Surgery 03/13/23 Helen Davis APRN, YARN CARRIER [address] [place] [address] Nurse Practitioner Advanced Practice Nurse 02/06/24 documented as of this encounter
--- OUTSIDE RECORDS SUMMARY | 2025-07-30 17:31 | XMS_ITS | Encounter Summary ---
Author Organization [facility] Address [address] [address] [facility] [address] Phone Care Team Providers Care Director Of Strategic Communications Name Role Phone Altaf Fowler DO Unavailable [phone] Sanjeev Maldonado MD Primary Care Provider Tuan Martin MD Unavailable Brad Powell MD Unavailable Helen Davis APRN GUEST SERVICE TEAM LEADER Unavailable Reason for Visit * Reason Comments Medication Refill Encounter Details Date Type Department Care Team (Late st Contact Info) Description 04/16/2025 Refill [facility] - Gastroenterology - [place] #2 [place] [address] Helen Davis APRN, GUEST SERVICE TEAM LEADER [address]2 [place] [address] Medication Refill Social History Tobacco Use Types [...] CDT Medication [facility] and [facility] medication standing order for pediatric and [...] documented in this encounter Care Teams Director Of Strategic Communications Relationship Specialty Start Date End Date Sanjeev Maldonado MD PCP - General Internal Medicine 02/26/17 Altaf Fowler DO Gastroenterology 01/04/16 Tuan Martin MD [facility]25 [facility] [address] [place] [address] Cardiovascular Disease - Cardiology 08/28/22 Brad Powell MD #[address] [address] Consulting Physician Colon and Rectal Surgery 03/13/23 Helen Davis APRN, GUEST SERVICE TEAM LEADER #2 [place] [address] Nurse Practitioner Advanced Practice Nurse 02/06/24 documented as of this encounter
[2025-07-30 17:37] VITALS: BP 123/78; PULSE 79; RESP 20; TEMP 36.4; O2SAT 100
[2025-07-30 18:17] LABS: Hematocrit 31.7 % (37.0-47.0); Hemoglobin 9.9 g/dL (12.0-15.0); Immature Granulocyte Percent A 0.2 % (0-0.5); Lymphocytes Absolute Auto 1.27 K/mm3 (0.9-3.2); Mean Corpuscular HGB Conc 31.2 g/dl (32-36); Mean Corpuscular Hemoglobin 26.3 pg (26-34); Mean Corpuscular Volume 84.3 fl (80-100); Nucleated Red Blood Cells Absolute Auto 0.000 K/mm3 (0.0-0.012); Nucleated Red Blood Cells Perc 0.0 % (0.0-0.2); Platelet Count Result 199 k/mm3 (150-375); Red Blood Count 3.76 M/mm3 (4.2-5.4); White Blood Count 4.8 K/mm3 (4.5-10.0)
[2025-07-30 18:27] LABS: INR 1.0; Prothrombin Time 13.5 Seconds (11.1-14.7)
[2025-07-30 18:28] LABS: Partial Thromboplastin Time 29.3 Seconds (22.3-36.8)
[2025-07-30 18:31] LABS: Alanine Aminotransferase 38 U/L (6-35); Albumin Level 4.1 g/dL (3.5-5.1); Alkaline Phosphatase 118 U/L (38-126); Anion Gap 11 mmol/L (4-12); Aspartate Amino Transferase 40 U/L (14-36); Bilirubin,Total 0.4 mg/dL (0.2-1.3); Blood Urea Nitrogen 6 mg/dL (7-17); Calcium 8.7 mg/dL (8.4-10.2); Carbon Dioxide 25 mmol/L (22-30); Chloride 104 mmol/L (98-107); Estimated Glomerular Filt Rate > 60; Glucose 198 mg/dL (65-110); Lipase 259 U/L (23-300); Potassium 3.5 mmol/L (3.4-5.0); Sodium 140 mmol/L (137-145); Total Protein 6.8 g/dL (6.3-8.2)
[2025-07-30 18:42] LABS: Troponin I < 0.012 ng/mL (0.000-0.034)
== END 2025-07-30 21:36 | disposition left against medical advice (07) ==
PROVIDERS: Emergency Provider Student in an Organized Health Care Education/Training Program; PCP Internal Medicine
DX: R07.9 Chest pain, unspecified (principal)
CPT/HCPCS: 36415; 71046; 80053; 83690; 84484; 85025; 85610; 85730; 93005; 99199

== ENCOUNTER 2025-08-02 17:34 | Emergency (ER) | payer OTHER, MEDICARE, SELFPAY ==
[2025-08-02] VITALS (23 sets, daily range): BP systolic 112–144; BP diastolic 75–87; PULSE 83–114; RESP 15–21; TEMP 36.4; O2SAT 93–98
--- NOTE | ~2025-08-02 | XR_ITS ---
XR chest 2V 08/02/2025 18:13 Indication: Chest pain Procedure: 2 view chest Comparison: 07/30/2025 Findings: Heart size normal. No focal air space disease, pulmonary edema, pleural effusion or suspected pneumothorax. No acute osseous abnormality. Impression: 1: No acute cardiopulmonary disease. Reviewed, dictated and finalized at location O. Impression: 1: No acute cardiopulmonary disease.
--- NOTE | 2025-08-02 17:35 | ECG_ITS ---
Test Date: 2025-08-02 17:48:59 Measurements Intervals [place] Rate: 85 P: 27 VT: 172 QRS: 2 QRSD: 96 T: 38 QT: 380 QTc: 453 Interpretive Statements SINUS RHYTHM LOW QRS VOLTAGE IN EXTREMITY LEADS [QRS DEFLECTION < 0.5 mV IN LIMB LEADS] POOR R-WAVE PROGRESSION, CANNOT EXCLUDE PREVIOUS ANTEROSEPTAL INFARCTION BORDERLINE ECG Compared to ECG 07/30/2025 17:34:26 No significant changes Electronically Signed On 08-03-2025 15:59:08 CDT by Mike Wild M.D.
[2025-08-02 17:53] LABS: Hematocrit 31.7 % (37.0-47.0); Hemoglobin 10.1 g/dL (12.0-15.0); Immature Granulocyte Percent A 0.4 % (0-0.5); Lymphocytes Absolute Auto 1.44 K/mm3 (0.9-3.2); Mean Corpuscular HGB Conc 31.9 g/dl (32-36); Mean Corpuscular Hemoglobin 26.4 pg (26-34); Mean Corpuscular Volume 82.8 fl (80-100); Nucleated Red Blood Cells Absolute Auto 0.000 K/mm3 (0.0-0.012); Nucleated Red Blood Cells Perc 0.0 % (0.0-0.2); Platelet Count Result 180 k/mm3 (150-375); Red Blood Count 3.83 M/mm3 (4.2-5.4); White Blood Count 5.0 K/mm3 (4.5-10.0)
[2025-08-02 18:02] LABS: INR 1.0; Prothrombin Time 13.4 Seconds (11.1-14.7)
[2025-08-02 18:04] LABS: Partial Thromboplastin Time 28.2 Seconds (22.3-36.8)
[2025-08-02 18:06] LABS: Alanine Aminotransferase 56 U/L (6-35); Albumin Level 4.1 g/dL (3.5-5.1); Alkaline Phosphatase 139 U/L (38-126); Anion Gap 13 mmol/L (4-12); Aspartate Amino Transferase 59 U/L (14-36); Bilirubin,Total 0.4 mg/dL (0.2-1.3); Blood Urea Nitrogen 7 mg/dL (7-17); Calcium 8.9 mg/dL (8.4-10.2); Carbon Dioxide 21 mmol/L (22-30); Chloride 102 mmol/L (98-107); Estimated CRCL calculation 80 ml/min; Estimated Glomerular Filt Rate > 60; Glucose 265 mg/dL (65-110); Lipase 188 U/L (23-300); Potassium 3.4 mmol/L (3.4-5.0); Sodium 136 mmol/L (137-145); Total Protein 7.0 g/dL (6.3-8.2)
[2025-08-02 18:13] LABS: Troponin I < 0.012 ng/mL (0.000-0.034)
--- NOTE | 2025-08-02 18:20 | ED.CHESTPAIN ---
HPI - Chest Pain General Chief Complaint: Chest Pain Stated Complaint: chest pain Time Seen by Provider: 08/02/25 17:39 Related Data Home Medications ?Medication ?Instructions ?Recorded ?Confirmed ?Last Taken ?Type atorvastatin 20 mg tablet 20 mg PO DAILY 06/21/20 08/02/25 08/01/25 History fluoxetine 20 mg tablet 20 mg PO DAILY 06/21/20 08/02/25 08/02/25 History gabapentin 300 mg capsule 300 mg PO BID 06/21/20 08/02/25 08/02/25 History metformin 1,000 mg tablet 2,000 mg PO BID 06/21/20 08/02/25 08/02/25 History metoprolol succinate 25 mg 25 mg PO BID 06/21/20 08/02/25 08/02/25 History tablet,extended release 24 hr magnesium 500 mg tablet 15 mg PO BID 09/13/20 08/02/25 08/01/25 History allopurinol 100 mg tablet 100 mg PO DAILY 08/29/21 08/02/25 08/01/25 History empagliflozin 10 mg tablet 25 mg PO HS 07/02/23 08/02/25 07/01/23 21:00 History (Jardiance) Allergies Allergy/AdvReac Type Severity Reaction Status Date / Time codeine Allergy Unknown cold sores Verified 08/02/25 17:47 diphenhydramine Allergy Unknown BREAKS ME Verified 08/02/25 17:47 OUT doxycycline Allergy Unknown Nausea Verified 08/02/25 17:47 guaifenesin (Entex T) Allergy Unknown Skin Verified 08/02/25 17:47 Reaction naproxen Allergy Unknown Unknown Verified 08/02/25 17:47 Penicillins Allergy Unknown Unknown Verified 08/02/25 17:47 prednisone Allergy Unknown Unknown Verified 08/02/25 17:47 pseudoephedrine (Entex T) Allergy Unknown Skin Verified 08/02/25 17:47 Reaction ibuprofen AdvReac Mild nausea Verified 08/02/25 17:47 METOCLOPRAMIDE HCL Allergy Mild INTERACTS Uncoded 07/30/25 17:42 WITH PROZAC PMFSH Past Medical History Medical History (Updated 08/02/25 @ 20:01 by Mary Solo PA-C) Anemia Non-insulin dependent diabetes mellitus Asthma Hypertension Surgical History Surgical History (Updated 02/02/25 @ 14:29 by Mitra Jordan CMA) H/O: hysterectomy History of cholecystectomy History of left knee replacement Family History Family History Sibling Family history of elevated blood lipids Family history of diabetes mellitus in first degree relative Mother Family history of diabetes mellitus in first degree relative Pulmonary embolism Father Family history of congestive heart failure Other Cerebrovascular accident Diabetes mellitus Family history of allergic disorder Family history of cardiovascular disease Family history of kidney disease Hypertension Social History Social History (Updated 02/02/25 @ 14:34 by Mary Mendoza [facility]) Smoking status: Never smoker Alcohol intake: never Substance use: never Do You Feel Safe in your Home?: Yes Lack of Transportation: No Lack of Food: Never True Current Housing: I Have Housing Concerned About Future Housing: No Difficulty Paying Gas/Electric Bills: No Difficulty Paying for Meds: No Currently Unemployed: No Education: High School Diploma/GED Difficulty w/ Childcare or Family Care: Decline to Answer Gender identity (if verbalized by the patient): Female Spiritual care concerns: No Course Course Emergency Course: Patient was updated on her workup. We spoke about further inpatient evaluation/management versus close follow-up with her middleware solutions architect. She does report she has an appointment on . She wishes to be discharged with outpatient follow-up Vital Signs Vital signs: Vital Signs Temperature 97.6 F 08/02/25 17:36 Pulse Rate 88 08/02/25 17:36 Respiratory Rate 20 08/02/25 17:36 Blood Pressure 144/87 H 08/02/25 17:36 Pulse Oximetry 96 08/02/25 17:36 Oxygen Delivery Room Air 08/02/25 17:36 Temperature 97.6 F 08/02/25 17:36 Pulse Rate 94 08/02/25 20:30 Respiratory Rate 18 08/02/25 20:30 Blood Pressure 113/77 08/02/25 20:01 Pulse Oximetry 93 08/02/25 20:30 Oxygen Delivery Room Air 08/02/25 17:44 MDM - Chest Pain MDM Narrative Medical decision making narrative: Patient presents the emergency department for chest pain. Her vitals are stable. Hemoglobin is stable. Metabolic panel appears stable. Chest x-ray without acute cardiopulmonary abnormality. EKG without acute ST changes, baseline and 3 hour troponin are negative. D-dimer isn't elevated. Heart score is 3. Patient was updated on her workup. We spoke about further inpatient evaluation/management versus close follow-up with her middleware solutions architect. She does report she has an appointment on . She wishes to be discharged with outpatient follow-up. She was given warnings to return to the ER Differential Diagnosis Differential diagnosis: Likely stable angina, atypical chest pain, costochondritis, chest pain and other (Chest wall pain) Lab Data Attestation: I reviewed the patient's lab results. 08/02/25 17:42 08/02/25 17:42 Labs: Lab Results 08/02/25 08/02/25 Range/Units 17:42 20:16 WBC 5.0 (4.5-10.0) K/mm3 RBC 3.83 L (4.2-5.4) M/mm3 Hgb 10.1 L (12.0-15.0) g/dL Hct 31.7 L (37.0-47.0) % MCV 82.8 (80-100) fl MCH 26.4 (26-34) pg MCHC 31.9 L (32-36) g/dl RDW 14.3 (11.5-14.5) % Plt Count 180 (150-375) k/mm3 MPV 8.5 (7.4-10.4) fl Immature Gran % (Auto) 0.4 (0-0.5) % Neut % (Auto) 62.8 (45.5-73.1) % Lymph % (Auto) 29.1 (18.3-44.2) % [place] % (Auto) 5.9 (2.6-8.5) % Eos % (Auto) 1.2 (0-4.4) % Baso % (Auto) 0.6 (0.2-1.2) % Lymph # (Auto) 1.44 (0.9-3.2) K/mm3 [place] # (Auto) 0.3 (0.1-0.6) K/mm3 Eos # (Auto) 0.1 (0-0.3) K/mm3 Baso # (Auto) 0.0 (0.0-0.1) K/mm3 Abs Immat Gran (auto) 0.02 (0.00-0.031) K/mm3 Absolute Neuts (auto) 3.1 (1.3-6.7) K/mm3 Absolute Nucleated RBC 0.000 (0.0-0.012) K/mm3 Nucleated RBC % 0.0 (0.0-0.2) % PT 13.4 (11.1-14.7) Seconds INR 1.0 APTT 28.2 (22.3-36.8) Seconds D-Dimer < 0.27 (<0.48) ug/mL Sodium 136 L (137-145) mmol/L Potassium 3.4 (3.4-5.0) mmol/L Chloride 102 (98-107) mmol/L Carbon Dioxide 21 L (22-30) mmol/L Anion Gap 13 H (4-12) mmol/L BUN 7 (7-17) mg/dL Creatinine 0.60 L (0.7-1.0) mg/dL Estim Creat Clear Calc 80 ml/min Estimated GFR > 60 (59 - ) Glucose 265 H (65-110) mg/dL Calcium 8.9 (8.4-10.2) mg/dL Total Bilirubin 0.4 (0.2-1.3) mg/dL AST 59 H (14-36) U/L ALT 56 H (6-35) U/L Alkaline Phosphatase 139 H (38-126) U/L Troponin I < 0.012 < 0.012 (0.000-0.034) ng/mL Total Protein 7.0 (6.3-8.2) g/dL Albumin 4.1 (3.5-5.1) g/dL Lipase 188 (23-300) U/L Imaging Data Radiologist's impression: ITS Impressions Chest X-Ray 08/02/25 18:16 Impression: 1: No acute cardiopulmonary disease. ECG Data EKG #1: ECG completion date: 08/02/25 EKG Interpretation: normal rate, sinus rhythm, normal QT and no acute changes (compared to EKG 07/30/25) Critical Care Time Critical Care Time Critical Care Time: No Discharge Plan Discharge Clinical Impression: Chest pain Qualifiers: Chest pain type: unspecified Qualified Code(s): R07.9 - Chest pain, unspecified Patient Disposition: Home Condition: Improved Instructions: Chest Pain (ED) Additional Instructions: Return to the emergency department if you experience fever, chest pain, shortness of breath, abdominal pain with nausea and vomiting, or any other symptoms that are concerning to you. Follow up with your middleware solutions architect Patient Language: Nepali Prescriptions: No Action atorvastatin 20 mg Tablet 20 mg PO DAILY fluoxetine 20 mg Tablet 20 mg PO DAILY metformin 1,000 mg Tablet 2,000 mg PO BID gabapentin 300 mg Capsule 300 mg PO BID metoprolol succinate 25 mg Tablet Extended Release 24 Hr 25 mg PO BID magnesium 500 mg Tablet 15 mg PO BID allopurinol 100 mg Tablet 100 mg PO DAILY Jardiance 10 mg tablet 25 mg PO HS albuterol sulfate 2.5 mg/0.5 mL solution for nebulization 5 mg inhalation Q6H PRN (Reason: shortness of breath or wheezing) Qty: 30 0RF acetaminophen 325 mg Tablet 650 mg PO Q4H PRN (Reason: Mild Pain (1-3) Or Fever) Qty: 60 0RF azithromycin 500 mg tablet 500 mg PO DAILY 3 Days Qty: 4 0RF cefdinir 300 mg capsule 300 mg PO Q12H Qty: 10 0RF Follow-up/Referrals: Erica,Sanjeev Pozo MD [Primary Care Provider, Unknown] Quality HEART score for chest pain patients History: slightly suspicious ECG: normal Age: > 45 and < 65 years Risk factors: > or = to 3 risk factors of atherosclerotic disease Troponin: < or = to 1x normal limit Heart score: 3
[2025-08-02] MEDS: ONDANSETRON INJ 4 MG/2 ML VIAL IV PUSH (18:37)
[2025-08-02] MEDS: MORPHINE SULFATE (*CRX) 4 MG/ML INJ IV PUSH (18:39)
[2025-08-02 20:51] LABS: Troponin I < 0.012 ng/mL (0.000-0.034)
[2025-08-02] MEDS: PANTOPRAZOLE SODIUM IV 40 MG VIAL IV PUSH (21:49)
== END 2025-08-02 22:30 | disposition home or self-care (01) ==
PROVIDERS: Emergency Medicine; Emergency Provider Physician Assistant; PCP Internal Medicine
DX: R07.9 Chest pain, unspecified (principal); I10 Essential (primary) hypertension; E11.9 Type 2 diabetes mellitus without complications; J45.909 Unspecified asthma, uncomplicated; Z96.652 Presence of left artificial knee joint; Z90.710 Acquired absence of both cervix and uterus; Z90.49 Acquired absence of other specified parts of digestive tract; Z79.84 Long term (current) use of oral hypoglycemic drugs; Z79.899 Other long term (current) drug therapy; R94.31 Abnormal electrocardiogram [ECG] [EKG]
CPT/HCPCS: 36415; 71046; 80053; 83690; 84484; 85025; 85380; 85610; 85730; 93005; 96374; 96375; 99284; J2270; J2405; J2470

== ENCOUNTER 2025-08-06 12:29 | Emergency (ER) | payer OTHER, MEDICARE, SELFPAY ==
--- NOTE | ~2025-08-06 | CT_ITS ---
Lina Sandoval EXAMINATION: CT abdomen pelvis w con COMPARISON: None HISTORY: R sided abd pain TECHNIQUE: Axial images were obtained through the abdomen, pelvis post administration of IV contrast. Oral contrast was also administered. Coronal reconstruction images were obtained from the axial views. CT scan performed using dose optimization techniques including the following automated exposure control; adjustment of mA and/or kV; use of iterative reconstruction technique. Automatic exposure control was used to reduce radiation dose. Permanent radiation dose record is archived to PACS. FINDINGS: CT abdomen: LUNG BASES: Small simple appearing pericardial effusion. LIVER: Mild hepatic steatosis. Portal vein patent. No intrahepatic biliary duct dilatation. The liver is enlarged measuring 24 cm. SPLEEN: Unremarkable. KIDNEYS: Right Kidney: Unremarkable. No calculi. No hydronephrosis. Left Kidney: Unremarkable. No calculi. No hydronephrosis ADRENAL GLANDS: Unremarkable. PANCREAS: Mild pancreatic atrophy. GALLBLADDER/BILIARY: Postcholecystectomy. STOMACH AND ESOPHAGUS: Visualized stomach and esophagus within normal limits. BOWEL/MESENTERY: No colitis or diverticulitis. Appendix normal. Mesentery normal. No dilated small bowel loops. ADENOPATHY/RETROPERITONEUM: Enlarged lymph nodes in the peripancreatic space and portacaval space the largest 1.6 x 1.7 cm possibly reactive, follow-up recommended to assess stability or resolution. AORTA/VASCULATURE: Normal caliber aorta. FREE FLUID OR FREE AIR: No free fluid.. CT pelvis: SOLID ORGANS/REPRODUCTIVE: Post hysterectomy. BLADDER: Bladder distended. OSSEOUS STRUCTURES: No acute osseous abnormality.No suspicious lesions. OVERLYING SOFT TISSUES: Unremarkable. IMPRESSION: 1. No acute intra-abdominal process. Incidental findings above Reviewed, dictated and finalized at location A.
--- NOTE | ~2025-08-06 | XR_ITS ---
EXAMINATION: XR chest 2V, 08/06/2025 15:30 CDT HISTORY: sob, cough, fatigue COMPARISON: No comparisons available. Technique: 2 views obtained. Findings: The lungs are clear, no effusion. No pneumothorax. Heart is normal size. Mediastinal and hilar contours are within normal limits. Bony thorax no acute abnormality. Impression: No acute cardiopulmonary abnormality. Reviewed, dictated and finalized at location A. Impression: No acute cardiopulmonary abnormality.
--- OUTSIDE RECORDS SUMMARY | 2025-08-06 12:31 | XMS_ITS | Clinical Summary ---
Author Organization [facility] Address [address] [address] [place] [address] Phone Care Team Providers Care Top Trimmer Name Role Phone Altaf Fowler DO Unavailable [phone] Sanjeev Maldonado MD Primary Care Provider [phone] Tuan Martin MD Unavailable Brad Powell MD Unavailable Helen Davis APRN, BATTERY RECHARGER Unavailable Allergies Active Allergy Reactions Criticality Noted [...] Type Department Care Team Description 07/21/2025 [facility] [address] [place] [address] Helen Davis APRN, HOSSEIN Medication Refill 05/16/2025 9:00 AM CDT Office Visit [facility] [address] [place] [address] Helen Davis APRN, HOSSEIN Gastroesophageal reflux disease without esophagitis (Primary Dx) Discharge Disposition: Discharged to home or Selfcare 05/16/2025 Travel from Last 3 Months Immunizations Immunization Administration Dates Next Due Covid-19 Vaccine, Vector-nr, Rs-ad26, Pf, 0.5 Ml ([employer]) 08/24/2021 Pneumococcal Vaccine - 13 Valent 05/20/2017 [...] this topic Medical Devices Implanted Type Area Director Of Reimbursement Device Identifier Shelf Expiration Date Model / Serial / Lot Clip 360 Resolution 235cm - [id number] Implanted:Qty: 3 on 08/18/2020 by Altaf Fowler, DO at [facility] IMPLANT [employer] 05/08/2023 [id number] / [id number] / [id number] Procedures Procedure Name Priority Date/Time Associated Diagnosis Comments COLONOSCOPY Routine 04/23/2018 from Last 3 Months or Most Recently Relevant to Health Maintenance Results * COLONOSCOPY (04/23/2018) Altaf Fowler DO PROCEDURE/MINOR SURGICAL ORDERA BLES Final Result from Last 3 Months or Most Recently Relevant to Health Maintenance Insurance [facility] MEDICARE C [facility] Care Teams Top Trimmer Relationship Specialty Start Date End Date Sanjeev Maldonado MD PCP - General Internal Medicine 02/26/17 Altaf Fowler DO Gastroenterology 01/04/16 Tuan Martin MD [address] [facility] [address] [place] [address] Cardiovascular Disease - Cardiology 08/28/22 Brad Powell MD #[address] [address] Consulting Physician Colon and Rectal Surgery 03/13/23 Helen Davis APRN, BATTERY RECHARGER [address] [place] [address] Nurse Practitioner Advanced Practice Nurse 02/06/24
--- OUTSIDE RECORDS SUMMARY | 2025-08-06 12:31 | XMS_ITS | Encounter Summary ---
Author Organization [facility] Address [address] [facility] [place] [address] Phone Care Team Providers Care Cigar Wrapper Name Role Phone Altaf Fowler DO Unavailable [phone] Sanjeev Maldonado MD Primary Care Provider Tuan Martin MD Unavailable Brad Powell MD Unavailable Helen Davis APRN CIGARETTE MAKING MACHINE HOPPER FEEDER Unavailable Reason for Visit * Reason Comments Medication Refill Encounter Details Date Type Department Care Team (Late st Contact Info) Description 07/21/2025 Refill [facility] - [place] [address] [place] [address] Helen Davis APRN, CIGARETTE MAKING MACHINE HOPPER FEEDER [address] [place] [address] Medication Refill Social History Tobacco Use Types [...] reflux documented in this encounter Care Teams Cigar Wrapper Relationship Specialty Start Date End Date Sanjeev Maldonado MD PCP - General Internal Medicine 02/26/17 Altaf Fowler DO Gastroenterology 01/04/16 Tuan Martin MD [address] [address] Cardiovascular Disease - Cardiology 08/28/22 Brad Powell MD #[address] [address] Consulting Physician Colon and Rectal Surgery 03/13/23 Helen Davis APRN, CIGARETTE MAKING MACHINE HOPPER FEEDER [address] [place] [address] Nurse Practitioner Advanced Practice Nurse 02/06/24 documented as of this encounter
--- OUTSIDE RECORDS SUMMARY | 2025-08-06 12:32 | XMS_ITS | Encounter Summary ---
Author Organization [facility] Address [address] [facility] [place] [address] Phone Care Team Providers Care Investigator Utility Bill Complaints Name Role Phone Altaf Fowler DO Unavailable [phone] Sanjeev Maldonado MD Primary Care Provider [phone] Tuan Martin MD Unavailable Brad Powell MD Unavailable Helen Davis APRN, CALENDER WORKER HELPER Unavailable Reason for Visit * Reason Comments Medication Refill Encounter Details Date Type Department Care Team (Late st Contact Info) Description 04/02/2022 Refill [facility] - [place] [address] [place] [id number] Nicolasa Jerez April, PAC [address] [place] [address] Medication Refill Social History Tobacco Use Types [...] on filedocumented in this encounter Care Teams Investigator Utility Bill Complaints Relationship Specialty Start Date End Date Sanjeev Maldonado MD PCP - General Internal Medicine 02/26/17 Altaf Fowler DO Gastroenterology 01/04/16 Tuan Martin MD [address] [facility] [address] [place] [address] Cardiovascular Disease - Cardiology 08/28/22 Brad Powell MD #[address] [address] Consulting Physician Colon and Rectal Surgery 03/13/23 Helen Davis APRN, CALENDER WORKER HELPER [address] [place] [address] Nurse Practitioner Advanced Practice Nurse 02/06/24 documented as of this encounter
--- OUTSIDE RECORDS SUMMARY | 2025-08-06 12:32 | XMS_ITS | Encounter Summary ---
Author Organization [facility] Healthcare Address [address] [place] [address] Care Team Providers Care Media Assistant Name Role Phone Sanjeev Maldonado MD Primary Care Provider [phone] Encounter Details Date Type Department Care Team (Late st Contact Info) Description 07/05/2025 Telephone [facility] Medical Group Cardiology [address] [place] [address] Tuan Martin MD [address] [facility] [place] [address] [facility] [place] [address] [place] [address] Social History Tobacco Use Types [...] on file 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
--- OUTSIDE RECORDS SUMMARY | 2025-08-06 12:32 | XMS_ITS | Encounter Summary ---
Author Organization [facility] Address [address] [facility] [place] [address] Phone Care Team Providers Care Entry Writer Name Role Phone Altaf Fowler DO Unavailable [phone] Sanjeev Maldonado MD Primary Care Provider Tuan Martin MD Unavailable Brad Powell MD Unavailable Helen Davis APRN SLAB LIFTING SUPERVISOR Unavailable Reason for Visit * Reason Comments Medication Refill Encounter Details Date Type Department Care Team (Late st Contact Info) Description 04/16/2025 Refill [facility] - [place] [address] [place] [address] Helen Davis APRN, SLAB LIFTING SUPERVISOR [address] [place] [address] Medication Refill Social History Tobacco Use Types [...] reflux documented in this encounter Care Teams Entry Writer Relationship Specialty Start Date End Date Sanjeev Maldonado MD PCP - General Internal Medicine 02/26/17 Altaf Fowler DO Gastroenterology 01/04/16 Tuan Martin MD [facility] [facility] [address] [place] [address] Cardiovascular Disease - Cardiology 08/28/22 Brad Powell MD #[address] [address] Consulting Physician Colon and Rectal Surgery 03/13/23 Helen Davis APRN, SLAB LIFTING SUPERVISOR [address] [place] [address] Nurse Practitioner Advanced Practice Nurse 02/06/24 documented as of this encounter
--- OUTSIDE RECORDS SUMMARY | 2025-08-06 12:33 | XMS_ITS | Encounter Summary ---
Author Organization [facility] Address [address] [facility] [place] [address] Phone Care Team Providers Care Ed Manager Name Role Phone Altaf Fowler DO Unavailable [phone] Sanjeev Maldonado MD Primary Care Provider [phone] Tuan Martin MD Unavailable Brad Powell MD Unavailable Helen Davis APRN, CHIEF INNOVATION OFFICER Unavailable Reason for Visit * Reason Comments Medication Refill Encounter Details Date Type Department Care Team (Late st Contact Info) Description 07/04/2022 Refill [facility] - [place] [address] [place] [id number] Nicolasa Jerez April, PAC [address] [place] [address] Medication Refill Social History Tobacco Use Types [...] CDT Medication [facility] standing order for pediatric and adult patients. * Telephone Encounter - Sheree Shafer RN - 07/08/2022 9:35 AM CDT documented in this encounter Plan of Treatment Not on file documented as of this encounter Visit Diagnoses Not on filedocumented in this encounter Care Teams Ed Manager Relationship Specialty Start Date End Date Sanjeev Maldonado MD PCP - General Internal Medicine 02/26/17 Altaf Fowler DO Gastroenterology 01/04/16 Tuan Martin MD 12[address] [facility] [address] [place] [address] Cardiovascular Disease - Cardiology 08/28/22 Brad Powell MD #[address] [address] Consulting Physician Colon and Rectal Surgery 03/13/23 Helen Davis APRN, CHIEF INNOVATION OFFICER [address] [place] [address] Nurse Practitioner Advanced Practice Nurse 02/06/24 documented as of this encounter
--- OUTSIDE RECORDS SUMMARY | 2025-08-06 12:33 | XMS_ITS | Clinical Summary ---
Author Organization [facility] Nilesh tawny [facility] Address [address] [facility] [place] [address] Care Team Providers Care Materials Intern Name Role Phone Sanjeev Maldonado MD Primary Care Provider [phone] Allergies Active Allergy Reactions Criticality Noted Date [...] STL ABSTRACTION Provider, Abstract 05/23/2025 Orders Only [facility] Oncology and Hematology - [place] [address] [place] [phone] Lit Silva MD 05/17/2025 External Device Data STL ABSTRACTION Provider, Abstract 05/17/2025 Orders Only [facility] Oncology and Hematology - [place] [address] [place] [address] Lit Silva MD 05/16/2025 11:45 AM CDT Office Visit [facility] Oncology and Hematology - [place] [address] [place] [address] Lit Silva MD Chronic anemia (Primary Dx) [...] on file 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 Gender Identity Not on file Sexual Orientation [...] Description 09/20/2025 11:30 AM CDT Office Visit [facility] Oncology and Hematology - [place] [address] [place] [address] Lit Silva MD [address] [facility] [address] [place] [address] Health Maintenance Due Date Last [...] Resu lt from Last 3 Months Insurance [facility] [id number] [facility] [employer] PPO [id number] Care Teams Materials Intern Relationship Specialty Start Date End Date Sanjeev Maldonado MD [address] [address] PCP - General Internal Medicine 01/19/20
--- OUTSIDE RECORDS SUMMARY | 2025-08-06 12:34 | XMS_ITS | Encounter Summary ---
Author Organization [facility] Address [address] [facility] [place] [address] Phone Care Team Providers Care Ice Cream Maker Name Role Phone Altaf Fowler DO Unavailable [phone] Sanjeev Maldonado MD Primary Care Provider [phone] Tuan Martin MD Unavailable Brad Powell MD Unavailable Helen Davis APRN, [employer] TEACHER Unavailable Encounter Details Date Type Department Care Team (Late st Contact Info) Description 09/17/2022 [facility] [address] [place] [address] Mason Donnelly MD [address] [place] [address] Preop testing (Primary Dx) Social History Tobacco [...] Range for this test is Not Detected) [facility] GILL ID NOW 09/23/2022 1:45 PM CDT [facility] Comment:This test was perfor med by a MOLECULAR, NON-PCR method Other NASOPHARYNGEAL STRUCTURE / Unknown Non-Phlebotomy Collection / Unknown 09/23/2022 12:30 PM CDT 09/23/2022 1:21 PM CDT Narrative [facility] - 09/23/2022 1:45 PM [...] information for Clinicians can be found at: https://www.fda.gov/media/281853/download Additional information for Patients can be found at: https://www.fda.gov/media/657367/download Mason Donnelly MD MICROBIOLOGY - GENERAL ORDERABL ES Final Result [facility] [address] [place] [address] documented in this encounter Visit Diagnoses Diagnosis Preop testing- Primary Preoperative examination, unspecified documented in this encounter Care Teams Ice Cream Maker Relationship Specialty Start Date End Date Sanjeev Maldonado MD PCP - General Internal Medicine 02/26/17 Altaf Fowler DO Gastroenterology 01/04/16 Tuan Martin MD [facility] [facility] [address] [place] [address] Cardiovascular Disease - Cardiology 08/28/22 Brad Powell MD #[address] [address] Consulting Physician Colon and Rectal Surgery 03/13/23 Helen Davis APRN, [employer] PUBLIC S[employer] TEACHER [address] [place] [address] Nurse Practitioner Advanced Practice Nurse 02/06/24 documented as of this encounter
--- OUTSIDE RECORDS SUMMARY | 2025-08-06 12:34 | XMS_ITS | Encounter Summary ---
Author Organization [facility] Address [address] [facility] [place] [address] Phone Care Team Providers Care Wood Box Maker Name Role Phone Altaf Fowler DO Unavailable [phone] Sanjeev Maldonado MD Primary Care Provider Tuan Martin MD Unavailable Brad Powell MD Unavailable Helen Davis APRN CHIMNEY BUILDER Unavailable Reason for Visit * Reason Comments Medication Refill Encounter Details Date Type Department Care Team (Late st Contact Info) Description 02/01/2024 Refill [facility] - [place] [address] [place] [address] Helen Davis APRN, CHIMNEY BUILDER [address] [place] [address] Medication Refill Social History Tobacco Use Types [...] PM CDT Medication refilled and signed [facility] [place] chronic medication standing order for pediatric [...] reflux documented in this encounter Care Teams Wood Box Maker Relationship Specialty Start Date End Date Sanjeev Maldonado MD PCP - General Internal Medicine 4/5/17 Altaf Fowler DO Gastroenterology 01/04/16 Tuan Martin MD 1225 [facility] [address] [place] [address] Cardiovascular Disease - Cardiology 08/28/22 Brad Powell MD #[address] [address] Consulting Physician Colon and Rectal Surgery 03/13/23 Helen Davis APRN, CHIMNEY BUILDER [address] [place] [address] Nurse Practitioner Advanced Practice Nurse 02/06/24 documented as of this encounter
--- OUTSIDE RECORDS SUMMARY | 2025-08-06 12:34 | XMS_ITS | Clinical Summary ---
Author Organization [facility] Address [address] [place] [phone] Care Team Providers Care Auto Air Conditioning Mechanic Name Role Phone Sanjeev Maldonado MD Primary Care Provider [phone] Allergies Active Allergy Reactions Criticality Noted Date [...] A DAY 180 tablet 3 5 Active colchicine 0.5 mg tablet Take 0.5 mg by mouth 2 (two) times a day 180 tablet 5 11/03/20 25 Active aspirin 325 mg tablet Take 2 tablets twice daily for 4 days, then 1 tablet twice daily for 4 days, then 1 tablet daily for 4 days, then stop 28 tablet 5 Active Active Problems Problem Noted Date Diagnosed Date PAD (peripheral artery disease) 08/27/2023 Raised antibody titer 09/06/2014 Encounters Date Type Department Care Team Description 08/05/2025 Telephone [facility] Cardiology [address] [place] [address] Michell Lei NP 08/04/2025 10:15 AM CDT Ancillary Procedure [place] [address] [place] [phone] Arrived 08/02/2025 Results Follow-Up [place] [address] [place] [phone] Michell Lei NP 24 HR Holter Monitor, Transthoracic Echo (TTE) Complete W Doppler/CF 08/01/2025 Orders Only [place] [address] [place] [phone] Provider, MD Radha 07/28/2025 10:30 AM CDT Ancillary Procedure [place] [address] [place] [phone] Palpitations; PVC (premature ventricular contraction) 07/28/2025 9:30 AM CDT Office Visit [place] [address] [place] [phone] Michell Lei NP Palpitations (Primary Dx); Chest pain, unspecified type; PVC (premature ventricular contraction); History of recent pneumonia 07/05/2025 Telephone [place] [address] [place] [phone] Tuan Martin MD 06/29/2025 Orders Only [facility] Health Information Management [address] [place] [address] Alvin, Steffen 05/11/2025 9:00 AM CDT Office Visit [place] [address] [place] [phone] Tuan Martin MD Hypertension associated with diabetes [...] on file Legal Sex Female 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 Device Closure Vascade Od5 Fr Femoral Artery [id number] - [id number] Implanted:Qty: 1 on 10/02/2023 by Tuan Martin MD at [facility] [employer] [facility] 07/21/2025 [id number] / / [id number] Procedures Procedure Name Priority Date/Time Associated Diagnosis Comments TRANSTHORACIC ECHO (TTE) COMPLETE W DOPPLER/CF WO CONTRAST Routine 08/04/2025 11:18 AM CDT PVC (premature ventricular contraction) HOLTER MONITOR 24 HR Routine 07/28/2025 10:19 AM CDT Palpitations PVC (premature ventricular contraction) ELECTROCARDIOGRAM REPORT Routine 07/28/[address] CHEST PE W CONTRAST Schedule Routine, Read Routine (OP Routine) 06/29/2025 3:54 PM CDT CBC WITH AUTO DIFFERENTIAL Routine 06/29/2025 3:50 PM CDT ECG 12-LEAD Routine 06/29/2025 3:48 PM CDT SCAN - RADIOLOGY/IMAGING 06/29/2025 POCT LIPID PANEL Routine 05/11/2025 8:49 AM CDT Hypertension associated with diabetes (HCC) BASIC METABOLIC PANEL Routine 07/23/2021 Chest pain, atypical from Last 3 Months or Most Recently Relevant to Health Maintenance Results * TRANSTHORACIC ECHO (TTE) COMPLETE W DOPPLER/CF WO CONTRAST (08/04/2025 11:18 AM CDT) EF Mod BP 71 % CONS SCIMAGE Anatomical Region Laterality Modality Ultrasound 08/04/2025 10:3 0 AM CDT Narrative 08/04/2025 11:53 AM CDT [facility] Cardiology [address] [facility] [address], [place] [address] [address] [facility] [address], [place] [address] P:[phone] P:[phone] Echocardiographic Report Patient Name: BLAS SANDOVALNapoleon SÁNCHEZ : 1965 Study Date: 08/04/2025 10:30:30 AM Sex: F Core Shaper: Skylar Rm (R)(CT), [facility] Location: [place] Ref Provider: MICHELL LEI Height(Cm): 160 BSA: 1.76 Weight(Kg): 69.9 Heart Rate: 67 BP: 116 / 82 Quality: Good Order Provider: MICHELL ELI PROCEDURES: Echocardiographic Report: Transthoracic echocardiogram with complete 2D, M-Mode, and color Doppler examination. With Strain Analysis. INDICATIONS: I49.3 Ventricular premature depolarization. MEASUREMENTS: 2D/MM Value Range Doppler Value Range EF Mod BP 71 % [ 54 - 74 ] LIA Vmax 2.53 cm2 [ 2.00 - 4.00 ] LV GLS -17.91 % AV Mean PG 3 mmHg LVIDd 2D 3.95 cm [ 3.80 - 5.20 ] AV Peak Prasanna 1.23 m/s [ 1.00 - 1.70 ] LVIDs 2D 2.41 cm [ 2.20 - 3.50 ] AV Peak PG 6 mmHg LVPWd 2D 1.08 cm [ 0.60 - 0.90 ] AV VTI 26.50 cm IVSd 2D 1.16 cm [ 0.60 - 0.90 ] LVOT Diam 2.02 cm [ 1.70 - 2.10 ] AoR Diam 2D 3.41 cm [ 2.70 - 3.70 ] LVOT Peak Prasanna 0.98 m/s [ 0.70 - 1.10 ] LA Volume 32.34 ml [ 22.00 - 52.00 ] LVOT VTI 21.02 cm LA Volume Index 18 cc/m2 [ 16 - 28 ] MV E Peak Prasanna 0.90 m/s [ 0.60 - 1.30 ] RA Volume 20.89 ml MV A Peak Prasanna 1.08 m/s [ 1.00 - 1.20 ] MV Decel Time 223 msec [ 104 - 258 ] PV Peak Prasanna 0.75 m/s [ 0.40 - 0.80 ] RV S` 11.71 mmHg Lateral E` 0.07 m/s [ 0.10 - 0.15 ] Septal E` 0.05 m/s [ 0.08 - 0.15 ] E` 0.06 m/s E/E` 14 Tapse 2.03 cm [ 1.71 - 5.00 ] 2D/MM Value Range Doppler Value Range - FINDINGS: Interpretation Site: Exam was interpreted at [facility]. Left Ventricle: Normal left ventricular systolic function. No focal wall motion abnormalities. Normal left ventricular size. Mild concentric left ventricular hypertrophy. Impaired diastolic relaxation Grade I. Ejection fraction is measured at 71 %. Global Longitudinal Strain is -18 %. GLS is borderline. Right Ventricle: Normal right ventricular size. Normal right ventricular systolic function. Left Atrium: The left atrium is normal in size. Right Atrium: The right atrium is normal in size. Atrial Septum: Normal atrial septum. Mitral Valve: Normal appearance of the mitral valve. Mild mitral valve regurgitation. There is no hemodynamically significant mitral stenosis by Doppler. Aortic Valve: No evidence of hemodynamically significant aortic stenosis by Doppler. Aortic cusps appear mildly sclerotic. Trileaflet aortic valve. No aortic regurgitation. Tricuspid Valve: Normal appearance of the tricuspid valve. No evidence of tricuspid regurgitation. Pulmonic Valve: Normal appearance of the pulmonic valve. No evidence of pulmonic regurgitation. Pericardium: Small pericardial effusion. Aorta: Sinus of Valsalva is normal. IVC: Normal size and normal respiratory collapse consistent with normal right atrial pressure (<5 mmHg). Pulmonary Artery: Normal pulmonary artery size. CONCLUSIONS: Normal left ventricular systolic function. No focal wall motion abnormalities. Normal left ventricular size. Mild concentric left ventricular hypertrophy. Impaired diastolic relaxation Grade I. Ejection fraction is measured at 71 %. Global Longitudinal Strain is -18 %. GLS is borderline. Mild mitral valve regurgitation. Small loculated pericardial effusion. Electronically Signed By: Dr. Hal Barker [facility] 08/04/2025 11:52:54 AM CDT Procedure Note Hal Barker MD - 08/04/2025 [facility] Cardiology [address] [facility] [address] [address] [address] [facility] [address] [address] P:[phone] P:[phone] Echocardiographic Report Patient Name: ELIJAH SANDOVAL D : 1965 Study Date: 08/04/2025 10:30:30 AM Sex: F Core Shaper: Skylar Rm (Agusto)([place]), [facility] Location: [facility] Provider: MICHELL LEI Height(Cm): 160 BSA: 1.76 Weight(Kg): 69.9 Heart Rate: 67 BP: 116 / 82 Quality: Good Order Provider: MICHELL LEI PROCEDURES: Echocardiographic Report: Transthoracic echocardiogram with complete 2D, M-Mode, and color Dopplerexamination. With Strain Analysis. INDICATIONS: I49.3 Ventricular premature depolarization. MEASUREMENTS: 2D/MM Value Range Doppler ValueRange EF Mod BP 71 % [ 54 - 74 ] LIA Vmax 2.53cm2 [ 2.00 - 4.00 ] LV GLS -17.91 % AV Mean PG 3mmHg LVIDd 2D 3.95 cm [ 3.80 - 5.20 ] AV Peak Prasanna 1.23m/s [ 1.00 - 1.70 ] LVIDs 2D 2.41 cm [ 2.20 - 3.50 ] AV Peak PG 6mmHg LVPWd 2D 1.08 cm [ 0.60 - 0.90 ] AV VTI 26.50cm IVSd 2D 1.16 cm [ 0.60 - 0.90 ] LVOT Diam 2.02cm [ 1.70 - 2.10 ] AoR Diam 2D 3.41 cm [ 2.70 - 3.70 ] LVOT Peak Prasanna 0.98m/s [ 0.70 - 1.10 ] LA Volume 32.34 ml [ 22.00 - 52.00 ] LVOT VTI 21.02cm LA Volume Index 18 cc/m2 [ 16 - 28 ] MV E Peak Prasanna 0.90m/s [ 0.60 - 1.30 ] RA Volume 20.89 ml MV A Peak Prasanna 1.08m/s [ 1.00 - 1.20 ] MV Decel Time 223 msec [ 104 - 258 ] PV Peak Prasanna 0.75 m/s [ 0.40 - 0.80 ] RV S` 11.71 mmHg Lateral E` 0.07 m/s [ 0.10 - 0.15 ] Septal E` 0.05 m/s [ 0.08 - 0.15 ] E` 0.06 m/s E/E` 14 Tapse 2.03 cm [ 1.71 - 5.00 ] 2D/MM Value Range Doppler ValueRange - FINDINGS: Interpretation Site: Exam was interpreted at [facility]. Left Ventricle: Normal left ventricular systolic function. No focal wall motionabnormalities. Normal left ventricular size. Mild concentric left ventricular hypertrophy.Impaired diastolic relaxation Grade I. Ejection fraction is measured at 71 %. GlobalLongitudinal Strain is -18 %. GLS is borderline. Right Ventricle: Normal right ventricular size. Normal right ventricular systolicfunction. Left Atrium: The left atrium is normal in size. Right Atrium: The right atrium is normal in size. Atrial Septum: Normal atrial septum. Mitral Valve: Normal appearance of the mitral valve. Mild mitral valve regurgitation.There is no hemodynamically significant mitral stenosis by Doppler. Aortic Valve: No evidence of hemodynamically significant aortic stenosis by Doppler.Aortic cusps appear mildly sclerotic. Trileaflet aortic valve. No aorticregurgitation. Tricuspid Valve: Normal appearance of the tricuspid valve. No evidence of tricuspidregurgitation. Pulmonic Valve: Normal appearance of the pulmonic valve. No evidence of pulmonicregurgitation. Pericardium: Small pericardial effusion. Aorta: Sinus of Valsalva is normal. IVC: Normal size and normal respiratory collapse consistent with normal rightatrial pressure (<5 mmHg). Pulmonary Artery: Normal pulmonary artery size. CONCLUSIONS: Normal left ventricular systolic function. No focal wall motionabnormalities. Normal left ventricular size. Mild concentric left ventricular hypertrophy.Impaired diastolic relaxation Grade I. Ejection fraction is measured at 71 %. GlobalLongitudinal Strain is -18 %. GLS is borderline. Mild mitral valve regurgitation. Small loculated pericardial effusion. Electronically Signed By: Dr. Hal Barker [facility] 08/04/2025 11:52:54 AM CDT Michell Lei NP CV ECHO PROCEDURES Final Result * 24 HR Holter Monitor (07/28/2025 10:19 AM CDT) Anatomical Region Laterality Modality Electrocardiogra phy Narrative 08/01/2025 1:45 PM CDT AMBULATORY DECK HAND REPORT Patient Name: Elijah Sandoval Date of : 1965 Requesting Physician: Michell Lei Date of interpretation: 08/01/25 Type of monitor : 24 hour Holter monitor Date of the study/Enrollment period: July 2040 July 29, 2025 Indication: Palpitations, PVCs Quality of the study: Artifact time one hour Interpretation: Average heart rate was 73 beats per minute with a minimum heart rate 56 beats per minute and maximum heart rate 102 beats per minute. There was a total of 4381 PVCs with estimated burden 4%. There was a total of 70 supraventricular ectopic contractions. No evidence of atrial fibrillation, supraventricular tachycardia, ventricular tachycardia or significant pauses or blocks. Patient was asymptomatic during the monitoring time. Conclusions: Frequent PVCs with estimated burden 4%. Voice recognition software was used to complete this document, therefore, electrical discharge machine operator variances may occur. Hal Barker MD, [facility] 08/01/25 Procedure Note Hal Barker MD - 08/01/2025 AMBULATORY DECK HAND REPORT Patient Name: Elijah Sandoval Date of : 1965 Requesting Physician: Michell Lei Date of interpretation: 08/01/25 Type of monitor : 24 hour Holter monitor Date of the study/Enrollment period: July 2040 July 29, 2025 Indication: Palpitations, PVCs Quality of the study: Artifact time one hour Interpretation: Average heart rate was 73 beats per minute with a minimum heart rate 56beats per minute and maximum heart rate 102 beats per minute. There was atotal of 4381 PVCs with estimated burden 4%. There was a total of 70supraventricular ectopic contractions. No evidence of atrialfibrillation, supraventricular tachycardia, ventricular tachycardia orsignificant pauses or blocks. Patient was asymptomatic during themonitoring time. Conclusions: Frequent PVCs with estimated burden 4%. Voice recognition software was used to complete this document, therefore,electrical discharge machine operator variances may occur. Hal Barker MD, [facility] 08/01/25 Michell Lei NP CV CARDIAC SERVICES PROCE DURES Final Result * Electrocardiogram Report (07/28/2025) 07/28/2025 Michell Lei NP ECG ORDERABLES Edited Re sult - Final * CT Chest PE (CTA) W Contrast (06/29/2025 3:54 PM CDT) Anatomical Region Laterality Modality Body N/A Computed Tomogra phy Historical Provider IMG CT PROCEDURES Final R esult * CBC with auto differential (06/29/2025 3:50 PM CDT) Blood Result [facility] Historical Provider LAB BLOOD ORDERABLES Angelika l Result * ECG 12 lead (06/29/2025 3:48 PM CDT) Result [facility] Provider ECG ORDERABLES Edited Re sult - Final * SCAN - RADIOLOGY/IMAGING (06/29/2025) Anatomical Region Laterality Modality Other Result [facility] Provider Scanning Final Result * (ABNORMAL) POCT lipid panel (05/11/2025 8:49 AM CDT) Cholesterol, POC 154 <200 MG/DL HDL, POC 39(A) >=40 mg/dL Triglycerides, POC 167(A) <=149 mg/dL LDL Cholesterol POC 81 <=129 mg/dL Chol/HDL Ratio, POC 2.1 NONE Non-HDL Cholesterol, POC 114 NONE mg/dL Cholesterol Total, POC 154 30 - 199 mg/dL Capillary blood 05/11/2025 8 :49 AM CDT Result [facility] Tuan Martin MD POINT OF CARE TEST [...] LAB Blood specimen (specimen) 07/23/2021 us Michell Lei NP LAB BLOOD ORDERABLES Angelika glenda Result EXTERNAL LAB from Last 3 Months or Most Recently Relevant to Health Maintenance Insurance UHC MEDICARE ADVANTAGE [facility] MEDICARE ADVANTAGE [facility] Care Teams Auto Air Conditioning Mechanic Relationship Specialty Start Date End Date Sanjeev Maldonado MD PCP - General Internal Medicine 08/30/20
--- OUTSIDE RECORDS SUMMARY | 2025-08-06 12:34 | XMS_ITS | Encounter Summary ---
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 Gender Identity Not on file Sexual Orientation Not on file documented as of this encounter Plan of Treatment Not on file documented as of this encounter Procedures Procedure Name Priority Date/Time Associated Diagnosis Comments SCAN - RADIOLOGY/IMAGING 06/29/2025 documented in this encounter Results * SCAN - RADIOLOGY/IMAGING (06/29/2025) Anatomical Region Laterality Modality Other us Provider Scanning Final Result documented in this encounter Visit Diagnoses Not on filedocumented in this encounter Care Teams Quill Worker Relationship Specialty Start Date End Date Sanjeev Maldonado MD PCP - General Internal Medicine 08/30/20 documented as of this encounter
--- OUTSIDE RECORDS SUMMARY | 2025-08-06 12:34 | XMS_ITS | Encounter Summary ---
Author Organization [facility] Healthcare Address [address] [place] [address] Care Team Providers Care Horticultural Services Supervisor Name Role Phone Sanjeev Maldonado MD Primary Care Provider [phone] Reason for Referral * MRI/CAT/PET Scan (Routine) - Closed Specialty Diagnoses / Procedures Referred By Contac t Referred To Contact Radiology Procedures CT Chest PE (CTA) W Contrast Radha Bourne MD [address] [place] [address] Phone: tel: Referral ID Status Reason Start Date Expiration Date Visits Re quested Visits Authorized [id number] Closed 08/01/2025 08/31/2026 1 1 * Cardiology (Routine) - Closed Specialty Diagnoses / Procedures Referred By Contac t Referred To Contact Procedures ECG 12 lead Radha Bourne MD [address] [place] [address] Phone: tel: Referral ID Status Reason Start Date Expiration Date Visits Re quested Visits Authorized [id number] Closed 08/01/2025 08/31/2026 1 1 Encounter Details Date Type Department Care Team (Late st Contact Info) Description 08/01/2025 Orders Only [facility] Medical Group Cardiology [address] [place] [phone] Radha Bourne MD [address] [place] [address] Social History Tobacco Use Types Packs/Day Years [...] on file 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 Gender Identity Not on file Sexual Orientation Not on file documented as of this encounter Plan of Treatment Not on file documented as of this encounter Procedures Procedure Name Priority Date/Time Associated Diagnosis Comments CT CHEST PE W CONTRAST Schedule Routine, Read Routine (OP Routine) 06/29/2025 3:54 PM CDT CBC WITH AUTO DIFFERENTIAL Routine 06/29/2025 3:50 PM CDT ECG 12-LEAD Routine 06/29/2025 3:48 PM CDT documented in this encounter Results * CT Chest PE (CTA) W Contrast (06/29/2025 3:54 PM CDT) Anatomical Region Laterality Modality Body N/A Computed Tomogra phy Historical Provider IMG CT PROCEDURES Final R esult * CBC with auto differential (06/29/2025 3:50 PM CDT) Blood Historical Provider LAB BLOOD ORDERABLES Angelika l Result * ECG 12 lead (06/29/2025 3:48 PM CDT) Historical Provider ECG ORDERABLES Edited Re sult - Final documented in this encounter Visit Diagnoses Not on filedocumented in this encounter Care Teams Horticultural Services Supervisor Relationship Specialty Start Date End Date Sanjeev Maldonado MD PCP - General Internal Medicine 08/30/20 documented as of this encounter
--- OUTSIDE RECORDS SUMMARY | 2025-08-06 12:34 | XMS_ITS | Encounter Summary ---
Author Organization [facility] Healthcare Address [address] [place] [address] Care Team Providers Care Estimator Binding Name Role Phone Sanjeev Maldonado MD Primary Care Provider [phone] Reason for Referral * Cardiology (Routine) - Closed Specialty Diagnoses / Procedures Referred By Contac t Referred To Contact Cardiology Diagnoses PVC (premature ventricular contraction) Procedures Transthoracic Echo (TTE) Complete W Doppler/CF Gt Hunt NP [address] [address] Phone: tel: fax: Referral ID Status Reason Start Date Expiration Date Visits Re quested Visits Authorized [id number] Closed 08/02/2025 09/01/2026 1 1 Encounter Details Date Type Department Care Team (Late st Contact Info) Description 08/02/2025 Results Follow-Up [facility] Cardiology [address] [place] [phone] Gt Hunt NP [address] [address] 24 HR Holter Monitor, Transthoracic Echo (TTE) Complete W Doppler/CF Social History Tobacco Use Types Packs/Day Years [...] on file 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 Gender Identity Not on file Sexual Orientation Not on file documented as of this encounter Ordered Prescriptions Prescription Sig Dispense Quantity Refills Last Filled Start Date End Date aspirin 325 mg tablet Take 2 tablets twice daily for 4 days, then 1 tablet twice daily for 4 days, then 1 tablet daily for 4 days, then stop 28 tablet 08/05/2025 colchicine 0.5 mg tablet Take 0.5 mg by mouth 2 (two) times a day 180 tablet 08/05/2025 5 documented in this encounter Miscellaneous Notes * Addendum Note - David Morillo RN - 08/05/2025 1:13 PM CDTAddended by: DAVID MORILLO on: 08/05/2025 01:13 PM Modules accepted: Orders * Telephone Encounter - David Morillo RN - 08/05/2025 1:03 PM CDT Spoke to pt, reviewed Echo results and recommendations from CT. Pt is agreeable to course of treatment. States her PCP is testing her for COVID today. CT aware and pt informed per CT that it is ok tostart treatment today or wait until pt is feeling better, but to inform her PCP in case they also provide RX. Pt verbalized understanding. Scripts faxed per request to [facility]. * Telephone Encounter - Sandhya Murphy RN - 08/04/2025 11:06 AM CDT Pt present for echo in office today and started complaining of chest pain when lube technician started pressing the US wand on chest. Pt said the pain is the same as she complained to CT about at her appt last week but only when she moves a certain way. When echo was done pts pain resolved when US wand was removed. Advised pt to cont to monitor but is she has severe chest pain that is unrelieved with rest to report to the ED-pt verbalized understanding. documented in this encounter Plan of Treatment Not on file documented as of this encounter Procedures Procedure Name Priority Date/Time Associated Diagnosis Comments TRANSTHORACIC ECHO (TTE) COMPLETE W DOPPLER/CF WO CONTRAST Routine 08/04/2025 11:18 AM CDT PVC (premature ventricular contraction) documented in this encounter Results * TRANSTHORACIC ECHO (TTE) COMPLETE W DOPPLER/CF WO CONTRAST (08/04/2025 11:18 AM CDT) EF Mod BP 71 % CONS SCIMAGE Anatomical Region Laterality Modality Ultrasound 08/04/2025 10:3 0 AM CDT Narrative 08/04/2025 11:53 AM CDT [facility] Cardiology [address] [facility] [address], [place] [address] [address] [facility] [address], [place] [address] P:[phone] P:[phone] Echocardiographic Report Patient Name: ELIJAH SANDOVAL D : 1965 Study Date: 08/04/2025 10:30:30 AM Sex: F Assistant Cross Country Coach: Skylar Rm (Agusto)(CT), [facility] Location: [place] Ref Provider: GT HUNT Height(Cm): 160 BSA: 1.76 Weight(Kg): 69.9 Heart Rate: 67 BP: 116 / 82 Quality: Good Order Provider: GT HUNT PROCEDURES: Echocardiographic Report: Transthoracic echocardiogram with complete [...] FINDINGS: Interpretation Site: Exam was interpreted at [facility]. Left Ventricle: Normal left ventricular systolic function. [...] effusion. Electronically Signed By: Dr. Hal Barker [facility] 08/04/2025 11:52:54 AM CDT Procedure Note Hal Barker MD - 08/04/2025 [facility] Cardiology [address] [facility] [address], [place] [address] [address] [facility] [address], [place] [address] P:[phone] P:[phone] Echocardiographic Report Patient Name: ELIJAH ASNDOVALNapoleon : 1965 Study Date: 08/04/2025 10:30:30 AM Sex: F Assistant Cross Country Coach: Skylar Nazario)([place]), [facility] Location: [place] Ref Provider: GT HUNT Height(Cm): 160 BSA: 1.76 Weight(Kg): 69.9 Heart Rate: 67 BP: 116 / 82 Quality: Good Order Provider: GT HUNT PROCEDURES: Echocardiographic Report: Transthoracic echocardiogram with complete 2D, M-Mode, and color Dopplerexamination. With Strain Analysis. INDICATIONS: I49.3 Ventricular premature depolarization. MEASUREMENTS: 2D/MM Value Range Doppler ValueRange EF Mod BP 71 % [ 54 - 74 ] LIA Vmax 2.53cm2 [ 2.00 - 4.00 ] LV GLS -17.91 % AV Mean PG 3mmHg LVIDd 2D 3.95 cm [ 3.80 - 5.20 ] AV Peak [place] 1.23m/s [ 1.00 - 1.70 ] LVIDs [...] FINDINGS: Interpretation Site: Exam was interpreted at [facility]. Left Ventricle: Normal left ventricular systolic function. [...] effusion. Electronically Signed By: Dr. Hal Barker [facility] 08/04/2025 11:52:54 AM CDT Gt Hunt NP CV ECHO PROCEDURES Final Result documented in this encounter Visit Diagnoses Diagnosis PVC (premature ventricular contraction)- Primary Other premature beats documented in this encounter Care Teams Estimator Binding Relationship Specialty Start Date End Date Sanjeev Maldonado MD PCP - General Internal Medicine 08/30/20 documented as of this encounter
--- OUTSIDE RECORDS SUMMARY | 2025-08-06 12:34 | XMS_ITS | Encounter Summary ---
Author Organization [facility] Healthcare Address [address] [place] [address] Care Team Providers Care Exchange Clerk Name Role Phone Sanjeev Maldonado MD Primary Care Provider [phone] Encounter Details Date Type Department Care Team (Late st Contact Info) Description 08/05/[address] 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 * Telephone Encounter - Lisa Cates RN - 08/05/2025 4:31 PM CDT FYI: per patient request I sent a 90 day supply instead of a 30 with 2 refills * Telephone Encounter - Michell Hunt NP - 08/05/2025 4:08 PM CDT I cosigned the prescription orders for colchicine and aspirin, but could you contact her pharmacy and add 2 refills on for the colchicine? since I want her to take it for a total of 3 months. Thank you! documented in this encounter Plan of Treatment Not on file documented as of this encounter Visit Diagnoses Not on filedocumented in this encounter Care Teams Exchange Clerk Relationship Specialty Start Date End Date Sanjeev Maldonado MD PCP - General Internal Medicine 08/30/20 documented as of this encounter
--- OUTSIDE RECORDS SUMMARY | 2025-08-06 12:35 | XMS_ITS | Encounter Summary ---
Author Organization [facility] Address [address] [place] [address] Phone Care Team Providers Care Radiology Practitioner Assistant Name Role Phone Altaf Fowler DO Unavailable [phone] Sanjeev Maldonado MD Primary Care Provider Tuan Martin MD Unavailable Brad Powell MD Unavailable Helen Davis APRN HUNTER Unavailable Reason for Visit * Reason Comments Medication Refill Encounter Details Date Type Department Care Team (Late st Contact Info) Description 05/26/2023 Refill [facility] - Gastroenterology - [place] [address] [place] [address] Helen Davis APRN, HUNTER [address] [place] [address] Medication Refill Social History Tobacco Use Types [...] reflux documented in this encounter Care Teams Radiology Practitioner Assistant Relationship Specialty Start Date End Date Sanjeev Maldonado MD PCP - General Internal Medicine 02/26/17 Altaf Fowler DO Gastroenterology 01/04/16 Tuan Martin MD [address] [address] Cardiovascular Disease - Cardiology 08/28/22 Brad Powell MD [address] [address] Consulting Physician Colon and Rectal Surgery 03/13/23 Helen Davis APRN, HUNTER [address] [place] [address] Nurse Practitioner Advanced Practice Nurse 02/06/24 documented as of this encounter
--- OUTSIDE RECORDS SUMMARY | 2025-08-06 12:35 | XMS_ITS | Encounter Summary ---
Author Organization [facility] Address [address] [place] [place] [address] Phone Care Team Providers Care Kitchen Food Server Name Role Phone Altaf Fowler DO Unavailable [phone] Sanjeev Maldonado MD Primary Care Provider Tuan Martin MD Unavailable Brad Powell MD Unavailable Helen Davis APRN BELT WORKER Unavailable Reason for Visit * Reason Comments Medication Refill Encounter Details Date Type Department Care Team (Late st Contact Info) Description 05/25/2024 Refill [facility] - Gastroenterology - [place] [address] [place] [address] Helen Davis APRN, BELT WORKER [address] [place] [address] Medication Refill Social History Tobacco Use Types [...] AM CDT Medication refilled and signed [place] [facility] [place] order for pediatric and adult patients. documented in this encounter Plan of Treatment Not on file documented as of this encounter Visit Diagnoses Diagnosis Gastroesophageal reflux disease without esophagitis Esophageal reflux documented in this encounter Care Teams Kitchen Food Server Relationship Specialty Start Date End Date Sanjeev Maldonado MD PCP - General Internal Medicine 02/26/17 Altaf Fowler DO Gastroenterology 01/04/16 Tuan Martin MD [address] [address] Cardiovascular Disease - Cardiology 08/28/22 Brad Powell MD [address] [address] Consulting Physician Colon and Rectal Surgery 03/13/23 Helen Davis APRN, BELT WORKER [address] [place] [address] Nurse Practitioner Advanced Practice Nurse 02/06/24 documented as of this encounter
--- OUTSIDE RECORDS SUMMARY | 2025-08-06 12:35 | XMS_ITS | Encounter Summary ---
Author Organization [facility] Address [address] [facility] [place] [address] Phone Care Team Providers Care Airport Operations Specialist Name Role Phone Altaf Fowler DO Unavailable [phone] Sanjeev Maldonado MD Primary Care Provider [phone] Tuan Martin MD Unavailable Brad Powell MD Unavailable Helen Davis APRN PRESS SETUP OPERATOR Unavailable Reason for Visit * Reason Comments Medication Refill Encounter Details Date Type Department Care Team (Late st Contact Info) Description 12/02/2024 Refill [facility] - Gastroenterology - [place] [address] [place] [address] Helen Davis APRN, PRESS SETUP OPERATOR [address] [place] [address] Medication Refill Social History Tobacco Use Types [...] Sheree Shafer RN - 12/03/2024 8:[address] SUPERVISOR Medication refilled and signed [facility] chronic medication standing order for pediatric and adult patients. ET SUPERVISOR documented in this encounter Plan of Treatment Not on file documented as of this encounter Visit Diagnoses Diagnosis Gastroesophageal reflux disease without esophagitis Esophageal reflux documented in this encounter Care Teams Airport Operations Specialist Relationship Specialty Start Date End Date Sanjeev Maldonado MD PCP - General Internal Medicine 02/26/17 Altaf Fowler DO Gastroenterology 01/04/16 Tuan Martin MD [address] [facility] [address] [place] [address] Cardiovascular Disease - Cardiology 08/28/22 Brad Powell MD [address] [address] Consulting Physician Colon and Rectal Surgery 03/13/23 Helen Davis APRN, PRESS SETUP OPERATOR [address] [place] [address] Nurse Practitioner Advanced Practice Nurse 02/06/24 documented as of this encounter
[2025-08-06 12:56] VITALS: BP 120/75; PULSE 93; RESP 16; TEMP 36.6; O2SAT 98
[2025-08-06 13:33] VITALS: RESP 20; O2SAT 98
--- NOTE | 2025-08-06 14:27 | ECG_ITS ---
Test Date: 2025-08-06 14:39:51 Measurements Intervals [place] Rate: 88 P: 40 MT: 184 QRS: 7 QRSD: 99 T: 15 QT: 379 QTc: 461 Interpretive Statements SINUS RHYTHM LOW QRS VOLTAGE IN EXTREMITY LEADS [QRS DEFLECTION < 0.5 mV IN LIMB LEADS] POSSIBLE ANTERIOR MYOCARDIAL INFARCTION , OF INDETERMINATE AGE [30 ms Q WAVE IN V3/V4, OR R < 0.2 mV IN V4] NONSPECIFIC ST AND T-WAVE ABNORMALITY ABNORMAL ECG Compared to ECG 08/02/2025 17:48:59 Poor R-wave progression no longer present Myocardial infarct finding still present Electronically Signed On 08-07-2025 09:34:37 CDT by Sahil Hillman M.D.
[2025-08-06 14:45] VITALS: BP 114/72; PULSE 88; RESP 16; O2SAT 96
[2025-08-06 14:51] LABS: Hematocrit 32.9 % (37.0-47.0); Hemoglobin 10.7 g/dL (12.0-15.0); Immature Granulocyte Percent A 0.3 % (0-0.5); Lymphocytes Absolute Auto 1.50 K/mm3 (0.9-3.2); Mean Corpuscular HGB Conc 32.5 g/dl (32-36); Mean Corpuscular Hemoglobin 26.9 pg (26-34); Mean Corpuscular Volume 82.7 fl (80-100); Nucleated Red Blood Cells Absolute Auto 0.000 K/mm3 (0.0-0.012); Nucleated Red Blood Cells Perc 0.0 % (0.0-0.2); Platelet Count Result 206 k/mm3 (150-375); Red Blood Count 3.98 M/mm3 (4.2-5.4); White Blood Count 6.0 K/mm3 (4.5-10.0)
[2025-08-06 15:04] LABS: Alanine Aminotransferase 42 U/L (6-35); Albumin Level 4.4 g/dL (3.5-5.1); Alkaline Phosphatase 150 U/L (38-126); Anion Gap 12 mmol/L (4-12); Aspartate Amino Transferase 52 U/L (14-36); Bilirubin,Total 0.5 mg/dL (0.2-1.3); Blood Urea Nitrogen 9 mg/dL (7-17); Calcium 9.1 mg/dL (8.4-10.2); Carbon Dioxide 24 mmol/L (22-30); Chloride 104 mmol/L (98-107); Estimated CRCL calculation 75 ml/min; Estimated Glomerular Filt Rate > 60; Glucose 137 mg/dL (65-110); Magnesium 1.3 mg/dL (1.6-2.3); Potassium 3.7 mmol/L (3.4-5.0); Sodium 140 mmol/L (137-145); Total Protein 7.5 g/dL (6.3-8.2)
[2025-08-06 15:05] LABS: INR 0.9; Prothrombin Time 12.8 Seconds (11.1-14.7)
[2025-08-06 15:06] LABS: Partial Thromboplastin Time 27.5 Seconds (22.3-36.8)
[2025-08-06 15:13] LABS: NT Pro B Type Natriuretic Pept 31 pg/mL (19.9-100); Troponin I < 0.012 ng/mL (0.000-0.034)
--- NOTE | 2025-08-06 15:22 | ED.GENADULT ---
HPI - General Adult General Chief complaint: Unspecified Stated complaint: i still don't feel good Time Seen by Provider: 08/06/25 13:59 Source: patient and old records reviewed Mode of arrival: ambulatory Limitations: no limitations History of Present Illness HPI narrative: Patient is a 59-year-old female who presents the ED with report of multiple complaints. Patient reports having wound 2 week history of fatigue, generalized weakness, diffuse myalgias, this internal chest pain, right-sided abdominal pain, cough, congestion, lightheadedness, shortness of breath, fever of 101F last night. Patient states she feels like she has been run over by a truck. She was seen in our ED on 08/02 chest pain and had a negative/reassuring workup at that time, was discharge home. Related Data Home Medications ?Medication ?Instructions ?Recorded ?Confirmed ?Last Taken ?Type atorvastatin 20 mg tablet 20 mg PO DAILY 06/21/20 08/02/25 08/01/25 History fluoxetine 20 mg tablet 20 mg PO DAILY 06/21/20 08/02/25 08/02/25 History gabapentin 300 mg capsule 300 mg PO BID 06/21/20 08/02/25 08/02/25 History metformin 1,000 mg tablet 2,000 mg PO BID 06/21/20 08/02/25 08/02/25 History metoprolol succinate 25 mg 25 mg PO BID 06/21/20 08/02/25 08/02/25 History tablet,extended release 24 hr magnesium 500 mg tablet 15 mg PO BID 09/13/20 08/02/25 08/01/25 History allopurinol 100 mg tablet 100 mg PO DAILY 08/29/21 08/02/25 08/01/25 History empagliflozin 10 mg tablet 25 mg PO HS 07/02/23 08/02/25 07/01/23 21:00 History (Jardiance) Allergies Allergy/AdvReac Type Severity Reaction Status Date / Time codeine Allergy Unknown cold sores Verified 08/06/25 13:00 diphenhydramine Allergy Unknown BREAKS ME Verified 08/06/25 13:00 OUT doxycycline Allergy Unknown Nausea Verified 08/06/25 13:00 guaifenesin (Entex T) Allergy Unknown Skin Verified 08/06/25 13:00 Reaction naproxen Allergy Unknown Unknown Verified 08/06/25 13:00 Penicillins Allergy Unknown Unknown Verified 08/06/25 13:00 prednisone Allergy Unknown Unknown Verified 08/06/25 13:00 pseudoephedrine (Entex T) Allergy Unknown Skin Verified 08/06/25 13:00 Reaction ibuprofen AdvReac Mild nausea Verified 08/06/25 13:00 METOCLOPRAMIDE HCL Allergy Mild INTERACTS Uncoded 07/30/25 17:42 WITH PROZAC Review of Systems Review of Systems: All systems reviewed & are unremarkable except as noted in HPI. All systems reviewed & are unremarkable except as noted in HPI and below PMFSH Past Medical History Medical History Anemia Non-insulin dependent diabetes mellitus Asthma Hypertension Surgical History Surgical History H/O: hysterectomy History of cholecystectomy History of left knee replacement Family History Family History Sibling Family history of elevated blood lipids Family history of diabetes mellitus in first degree relative Mother Family history of diabetes mellitus in first degree relative Pulmonary embolism Father Family history of congestive heart failure Other Cerebrovascular accident Diabetes mellitus Family history of allergic disorder Family history of cardiovascular disease Family history of kidney disease Hypertension Social History Social History Smoking status: Never smoker Alcohol intake: never Substance use: never Do You Feel Safe in your Home?: Yes Lack of Transportation: No Lack of Food: Never True Current Housing: I Have Housing Concerned About Future Housing: No Difficulty Paying Gas/Electric Bills: No Difficulty Paying for Meds: No Currently Unemployed: No Education: High School Diploma/GED Difficulty w/ Childcare or Family Care: Decline to Answer Gender identity (if verbalized by the patient): Female Spiritual care concerns: No Exam Narrative: GENERAL: Well appearing, well-nourished, non-toxic, in no acute distress. HEAD: Normocephalic, atraumatic. RESPIRATORY: Airway patent, respirations nonlabored. Slight rhonchi/coarse lung sounds in left lower lung zone, no wheezing. CARDIOVASCULAR: Regular rate and rhythm without murmurs, rubs, or gallops. ABDOMINAL: Soft, mild tenderness to palpation diffusely throughout right-sided/lateral abdomen, nondistended. Normoactive BS. MUSCULOSKELETAL: Moves all extremities. No gross deformities. Mild diffuse discomfort across anterior chest wall. No peripheral edema SKIN: Warm, dry, normal color. NEURO: A&O X3. Speech clear. Cranial nerves II-XII grossly intact. Steady gait. No ataxic movements. No focal deficits. PSYCHIATRIC: Appropriate mood and affect. Normal interaction. Course Vital Signs Vital signs: Vital Signs Temperature 97.9 F 08/06/25 12:56 Pulse Rate 93 08/06/25 12:56 Respiratory Rate 16 08/06/25 12:56 Blood Pressure 120/75 08/06/25 12:56 Pulse Oximetry 98 08/06/25 12:56 Oxygen Delivery Room Air 08/06/25 12:56 Temperature 97.9 F 08/06/25 12:56 Pulse Rate 75 08/06/25 17:59 Respiratory Rate 18 08/06/25 17:59 Blood Pressure 126/74 08/06/25 17:59 Pulse Oximetry 100 08/06/25 17:59 Oxygen Delivery Room Air 08/06/25 12:56 Medical Decision Making [facility] Narrative Medical decision making narrative: Patient presented to ED with multiple complaints, weakness, fatigue, myalgias, cough/URI symptoms, shortness of breath. Vital signs are stable upon arrival. Patient is in no acute distress. Oxygen stable on room air. Laboratory studies without leukocytosis, chronic mild anemia. Consistent with previous records. CMP without significant abnormalities or electrolyte derangement. Slight transaminitis noted, this is consistent with previous records. Magnesium was noted to be low at 1.3. Given 2 g IV replacement. UA clear, no signs of infection. Viral swabs negative. EKG without concerning ST changes. Somewhat low voltage. Troponin is undetectable. BNP within normal range. D-dimer within normal range. Chest x-ray clear, no evidence of pneumonia. CT of the abdomen/pelvis was obtained and also unremarkable, no concerning features. Patient feeling improved after fluids. Discussed overall reassuring workup with patient, feel she is safe for discharge home at this time. Will discharge with short course of magnesium supplementation. Discussed possibility of viral URI causing symptoms/myalgias/URI complaints. Discussed continue management of such. Recommended that patient follow-up closely with her primary care doctor for further evaluation. Given strict return precautions. Patient feels comfortable going home. Discharged in stable condition. Medical Records Medical records reviewed: Yes I reviewed the external patient's medical records. Vital Signs Vital Signs: Vital Signs Temperature 97.9 F 08/06/25 12:56 Pulse Rate 93 08/06/25 12:56 Respiratory Rate 16 08/06/25 12:56 Blood Pressure 120/75 08/06/25 12:56 Pulse Oximetry 98 08/06/25 12:56 Oxygen Delivery Room Air 08/06/25 12:56 Temperature 97.9 F 08/06/25 12:56 Pulse Rate 75 08/06/25 17:59 Respiratory Rate 18 08/06/25 17:59 Blood Pressure 126/74 08/06/25 17:59 Pulse Oximetry 100 08/06/25 17:59 Oxygen Delivery Room Air 08/06/25 12:56 Lab Data Lab results reviewed: Yes I reviewed the patient's lab results. 08/06/25 14:46 08/06/25 14:45 Labs: Lab Results 08/06/25 08/06/25 08/06/25 Range/Units 14:45 14:46 16:35 WBC 6.0 (4.5-10.0) K/mm3 RBC 3.98 L (4.2-5.4) M/mm3 Hgb 10.7 L (12.0-15.0) g/dL Hct 32.9 L (37.0-47.0) % MCV 82.7 (80-100) fl MCH 26.9 (26-34) pg MCHC 32.5 (32-36) g/dl RDW 14.6 H (11.5-14.5) % Plt Count 206 (150-375) k/mm3 MPV 8.4 (7.4-10.4) fl Immature Gran % (Auto) 0.3 (0-0.5) % Neut % (Auto) 66.7 (45.5-73.1) % Lymph % (Auto) 25.0 (18.3-44.2) % [place] % (Auto) 6.0 (2.6-8.5) % Eos % (Auto) 1.5 (0-4.4) % Baso % (Auto) 0.5 (0.2-1.2) % Lymph # (Auto) 1.50 (0.9-3.2) K/mm3 [place] # (Auto) 0.4 (0.1-0.6) K/mm3 Eos # (Auto) 0.1 (0-0.3) K/mm3 Baso # (Auto) 0.0 (0.0-0.1) K/mm3 Abs Immat Gran (auto) 0.02 (0.00-0.031) K/mm3 Absolute Neuts (auto) 4.0 (1.3-6.7) K/mm3 Absolute Nucleated RBC 0.000 (0.0-0.012) K/mm3 Nucleated RBC % 0.0 (0.0-0.2) % PT 12.8 (11.1-14.7) Seconds INR 0.9 APTT 27.5 (22.3-36.8) Seconds D-Dimer < 0.27 (<0.48) ug/mL Sodium 140 (137-145) mmol/L Potassium 3.7 (3.4-5.0) mmol/L Chloride 104 (98-107) mmol/L Carbon Dioxide 24 (22-30) mmol/L Anion Gap 12 (4-12) mmol/L BUN 9 (7-17) mg/dL Creatinine 0.64 L (0.7-1.0) mg/dL Estim Creat Clear Calc 75 ml/min Estimated GFR > 60 (59 - ) Glucose 137 H (65-110) mg/dL Calcium 9.1 (8.4-10.2) mg/dL Magnesium 1.3 L (1.6-2.3) mg/dL Total Bilirubin 0.5 (0.2-1.3) mg/dL AST 52 H (14-36) U/L ALT 42 H (6-35) U/L Alkaline Phosphatase 150 H (38-126) U/L Troponin I < 0.012 (0.000-0.034) ng/mL NT-Pro-B Natriuret Pep 31 (19.9-100) pg/mL Total Protein 7.5 (6.3-8.2) g/dL Albumin 4.4 (3.5-5.1) g/dL Urine Color Yellow (Yellow) Urine Appearance Clear (Clear) Urine pH 5.5 (5.0-9.0) Ur Specific [place] 1.006 (1.001-1.035) Urine Protein Negative (Negative) mg/dL Urine Glucose (UA) Negative (Negative) mg/dL Urine Ketones Negative (Negative) mg/dL Ur Blood (Man) Negative (Negative) Urine Nitrate Negative (Negative) Urine Bilirubin Negative (Negative) Urine Urobilinogen 0.2 (<2.0) mg/dL Leukocyte Esterase Rfl Negative (Negative) JT/UL Influenza A (RT-PCR) Negative (Negative) Influenza B (RT-PCR) Negative (Negative) RSV (RT-PCR) Negative (Negative) SARS-CoV-2 RNA (RT-PCR) Negative (Negative) Imaging Data Attestation: I personally reviewed and interpreted this imaging study as follows: Radiologist's impression: ITS Impressions Chest X-Ray 08/06/25 15:51 Impression: No acute cardiopulmonary abnormality. Abdomen/Pelvis CT 08/06/25 16:58 IMPRESSION: 1. No acute intra-abdominal process. Incidental findings above ECG Data EKG #1: Attestation: I personally reviewed and interpreted this ECG as follows: ECG completion date: 08/06/25 ECG completion time: 14:39 EKG Interpretation: normal rate (88), sinus rhythm, non-specific ST changes and other (low voltage) Discharge Plan Discharge Clinical Impression: Hypomagnesemia, Myalgia Upper respiratory infection Qualifiers: URI type: unspecified URI Qualified Code(s): J06.9 - Acute upper respiratory infection, unspecified Patient Disposition: Home Condition: Stable Instructions: Antibiotic Form, Muscle Strain (ED), Upper Respiratory Infection (ED), Viral Syndrome (ED) Additional Instructions: Take magnesium supplement over next couple days. Your workup here was very reassuring. Stay well hydrated at home. You may continue Tylenol/ibuprofen as needed for further muscle pain/fevers. Recommend Tessalon Perles as needed for cough. Recommend [id number] cough and cold medicines for symptom relief, Delsym, DayQuil, NyQuil, Robitussin, TheraFlu. Follow up with your primary care doctor for further evaluation. Call office to make appointment on Friday. Return to the ED if you experience worsening or severe symptoms, chest pain, difficulty breathing, unable to keep down food or drink, severe pain, or any other symptoms of concern. Patient Language: Nicaraguan Prescriptions: New benzonatate 200 mg capsule 200 mg PO TID PRN (Reason: cough) Qty: 20 0RF magnesium oxide 400 mg magnesium capsule 400 mg PO DAILY 3 Days Qty: 3 0RF No Action atorvastatin 20 mg Tablet 20 mg PO DAILY fluoxetine 20 mg Tablet 20 mg PO DAILY metformin 1,000 mg Tablet 2,000 mg PO BID gabapentin 300 mg Capsule 300 mg PO BID metoprolol succinate 25 mg Tablet Extended Release 24 Hr 25 mg PO BID magnesium 500 mg Tablet 15 mg PO BID allopurinol 100 mg Tablet 100 mg PO DAILY Jardiance 10 mg tablet 25 mg PO HS albuterol sulfate 2.5 mg/0.5 mL solution for nebulization 5 mg inhalation Q6H PRN (Reason: shortness of breath or wheezing) Qty: 30 0RF acetaminophen 325 mg Tablet 650 mg PO Q4H PRN (Reason: Mild Pain (1-3) Or Fever) Qty: 60 0RF azithromycin 500 mg tablet 500 mg PO DAILY 3 Days Qty: 4 0RF cefdinir 300 mg capsule 300 mg PO Q12H Qty: 10 0RF Follow-up/Referrals: Erica,Sanjeev Pozo MD [Primary Care Provider, Unknown] Time of Disposition: 17:37
[2025-08-06 15:27] LABS: Influenza A QL RT-PCR Negative (Negative); Influenza B QL RT-PCR Negative (Negative); RSV RNA, RT-PCR Negative (Negative); SARS-CoV-2 RNA PCR Negative (Negative)
[2025-08-06] MEDS: MAGNESIUM SULF 2 GM/WATER 50ML 2 GM/50 ML BAG IVPB (16:02)
[2025-08-06] MEDS: SODIUM CHLORIDE 0.9% IV 1,000 ML 999 ML IV CONT (16:02)
[2025-08-06 16:36] VITALS: BP 117/74; PULSE 92; RESP 16; O2SAT 95
[2025-08-06 16:43] LABS: Add Urine Microscopic? NO; Appearance Urine Clear (Clear); Glucose Urine UA Negative (Negative); Leukocyte Esterase Ur Negative LEU/UL (Negative); Nitrate Urine Negative (Negative); Specific Grav Ur 1.006 (1.001-1.035)
[2025-08-06 17:07] VITALS: BP 116/72; PULSE 84; RESP 16; O2SAT 95
[2025-08-06 17:59] VITALS: BP 126/74; PULSE 75; RESP 18; O2SAT 100
== END 2025-08-06 18:00 | disposition home or self-care (01) ==
PROVIDERS: Emergency Provider Physician Assistant; PCP Internal Medicine
DX: J06.9 Acute upper respiratory infection, unspecified (principal); E83.42 Hypomagnesemia; M79.10 Myalgia, unspecified site; I10 Essential (primary) hypertension; J45.909 Unspecified asthma, uncomplicated; E11.9 Type 2 diabetes mellitus without complications; Z20.822 Contact with and (suspected) exposure to COVID-19
CPT/HCPCS: 36415; 71046; 74177; 80053; 81003; 83735; 83880; 84484; 85025; 85380; 85610; 85730; 87637; 93005; 96365; 99284; J3475; J7030; Q9967